=== PATIENT | male | born 1935 | race Caucasian/White ===

== ENCOUNTER 2017-07-18 09:45 | Outpatient (RCR) | payer MEDICARE, OTHER, SELFPAY ==
--- NOTE | 2017-07-02 11:03 | PT.OTN ---
Addendum entered and electronically signed by Uyen Lockhart, PT 07/02/17 15:23: Transition note: On July 02, 2017 our therapy services consisting of Speech, Occupational, and Physical Therapy transitioned from the [employer] electronic documentation system to a new [employer] electronic documentation system.?? All documentation prior to July 02 can be found under [employer] saved data. From July 02 forward all medical record documentation will be in [email or web address]. Original Note: Physical Therapy Treatment Note PT-OP-A Visit Information Start: 07/02/17 10:24 Freq: Status: Active Protocol: Activity Type Activity Date Activity User E-Sign Co-Sign Detail Recorded Client Recorded Date Recorded By Document 07/02/17 10:26 [facility] [id number] 07/02/17 10:53 [facility] 07/02/17 10:26 Out-Patient Physical Therapy Visit Information [Visit Information] -Visit Type Treatment Note -Visit Start Time 09:45 -Visit Stop Time 10:32 -Total Visit Minutes 47 -Visit Number 6 -Number of BRANCH SERVICE LEADER Visits 0 [Evaluation Information] -Evaluation Date 06/04/17 PT-OP-C Subjective Start: 07/02/17 10:24 Freq: Status: Active Protocol: Activity Type Activity Date Activity User E-Sign Co-Sign Detail Recorded Client Recorded Date Recorded By Document 07/02/17 10:26 [facility] [id number] 07/02/17 10:53 [facility] 07/02/17 10:26 OP-PT Subjective [Patient Comments] -Patient Comments My hip really hurt after last time, I had to sit in the waiting room drinking coffee while waiting for the pain to go down, but I don't really know why. -Patient Reported Progress Same PT-OP-Q Treatments Start: 07/02/17 10:24 Freq: Status: Active Protocol: Activity Type Activity Date Activity User E-Sign Co-Sign Detail Recorded Client Recorded Date Recorded By Document 07/02/17 10:26 [facility] [id number] 07/02/17 10:53 [facility] 07/02/17 10:26 Cardio Equipment [Upper Body Ergometer (UBE)] -Duration (Minutes) 5 -RPM 60 -Other Fwd/Bkwd Gym Equipment [Shuttle Recovery] Unilateral Squats -Resistance 50# -Shuttle Recovery Platform Stable -Reps/Time 5 Bilateral Squats -Resistance 50# -Shuttle Recovery Platform Stable -Reps/Time 5 Therapeutic Exercises [Sitting Exercises] 2 -Sitting Exercise Name Pulleys - Abduction -Side bilateral -Equipment Used Pulleys -Reps/Minutes 3 1 -Sitting Exercise Name Pulleys - Flexion -Side bilateral -Equipment Used Pulleys -Reps/Minutes 3 [Standing Exercises] 2 -Standing Exercise Name Resisted UE Side-stepping at rail -Side bilateral -Resistance Yellow -Equipment Used T-band -Reps/Minutes 3 -Comments T-band at wrists 1 -Standing Exercise Name Resisted Side- stepping at Rail -Side bilateral -Resistance Yellow -Equipment Used T-band -Reps/Minutes 3 -Comments T-band around ankles Manual Therapy Treatment [Soft Tissue Mobilization] 2 -Body Location ITB -Intensity/Depth Moderate -Body Position Sidelying 1 -Body Location Piriformis -Mobilization Type Cross-Friction -Intensity/Depth Deep -Body Position Sidelying PT-OP-R Modalities Start: 07/02/17 10:24 Freq: Status: Active Protocol: Activity Type Activity Date Activity User E-Sign Co-Sign Detail Recorded Client Recorded Date Recorded By Document 07/02/17 10:26 [facility] [id number] 07/02/17 10:53 [facility] 07/02/17 10:26 Electric Stimulation [Electric Stimulation] Interferential Current (IFC) -Body Location R hip -Duration (Minutes) 15 -Intensity 33 -Contraction Type Normal -Target/Sweep Sweep -Cycle Continuous -Patient Position Supine -Combined With Heat/Cold Cold Pack PT-OP-T Assessment and Plan Start: 07/02/17 10:24 Freq: Status: Active Protocol: Activity Type Activity Date Activity User E-Sign Co-Sign Detail Recorded Client Recorded Date Recorded By Document 07/02/17 10:26 [id number] 07/02/17 10:53 [facility] 07/02/17 10:26 Physical Therapy Assessment [Rehab Potential] -Rehabilitation Potential Good [Impairments] -Impairments Pain ROM Soft Tissue Mobility Strength Tone [Assessment Summary] -Assessment Pt feeling better today after increased soreness following his last visit. He felt use of the Iontophoresis treatment last week did not make any difference. Continue current plan for increased flexibility/ROM , hip strengthening, decreased muscle tone, and pain control Physical Therapy Plan [Frequency and Duration] -Frequency of Treatment 2x/Week -Plan of Care Start Date 06/04/17 -Plan of Care End Date 08/26/17 [Therapeutic Interventions] -Therapeutic Interventions Home Exercise Program Joint Mobilizations Manual Therapy Soft Tissue Mobilization Therapeutic Activities Therapeutic Exercises -Modalities Cold Pack/Ice Massage Electric Stimulation Hot Packs Iontophoresis Ultrasound [Next Visit Focus/Plan] -Next Visit Plan Continued current POC Current Diagnoses Pain in left shoulder (07/02/17) Pain in right hip (07/02/17) Stiffness of right hip, not elsewhere classified (07/02/17) Impingement syndrome of left shoulder (07/02/17) Other shoulder lesions, left shoulder (07/02/17) Weakness (07/02/17) Strain of muscle, fascia and tendon of the posterior muscle group at thigh level, right thigh, subsequent encounter (07/02/17)
--- NOTE | 2017-07-04 13:08 | PT.OTN ---
Current Diagnoses Pain in left shoulder (07/04/17) Pain in right hip (07/04/17) Stiffness of right hip, not elsewhere classified (07/04/17) Impingement syndrome of left shoulder (07/04/17) Other shoulder lesions, left shoulder (07/04/17) Weakness (07/04/17) Strain of muscle, fascia and tendon of the posterior muscle group at thigh level, right thigh, subsequent encounter (07/04/17) Physical Therapy Treatment Note PT-OP-A Visit Information Start: 07/02/17 10:24 Freq: Status: Active Protocol: Activity Type Activity Date Activity User E-Sign Co-Sign Detail Recorded Client Recorded Date Recorded By Document 07/04/17 09:50 GGD [email or web address] 07/04/17 13:07 GGD 07/04/17 09:50 Out-Patient Physical Therapy Visit Information [Visit Information] -Visit Type Treatment Note -Total Visit Minutes 55 -Visit Number 7/10 for G code -Number of ADMINISTRATION DEAN Visits 1 [Evaluation Information] -Evaluation Date 06/04/17 PT-OP-C Subjective Start: 07/02/17 10:24 Freq: Status: Active Protocol: Activity Type Activity Date Activity User E-Sign Co-Sign Detail Recorded Client Recorded Date Recorded By Document 07/04/17 09:50 GGD [email or web address] 07/04/17 13:07 GGD 07/04/17 09:50 OP-PT Subjective [Patient Comments] -Patient Comments Pt did have increase in hip pain after last visit. His shoulder feels about the same . -Patient Reported Progress Same PT-OP-Q Treatments Start: 07/02/17 10:24 Freq: Status: Active Protocol: Activity Type Activity Date Activity User E-Sign Co-Sign Detail Recorded Client Recorded Date Recorded By Document 07/04/17 09:50 GGD [email or web address] 07/04/17 13:07 GGD 07/04/17 09:50 Cardio Equipment [Upper Body Ergometer (UBE)] -Duration (Minutes) 5 -RPM 60 -Other Fwd/Bkwd Gym Equipment [Shuttle Recovery] Unilateral Squats -Resistance R 50#, L 37# -Shuttle Recovery Platform Stable -Reps/Time 5 Bilateral Squats -Resistance 50# -Shuttle Recovery Platform Stable -Reps/Time 5 Therapeutic Exercises [Sitting Exercises] 2 -Sitting Exercise Name Pulleys - Abduction -Side bilateral -Equipment Used Pulleys -Reps/Minutes 3 1 -Sitting Exercise Name Pulleys - Flexion -Side bilateral -Equipment Used Pulleys -Reps/Minutes 3 [Standing Exercises] 2 -Standing Exercise Name Resisted UE Side-stepping at rail -Side bilateral -Resistance Yellow -Equipment Used T-band -Reps/Minutes 3 -Comments T-band at wrists Gait Training [Gait Activity] 1 -Description Stairs -Level of Assistance SBA -Surface 4 in and 6 in -Distance/Duration 4 -Comments reciprocal to ascend and side step to decend Manual Therapy Treatment [Soft Tissue Mobilization] 2 -Body Location ITB -Intensity/Depth Moderate -Body Position Sidelying 1 -Body Location Piriformis -Mobilization Type Cross-Friction -Intensity/Depth Deep -Body Position Sidelying PT-OP-R Modalities Start: 07/02/17 10:24 Freq: Status: Active Protocol: Activity Type Activity Date Activity User E-Sign Co-Sign Detail Recorded Client Recorded Date Recorded By Document 07/04/17 09:50 GGD [email or web address] 07/04/17 13:07 GGD 07/04/17 09:50 Electric Stimulation [Electric Stimulation] Interferential Current (IFC) -Body Location R hip -Duration (Minutes) 15 -Contraction Type Normal -Target/Sweep Sweep -Cycle Continuous -Patient Position Supine -Combined With Heat/Cold Cold Pack Hot Pack/Cold Pack [Treatment] Cold Pack -Location left shoulder -Patient Position Hooklying -Treatment Duration (minutes) 15 -Patient Tolerance Good PT-OP-T Assessment and Plan Start: 07/02/17 10:24 Freq: Status: Active Protocol: Activity Type Activity Date Activity User E-Sign Co-Sign Detail Recorded Client Recorded Date Recorded By Document 07/04/17 09:50 GGD [email or web address] 07/04/17 13:07 GGD 07/04/17 09:50 Physical Therapy Assessment [Assessment Summary] -Assessment Pt improving slowly with shoulder ROM. He had better tolerance to Left single leg squats at a lower weight and decrease C/ O knee pain. Physical Therapy Plan [Frequency and Duration] -Frequency of Treatment 2x/Week -Plan of Care Start Date 06/04/17 -Plan of Care End Date 08/26/17 [Next Visit Focus/Plan] -Next Visit Plan Continued under current Plan of care. Progress UE strengthening, step up and step downs for strengthening
--- NOTE | 2017-07-11 11:12 | PT.OTN ---
Current Diagnoses Pain in left shoulder (07/11/17) Pain in right hip (07/11/17) Stiffness of right hip, not elsewhere classified (07/11/17) Impingement syndrome of left shoulder (07/11/17) Other shoulder lesions, left shoulder (07/11/17) Weakness (07/11/17) Strain of muscle, fascia and tendon of the posterior muscle group at thigh level, right thigh, subsequent encounter (07/11/17) Physical Therapy Treatment Note PT-OP-A Visit Information Start: 07/02/17 10:24 Freq: Status: Active Protocol: Document 07/11/17 09:45 DCW (Rec: 07/11/17 11:12 DCW [id number]) Out-Patient Physical Therapy Visit Information Visit Information Visit Type Treatment Note Total Visit Minutes 55 Visit Number 8 Number of HYDROPULPER OPERATOR Visits 0 Evaluation Information Evaluation Date 06/04/17 PT-OP-C Subjective Start: 07/02/17 10:24 Freq: Status: Active Protocol: Document 07/11/17 09:45 DCW (Rec: 07/11/17 11:12 DCW [id number]) OP-PT Subjective Patient Comments Patient Comments I'm doing good, by my right knee is not. Pt does note his shoulder is a bit better. Patient Reported Progress Same PT-OP-Q Treatments Start: 07/02/17 10:24 Freq: Status: Active Protocol: Document 07/11/17 09:45 DCW (Rec: 07/11/17 11:12 DCW [id number]) Cardio Equipment Upper Body Ergometer (UBE) Duration (Minutes) 5 RPM 60 Other Fwd/Bkwd Gym Equipment Shuttle Recovery Unilateral Squats Resistance 37# Shuttle Recovery Platform Stable Reps/Time 5 Bilateral Squats Resistance 50# Shuttle Recovery Platform Stable Reps/Time 5 Therapeutic Exercises Sitting Exercises 2 Sitting Exercise Name Pulleys - Abduction Side bilateral Equipment Used Pulleys Reps/Minutes 3 1 Sitting Exercise Name Pulleys - Flexion Side bilateral Equipment Used Pulleys Reps/Minutes 3 Standing Exercises 2 Standing Exercise Name Resisted UE Side-stepping at rail Side bilateral Resistance Yellow Equipment Used T-band Reps/Minutes 3 Comments T-band at wrists 1 Standing Exercise Name Resisted Side-stepping at Rail Side bilateral Resistance Yellow Equipment Used T-band Reps/Minutes 3 Comments T-band around ankles Manual Therapy Treatment Soft Tissue Mobilization 2 Body Location ITB Intensity/Depth Moderate Body Position Sidelying 1 Body Location Piriformis Mobilization Type Cross-Friction Intensity/Depth Deep Body Position Sidelying PT-OP-R Modalities Start: 07/02/17 10:24 Freq: Status: Active Protocol: Document 07/11/17 09:45 DCW (Rec: 07/11/17 11:12 DCW [id number]) Electric Stimulation Electric Stimulation Interferential Current (IFC) Body Location R hip Duration (Minutes) 15 Contraction Type Normal Target/Sweep Sweep Cycle Continuous Patient Position Supine Combined With Heat/Cold Cold Pack Hot Pack/Cold Pack Treatment Cold Pack Location left shoulder Patient Position Hooklying Treatment Duration (minutes) 15 Patient Tolerance Good PT-OP-T Assessment and Plan Start: 07/02/17 10:24 Freq: Status: Active Protocol: Document 07/11/17 09:45 DCW (Rec: 07/11/17 11:12 DCW [id number]) Physical Therapy Assessment Rehab Potential Rehabilitation Potential Good Impairments Impairments Pain ROM Soft Tissue Mobility Strength Tone Assessment Summary Assessment Increased complaints of bilateral knee pain today, but noted improvement in his shoulder pain levels and mobility. Pt better tolerated manual intervention on his hip . Physical Therapy Plan Frequency and Duration Frequency of Treatment 2x/Week Plan of Care Start Date 06/04/17 Plan of Care End Date 08/26/17 Therapeutic Interventions Therapeutic Interventions Home Exercise Program Joint Mobilizations Manual Therapy Soft Tissue Mobilization Therapeutic Activities Therapeutic Exercises Modalities Cold Pack/Ice Massage Electric Stimulation Hot Packs Iontophoresis Ultrasound Next Visit Focus/Plan Next Visit Plan Progress step-ups if knees are better next week, continue strengthening, ROM, and manual STM.
--- NOTE | 2017-07-18 17:20 | PT.OTN ---
Current Diagnoses Pain in left shoulder (07/18/17) Pain in right hip (07/18/17) Stiffness of right hip, not elsewhere classified (07/18/17) Impingement syndrome of left shoulder (07/18/17) Other shoulder lesions, left shoulder (07/18/17) Weakness (07/18/17) Strain of muscle, fascia and tendon of the posterior muscle group at thigh level, right thigh, subsequent encounter (07/18/17) Physical Therapy Treatment Note PT-OP-A Visit Information Start: 07/02/17 10:24 Freq: Status: Active Protocol: Document 07/18/17 17:14 GGD (Rec: 07/18/17 17:20 GGD [email or web address]) Out-Patient Physical Therapy Visit Information Visit Information Visit Type Treatment Note Visit Start Time 09:45 Visit Stop Time 10:40 Total Visit Minutes 55 Visit Number 11/11 Number of ENVIRONMENTAL SERVICES MANAGER Visits 1 Evaluation Information Evaluation Date 06/04/17 PT-OP-C Subjective Start: 07/02/17 10:24 Freq: Status: Active Protocol: Document 07/18/17 17:14 GGD (Rec: 07/18/17 17:20 GGD [email or web address]) OP-PT Subjective Patient Comments Patient Comments Pt states that he was sore all over after cleaning out his pond. PT-OP-Q Treatments Start: 07/02/17 10:24 Freq: Status: Active Protocol: Document 07/18/17 17:14 GGD (Rec: 07/18/17 17:20 GGD [email or web address]) Gym Equipment Shuttle Recovery Unilateral Squats Resistance 37# Shuttle Recovery Platform Stable Reps/Time 5 Bilateral Squats Resistance 62# Shuttle Recovery Platform Stable Reps/Time 5 Therapeutic Exercises Sitting Exercises 2 Sitting Exercise Name Pulleys - Abduction Side bilateral Equipment Used Pulleys Reps/Minutes 3 1 Sitting Exercise Name Pulleys - Flexion Side bilateral Equipment Used Pulleys Reps/Minutes 3 Standing Exercises 3 Standing Exercise Name Step ups Side bilateral Resistance 4 in step Reps/Minutes 10 2 Standing Exercise Name Resisted UE Side-stepping at rail Side bilateral Resistance Yellow Equipment Used T-band Reps/Minutes 3 Comments T-band at wrists 1 Standing Exercise Name Resisted Side-stepping at Rail Side bilateral Resistance Yellow Equipment Used T-band Reps/Minutes 3 Comments T-band around ankles Manual Therapy Treatment Soft Tissue Mobilization 2 Body Location ITB Intensity/Depth Moderate Body Position Sidelying 1 Body Location Piriformis Mobilization Type Cross-Friction Intensity/Depth Deep Body Position Sidelying PT-OP-R Modalities Start: 07/02/17 10:24 Freq: Status: Active Protocol: Document 07/18/17 17:14 GGD (Rec: 07/18/17 17:20 GGD [email or web address]) Electric Stimulation Electric Stimulation Interferential Current (IFC) Body Location R hip Duration (Minutes) 15 Contraction Type Normal Target/Sweep Sweep Cycle Continuous Patient Position Supine Combined With Heat/Cold Cold Pack Hot Pack/Cold Pack Treatment Cold Pack Location left shoulder Patient Position Hooklying Treatment Duration (minutes) 15 Patient Tolerance Good PT-OP-T Assessment and Plan Start: 07/02/17 10:24 Freq: Status: Active Protocol: Document 07/18/17 17:14 GGD (Rec: 07/18/17 17:20 GGD [email or web address]) Physical Therapy Assessment Assessment Summary Assessment PT improved tolerance to LE strengthening with decrease in c/o knee pain. Physical Therapy Plan Frequency and Duration Frequency of Treatment 2x/Week Plan of Care Start Date 06/04/17 Plan of Care End Date 08/26/17 Next Visit Focus/Plan Next Visit Plan Continued under current Plan of care. Progress UE strengthening.
--- NOTE | 2017-09-05 12:30 | PT.OPDS ---
Current Diagnoses Pain in left shoulder (07/18/17) Pain in right hip (07/18/17) Stiffness of right hip, not elsewhere classified (07/18/17) Impingement syndrome of left shoulder (07/18/17) Other shoulder lesions, left shoulder (07/18/17) Weakness (07/18/17) Strain of muscle, fascia and tendon of the posterior muscle group at thigh level, right thigh, subsequent encounter (07/18/17) Provider Visit Care Team Role Provider Type Douglas Turner MD Attending Provider Physician Family Provider Primary Care Provider Specialty: Family Practice Address: [address] [place] [address], [facility] Email: [email or web address] Visit Number Visit Number 11/11 Discharge Summary PT-OP-T Assessment and Plan Start: 07/02/17 10:24 Freq: Status: Active Protocol: Document 09/05/17 12:26 DCW (Rec: 09/05/17 12:29 DCW [id number]) Physical Therapy Assessment Assessment Summary Assessment Pt never scheduled any follow- up visits following his last visit on 07/18/17, and has now not been seen in 47 days. Pt will require a new referral in order to return to skilled therapy, and will be discharged at this time. G-codes: Goal: G8982 - CI 1-20% D/C: G8983 - CJ 20-40% Physical Therapy Plan Discharge Physical Therapy Discharge Reasons No Longer Attending PT
== END 2017-12-12 12:03 ==
LOC: PHYS 09:45
PROVIDERS: Family Provider Family Medicine; PCP Family Medicine; Visit Provider Family Medicine
DX: M75.82 Other shoulder lesions, left shoulder (principal); M75.42 Impingement syndrome of left shoulder; M25.512 Pain in left shoulder; R53.1 Weakness; S76.311D Strain of muscle, fascia and tendon of the posterior muscle group at thigh level, right thigh, subsequent encounter; M25.551 Pain in right hip; M25.651 Stiffness of right hip, not elsewhere classified
CPT/HCPCS: 97010; 97014; 97110; 97140; G0283

== ENCOUNTER → 2017-12-06 08:57 | Outpatient (CLI) | payer MEDICARE, OTHER, SELFPAY ==
[2017-12-06 09:41] LABS: Add Manual Diff / Slide Review NO; Basophils Percent Auto 0.9 % (0-2); Eosinophils Percent Auto 2.4 % (2-4); Hematocrit 39.3 % (41-53); Hemoglobin 13.4 g/dL (13.5-17.5); Lymphocytes Percent Auto 27.3 % (25-40); Mean Corpuscular HGB Conc 34.2 % (30-36); Mean Corpuscular Hemoglobin 34.6 PG (26-34); Mean Corpuscular Volume 101.1 fL (80-100); Monocytes Percent Auto 10.6 % (3-14); Neutrophils Absolute Auto 2800 /uL (3000-5900); Neutrophils Percent Auto 58.8 % (50-75); Platelet Count 207 X10^3/uL (150-400); Red Blood Cell Count 3.89 X10^6/uL (4.5-5.9); White Blood Cell Count 4.7 X10^3/uL (4.5-11.0)
[2017-12-06 09:49] LABS: Hemoglobin A1C% w Est Avg Glu 5.8 % (4.0-6.0)
[2017-12-06 10:01] LABS: Alanine Aminotransferase 36 IU/L (21-72); Albumin 3.8 g/dL (3.5-5.0); Albumin Globulin Ratio 1.3 (1.0-2.8); Alkaline Phosphatase 41 U/L (38-126); Aspartate Aminotransferase 31 IU/L (17-59); Bilirubin Total 0.7 mg/dL (0.2-1.3); Blood Urea Nitrogen 16 mg/dL (9-20); Calcium 9.3 mg/dL (8.4-10.2); Carbon Dioxide 29 mmol/L (22-32); Chloride 99 mmol/L (98-107); Cholesterol 130 mg/dL (140-199); Estimated Glomerular Filt Rate > 60.0 mL/min (>60); Glucose 114 mg/dL (80-110); HDL Cholesterol 48 mg/dL (40-60); HEMOLYSIS < 15 (0-50); LDL Cholesterol Calculated 72 mg/dL (<100); Sodium 137 mmol/L (137-145); Total Protein 6.8 g/dL (6.3-8.2); Triglycerides 50 mg/dL (35-150)
[2017-12-06 10:29] LABS: Prostate Specific Antigen 0.318 ng/mL (0.10-4.00)
== END ==
PROVIDERS: PCP Family Medicine; Visit Provider Family Medicine
DX: E03.9 Hypothyroidism, unspecified (principal); E11.9 Type 2 diabetes mellitus without complications; E78.5 Hyperlipidemia, unspecified; I10 Essential (primary) hypertension
CPT/HCPCS: 36415; 80053; 80061; 83036; 84153; 84443; 85025

== ENCOUNTER → 2018-09-12 08:22 | Outpatient (CLI) | payer MEDICARE, OTHER, SELFPAY ==
[2018-09-12 08:58] LABS: Add Manual Diff / Slide Review NO; Basophils Absolute Auto 100 /uL (0-100); Basophils Percent Auto 1.3 % (0-2); Eosinophils Absolute Auto 200 /uL (0-450); Hematocrit 41.7 % (41-53); Lymphocytes Absolute Auto 2200 /uL (1100-4500); Lymphocytes Percent Auto 36.4 % (25-40); Mean Corpuscular HGB Conc 33.5 % (30-36); Mean Corpuscular Hemoglobin 33.6 PG (26-34); Mean Corpuscular Volume 100.3 fL (80-100); Monocytes Absolute Auto 600 /uL (0-900); Monocytes Percent Auto 10.3 % (3-14); Neutrophils Absolute Auto 3000 /uL (1500-7000); Platelet Count 206 X10^3/uL (150-400); Red Blood Cell Count 4.15 X10^6/uL (4.5-5.9); Red Cell Distribution Width 14.6 % (11.6-14.8)
[2018-09-12 09:25] LABS: Hemoglobin A1C% w Est Avg Glu 5.7 % (4.0-6.0)
[2018-09-12 10:18] LABS: Alanine Aminotransferase 31 IU/L (21-72); Albumin 3.8 g/dL (3.5-5.0); Albumin Globulin Ratio 1.3 (1.0-2.8); Alkaline Phosphatase 51 U/L (38-126); Aspartate Aminotransferase 26 IU/L (17-59); Bilirubin Total 0.7 mg/dL (0.2-1.3); Blood Urea Nitrogen 16 mg/dL (9-20); Calcium 9.7 mg/dL (8.4-10.2); Carbon Dioxide 27 mmol/L (22-32); Chloride 101 mmol/L (98-107); Estimated Glomerular Filt Rate > 60.0 mL/min (>60); Glucose 108 mg/dL (80-110); HEMOLYSIS < 15 (0-50); Potassium 4.6 mmol/L (3.4-5.1); Sodium 137 mmol/L (137-145); Total Protein 6.8 g/dL (6.3-8.2)
== END ==
PROVIDERS: PCP Family Medicine; Visit Provider Family Medicine
DX: E11.9 Type 2 diabetes mellitus without complications (principal); I10 Essential (primary) hypertension
CPT/HCPCS: 36415; 80053; 83036; 85025

== ENCOUNTER 2018-10-11 10:01 | Emergency (ER) | payer MEDICARE, OTHER, SELFPAY ==
[2018-10-11 10:13] VITALS: PULSE 61; RESP 16; O2SAT 95
[2018-10-11] MEDS: ALBUTEROL/IPRATROPIUM 3 ML AMPUL INH (10:13)
[2018-10-11 10:22] VITALS: BP 124/60; PULSE 61; RESP 16; O2SAT 95
--- NOTE | 2018-10-11 10:26 | ED_ITS ---
HPI - SOB/Dyspnea General Chief Complaint: Shortness of Breath/Dyspnea Stated Complaint: problems breathing Time Seen by Provider: 10/11/18 10:02 Source: patient and family Mode of arrival: ambulatory Limitations: no limitations History of Present Illness 83-year-old male former smoker with end-stage COPD and baseline pulse ox of 91% presents with his in the chief complaint of slowly worsening respiratory status with cough and difficulty breathing. His symptoms are worse with exertion. He has no complaint of orthopnea or swelling in his extremities. He denies any chest pain. He denies fever. He is not dizzy nor weak or ligh theaded. He denies nausea or vomiting. He denies any increased use of his bronchodilators at home. MD Complaint: shortness of breath and cough Onset (ago): day(s) Severity: mild Consistency/Duration: constant Relieving factors: rest Exacerbating factors: exertion Known history of: COPD Associated symptoms: cough, wheezing and sputum production Treatment prior to arrival: bronchodilator Related Data Home oxygen amount: none Home Medications Medication Instructions Recorded Confirmed Calcium/Vitamin D (#CALCIUM + D 2 tab PO QDAY #0 04/20/11 09/17/18 600 MG-200 IU) PEG-400/PROPYLENE GLYCOL (SYSTANE 1 thaddeus OP PRN #0 04/20/11 09/17/18 LUBRICANT EYE DROPS 0.4%/0.3%) Previous Rx's Medication Instructions Recorded allopurinol 300 mg tablet 300 mg PO QDAY #90 tab 11/21/17 diltiazem CD 180 mg 180 mg PO QDAY #90 cap 11/21/17 capsule,extended release 24 hr doxazosin 4 mg tablet 4 mg PO HS #90 tab 11/21/17 fluticasone propionate 220 2 puff INHALATION BID #3 inhalation 11/21/17 mcg/actuation HFA aerosol inhaler furosemide 40 mg tablet 40 mg PO QDAY #90 tab 11/21/17 levothyroxine 150 mcg tablet 150 mcg PO QDAY@0600 #90 tab 11/21/17 metformin 500 mg tablet 500 mg PO QDAY #90 tab 11/21/17 omeprazole 20 mg capsule,delayed 20 mg PO QDAY #90 cap 11/21/17 release paroxetine 20 mg tablet 20 mg PO QDAY #90 tab 11/21/17 potassium chloride ER 20 mEq 20 meq PO QDAY #90 ter 11/21/17 tablet,extended release(part/cryst) telmisartan 40 mg tablet 40 mg PO QDAY #90 tab 11/21/17 albuterol sulfate HFA 90 2 puff INHALATION Q6H PRN #8.5 gram 09/09/18 mcg/actuation aerosol inhaler dabigatran etexilate 150 mg capsule 150 mg PO BID #180 tab 09/09/18 oxycodone-acetaminophen 5 mg-325 1 tab PO .qd PRN #30 tab 09/09/18 mg tablet simvastatin 10 mg tablet 10 mg PO HS #90 tab 09/09/18 doxycycline hyclate 100 mg PO BID #20 tab 10/11/18 prednisone 20 mg PO DAILY #5 tab 10/11/18 Allergies Allergy/AdvReac Type Severity Reaction Status Date / Time No Known Allergies Allergy Uncoded 09/17/18 13:20 Review of Systems Constitutional Denies chills, Denies fever(s), Denies lethargy and Denies weakness Eyes Denies change in vision, Denies eye discharge, Denies irritation and Denies loss of vision ENT Ears, Nose, Mouth, and Throat: Denies change in voice, Denies neck pain and Denies sore throat Cardiovascular Denies chest pain, Denies irregular heart rhythm, Denies lightheadedness, Denies palpitations, Reports dyspnea, Reports dyspnea on exertion and Denies orthopnea Respiratory Reports cough, Reports excessive phlegm production, Reports dyspnea, Reports dyspnea on exertion and Reports wheezing Gastrointestinal Gastrointestinal: Denies abdominal pain, Denies change in bowel habits, Denies diarrhea, Denies nausea and Denies vomiting Genitourinary Denies hematuria, Denies flank pain, Denies urinary incontinence and Denies urinary urgency Musculoskeletal Denies neck pain Integumentary/Breasts Denies pruritus, Denies erythema, Denies rash and Denies wounds Neurologic Denies confusion, Denies loss of vision and Denies weakness Psychiatric Denies anxiety, Denies confusion, Denies depression, Denies homicidal ideation and Denies suicidal ideation Endocrine Denies palpitations Hematologic/Lymphatic Denies easy bruising Allergic/Immunologic Reports wheezing PFSH Medical History Diabetes (Chronic) Ventral hernia (Chronic) Morbid obesity (Chronic 11/14/10) Obstructive sleep apnea syndrome (Chronic 11/14/10) Controlled type 2 diabetes mellitus (Chronic ~2010) Hyperlipidemia (Chronic) Essential hypertension (Chronic ~1994) Gout (Chronic 08/29/12) Chronic atrial fibrillation (Chronic 03/12/13) Osteoarthritis (Chronic 03/12/13) 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) Bundle branch block (Chronic 03/12/13) Hypothyroidism (Chronic 07/03/13) Moderate COPD (chronic obstructive pulmonary disease) (Chronic 09/21/15) Arthritis (Chronic ~1999) Cardiac arrhythmia (Chronic ~2011) Carpal tunnel syndrome (Chronic ~1988) Chronic back pain (Chronic ~2009) Chronically dry eyes (Chronic ~2008) Sigmoid diverticulitis (Chronic ~2001) Surgical History Anesthesia (Resolved) History of arthroplasty (Resolved ~2011) History of flexible sigmoidoscopy (Resolved ~2001) History of surgery (Resolved ~2012) History of surgery (Resolved ~2012) Pilonidal cyst (Resolved ~1998) History of cataract removal with insertion of prosthetic lens (~2006) History of cataract removal with insertion of prosthetic lens (~2008) Status post hemorrhoidectomy (~2006) Status post hernia repair (~1997) Status post hernia repair (~1999) Status post hernia repair (~2003) Status post hernia repair (~2012) Family History Grandfather Heart disease Grandmother Stroke Mother Heart disease Father No problems noted. Social History marital status: Smoking Status: Former smoker alcohol intake: current substance use type: does not use Family History Grandfather Heart disease Grandmother Stroke Mother Heart disease Father No problems noted. Social History marital status: Smoking Status: Former smoker alcohol intake: current substance use type: does not use Exam Narrative Exam Narrative: GENERAL: 83-year-old male patient appears stated age, overweight with chronic disease and mild distress HEAD: Atraumatic. Normocephalic. No temporal or scalp tenderness. EYES: Pupils equal round and reactive. Extraocular motions intact. No scleral icterus. No injection or drainage. ENT: Nose without bleeding, purulent drainage or septal hematoma. Throat without erythema, tonsillar hypertrophy or exudate. Uvula midline. Airway patent. NECK: Trachea midline. No JVD or lymphadenopathy. Supple, nontender, no meningeal signs. CARDIOVASCULAR: Regular rate and rhythm without murmurs, gallops, or rubs. RESPIRATORY: Decreased breath sounds throughout with prolonged expiratory phase and mild expiratory wheeze ABD: Soft, non tender EXTREMITIES: No clubbing, cyanosis, or edema. No joint tenderness, effusion, or edema noted. BACK: Nontender without deformity or crepitance. No flank tenderness. NEURO: AOx3. SKIN: No rash or erythema of exposed areas Initial Vital Signs Initial Vital Signs: Vital Signs Pulse Rate 61 10/11/18 10:13 Respiratory Rate 16 10/11/18 10:13 Pulse Oximetry 95 10/11/18 10:13 Scores ABCD2 Citation: CURB-65 Score for Pneumonia Severity from [employer] on 10/11/2018 All calculations should be rechecked by clinician prior to use RESULT SUMMARY: 1 points Low risk group: 2.7% 30-day mortality. Consider outpatient treatment. INPUTS: Confusion ?> 0 = No BUN > 19 mg/dL (> 7 mmol/L) ?> 0 = No Respiratory Rate ? 30 ?> 0 = No Systolic BP ?> 0 = No Age ? 67 ?> 1 = Yes Course Orders Ordered: Discontinued Medications Albuterol/Ipratropium (Duoneb) 3 ml INH NOW ONE Stop: 10/11/18 10:13 Last Admin: 10/11/18 10:13 Dose: 3 ml Albuterol/Ipratropium (Duoneb) 3 ml INH NOW ONE Stop: 10/11/18 10:24 Methylprednisolone (Solu-Medrol 125 Mg Vial) 125 mg IV NOW ONE Stop: 10/11/18 10:24 Last Admin: 10/11/18 10:44 Dose: 125 mg Reevaluation(s) Reevaluation #1: Notable improvement after above-stated therapies Vital Signs - 8 hr 10/11/18 10:13 10/11/18 10:22 10/11/18 10:30 Pulse Rate 61 61 79 Respiratory Rate 16 16 17 Blood Pressure 124/60 Blood Pressure [Left Arm] 123/70 Pulse Oximetry 95 95 95 10/11/18 11:30 Pulse Rate 68 Respiratory Rate 16 Blood Pressure Blood Pressure [Left Arm] 120/68 Pulse Oximetry 92 MDM - SOB/Dyspnea Lab Data Result diagrams: 10/11/18 10:15 10/11/18 10:15 Lab Results 10/11/18 10/11/18 10/11/18 Range/Units 10:15 10:15 10:15 WBC 15.3 H (4.5-11.0) X10^3/uL RBC 4.21 L (4.5-5.9) X10^6/uL Hgb 14.0 (13.5-17.5) g/dL Hct 41.9 (41-53) % MCV 99.7 (80-100) fL MCH 33.4 (26-34) PG MCHC 33.5 (30-36) % RDW 14.0 (11.6-14.8) % Plt Count 194 (150-400) X10^3/uL Neut % (Auto) 82.2 H (50-75) % Lymph % (Auto) 10.5 L (25-40) % [place] % (Auto) 6.1 (3-14) % Eos % (Auto) 0.8 L (2-4) % Baso % (Auto) 0.4 (0-2) % Neut # (Auto) 57965 H (6279-1111) /uL Lymph # (Auto) 1600 (4856-3336) /uL [place] # (Auto) 900 (0-900) /uL Eos # (Auto) 100 (0-450) /uL Baso # (Auto) 100 (0-100) /uL Sodium 134 L (137-145) mmol/L Potassium 4.3 (3.4-5.1) mmol/L Chloride 99 (98-107) mmol/L Carbon Dioxide 26 (22-32) mmol/L BUN 12 (9-20) mg/dL Creatinine 0.80 (0.66-1.25) mg/dL Estimated GFR > 60.0 (>60) mL/min BUN/Creatinine Ratio 15.0 (6-22) Glucose 115 H (80-110) mg/dL Lactate (0.7-2.1) mmol/L Calcium 9.5 (8.4-10.2) mg/dL Magnesium 1.9 (1.6-2.3) mg/dL Total Creatine Kinase 105 (55-170) U/L CK-MB (CK-2) 0.92 (<2.37) ng/mL CK-MB (CK-2) Rel Index 0.9 L (1.5-5.0) % Troponin I < 0.012 (0.01-0.034) ng/mL B-Natriuretic Peptide 225 H (<100) Procalcitonin < 0.05 (<0.5) ng/mL 10/11/18 Range/Units 10:15 WBC (4.5-11.0) X10^3/uL RBC (4.5-5.9) X10^6/uL Hgb (13.5-17.5) g/dL Hct (41-53) % MCV (80-100) fL MCH (26-34) PG MCHC (30-36) % RDW (11.6-14.8) % Plt Count (150-400) X10^3/uL Neut % (Auto) (50-75) % Lymph % (Auto) (25-40) % [place] % (Auto) (3-14) % Eos % (Auto) (2-4) % Baso % (Auto) (0-2) % Neut # (Auto) (0599-6761) /uL Lymph # (Auto) (3694-2553) /uL [place] # (Auto) (0-900) /uL Eos # (Auto) (0-450) /uL Baso # (Auto) (0-100) /uL Sodium (137-145) mmol/L Potassium (3.4-5.1) mmol/L Chloride (98-107) mmol/L Carbon Dioxide (22-32) mmol/L BUN (9-20) mg/dL Creatinine (0.66-1.25) mg/dL Estimated GFR (>60) mL/min BUN/Creatinine Ratio (6-22) Glucose (80-110) mg/dL Lactate 1.4 (0.7-2.1) mmol/L Calcium (8.4-10.2) mg/dL Magnesium (1.6-2.3) mg/dL Total Creatine Kinase (55-170) U/L CK-MB (CK-2) (<2.37) ng/mL CK-MB (CK-2) Rel Index (1.5-5.0) % Troponin I (0.01-0.034) ng/mL B-Natriuretic Peptide (<100) Procalcitonin (<0.5) ng/mL Imaging Data Chest x-ray: Radiologist's impression: Eitan Vasquez 83 M [address] [address] XRay Report Signed Patient: Eitan Vasquez HMR#: [id number] : 1935cct:[id number] Age/Sex: 83 / MDate of Service: 10/11/18 Loc: ED Accession Number: [id number] Procedure: XR chest 2V Ordering Provider: Joseph Fleming D.O. PROCEDURE: XR CHEST 2V INDICATIONS: SOB, cough TECHNIQUE: 2 views of the chest were acquired. COMPARISON: [facility], , CHEST 1 VIEW, 06/08/2016, 6:21. FINDINGS: Surgical changes and devices: Postoperative changes of the right shoulder are present. Lungs and pleura: Mildly prominent perihilar interstitial markings are identified. There is increased density within the retrocardiac region on the left. No large effusion or definite pneumothorax is appreciated. Mediastinum: Mediastinal contours are normal. Heart size is enlarged. There is aortic atherosclerosis. Bones and chest wall: No suspicious bony abnormalities. Soft tissues appear unremarkable. IMPRESSION: 1. Cardiomegaly with associated mild to vascular congestion/edema. 2. Probable left basilar atelectasis. Clinical correlation to exclude pneumonia is recommended. Dictated by: Dillon Wray M.D. on 10/11/2018 at 10:57 Approved by: Dillon Wray M.D. on 10/11/2018 at 10:[address] [facility] Narrative Medical decision making narrative: Multiple etiologies for patient's symptoms considered including: [Exacerbation of COPD versus pneumonia versus CHF versus other] Patient's symptoms improved or duration of stay with above-stated therapies. Findings and discharge diagnosis discussed with patient/family followed by verbalization of understanding Return precautions discussed with patient/family whom verbalize understanding. Discharge Plan Departure Patient Disposition: Home Clinical Impression: Acute exacerbation of chronic obstructive pulmonary disease (COPD), Pneumonia, CHF (congestive heart failure) Discharge Date/Time: 10/11/18 12:56 Interventions: ED Discharge Assessment Last Done: 10/11/18 12:56 Instructions: Chronic Obstructive Pulmonary Disease, DI for Pneumonia -- Adult Activity Restrictions/Additional Instructions: *You have been diagnosed with [exacerbation of COPD, probable pneumonia] *What to do: *Take medications as directed *Follow up with your primary care provider in 2-3 days, call for an appointment. Let them know you were seen in the Emergency Department and that we ask that you be seen in follow up *Return to ER if you should have any new, worsening or concerning symptoms Prescriptions: New prednisone 20 mg tablet 20 mg PO DAILY Qty: 5 RF: 0 doxycycline hyclate 100 mg tablet 100 mg PO BID Qty: 20 RF: 0 No Action Calcium/Vitamin D (#CALCIUM + D 600 MG-200 IU) 2 tab PO QDAY Qty: 0 RF: 0 PEG-400/PROPYLENE GLYCOL (SYSTANE LUBRICANT EYE DROPS 0.4%/0.3%) 1 thaddeus OP PRN Qty: 0 RF: 0 allopurinol 300 mg tablet 300 mg PO QDAY Qty: 90 RF: 3 diltiazem HCl 180 mg capsule,extended release 24hr 180 mg PO QDAY Qty: 90 RF: 3 doxazosin 4 mg tablet 4 mg PO HS Qty: 90 RF: 3 furosemide 40 mg tablet 40 mg PO QDAY Qty: 90 RF: 3 metformin [Glucophage] 500 mg tablet 500 mg PO QDAY Qty: 90 RF: 3 paroxetine HCl [Paxil] 20 mg tablet 20 mg PO QDAY Qty: 90 RF: 3 potassium chloride [Klor-Con M20] 20 mEq tablet,ER particles/crystals 20 meq PO QDAY Qty: 90 RF: 3 telmisartan [Micardis] 40 mg tablet 40 mg PO QDAY Qty: 90 RF: 3 levothyroxine 150 mcg tablet 150 mcg PO QDAY@0600 Qty: 90 RF: 3 omeprazole 20 mg capsule,delayed release(DR/EC) 20 mg PO QDAY Qty: 90 RF: 3 fluticasone propionate [Flovent HFA] 220 mcg/actuation HFA aerosol inhaler 2 puff INHALATION BID Qty: 3 RF: 4 oxycodone-acetaminophen [Percocet] 5-325 mg tablet 1 tab PO .qd PRN (Reason: PAIN) Qty: 30 RF: 0 Pradaxa 150 mg capsule 150 mg PO BID Qty: 180 RF: 3 simvastatin [Zocor] 10 mg tablet 10 mg PO HS Qty: 90 RF: 3 albuterol sulfate 90 mcg/actuation HFA aerosol inhaler 2 puff INHALATION Q6H PRN (Reason: wheezing) Qty: 8.5 RF: 6 Referrals: Douglas Turner MD [Primary Care Provider] -
[2018-10-11 10:30] VITALS: BP 123/70; PULSE 79; RESP 17; O2SAT 95
[2018-10-11 10:34] LABS: Add Manual Diff / Slide Review NO; Basophils Absolute Auto 100 /uL (0-100); Basophils Percent Auto 0.4 % (0-2); Eosinophils Absolute Auto 100 /uL (0-450); Eosinophils Percent Auto 0.8 % (2-4); Hematocrit 41.9 % (41-53); Lymphocytes Absolute Auto 1600 /uL (1100-4500); Lymphocytes Percent Auto 10.5 % (25-40); Mean Corpuscular HGB Conc 33.5 % (30-36); Mean Corpuscular Hemoglobin 33.4 PG (26-34); Mean Corpuscular Volume 99.7 fL (80-100); Monocytes Absolute Auto 900 /uL (0-900); Monocytes Percent Auto 6.1 % (3-14); Neutrophils Absolute Auto 12600 /uL (1500-7000); Neutrophils Percent Auto 82.2 % (50-75); Platelet Count 194 X10^3/uL (150-400); Red Blood Cell Count 4.21 X10^6/uL (4.5-5.9); White Blood Cell Count 15.3 X10^3/uL (4.5-11.0)
[2018-10-11 10:39] LABS: Blood Urea Nitrogen 12 mg/dL (9-20); Calcium 9.5 mg/dL (8.4-10.2); Carbon Dioxide 26 mmol/L (22-32); Chloride 99 mmol/L (98-107); Creatine Kinase 105 U/L (55-170); Estimated Glomerular Filt Rate > 60.0 mL/min (>60); Glucose 115 mg/dL (80-110); HEMOLYSIS 50 (0-50); Magnesium 1.9 mg/dL (1.6-2.3); Potassium 4.3 mmol/L (3.4-5.1); Sodium 134 mmol/L (137-145)
[2018-10-11 10:40] LABS: Lactate (Lactic Acid) 1.4 mmol/L (0.7-2.1)
[2018-10-11] MEDS: methylPREDNISolone 125 MG/2 ML VIAL IV (10:44)
[2018-10-11 10:51] LABS: Troponin I < 0.012 ng/mL (0.01-0.034)
[2018-10-11 10:54] LABS: CKMB % Relative Index 0.9 % (1.5-5.0); Creatine Kinase MB 0.92 ng/mL (<2.37)
[2018-10-11 10:57] LABS: B Type Natriuretic Peptide 225 (<100); Procalcitonin < 0.05 ng/mL (<0.5)
--- NOTE | 2018-10-11 11:00 | DI.RAD.S_ITS ---
PROCEDURE: XR CHEST 2V INDICATIONS: SOB, cough TECHNIQUE: 2 views of the chest were acquired. COMPARISON: [facility], , CHEST 1 VIEW, 06/08/2016, 6:21. FINDINGS: Surgical changes and devices: Postoperative changes of the right shoulder are present. Lungs and pleura: Mildly prominent perihilar interstitial markings are identified. There is increased density within the retrocardiac region on the left. No large effusion or definite pneumothorax is appreciated. Mediastinum: Mediastinal contours are normal. Heart size is enlarged. There is aortic atherosclerosis. Bones and chest wall: No suspicious bony abnormalities. Soft tissues appear unremarkable. IMPRESSION: 1. Cardiomegaly with associated mild to vascular congestion/edema. 2. Probable left basilar atelectasis. Clinical correlation to exclude pneumonia is recommended. Dictated by: Dillon Wray M.D. on 10/11/2018 at 10:57 Approved by: Dillon Wray M.D. on 10/11/2018 at 10:59
[2018-10-11 11:30] VITALS: BP 120/68; PULSE 68; RESP 16; O2SAT 92
[2018-10-11 12:30] VITALS: PULSE 81; RESP 19; O2SAT 98
== END 2018-10-11 12:56 | disposition home or self-care (01) ==
PROVIDERS: Emergency Provider Emergency Medicine; PCP Family Medicine
DX: J44.1 Chronic obstructive pulmonary disease with (acute) exacerbation (principal); J18.9 Pneumonia, unspecified organism; I50.9 Heart failure, unspecified
CPT/HCPCS: 36591; 71046; 80048; 82550; 82553; 83605; 83735; 83880; 84145; 84484; 85025; 87040; 94640; 96374; 99283; 99284; J2930

== ENCOUNTER → 2019-02-18 12:53 | Outpatient (CLI) | payer MEDICARE, OTHER, SELFPAY ==
--- NOTE | 2019-02-18 12:56 | DI.RAD.S_ITS ---
PROCEDURE: XR HIP W PEL IF DONE RT 2V INDICATIONS: lbp TECHNIQUE: AP pelvis with lateral view(s) of the right hip(s). COMPARISON: [facility], CR, [id number] W PEL IF PERFORMED, 05/20/2017, 16:02. FINDINGS: Bones: No fractures or dislocations. Pelvic ring appears intact. No suspicious bony lesions. Sub-5 mm metallic density projecting over the right femoral head of unknown etiology. Lower lumbar severe spondylosis. Mild-moderate bilateral hip joint degeneration which is grossly unchanged. Soft tissues: The visualized bowel gas pattern is normal. No suspicious soft tissue calcifications. IMPRESSION: Unchanged mild-moderate bilateral hip joint degeneration. Lower lumbar spondylosis Dictated by: Domo Leung M.D. on 02/18/2019 at 15:15 Approved by: Domo Leung M.D. on 02/18/2019 at 15:17
--- NOTE | 2019-02-18 12:56 | DI.RAD.S_ITS ---
PROCEDURE: XR LUMBAR SPINE 2-3V INDICATIONS: lbp TECHNIQUE: 3 views of the lumbar spine were acquired. COMPARISON: [facility], , L-SPINE 2-3 VIEWS, 06/20/2014, 11:47. FINDINGS: Bones: No fracture or focal osseous destruction. However, advanced spondylitic changes limits the sensitivity. Straightening of the normal lordotic curvature. Grade 1 retrolisthesis of L3 on L4 and L2 on L3. Multilevel degenerative endplate sclerosis and spurring. Diffuse facet arthropathy. Severe diffuse narrowing of the lumbar disc spaces. Mild dextrocurvature Soft tissues: Overlying bowel gas pattern is normal. No suspicious soft tissue calcifications. Scattered vascular calcifications seen in the aorta. IMPRESSION: Dextroscoliosis and severe multilevel lumbar spondylosis, and facet arthropathy. This has diffusely progressed since 06/20/14 Dictated by: Domo Leung M.D. on 02/18/2019 at 14:50 Approved by: Domo Leung M.D. on 02/18/2019 at 14:52
== END ==
PROVIDERS: PCP Family Medicine; Visit Provider Family Medicine
DX: M54.5 Low back pain (principal); M47.816 Spondylosis without myelopathy or radiculopathy, lumbar region; M16.0 Bilateral primary osteoarthritis of hip; M41.86 Other forms of scoliosis, lumbar region
CPT/HCPCS: 72100; 73502

== ENCOUNTER 2019-05-06 08:15 | Outpatient (RCR) | payer MEDICARE, OTHER, SELFPAY ==
--- NOTE | 2019-03-03 18:10 | PT.OIE ---
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) Diabetes (Chronic) Essential hypertension (Chronic ~1994) Gout (Chronic 08/29/12) Hyperlipidemia (Chronic) Hypothyroidism (Chronic 07/03/13) Moderate COPD (chronic obstructive pulmonary disease) (Chronic 09/21/15) Morbid obesity (Chronic 11/14/10) Obstructive sleep apnea syndrome (Chronic 11/14/10) Osteoarthritis (Chronic 03/12/13) Sigmoid diverticulitis (Chronic ~2001) Ventral hernia (Chronic) Past Surgical History (Last Reviewed 10/12/18 @ 07:11 by Joseph Fleming DO) Anesthesia (Resolved) History of arthroplasty (Resolved ~2011) History of cataract removal with insertion of prosthetic lens (~2006) History of cataract removal with insertion of prosthetic lens (~2008) History of flexible sigmoidoscopy (Resolved ~2001) History of surgery (Resolved ~2012) History of surgery (Resolved ~2012) Pilonidal cyst (Resolved ~1998) Status post hemorrhoidectomy (~2006) Status post hernia repair (~1997) Status post hernia repair (~1999) Status post hernia repair (~2003) Status post hernia repair (~2012) Visit Care Team Role Provider Type Douglas Turner MD Attending Provider Physician Primary Care Provider Specialty: Family Practice Address: [address] [place] [address], [facility] Email: [email or web address] Physical Therapy Initial Evaluation PT-OP-A Visit Information Start: 03/03/19 11:34 Freq: Status: Active Protocol: Document 03/03/19 16:50 MB (Rec: 03/03/19 17:16 MB [id number]) Out-Patient Physical Therapy Visit Information Visit Information Visit Type Initial Evaluation Visit Note Pt has Medicare and [employer], unlimited visits. He is interested in pool therapy Visit Start Time 16:50 Visit Stop Time 17:20 Total Visit Minutes 30 Visit Number 1/unlimited PT-OP-B Current Condition Start: 03/03/19 11:34 Freq: Status: Active Protocol: Document 03/03/19 16:50 MB (Rec: 03/03/19 17:16 MB [id number]) Current Condition History of Current Condition Onset Date 04/19/18 History of Current Condition Pt reports he was sitting one afternoon and when he went to get up, his back started to bother him. His right knee wouldn't bend. He reports pain down the front of his leg to his big toe. His right knee is tight. He has arthritis in all his joints. He has a history of right shoulder replacement. Pt takes pain pill when he needs it. He is taking 5 mg Oxycontin and Tyelonol when needed. The pain in the right hip, right leg and middle spine. It gets up to 10/10 at it's worse. He reports his foot can get numb. Walking makes the pain worse. He uses his cane when he needs it. He has 2 steps to get into the house. He lifts 25-30 lb bags of bird seed every week. He had a trip and fall 2-3 months ago. PMH: arthritis, back pain, HTN , depression, DM1, hernia, right TSR 2010, COPD, thyroid disorder, history of smoking, a-fib. Pt takes a statin and greater than 10 medications. Prior Treatments and Tests 02/18/19: Lumbar x-ray: Dextroscoliosis and severe multilevel lumbar spondylosis, and facet arthropathy. Progression since 2014 Hip and pelvis: Unchange mild- moderate B hip joint degeneration and lower lumbar spondylosis. PT-OP-C Subjective Start: 03/03/19 11:34 Freq: Status: Active Protocol: Document 03/03/19 16:50 MB (Rec: 03/03/19 17:16 MB [id number]) OP-PT Subjective Patient Comments Patient Comments Pt's goals are to be able to bend his right knee better and to decrease pain. He needs to be able to bend his knee to get into the car. Pt does not like driving at night (in the dark). His eye sight is not the best in the world. Patient Questionnaires Oswestry Low Back Index Oswestry Score 52 Oswestry Impairment 60 to 79% Impaired (Score 60- 79) OP-PT Pain Assessment Comments Pain Comments Pt reports pain is worse with walking PT-OP-J Posture/Palpation/Skin Start: 03/03/19 11:34 Freq: Status: Active Protocol: Document 03/03/19 16:50 MB (Rec: 03/03/19 18:09 MB [id number]) Posture Evaluation Comments Posture Comments Standing posture: forward head , rounded shoulders with head 5 forward and tragus 3 in front of AC joint, Dowager's hump, left pelvis lower than the right, increased thoracic kyphosis, increased lumbar lordosis and anterior tilt pelvis PT-OP-M Strength Start: 03/03/19 11:34 Freq: Status: Active Protocol: Document 03/03/19 16:50 MB (Rec: 03/03/19 18:09 MB [id number]) Hip Strength Hip Manual Muscle Testing Left Flexion (L2) 3+ Fair+ Abduction 4 Good Comments Pt sitting Right Flexion (L2) 2- Poor- Abduction 4 Good Comments Pt sitting Pt reports 7-8/10 pain with active hip flexion in sitting and so MMT not performed Knee Strength Knee Manual Muscle Testing Left Flexion (S2) 4 Good Extension (L3) 5 Normal Comments Pt sitting Right Flexion (S2) 5 Normal Extension (L3) 5 Normal Comments Pt sitting Ankle/Foot Strength Ankle and Foot Manual Muscle Testing Left Dorsiflexion (L4) 4 Good Plantarflexion (S1) 4 Good Right Dorsiflexion (L4) 4 Good Plantarflexion (S1) 4 Good Toe Strength Toe Manual Muscle Testing Left Great Toe Extension 4 Good Right Great Toe Extension 4 Good PT-OP-T Assessment and Plan Start: 03/03/19 11:34 Freq: Status: Active Protocol: Document 03/03/19 16:50 MB (Rec: 03/03/19 18:09 MB [id number]) Physical Therapy Assessment Rehab Potential Rehabilitation Potential Fair Evaluation Complexity Number of Personal Factors/Comorbidities 1-2 Number of Body Systems Impaired 1-2 Clinical Presentation at Evaluation Stable Impairments Impairments Activity Tolerance,Gait,Pain, Posture,Strength Other Concerns Fall Risk Yes Barriers to Rehabilitation Morbid obesity, history of falls, degenerative changes in spine Goals 6 Half-Way Goal (LTG) Pt will gait train at least 1500 feet with or without cane in 6 minutes increase I and decrease fall risk by 05/01/19. LTG Duration 8 weeks 5 County Director Welfare Goal (LTG) Pt will perform progressive HEP with flexibility including pelvic realignment, flexibility, core and LE strengthening and balance exercises by 05/01/19. LTG Duration 8 weeks 4 County Director Welfare Goal (LTG) Pt will report a 50% improvement in pain to allow better gait tolerance by . LTG Duration 8 weeks 3 Half-Way Goal (LTG) Pt will perform 12 reps of sit to stand without UE support in 30 sec to improve functional transfers and decrease fall risk by 05/01/19. LTG Duration 8 weeks 2 County Director Welfare Goal (LTG) Pt will present with improved B hip flexion to at least 4/5 and B knee flexion and extension to 5/5 to help with sit to stand and other functional activities by . LTG Duration 8 weeks 1 Half-Way Goal (LTG) Pt will present with an improved Oswestry LBP score to reflect no more than 30% impairment to decrease pain with functional activities by 05/01/19. LTG Duration 8 weeks Assessment Summary Assessment Pt is an 83 y/o male presenting with LB, right hip and right leg pain in setting of advanced age, multi-joint degenerative changes, poor postural, pelvic obliquities and increased body mass. He presents with positive Slump Test on the right, B LE weakness, inability to get into Romberg position d/t poor balance and pain and requiring cane in right hand to walk with increased Trendelenburg gait. He will benefit from PT for strengthening, flexibility, balance and pelvic realignment . Barriers include advanced age, increased BMI and degenerative changes. Physical Therapy Plan Frequency and Duration Frequency of Treatment 2x/Week Duration of Treatment 8 weeks Plan of Care Start Date 03/03/19 Plan of Care End Date 05/01/19 Therapeutic Interventions Therapeutic Interventions Aquatic Therapy,Balance Training,Canalithic Repositioning,Coordination Training,Gait Training,Home Exercise Program,Manual Therapy,Neuromuscular Re- education,Patient/Caregiver Education,Self-Care/Home Management,Soft Tissue Mobilization,Taping, Therapeutic Activities, Therapeutic Exercises Modalities Cold Pack/Ice Massage,Electric Stimulation,Hot Packs, Ultrasound Next Visit Focus/Plan Next Note Type Treatment Note Next Visit Plan Initiate cane training and pelvic realignment exercises
--- NOTE | 2019-03-03 18:10 | PT.OPPOC ---
Physical, Occupational & Speech Therapy At [facility] Current Diagnoses Sciatica, unspecified side (03/03/19) Dorsalgia, unspecified (03/03/19) Visit Care Team Role Provider Type Douglas Turner MD Attending Provider Physician Primary Care Provider Specialty: Family Practice Address: [address] [place] [address], [id number] Email: [email or web address] Plan Of Care PT-OP-T Assessment and Plan Start: 03/03/19 11:34 Freq: Status: Active Protocol: Document 03/03/19 16:50 MB (Rec: 03/03/19 18:09 MB [id number]) Physical Therapy Assessment Rehab Potential Rehabilitation Potential Fair Evaluation Complexity Number of Personal Factors/Comorbidities 1-2 Number of Body Systems Impaired 1-2 Clinical Presentation at Evaluation Stable Impairments Impairments Activity Tolerance,Gait,Pain, Posture,Strength Other Concerns Fall Risk Yes Barriers to Rehabilitation Morbid obesity, history of falls, degenerative changes in spine Goals 6 Fiber Technologist Goal (LTG) Pt will gait train at least 1500 feet with or without cane in 6 minutes increase I and decrease fall risk by 05/01/19. LTG Duration 8 weeks 5 Fiber Technologist Goal (LTG) Pt will perform progressive HEP with flexibility including pelvic realignment, flexibility, core and LE strengthening and balance exercises by 05/01/19. LTG Duration 8 weeks 4 Mcfp Goal (LTG) Pt will report a 50% improvement in pain to allow better gait tolerance by . LTG Duration 8 weeks 3 Fiber Technologist Goal (LTG) Pt will perform 12 reps of sit to stand without UE support in 30 sec to improve functional transfers and decrease fall risk by 05/01/19. LTG Duration 8 weeks 2 Fiber Technologist Goal (LTG) Pt will present with improved B hip flexion to at least 4/5 and B knee flexion and extension to 5/5 to help with sit to stand and other functional activities by . LTG Duration 8 weeks 1 Fiber Technologist Goal (LTG) Pt will present with an improved Oswestry LBP score to reflect no more than 30% impairment to decrease pain with functional activities by 05/01/19. LTG Duration 8 weeks Assessment Summary Assessment Pt is an 83 y/o male presenting with LB, right hip and right leg pain in setting of advanced age, multi-joint degenerative changes, poor postural, pelvic obliquities and increased body mass. He presents with positive Slump Test on the right, B LE weakness, inability to get into Romberg position d/t poor balance and pain and requiring cane in right hand to walk with increased Trendelenburg gait. He will benefit from PT for strengthening, flexibility, balance and pelvic realignment . Barriers include advanced age, increased BMI and degenerative changes. Physical Therapy Plan Frequency and Duration Frequency of Treatment 2x/Week Duration of Treatment 8 weeks Plan of Care Start Date 03/03/19 Plan of Care End Date 05/01/19 Therapeutic Interventions Therapeutic Interventions Aquatic Therapy,Balance Training,Canalithic Repositioning,Coordination Training,Gait Training,Home Exercise Program,Manual Therapy,Neuromuscular Re- education,Patient/Caregiver Education,Self-Care/Home Management,Soft Tissue Mobilization,Taping, Therapeutic Activities, Therapeutic Exercises Modalities Cold Pack/Ice Massage,Electric Stimulation,Hot Packs, Ultrasound Next Visit Focus/Plan Next Note Type Treatment Note Next Visit Plan Initiate cane training and pelvic realignment exercises Plan of Care Dates Plan of Care Start Date 03/03/19 Plan of Care End Date 05/01/19 Electronically Signed by: Melanie Aggarwal PT 03/03/19 7110 Please Sign and Return: I have reviewed this Plan of Care and certify that the skilled therapy services above are required to meet the patient?s needs. Physician Signature Date Printed Name and Credentials Clinical Instructor Signature Printed Name and Credentials
--- NOTE | 2019-03-05 08:18 | PT.OTN ---
Current Diagnoses Sciatica, unspecified side (03/05/19) Dorsalgia, unspecified (03/05/19) Physical Therapy Treatment Note PT-OP-A Visit Information Start: 03/03/19 11:34 Freq: Status: Active Protocol: Document 03/05/19 07:33 MB (Rec: 03/05/19 08:18 MB [id number]) Out-Patient Physical Therapy Visit Information Visit Information Visit Type Treatment Note Visit Note Pt has Medicare and [employer], unlimited visits. He is interested in pool therapy Visit Start Time 07:33 Visit Stop Time 08:13 Total Visit Minutes 40 Visit Number 2/unlimited PT-OP-B Current Condition Start: 03/03/19 11:34 Freq: Status: Active Protocol: Document 03/03/19 16:50 MB (Rec: 03/03/19 17:16 MB [id number]) Current Condition History of Current Condition Onset Date 04/19/18 History of Current Condition Pt reports he was sitting one afternoon and when he went to get up, his back started to bother him. His right knee wouldn't bend. He reports pain down the front of his leg to his big toe. His right knee is tight. He has arthritis in all his joints. He has a history of right shoulder replacement. Pt takes pain pill when he needs it. He is taking 5 mg Oxycontin and Tyelonol when needed. The pain in the right hip, right leg and middle spine. It gets up to 10/10 at it's worse. He reports his foot can get numb. Walking makes the pain worse. He uses his cane when he needs it. He has 2 steps to get into the house. He lifts 25-30 lb bags of bird seed every week. He had a trip and fall 2-3 months ago. PMH: arthritis, back pain, HTN , depression, DM1, hernia, right TSR 2010, COPD, thyroid disorder, history of smoking, a-fib. Pt takes a statin and greater than 10 medications. Prior Treatments and Tests 02/18/19: Lumbar x-ray: Dextroscoliosis and severe multilevel lumbar spondylosis, and facet arthropathy. Progression since 2014 Hip and pelvis: Unchange mild- moderate B hip joint degeneration and lower lumbar spondylosis. PT-OP-C Subjective Start: 03/03/19 11:34 Freq: Status: Active Protocol: Document 03/05/19 07:33 MB (Rec: 03/05/19 08:18 MB [id number]) OP-PT Subjective Patient Comments Patient Comments Pt has never used the cane in his left hand but he is willing to try it. PT-OP-J Posture/Palpation/Skin Start: 03/03/19 11:34 Freq: Status: Active Protocol: Document 03/03/19 16:50 MB (Rec: 03/03/19 18:09 MB [id number]) Posture Evaluation Comments Posture Comments Standing posture: forward head , rounded shoulders with head 5 forward and tragus 3 in front of AC joint, Dowager's hump, left pelvis lower than the right, increased thoracic kyphosis, increased lumbar lordosis and anterior tilt pelvis PT-OP-M Strength Start: 03/03/19 11:34 Freq: Status: Active Protocol: Document 03/03/19 16:50 MB (Rec: 03/03/19 18:09 MB [id number]) Hip Strength Hip Manual Muscle Testing Left Flexion (L2) 3+ Fair+ Abduction 4 Good Comments Pt sitting Right Flexion (L2) 2- Poor- Abduction 4 Good Comments Pt sitting Pt reports 7-8/10 pain with active hip flexion in sitting and so MMT not performed Knee Strength Knee Manual Muscle Testing Left Flexion (S2) 4 Good Extension (L3) 5 Normal Comments Pt sitting Right Flexion (S2) 5 Normal Extension (L3) 5 Normal Comments Pt sitting Ankle/Foot Strength Ankle and Foot Manual Muscle Testing Left Dorsiflexion (L4) 4 Good Plantarflexion (S1) 4 Good Right Dorsiflexion (L4) 4 Good Plantarflexion (S1) 4 Good Toe Strength Toe Manual Muscle Testing Left Great Toe Extension 4 Good Right Great Toe Extension 4 Good PT-OP-Q Treatments Start: 03/03/19 11:34 Freq: Status: Active Protocol: Document 03/05/19 07:33 MB (Rec: 03/05/19 08:18 MB [id number]) Therapeutic Exercises Supine Exercises Pelvic realignment exercises Comments Ed this date and added to HEP, 3 reps each today, hold 3 sec HS Comments HS in supine and cues to keep heel down, 5 reps, left knee bent Sitting Exercises HS Comments In sitting with heel down before getting up, with sitting 30 min Gait Training Gait Activity Gait with cane in left hand Comments Pt requires practice to coordinate stepping with right foot and cane in left hand, will con't to practice Manual Therapy Treatment Other Other Manual Treatments KT to support right knee--c strip under patella and B I strips PT-OP-T Assessment and Plan Start: 03/03/19 11:34 Freq: Status: Active Protocol: Document 03/05/19 07:33 MB (Rec: 03/05/19 08:18 MB [id number]) Physical Therapy Assessment Rehab Potential Rehabilitation Potential Fair Evaluation Complexity Number of Personal Factors/Comorbidities 1-2 Number of Body Systems Impaired 1-2 Clinical Presentation at Evaluation Stable Impairments Impairments Activity Tolerance,Gait,Pain, Posture,Strength Other Concerns Fall Risk Yes Barriers to Rehabilitation Morbid obesity, history of falls, degenerative changes in spine Goals 6 Rattle Leak And Squeak Repairer Goal (LTG) Pt will gait train at least 1500 feet with or without cane in 6 minutes increase I and decrease fall risk by 05/01/19. LTG Duration 8 weeks 5 Rattle Leak And Squeak Repairer Goal (LTG) Pt will perform progressive HEP with flexibility including pelvic realignment, flexibility, core and LE strengthening and balance exercises by 05/01/19. LTG Duration 8 weeks 4 Jail Goal (LTG) Pt will report a 50% improvement in pain to allow better gait tolerance by . LTG Duration 8 weeks 3 Jail Goal (LTG) Pt will perform 12 reps of sit to stand without UE support in 30 sec to improve functional transfers and decrease fall risk by 05/01/19. LTG Duration 8 weeks 2 Jail Goal (LTG) Pt will present with improved B hip flexion to at least 4/5 and B knee flexion and extension to 5/5 to help with sit to stand and other functional activities by . LTG Duration 8 weeks 1 Rattle Leak And Squeak Repairer Goal (LTG) Pt will present with an improved Oswestry LBP score to reflect no more than 30% impairment to decrease pain with functional activities by 05/01/19. LTG Duration 8 weeks Assessment Summary Assessment Pt presents with right knee flexion in supine with HS to 40-60 deg AROM and reports compressing feeling in the joint. PT concerned about degenerative changes. Initiated pelvic realignment exercises and knee ROM exercises this date. Monitor response and review. Physical Therapy Plan Frequency and Duration Frequency of Treatment 2x/Week Duration of Treatment 8 weeks Plan of Care Start Date 03/03/19 Plan of Care End Date 05/01/19 Therapeutic Interventions Therapeutic Interventions Aquatic Therapy,Balance Training,Canalithic Repositioning,Coordination Training,Gait Training,Home Exercise Program,Manual Therapy,Neuromuscular Re- education,Patient/Caregiver Education,Self-Care/Home Management,Soft Tissue Mobilization,Taping, Therapeutic Activities, Therapeutic Exercises Modalities Cold Pack/Ice Massage,Electric Stimulation,Hot Packs, Ultrasound Other Referrals/Consults Referrals/Consults Recommended Network Management Specialist consult for right knee, possible OA Next Visit Focus/Plan Next Note Type Treatment Note Next Visit Plan Review pelvic realignment exercises and progress
--- NOTE | 2019-03-10 13:00 | PT.OTN ---
Current Diagnoses Sciatica, unspecified side (03/10/19) Dorsalgia, unspecified (03/10/19) Physical Therapy Treatment Note PT-OP-A Visit Information Start: 03/03/19 11:34 Freq: Status: Active Protocol: Document 03/10/19 12:16 SP (Rec: 03/10/19 13:06 SP [id number]) Out-Patient Physical Therapy Visit Information Visit Information Visit Type Treatment Note Visit Note Pt has Medicare and [employer], unlimited visits. He is interested in pool therapy Visit Start Time 12:15 Visit Stop Time 13:00 Total Visit Minutes 41 Visit Number 3/ unlimited PT-OP-B Current Condition Start: 03/03/19 11:34 Freq: Status: Active Protocol: Document 03/03/19 16:50 MB (Rec: 03/03/19 17:16 MB [id number]) Current Condition History of Current Condition Onset Date 04/19/18 History of Current Condition Pt reports he was sitting one afternoon and when he went to get up, his back started to bother him. His right knee wouldn't bend. He reports pain down the front of his leg to his big toe. His right knee is tight. He has arthritis in all his joints. He has a history of right shoulder replacement. Pt takes pain pill when he needs it. He is taking 5 mg Oxycontin and Tyelonol when needed. The pain in the right hip, right leg and middle spine. It gets up to 10/10 at it's worse. He reports his foot can get numb. Walking makes the pain worse. He uses his cane when he needs it. He has 2 steps to get into the house. He lifts 25-30 lb bags of bird seed every week. He had a trip and fall 2-3 months ago. PMH: arthritis, back pain, HTN , depression, DM1, hernia, right TSR 2010, COPD, thyroid disorder, history of smoking, a-fib. Pt takes a statin and greater than 10 medications. Prior Treatments and Tests 02/18/19: Lumbar x-ray: Dextroscoliosis and severe multilevel lumbar spondylosis, and facet arthropathy. Progression since 2014 Hip and pelvis: Unchange mild- moderate B hip joint degeneration and lower lumbar spondylosis. PT-OP-C Subjective Start: 03/03/19 11:34 Freq: Status: Active Protocol: Document 03/10/19 12:16 SP (Rec: 03/10/19 13:06 SP [id number]) OP-PT Subjective Patient Comments Patient Comments Pt stated he can move his R knee more than last time here, compliant with HEP at home daily, LB and R knee still hurting. When uses cane tries to use in correct L hand as instructed. PT-OP-J Posture/Palpation/Skin Start: 03/03/19 11:34 Freq: Status: Active Protocol: Document 03/03/19 16:50 MB (Rec: 03/03/19 18:09 MB [id number]) Posture Evaluation Comments Posture Comments Standing posture: forward head , rounded shoulders with head 5 forward and tragus 3 in front of AC joint, Dowager's hump, left pelvis lower than the right, increased thoracic kyphosis, increased lumbar lordosis and anterior tilt pelvis PT-OP-M Strength Start: 03/03/19 11:34 Freq: Status: Active Protocol: Document 03/03/19 16:50 MB (Rec: 03/03/19 18:09 MB [id number]) Hip Strength Hip Manual Muscle Testing Left Flexion (L2) 3+ Fair+ Abduction 4 Good Comments Pt sitting Right Flexion (L2) 2- Poor- Abduction 4 Good Comments Pt sitting Pt reports 7-8/10 pain with active hip flexion in sitting and so MMT not performed Knee Strength Knee Manual Muscle Testing Left Flexion (S2) 4 Good Extension (L3) 5 Normal Comments Pt sitting Right Flexion (S2) 5 Normal Extension (L3) 5 Normal Comments Pt sitting Ankle/Foot Strength Ankle and Foot Manual Muscle Testing Left Dorsiflexion (L4) 4 Good Plantarflexion (S1) 4 Good Right Dorsiflexion (L4) 4 Good Plantarflexion (S1) 4 Good Toe Strength Toe Manual Muscle Testing Left Great Toe Extension 4 Good Right Great Toe Extension 4 Good PT-OP-Q Treatments Start: 03/03/19 11:34 Freq: Status: Active Protocol: Document 03/10/19 12:16 SP (Rec: 03/10/19 13:06 SP [id number]) Therapeutic Exercises Supine Exercises may Supine Exercise Name alternate BLE Reps/Minutes 2x5 Comments cued PPT bridge Reps/Minutes 2x5 Comments cued PPT Pelvic realignment exercises Comments Ed this date and added to HEP, 3 reps each today, hold 3 sec HS Comments HS in supine and cues to keep heel down, 5 reps, left knee bent Sitting Exercises HS Comments In sitting with heel down before getting up, with sitting 30 min 2 Sitting Exercise Name Rolling stick HS, calf, quad, ITB Reps/Minutes 2 min 1 Sitting Exercise Name LAQ Reps/Minutes 3x8 Standing Exercises 3 Standing Exercise Name Hip abd/ext return start pos Side bilateral Equipment Used rail Reps/Minutes 3x10 B, pause end feel abd & ext Comments L>R, cued upright posture slow pacing Gait Training Gait Activity Gait with cane in left hand Description cued upright posture during LLE WB decrease R lat lean Treatment Focus glut facillitation Comments Pt requires practice to coordinate stepping with right foot and cane in left hand, will con't to practice Manual Therapy Treatment Soft Tissue Mobilization 2 Body Location prox gastroc, distal HS Mobilization Type Cross-Friction,Myofascial Release Intensity/Depth Moderate Body Position Hooklying Comments R knee Joint Mobilizations R knee PA Joint tib femoral Direction PA Grade II Body Position Hooklying PT-OP-T Assessment and Plan Start: 03/03/19 11:34 Freq: Status: Active Protocol: Document 03/10/19 12:16 SP (Rec: 03/10/19 13:06 SP [id number]) Physical Therapy Assessment Goals 6 Whittling Room Operator Goal (LTG) Pt will gait train at least 1500 feet with or without cane in 6 minutes increase I and decrease fall risk by 05/01/19. LTG Duration 8 weeks 5 Whittling Room Operator Goal (LTG) Pt will perform progressive HEP with flexibility including pelvic realignment, flexibility, core and LE strengthening and balance exercises by 05/01/19. LTG Duration 8 weeks 4 Whittling Room Operator Goal (LTG) Pt will report a 50% improvement in pain to allow better gait tolerance by . LTG Duration 8 weeks 3 Whittling Room Operator Goal (LTG) Pt will perform 12 reps of sit to stand without UE support in 30 sec to improve functional transfers and decrease fall risk by 05/01/19. LTG Duration 8 weeks 2 Senior Care Goal (LTG) Pt will present with improved B hip flexion to at least 4/5 and B knee flexion and extension to 5/5 to help with sit to stand and other functional activities by . LTG Duration 8 weeks 1 Whittling Room Operator Goal (LTG) Pt will present with an improved Oswestry LBP score to reflect no more than 30% impairment to decrease pain with functional activities by 05/01/19. LTG Duration 8 weeks Assessment Summary Assessment Reviewed HEP: added core may wtih PPT awareness cue, standing hip abd/ext/return start pos to support L glut faciligtation during gait ( noted R pelvis hip depression during LLE WB), improved cane patterning. Pt stated does something similar to hip abd/ ext at class but cued needed upright posture closer to chair/rail and slow pacing to decrease LS recruitment extension. Positive response. Physical Therapy Plan Frequency and Duration Frequency of Treatment 2x/Week Duration of Treatment 8 weeks Plan of Care Start Date 03/03/19 Plan of Care End Date 05/01/19 Therapeutic Interventions Therapeutic Interventions Aquatic Therapy,Balance Training,Canalithic Repositioning,Coordination Training,Gait Training,Home Exercise Program,Manual Therapy,Neuromuscular Re- education,Patient/Caregiver Education,Self-Care/Home Management,Soft Tissue Mobilization,Taping, Therapeutic Activities, Therapeutic Exercises Modalities Cold Pack/Ice Massage,Electric Stimulation,Hot Packs, Ultrasound Other Referrals/Consults Referrals/Consults Recommended Health Economist consult for right knee, possible OA Next Visit Focus/Plan Next Note Type Treatment Note Next Visit Plan Assess added may and hip abd/ext ex. Review pelvic realignment exercises and progress
--- NOTE | 2019-03-13 11:16 | PT.OTN ---
Current Diagnoses Sciatica, unspecified side (03/13/19) Dorsalgia, unspecified (03/13/19) Physical Therapy Treatment Note PT-OP-A Visit Information Start: 03/03/19 11:34 Freq: Status: Active Protocol: Document 03/13/19 10:31 MB (Rec: 03/13/19 11:16 MB [id number]) Out-Patient Physical Therapy Visit Information Visit Information Visit Type Treatment Note Visit Note Pt has Medicare and [employer], unlimited visits. He is interested in pool therapy Visit Start Time 10:31 Visit Stop Time 11:11 Total Visit Minutes 40 Visit Number 4/ unlimited PT-OP-B Current Condition Start: 03/03/19 11:34 Freq: Status: Active Protocol: Document 03/03/19 16:50 MB (Rec: 03/03/19 17:16 MB [id number]) Current Condition History of Current Condition Onset Date 04/19/18 History of Current Condition Pt reports he was sitting one afternoon and when he went to get up, his back started to bother him. His right knee wouldn't bend. He reports pain down the front of his leg to his big toe. His right knee is tight. He has arthritis in all his joints. He has a history of right shoulder replacement. Pt takes pain pill when he needs it. He is taking 5 mg Oxycontin and Tyelonol when needed. The pain in the right hip, right leg and middle spine. It gets up to 10/10 at it's worse. He reports his foot can get numb. Walking makes the pain worse. He uses his cane when he needs it. He has 2 steps to get into the house. He lifts 25-30 lb bags of bird seed every week. He had a trip and fall 2-3 months ago. PMH: arthritis, back pain, HTN , depression, DM1, hernia, right TSR 2010, COPD, thyroid disorder, history of smoking, a-fib. Pt takes a statin and greater than 10 medications. Prior Treatments and Tests 02/18/19: Lumbar x-ray: Dextroscoliosis and severe multilevel lumbar spondylosis, and facet arthropathy. Progression since 2014 Hip and pelvis: Unchange mild- moderate B hip joint degeneration and lower lumbar spondylosis. PT-OP-C Subjective Start: 03/03/19 11:34 Freq: Status: Active Protocol: Document 03/13/19 10:31 MB (Rec: 03/13/19 11:16 MB [id number]) OP-PT Subjective Patient Comments Patient Comments Pt states that his right knee is better in the morning and gets worse in the evening. He did not notice any difference with the taping. He needs to review HEP. PT-OP-J Posture/Palpation/Skin Start: 03/03/19 11:34 Freq: Status: Active Protocol: Document 03/03/19 16:50 MB (Rec: 03/03/19 18:09 MB [id number]) Posture Evaluation Comments Posture Comments Standing posture: forward head , rounded shoulders with head 5 forward and tragus 3 in front of AC joint, Dowager's hump, left pelvis lower than the right, increased thoracic kyphosis, increased lumbar lordosis and anterior tilt pelvis PT-OP-M Strength Start: 03/03/19 11:34 Freq: Status: Active Protocol: Document 03/03/19 16:50 MB (Rec: 03/03/19 18:09 MB [id number]) Hip Strength Hip Manual Muscle Testing Left Flexion (L2) 3+ Fair+ Abduction 4 Good Comments Pt sitting Right Flexion (L2) 2- Poor- Abduction 4 Good Comments Pt sitting Pt reports 7-8/10 pain with active hip flexion in sitting and so MMT not performed Knee Strength Knee Manual Muscle Testing Left Flexion (S2) 4 Good Extension (L3) 5 Normal Comments Pt sitting Right Flexion (S2) 5 Normal Extension (L3) 5 Normal Comments Pt sitting Ankle/Foot Strength Ankle and Foot Manual Muscle Testing Left Dorsiflexion (L4) 4 Good Plantarflexion (S1) 4 Good Right Dorsiflexion (L4) 4 Good Plantarflexion (S1) 4 Good Toe Strength Toe Manual Muscle Testing Left Great Toe Extension 4 Good Right Great Toe Extension 4 Good PT-OP-Q Treatments Start: 03/03/19 11:34 Freq: Status: Active Protocol: Document 03/13/19 10:31 MB (Rec: 03/13/19 11:16 MB [id number]) Cardio Equipment Recumbent Elliptical ([employer]) Duration (Minutes) 10 Resistance 3 Other 97% O2 and HR 73 BPM Therapeutic Exercises Supine Exercises may Supine Exercise Name alternate BLE Reps/Minutes 2x5 Pelvic realignment exercises Comments Ed this date and added to HEP, 3 reps each today, hold 3 sec HS Comments HS in supine and cues to keep heel down, 5 reps, left knee bent Standing Exercises 3 Standing Exercise Name Hip abd/ext return start pos Side bilateral Equipment Used rail Reps/Minutes 3x10 B, pause end feel abd & ext Comments Multiple cues to slow PT-OP-T Assessment and Plan Start: 03/03/19 11:34 Freq: Status: Active Protocol: Document 03/13/19 10:31 MB (Rec: 03/13/19 11:16 MB [id number]) Physical Therapy Assessment Rehab Potential Rehabilitation Potential Fair Evaluation Complexity Number of Personal Factors/Comorbidities 1-2 Number of Body Systems Impaired 1-2 Clinical Presentation at Evaluation Stable Impairments Impairments Activity Tolerance,Gait,Pain, Posture,Strength Other Concerns Fall Risk Yes Barriers to Rehabilitation Morbid obesity, history of falls, degenerative changes in spine Goals 6 Flight Control Specialist Goal (LTG) Pt will gait train at least 1500 feet with or without cane in 6 minutes increase I and decrease fall risk by 05/01/19. LTG Duration 8 weeks 5 Flight Control Specialist Goal (LTG) Pt will perform progressive HEP with flexibility including pelvic realignment, flexibility, core and LE strengthening and balance exercises by 05/01/19. LTG Duration 8 weeks 4 Senior Care Goal (LTG) Pt will report a 50% improvement in pain to allow better gait tolerance by . LTG Duration 8 weeks 3 Senior Care Goal (LTG) Pt will perform 12 reps of sit to stand without UE support in 30 sec to improve functional transfers and decrease fall risk by 05/01/19. LTG Duration 8 weeks 2 Flight Control Specialist Goal (LTG) Pt will present with improved B hip flexion to at least 4/5 and B knee flexion and extension to 5/5 to help with sit to stand and other functional activities by . LTG Duration 8 weeks 1 Senior Care Goal (LTG) Pt will present with an improved Oswestry LBP score to reflect no more than 30% impairment to decrease pain with functional activities by 05/01/19. LTG Duration 8 weeks Assessment Summary Assessment Reviewed HEP this date, no new exercises added. Cardiac exercise this date to help with endurance. Added very thin cork lining to left shoe to help address functional leg length difference today. His gait quality is similar, increased lateral sway, con't to monitor. Physical Therapy Plan Frequency and Duration Frequency of Treatment 2x/Week Duration of Treatment 8 weeks Plan of Care Start Date 03/03/19 Plan of Care End Date 05/01/19 Therapeutic Interventions Therapeutic Interventions Aquatic Therapy,Balance Training,Canalithic Repositioning,Coordination Training,Gait Training,Home Exercise Program,Manual Therapy,Neuromuscular Re- education,Patient/Caregiver Education,Self-Care/Home Management,Soft Tissue Mobilization,Taping, Therapeutic Activities, Therapeutic Exercises Modalities Cold Pack/Ice Massage,Electric Stimulation,Hot Packs, Ultrasound Other Referrals/Consults Referrals/Consults Recommended Dry House Operator consult for right knee, possible OA Next Visit Focus/Plan Next Note Type Treatment Note Next Visit Plan Continue to review and progress exercises as appropriate
--- NOTE | 2019-03-16 16:00 | PT-OP ANOTE ---
Pt called earlier to cancel today's appt less than 24 hrs secondary to leg cramps keeping him up all night and noticing is locking up his ankle as well. He stated is taking his waterpill, and also magnesium and calcium, helping but not fully going away. CREDIT PRODUCTS OFFICER recommended if doesn't improve to call his physician. Reminded of his next appt 03/19/19 at 9am with verbal confirmation.
--- NOTE | 2019-03-19 09:39 | PT-IP ANOTE ---
No show today in setting of snow and pt could not get out of driveway
--- NOTE | 2019-03-19 09:41 | PT-OP ANOTE ---
No show in setting of inclement weather and pt could not get out of driveway
--- NOTE | 2019-03-24 09:40 | PT.OTN ---
Current Diagnoses Sciatica, unspecified side (03/24/19) Dorsalgia, unspecified (03/24/19) Physical Therapy Treatment Note PT-OP-A Visit Information Start: 03/03/19 11:34 Freq: Status: Active Protocol: Document 03/24/19 09:02 MB (Rec: 03/24/19 09:40 MB [id number]) Out-Patient Physical Therapy Visit Information Visit Information Visit Type Treatment Note Visit Note Pt has Medicare and [employer], unlimited visits. Visit Start Time 09:02 Visit Stop Time 09:40 Total Visit Minutes 38 Visit Number 07/11 PT-OP-B Current Condition Start: 03/03/19 11:34 Freq: Status: Active Protocol: Document 03/03/19 16:50 MB (Rec: 03/03/19 17:16 MB [id number]) Current Condition History of Current Condition Onset Date 04/19/18 History of Current Condition Pt reports he was sitting one afternoon and when he went to get up, his back started to bother him. His right knee wouldn't bend. He reports pain down the front of his leg to his big toe. His right knee is tight. He has arthritis in all his joints. He has a history of right shoulder replacement. Pt takes pain pill when he needs it. He is taking 5 mg Oxycontin and Tyelonol when needed. The pain in the right hip, right leg and middle spine. It gets up to 10/10 at it's worse. He reports his foot can get numb. Walking makes the pain worse. He uses his cane when he needs it. He has 2 steps to get into the house. He lifts 25-30 lb bags of bird seed every week. He had a trip and fall 2-3 months ago. PMH: arthritis, back pain, HTN , depression, DM1, hernia, right TSR 2010, COPD, thyroid disorder, history of smoking, a-fib. Pt takes a statin and greater than 10 medications. Prior Treatments and Tests 02/18/19: Lumbar x-ray: Dextroscoliosis and severe multilevel lumbar spondylosis, and facet arthropathy. Progression since 2014 Hip and pelvis: Unchange mild- moderate B hip joint degeneration and lower lumbar spondylosis. PT-OP-C Subjective Start: 03/03/19 11:34 Freq: Status: Active Protocol: Document 03/24/19 09:02 MB (Rec: 03/24/19 09:40 MB [id number]) OP-PT Subjective Patient Comments Patient Comments Pt states that he had a night of cramps in both lower legs and into ankles. He is taking a multivitamin with calcium, magnesium and zinc. PT-OP-J Posture/Palpation/Skin Start: 03/03/19 11:34 Freq: Status: Active Protocol: Document 03/03/19 16:50 MB (Rec: 03/03/19 18:09 MB [id number]) Posture Evaluation Comments Posture Comments Standing posture: forward head , rounded shoulders with head 5 forward and tragus 3 in front of AC joint, Dowager's hump, left pelvis lower than the right, increased thoracic kyphosis, increased lumbar lordosis and anterior tilt pelvis PT-OP-M Strength Start: 03/03/19 11:34 Freq: Status: Active Protocol: Document 03/03/19 16:50 MB (Rec: 03/03/19 18:09 MB [id number]) Hip Strength Hip Manual Muscle Testing Left Flexion (L2) 3+ Fair+ Abduction 4 Good Comments Pt sitting Right Flexion (L2) 2- Poor- Abduction 4 Good Comments Pt sitting Pt reports 7-8/10 pain with active hip flexion in sitting and so MMT not performed Knee Strength Knee Manual Muscle Testing Left Flexion (S2) 4 Good Extension (L3) 5 Normal Comments Pt sitting Right Flexion (S2) 5 Normal Extension (L3) 5 Normal Comments Pt sitting Ankle/Foot Strength Ankle and Foot Manual Muscle Testing Left Dorsiflexion (L4) 4 Good Plantarflexion (S1) 4 Good Right Dorsiflexion (L4) 4 Good Plantarflexion (S1) 4 Good Toe Strength Toe Manual Muscle Testing Left Great Toe Extension 4 Good Right Great Toe Extension 4 Good PT-OP-Q Treatments Start: 03/03/19 11:34 Freq: Status: Active Protocol: Document 03/24/19 09:02 MB (Rec: 03/24/19 09:40 MB [id number]) Cardio Equipment Recumbent Elliptical ([employer]) Duration (Minutes) 10 Resistance 1-3 Other Less SOB today Therapeutic Exercises Supine Exercises core may Supine Exercise Name alternating LEs Reps/Minutes 20x1 Comments Cues to perform slowly Pelvic realignment exercises Comments 5 reps and 3 sec hold each HS Comments 5 reps B alternating Standing Exercises 3 Standing Exercise Name Hip abd/ext return start pos Side bilateral Equipment Used rail Reps/Minutes 1x5 B, pause end feel abd & ext Comments Multiple cues to slow 2 Comments Gastroc and soleus stretches in standing x2 reps 30 sec hold PT-OP-T Assessment and Plan Start: 03/03/19 11:34 Freq: Status: Active Protocol: Document 03/24/19 09:02 MB (Rec: 03/24/19 09:40 MB [id number]) Physical Therapy Assessment Rehab Potential Rehabilitation Potential Fair Evaluation Complexity Number of Personal Factors/Comorbidities 1-2 Number of Body Systems Impaired 1-2 Clinical Presentation at Evaluation Stable Impairments Impairments Activity Tolerance,Gait,Pain, Posture,Strength Other Concerns Fall Risk Yes Barriers to Rehabilitation Morbid obesity, history of falls, degenerative changes in spine Goals 6 Home Health Care Case Manager Goal (LTG) Pt will gait train at least 1500 feet with or without cane in 6 minutes increase I and decrease fall risk by 05/01/19. LTG Duration 8 weeks 5 Prison Goal (LTG) Pt will perform progressive HEP with flexibility including pelvic realignment, flexibility, core and LE strengthening and balance exercises by 05/01/19. LTG Duration 8 weeks 4 Home Health Care Case Manager Goal (LTG) Pt will report a 50% improvement in pain to allow better gait tolerance by . LTG Duration 8 weeks 3 Home Health Care Case Manager Goal (LTG) Pt will perform 12 reps of sit to stand without UE support in 30 sec to improve functional transfers and decrease fall risk by 05/01/19. LTG Duration 8 weeks 2 Home Health Care Case Manager Goal (LTG) Pt will present with improved B hip flexion to at least 4/5 and B knee flexion and extension to 5/5 to help with sit to stand and other functional activities by . LTG Duration 8 weeks 1 Home Health Care Case Manager Goal (LTG) Pt will present with an improved Oswestry LBP score to reflect no more than 30% impairment to decrease pain with functional activities by 05/01/19. LTG Duration 8 weeks Assessment Summary Assessment Con't exercise progression, review as needed. Consider bridging again, leg press, hip abduction in hook lying (NOT side lying d/t back pain) or standing with band. He is already performing actively in standing but his form is questionable. Note if he con't with calf cramping. Pt requires cues for pelvic realignment exercises this date and he tends to sit up to get towel positioned for 3rd pelvic realignment exercise and cues to lift leg instead. Physical Therapy Plan Frequency and Duration Frequency of Treatment 2x/Week Duration of Treatment 8 weeks Plan of Care Start Date 03/03/19 Plan of Care End Date 05/01/19 Therapeutic Interventions Therapeutic Interventions Aquatic Therapy,Balance Training,Canalithic Repositioning,Coordination Training,Gait Training,Home Exercise Program,Manual Therapy,Neuromuscular Re- education,Patient/Caregiver Education,Self-Care/Home Management,Soft Tissue Mobilization,Taping, Therapeutic Activities, Therapeutic Exercises Modalities Cold Pack/Ice Massage,Electric Stimulation,Hot Packs, Ultrasound Other Referrals/Consults Referrals/Consults Recommended Acid Crane Operator consult for right knee, possible OA. Consider talking with pharmacist about magnesium or other pharmacist recommendation for cramping. Next Visit Focus/Plan Next Note Type Treatment Note Next Visit Plan Continue to review and progress exercises as appropriate
--- NOTE | 2019-03-27 10:36 | PT.OTN ---
Current Diagnoses Sciatica, unspecified side (03/27/19) Dorsalgia, unspecified (03/27/19) Physical Therapy Treatment Note PT-OP-A Visit Information Start: 03/03/19 11:34 Freq: Status: Active Protocol: Document 03/27/19 09:50 MB (Rec: 03/27/19 10:36 MB [id number]) Out-Patient Physical Therapy Visit Information Visit Information Visit Type Treatment Note Visit Note Pt has Medicare and [employer], unlimited visits. Visit Start Time 09:50 Visit Stop Time 10:30 Total Visit Minutes 40 Visit Number 08/11 PT-OP-B Current Condition Start: 03/03/19 11:34 Freq: Status: Active Protocol: Document 03/03/19 16:50 MB (Rec: 03/03/19 17:16 MB [id number]) Current Condition History of Current Condition Onset Date 04/19/18 History of Current Condition Pt reports he was sitting one afternoon and when he went to get up, his back started to bother him. His right knee wouldn't bend. He reports pain down the front of his leg to his big toe. His right knee is tight. He has arthritis in all his joints. He has a history of right shoulder replacement. Pt takes pain pill when he needs it. He is taking 5 mg Oxycontin and Tyelonol when needed. The pain in the right hip, right leg and middle spine. It gets up to 10/10 at it's worse. He reports his foot can get numb. Walking makes the pain worse. He uses his cane when he needs it. He has 2 steps to get into the house. He lifts 25-30 lb bags of bird seed every week. He had a trip and fall 2-3 months ago. PMH: arthritis, back pain, HTN , depression, DM1, hernia, right TSR 2010, COPD, thyroid disorder, history of smoking, a-fib. Pt takes a statin and greater than 10 medications. Prior Treatments and Tests 02/18/19: Lumbar x-ray: Dextroscoliosis and severe multilevel lumbar spondylosis, and facet arthropathy. Progression since 2014 Hip and pelvis: Unchange mild- moderate B hip joint degeneration and lower lumbar spondylosis. PT-OP-C Subjective Start: 03/03/19 11:34 Freq: Status: Active Protocol: Document 03/27/19 09:50 MB (Rec: 03/27/19 10:36 MB [id number]) OP-PT Subjective Patient Comments Patient Comments Pt states that his right knee and ankle do not feel a lot better. Every now and then, he does get cramps in his legs. He states that his supplement has Magnesium in it and he will con't with this. He did not get to talk with pharmacist about his supplements. PT-OP-J Posture/Palpation/Skin Start: 03/03/19 11:34 Freq: Status: Active Protocol: Document 03/03/19 16:50 MB (Rec: 03/03/19 18:09 MB [id number]) Posture Evaluation Comments Posture Comments Standing posture: forward head , rounded shoulders with head 5 forward and tragus 3 in front of AC joint, Dowager's hump, left pelvis lower than the right, increased thoracic kyphosis, increased lumbar lordosis and anterior tilt pelvis PT-OP-M Strength Start: 03/03/19 11:34 Freq: Status: Active Protocol: Document 03/03/19 16:50 MB (Rec: 03/03/19 18:09 MB [id number]) Hip Strength Hip Manual Muscle Testing Left Flexion (L2) 3+ Fair+ Abduction 4 Good Comments Pt sitting Right Flexion (L2) 2- Poor- Abduction 4 Good Comments Pt sitting Pt reports 7-8/10 pain with active hip flexion in sitting and so MMT not performed Knee Strength Knee Manual Muscle Testing Left Flexion (S2) 4 Good Extension (L3) 5 Normal Comments Pt sitting Right Flexion (S2) 5 Normal Extension (L3) 5 Normal Comments Pt sitting Ankle/Foot Strength Ankle and Foot Manual Muscle Testing Left Dorsiflexion (L4) 4 Good Plantarflexion (S1) 4 Good Right Dorsiflexion (L4) 4 Good Plantarflexion (S1) 4 Good Toe Strength Toe Manual Muscle Testing Left Great Toe Extension 4 Good Right Great Toe Extension 4 Good PT-OP-Q Treatments Start: 03/03/19 11:34 Freq: Status: Active Protocol: Document 03/27/19 09:50 MB (Rec: 03/27/19 10:36 MB [id number]) Cardio Equipment Recumbent Elliptical (Biodex) Duration (Minutes) 7 Resistance 3 Recumbent Bicycle Duration (Minutes) 2 Resistance 2 Other Pain in both knees rated 5/10 Therapeutic Exercises Supine Exercises HS Comments 5 reps right knee today Standing Exercises Racquet ball massage Comments Lateral right hip and proximal posterior glutes Manual Therapy Treatment Soft Tissue Mobilization R rectus, vastus lateralis with rolling pin STM Comments Performed today, pt reports improved knee pain after myofascial more pliable after treatment PT-OP-T Assessment and Plan Start: 03/03/19 11:34 Freq: Status: Active Protocol: Document 03/27/19 09:50 MB (Rec: 03/27/19 10:36 MB [id number]) Physical Therapy Assessment Rehab Potential Rehabilitation Potential Fair Evaluation Complexity Number of Personal Factors/Comorbidities 1-2 Number of Body Systems Impaired 1-2 Clinical Presentation at Evaluation Stable Impairments Impairments Activity Tolerance,Gait,Pain, Posture,Strength Other Concerns Fall Risk Yes Barriers to Rehabilitation Morbid obesity, history of falls, degenerative changes in spine Goals 6 Host/Hostess Goal (LTG) Pt will gait train at least 1500 feet with or without cane in 6 minutes increase I and decrease fall risk by 05/01/19. LTG Duration 8 weeks 5 Host/Hostess Goal (LTG) Pt will perform progressive HEP with flexibility including pelvic realignment, flexibility, core and LE strengthening and balance exercises by 05/01/19. LTG Duration 8 weeks 4 Nursing Home Goal (LTG) Pt will report a 50% improvement in pain to allow better gait tolerance by . LTG Duration 8 weeks 3 Host/Hostess Goal (LTG) Pt will perform 12 reps of sit to stand without UE support in 30 sec to improve functional transfers and decrease fall risk by 05/01/19. LTG Duration 8 weeks 2 Host/Hostess Goal (LTG) Pt will present with improved B hip flexion to at least 4/5 and B knee flexion and extension to 5/5 to help with sit to stand and other functional activities by . LTG Duration 8 weeks 1 Nursing Home Goal (LTG) Pt will present with an improved Oswestry LBP score to reflect no more than 30% impairment to decrease pain with functional activities by 05/01/19. LTG Duration 8 weeks Assessment Summary Assessment Initiated STM today and pt feels better after treatment. Con't to perform as needed and consider self-massage with rolling pin, pt may have trouble reaching quads in sitting d/t body girth. Physical Therapy Plan Frequency and Duration Frequency of Treatment 2x/Week Duration of Treatment 8 weeks Plan of Care Start Date 03/03/19 Plan of Care End Date 05/01/19 Therapeutic Interventions Therapeutic Interventions Aquatic Therapy,Balance Training,Canalithic Repositioning,Coordination Training,Gait Training,Home Exercise Program,Manual Therapy,Neuromuscular Re- education,Patient/Caregiver Education,Self-Care/Home Management,Soft Tissue Mobilization,Taping, Therapeutic Activities, Therapeutic Exercises Modalities Cold Pack/Ice Massage,Electric Stimulation,Hot Packs, Ultrasound Other Referrals/Consults Referrals/Consults Recommended Sawmill Equipment Operator consult for right knee, possible OA. Next Visit Focus/Plan Next Note Type Treatment Note Next Visit Plan Continue to review and progress exercises as appropriate
--- NOTE | 2019-03-31 11:11 | PT.OTN ---
Current Diagnoses Sciatica, unspecified side (03/31/19) Dorsalgia, unspecified (03/31/19) Physical Therapy Treatment Note PT-OP-A Visit Information Start: 03/03/19 11:34 Freq: Status: Active Protocol: Document 03/31/19 10:30 MB (Rec: 03/31/19 11:11 MB [id number]) Out-Patient Physical Therapy Visit Information Visit Information Visit Type Treatment Note Visit Note Pt has Medicare and [employer], unlimited visits. Visit Start Time 10:30 Visit Stop Time 11:10 Total Visit Minutes 40 Visit Number 09/10 PT-OP-B Current Condition Start: 03/03/19 11:34 Freq: Status: Active Protocol: Document 03/03/19 16:50 MB (Rec: 03/03/19 17:16 MB [id number]) Current Condition History of Current Condition Onset Date 04/19/18 History of Current Condition Pt reports he was sitting one afternoon and when he went to get up, his back started to bother him. His right knee wouldn't bend. He reports pain down the front of his leg to his big toe. His right knee is tight. He has arthritis in all his joints. He has a history of right shoulder replacement. Pt takes pain pill when he needs it. He is taking 5 mg Oxycontin and Tyelonol when needed. The pain in the right hip, right leg and middle spine. It gets up to 10/10 at it's worse. He reports his foot can get numb. Walking makes the pain worse. He uses his cane when he needs it. He has 2 steps to get into the house. He lifts 25-30 lb bags of bird seed every week. He had a trip and fall 2-3 months ago. PMH: arthritis, back pain, HTN , depression, DM1, hernia, right TSR 2010, COPD, thyroid disorder, history of smoking, a-fib. Pt takes a statin and greater than 10 medications. Prior Treatments and Tests 02/18/19: Lumbar x-ray: Dextroscoliosis and severe multilevel lumbar spondylosis, and facet arthropathy. Progression since 2014 Hip and pelvis: Unchange mild- moderate B hip joint degeneration and lower lumbar spondylosis. PT-OP-C Subjective Start: 03/03/19 11:34 Freq: Status: Active Protocol: Document 03/31/19 10:30 MB (Rec: 03/31/19 11:11 MB [id number]) OP-PT Subjective Patient Comments Patient Comments Pt states that he did alright until Saturday when his accidentally pushed down on right knee when cutting his toenails. He thinks the STM was helpfu. PT-OP-J Posture/Palpation/Skin Start: 03/03/19 11:34 Freq: Status: Active Protocol: Document 03/03/19 16:50 MB (Rec: 03/03/19 18:09 MB [id number]) Posture Evaluation Comments Posture Comments Standing posture: forward head , rounded shoulders with head 5 forward and tragus 3 in front of AC joint, Dowager's hump, left pelvis lower than the right, increased thoracic kyphosis, increased lumbar lordosis and anterior tilt pelvis PT-OP-M Strength Start: 03/03/19 11:34 Freq: Status: Active Protocol: Document 03/03/19 16:50 MB (Rec: 03/03/19 18:09 MB [id number]) Hip Strength Hip Manual Muscle Testing Left Flexion (L2) 3+ Fair+ Abduction 4 Good Comments Pt sitting Right Flexion (L2) 2- Poor- Abduction 4 Good Comments Pt sitting Pt reports 7-8/10 pain with active hip flexion in sitting and so MMT not performed Knee Strength Knee Manual Muscle Testing Left Flexion (S2) 4 Good Extension (L3) 5 Normal Comments Pt sitting Right Flexion (S2) 5 Normal Extension (L3) 5 Normal Comments Pt sitting Ankle/Foot Strength Ankle and Foot Manual Muscle Testing Left Dorsiflexion (L4) 4 Good Plantarflexion (S1) 4 Good Right Dorsiflexion (L4) 4 Good Plantarflexion (S1) 4 Good Toe Strength Toe Manual Muscle Testing Left Great Toe Extension 4 Good Right Great Toe Extension 4 Good PT-OP-Q Treatments Start: 03/03/19 11:34 Freq: Status: Active Protocol: Document 03/31/19 10:30 MB (Rec: 03/31/19 11:11 MB [id number]) Cardio Equipment Recumbent Elliptical (Biodex) Duration (Minutes) 10 Resistance 4 Therapeutic Exercises Supine Exercises HS Comments 5 reps right knee today Sitting Exercises STM with rolling pin for quads Comments Ed today and pt will benefit from using longer device than rolling pin Gait Training Gait Activity 6MWT Comments Pt is able to gait train 551' in 6 minutes with cane in left hand. He has to stop d/t 5/10 back pain and MALDONADO with sats 95% on RA and HR irregular in setting of a-fib, in the 90s most. Manual Therapy Treatment Soft Tissue Mobilization R rectus, vastus lateralis with rolling pin STM Comments Performed today, pt reports improved knee pain after myofascial more pliable after treatment PT-OP-T Assessment and Plan Start: 03/03/19 11:34 Freq: Status: Active Protocol: Document 03/31/19 10:30 MB (Rec: 03/31/19 11:11 MB [id number]) Physical Therapy Assessment Rehab Potential Rehabilitation Potential Fair Evaluation Complexity Number of Personal Factors/Comorbidities 1-2 Number of Body Systems Impaired 1-2 Clinical Presentation at Evaluation Stable Impairments Impairments Activity Tolerance,Gait,Pain, Posture,Strength Other Concerns Fall Risk Yes Barriers to Rehabilitation Morbid obesity, history of falls, degenerative changes in spine Goals 6 Group Home Goal (LTG) Pt will gait train at least 1000 feet with or without cane in 6 minutes increase I and decrease fall risk by 2019. 03/31/2019: Pt gait trains 551' with cane in left hand and requires rest break d/t back pain and MALDONADO LTG Duration 8 weeks 5 Group Home Goal (LTG) Pt will perform progressive HEP with flexibility including pelvic realignment, flexibility, core and LE strengthening and balance exercises by 05/30/2019. 03/31/2019: Pt has been performing progressive HEP LTG Duration 8 weeks 4 Group Home Goal (LTG) Pt will report a 50% improvement in pain to allow better gait tolerance by 2019. 03/31/2019: Pt reports an overall 25% improvement in pain since starting PT LTG Duration 8 weeks 3 Particle Board Supervisor Goal (LTG) Pt will perform 12 reps of sit to stand without UE support in 30 sec to improve functional transfers and decrease fall risk by 05/01/19. LTG Duration 8 weeks 2 Particle Board Supervisor Goal (LTG) Pt will present with improved B hip flexion to at least 4/5 and B knee flexion and extension to 5/5 to help with sit to stand and other functional activities by . LTG Duration 8 weeks 1 Particle Board Supervisor Goal (LTG) Pt will present with an improved Oswestry LBP score to reflect no more than 30% impairment to decrease pain with functional activities by 05/01/19. LTG Duration 8 weeks Assessment Summary Assessment Performed 6MWT today and pt progresses with gait. Ed pt in self-STM today in order to decrease pain and facilitate gait and getting in and out of trunck. Anticipate progress note next land treatment on 04/08/2019. Physical Therapy Plan Frequency and Duration Frequency of Treatment 2x/Week Duration of Treatment 8 weeks Plan of Care Start Date 03/03/19 Plan of Care End Date 05/01/19 Therapeutic Interventions Therapeutic Interventions Aquatic Therapy,Balance Training,Canalithic Repositioning,Coordination Training,Gait Training,Home Exercise Program,Manual Therapy,Neuromuscular Re- education,Patient/Caregiver Education,Self-Care/Home Management,Soft Tissue Mobilization,Taping, Therapeutic Activities, Therapeutic Exercises Modalities Cold Pack/Ice Massage,Electric Stimulation,Hot Packs, Ultrasound Other Referrals/Consults Referrals/Consults Recommended Multi Slide Machine Tender consult for right knee, possible OA. Next Visit Focus/Plan Next Note Type Progress Note Next Visit Plan Continue to review and progress exercises as appropriate
--- NOTE | 2019-04-03 14:25 | PT.OTN ---
Current Diagnoses Sciatica, unspecified side (04/03/19) Dorsalgia, unspecified (04/03/19) Physical Therapy Treatment Note PT-OP-A Visit Information Start: 03/03/19 11:34 Freq: Status: Active Protocol: Document 04/03/19 10:15 LJ (Rec: 04/03/19 14:25 LJ [id number]) Out-Patient Physical Therapy Visit Information Visit Information Visit Type Treatment Note Visit Start Time 10:15 Visit Stop Time 11:00 Total Visit Minutes 41 Visit Number 8/ Number of CLINICAL SUPERVISOR Visits 1 PT-OP-B Current Condition Start: 03/03/19 11:34 Freq: Status: Active Protocol: Document 03/03/19 16:50 MB (Rec: 03/03/19 17:16 MB [id number]) Current Condition History of Current Condition Onset Date 04/19/18 History of Current Condition Pt reports he was sitting one afternoon and when he went to get up, his back started to bother him. His right knee wouldn't bend. He reports pain down the front of his leg to his big toe. His right knee is tight. He has arthritis in all his joints. He has a history of right shoulder replacement. Pt takes pain pill when he needs it. He is taking 5 mg Oxycontin and Tyelonol when needed. The pain in the right hip, right leg and middle spine. It gets up to 10/10 at it's worse. He reports his foot can get numb. Walking makes the pain worse. He uses his cane when he needs it. He has 2 steps to get into the house. He lifts 25-30 lb bags of bird seed every week. He had a trip and fall 2-3 months ago. PMH: arthritis, back pain, HTN , depression, DM1, hernia, right TSR 2010, COPD, thyroid disorder, history of smoking, a-fib. Pt takes a statin and greater than 10 medications. Prior Treatments and Tests 02/18/19: Lumbar x-ray: Dextroscoliosis and severe multilevel lumbar spondylosis, and facet arthropathy. Progression since 2014 Hip and pelvis: Unchange mild- moderate B hip joint degeneration and lower lumbar spondylosis. PT-OP-C Subjective Start: 03/03/19 11:34 Freq: Status: Active Protocol: Document 04/03/19 10:15 LJ (Rec: 04/03/19 14:25 LJ [id number]) OP-PT Subjective Patient Comments Patient Comments Pt states his entire right side from the ankle to knee to hip to back is usually sore. States his knee is sore in back PT-OP-J Posture/Palpation/Skin Start: 03/03/19 11:34 Freq: Status: Active Protocol: Document 03/03/19 16:50 MB (Rec: 03/03/19 18:09 MB [id number]) Posture Evaluation Comments Posture Comments Standing posture: forward head , rounded shoulders with head 5 forward and tragus 3 in front of AC joint, Dowager's hump, left pelvis lower than the right, increased thoracic kyphosis, increased lumbar lordosis and anterior tilt pelvis PT-OP-M Strength Start: 03/03/19 11:34 Freq: Status: Active Protocol: Document 03/03/19 16:50 MB (Rec: 03/03/19 18:09 MB [id number]) Hip Strength Hip Manual Muscle Testing Left Flexion (L2) 3+ Fair+ Abduction 4 Good Comments Pt sitting Right Flexion (L2) 2- Poor- Abduction 4 Good Comments Pt sitting Pt reports 7-8/10 pain with active hip flexion in sitting and so MMT not performed Knee Strength Knee Manual Muscle Testing Left Flexion (S2) 4 Good Extension (L3) 5 Normal Comments Pt sitting Right Flexion (S2) 5 Normal Extension (L3) 5 Normal Comments Pt sitting Ankle/Foot Strength Ankle and Foot Manual Muscle Testing Left Dorsiflexion (L4) 4 Good Plantarflexion (S1) 4 Good Right Dorsiflexion (L4) 4 Good Plantarflexion (S1) 4 Good Toe Strength Toe Manual Muscle Testing Left Great Toe Extension 4 Good Right Great Toe Extension 4 Good PT-OP-Q Treatments Start: 03/03/19 11:34 Freq: Status: Active Protocol: Document 03/31/19 10:30 MB (Rec: 03/31/19 11:11 MB [id number]) Cardio Equipment Recumbent Elliptical (Biodex) Duration (Minutes) 10 Resistance 4 Therapeutic Exercises Supine Exercises HS Comments 5 reps right knee today Sitting Exercises STM with rolling pin for quads Comments Ed today and pt will benefit from using longer device than rolling pin Gait Training Gait Activity 6MWT Comments Pt is able to gait train 551' in 6 minutes with cane in left hand. He has to stop d/t 5/10 back pain and MALDONADO with sats 95% on RA and HR irregular in setting of a-fib, in the 90s most. Manual Therapy Treatment Soft Tissue Mobilization R rectus, vastus lateralis with rolling pin STM Comments Performed today, pt reports improved knee pain after myofascial more pliable after treatment PT-OP-S Aquatic Treatment Start: 03/03/19 11:34 Freq: Status: Active Protocol: Document 04/03/19 10:15 KELLI (Rec: 04/03/19 14:25 [id number]) Aquatics Treatment Pool Entry/Exit Pool Entry/Exit Method Stairs Water Walking [place] May Water Level Chest Level Level of Assistance Standby Assistance,Verbal Cues Sideways Water Level Chest Level Level of Assistance Standby Assistance,Verbal Cues Comments 2 laps-high knees, 2 laps- wide steps Backwards Water Level Chest Level Level of Assistance Standby Assistance,Verbal Cues Forwards Water Level Chest Level Level of Assistance Standby Assistance,Verbal Cues Lower Extremity Exercises HS cursl Details hand hold on wall Body Position Standing Water Level Chest Level Reps/Duration 2x10 flex/ext; ab/ad Details hand hold on wall Body Position Standing Water Level Chest Level Reps/Duration 2x10 each Lower Extremity Stretches gastroc/soleus Details on stairs Body Position Standing Water Level Waist Level Reps/Duration 2x30 Comments cramping hip flexors Details at wall Body Position Standing Water Level Waist Level Reps/Duration 2x45 quads Details manual assist Body Position Standing Water Level Chest Level Reps/Duration 2x45 Comments right side painful at end range HS Details at wall Body Position Standing Water Level Chest Level Equipment Small Noodle Reps/Duration 2x45 Upper Extremity Exercises pull downs Body Position Standing Water Level Chest Level Reps/Duration 10 each flex/ext; ab/ad Body Position Standing Water Level Chest Level Reps/Duration 10 each Balance steps Details up down 4 and 8 steps Water Level Waist Level Equipment SPC on several trials-LLE up, RLE down Reps/Duration 12 min Comments various depths, switching leading leg PT-OP-T Assessment and Plan Start: 03/03/19 11:34 Freq: Status: Active Protocol: Document 04/03/19 10:15 KELLI (Rec: 04/03/19 14:25 [id number]) Physical Therapy Assessment Rehab Potential Rehabilitation Potential Fair Evaluation Complexity Number of Personal Factors/Comorbidities 1-2 Number of Body Systems Impaired 1-2 Clinical Presentation at Evaluation Stable Impairments Impairments Activity Tolerance,Gait,Pain, Posture,Strength Other Concerns Fall Risk Yes Barriers to Rehabilitation Morbid obesity, history of falls, degenerative changes in spine Goals 6 Forestry Adviser Goal (LTG) Pt will gait train at least 1000 feet with or without cane in 6 minutes increase I and decrease fall risk by 2019. 03/31/2019: Pt gait trains 551' with cane in left hand and requires rest break d/t back pain and MALDONADO LTG Duration 8 weeks 5 Group Home Goal (LTG) Pt will perform progressive HEP with flexibility including pelvic realignment, flexibility, core and LE strengthening and balance exercises by 05/30/2019. 03/31/2019: Pt has been performing progressive HEP LTG Duration 8 weeks 4 Forestry Adviser Goal (LTG) Pt will report a 50% improvement in pain to allow better gait tolerance by 2019. 03/31/2019: Pt reports an overall 25% improvement in pain since starting PT LTG Duration 8 weeks 3 Group Home Goal (LTG) Pt will perform 12 reps of sit to stand without UE support in 30 sec to improve functional transfers and decrease fall risk by 05/01/19. LTG Duration 8 weeks 2 Group Home Goal (LTG) Pt will present with improved B hip flexion to at least 4/5 and B knee flexion and extension to 5/5 to help with sit to stand and other functional activities by . LTG Duration 8 weeks 1 Group Home Goal (LTG) Pt will present with an improved Oswestry LBP score to reflect no more than 30% impairment to decrease pain with functional activities by 05/01/19. LTG Duration 8 weeks Assessment Summary Assessment Pt did relatively well with walking exercises. Pt had good posture with standing exercises.He was very challenged with balance on the step exercises but improved with LLE ascending and RLE descending. SPC in right hand proved the most successful in stabilizing and reducing tendancy to turn sideways to step down Physical Therapy Plan Frequency and Duration Frequency of Treatment 2x/Week Duration of Treatment 8 weeks Plan of Care Start Date 03/03/19 Plan of Care End Date 05/01/19 Therapeutic Interventions Therapeutic Interventions Aquatic Therapy,Balance Training,Canalithic Repositioning,Coordination Training,Gait Training,Home Exercise Program,Manual Therapy,Neuromuscular Re- education,Patient/Caregiver Education,Self-Care/Home Management,Soft Tissue Mobilization,Taping, Therapeutic Activities, Therapeutic Exercises Modalities Cold Pack/Ice Massage,Electric Stimulation,Hot Packs, Ultrasound Other Referrals/Consults Referrals/Consults Recommended Community Resource Consultant consult for right knee, possible OA. Next Visit Focus/Plan Next Note Type Progress Note Next Visit Plan Begin deep water exercises. Possible traction. Progress with increased duration, intensity, and resistance equipment as indicated
--- NOTE | 2019-04-08 12:00 | PT.OTN ---
Current Diagnoses Sciatica, unspecified side (04/08/19) Dorsalgia, unspecified (04/08/19) Physical Therapy Treatment Note PT-OP-A Visit Information Start: 03/03/19 11:34 Freq: Status: Active Protocol: Document 04/08/19 11:17 MB (Rec: 04/08/19 12:00 MB [id number]) Out-Patient Physical Therapy Visit Information Visit Information Visit Type Treatment Note Visit Note Reassessment was done on 2019 Visit Start Time 11:17 Visit Stop Time 11:55 Total Visit Minutes 38 Visit Number 03/13, unlimited Number of CLUTCH MECHANIC Visits 0 PT-OP-B Current Condition Start: 03/03/19 11:34 Freq: Status: Active Protocol: Document 03/03/19 16:50 MB (Rec: 03/03/19 17:16 MB [id number]) Current Condition History of Current Condition Onset Date 04/19/18 History of Current Condition Pt reports he was sitting one afternoon and when he went to get up, his back started to bother him. His right knee wouldn't bend. He reports pain down the front of his leg to his big toe. His right knee is tight. He has arthritis in all his joints. He has a history of right shoulder replacement. Pt takes pain pill when he needs it. He is taking 5 mg Oxycontin and Tyelonol when needed. The pain in the right hip, right leg and middle spine. It gets up to 10/10 at it's worse. He reports his foot can get numb. Walking makes the pain worse. He uses his cane when he needs it. He has 2 steps to get into the house. He lifts 25-30 lb bags of bird seed every week. He had a trip and fall 2-3 months ago. PMH: arthritis, back pain, HTN , depression, DM1, hernia, right TSR 2010, COPD, thyroid disorder, history of smoking, a-fib. Pt takes a statin and greater than 10 medications. Prior Treatments and Tests 02/18/19: Lumbar x-ray: Dextroscoliosis and severe multilevel lumbar spondylosis, and facet arthropathy. Progression since 2014 Hip and pelvis: Unchange mild- moderate B hip joint degeneration and lower lumbar spondylosis. PT-OP-C Subjective Start: 03/03/19 11:34 Freq: Status: Active Protocol: Document 04/08/19 11:17 MB (Rec: 04/08/19 12:00 MB [id number]) OP-PT Subjective Patient Comments Patient Comments Pt states that he had to take a pain pill on Saturday night after doing an hour of [facility]. He also lifted a box of apples weighing about 50 lbs on Saturday. PT-OP-J Posture/Palpation/Skin Start: 03/03/19 11:34 Freq: Status: Active Protocol: Document 03/03/19 16:50 MB (Rec: 03/03/19 18:09 MB [id number]) Posture Evaluation Comments Posture Comments Standing posture: forward head , rounded shoulders with head 5 forward and tragus 3 in front of AC joint, Dowager's hump, left pelvis lower than the right, increased thoracic kyphosis, increased lumbar lordosis and anterior tilt pelvis PT-OP-M Strength Start: 03/03/19 11:34 Freq: Status: Active Protocol: Document 03/03/19 16:50 MB (Rec: 03/03/19 18:09 MB [id number]) Hip Strength Hip Manual Muscle Testing Left Flexion (L2) 3+ Fair+ Abduction 4 Good Comments Pt sitting Right Flexion (L2) 2- Poor- Abduction 4 Good Comments Pt sitting Pt reports 7-8/10 pain with active hip flexion in sitting and so MMT not performed Knee Strength Knee Manual Muscle Testing Left Flexion (S2) 4 Good Extension (L3) 5 Normal Comments Pt sitting Right Flexion (S2) 5 Normal Extension (L3) 5 Normal Comments Pt sitting Ankle/Foot Strength Ankle and Foot Manual Muscle Testing Left Dorsiflexion (L4) 4 Good Plantarflexion (S1) 4 Good Right Dorsiflexion (L4) 4 Good Plantarflexion (S1) 4 Good Toe Strength Toe Manual Muscle Testing Left Great Toe Extension 4 Good Right Great Toe Extension 4 Good PT-OP-Q Treatments Start: 03/03/19 11:34 Freq: Status: Active Protocol: Document 04/08/19 11:17 MB (Rec: 04/08/19 12:00 MB [id number]) Cardio Equipment Recumbent Elliptical (BiodiKONVERSE) Duration (Minutes) 15 Resistance 4 Therapeutic Exercises Sitting Exercises Sit to stand Comments Attempted one rep and pt has too much pain Other Exercises Reviewed his HEP, handouts Comments Reviewed all exercises this date PT-OP-S Aquatic Treatment Start: 03/03/19 11:34 Freq: Status: Active Protocol: Document 04/03/19 10:15 LJ (Rec: 04/03/19 14:25 LJ [id number]) Aquatics Treatment Pool Entry/Exit Pool Entry/Exit Method Stairs Water Walking [place] May Water Level Chest Level Level of Assistance Standby Assistance,Verbal Cues Sideways Water Level Chest Level Level of Assistance Standby Assistance,Verbal Cues Comments 2 laps-high knees, 2 laps- wide steps Backwards Water Level Chest Level Level of Assistance Standby Assistance,Verbal Cues Forwards Water Level Chest Level Level of Assistance Standby Assistance,Verbal Cues Lower Extremity Exercises HS cursl Details hand hold on wall Body Position Standing Water Level Chest Level Reps/Duration 2x10 flex/ext; ab/ad Details hand hold on wall Body Position Standing Water Level Chest Level Reps/Duration 2x10 each Lower Extremity Stretches gastroc/soleus Details on stairs Body Position Standing Water Level Waist Level Reps/Duration 2x30 Comments cramping hip flexors Details at wall Body Position Standing Water Level Waist Level Reps/Duration 2x45 quads Details manual assist Body Position Standing Water Level Chest Level Reps/Duration 2x45 Comments right side painful at end range HS Details at wall Body Position Standing Water Level Chest Level Equipment Small Noodle Reps/Duration 2x45 Upper Extremity Exercises pull downs Body Position Standing Water Level Chest Level Reps/Duration 10 each flex/ext; ab/ad Body Position Standing Water Level Chest Level Reps/Duration 10 each Balance steps Details up down 4 and 8 steps Water Level Waist Level Equipment SPC on several trials-LLE up, RLE down Reps/Duration 12 min Comments various depths, switching leading leg PT-OP-T Assessment and Plan Start: 03/03/19 11:34 Freq: Status: Active Protocol: Document 04/08/19 11:17 MB (Rec: 04/08/19 12:00 MB [id number]) Physical Therapy Assessment Rehab Potential Rehabilitation Potential Fair Evaluation Complexity Number of Personal Factors/Comorbidities 1-2 Number of Body Systems Impaired 1-2 Clinical Presentation at Evaluation Stable Impairments Impairments Activity Tolerance,Gait,Pain, Posture,Strength Other Concerns Fall Risk Yes Barriers to Rehabilitation Morbid obesity, history of falls, degenerative changes in spine Goals 6 Business Operations Director Goal (LTG) Pt will gait train at least 1000 feet with or without cane in 6 minutes increase I and decrease fall risk by 06/08/2019 . 03/31/2019: Pt gait trains 551' with cane in left hand and requires rest break d/t back pain and MALDONADO LTG Duration 8 weeks 5 [facility]cf Goal (LTG) Pt will perform progressive HEP with flexibility including pelvic realignment, flexibility, core and LE strengthening and balance exercises by 06/08/2019. 04/08/2019: Pt has been performing progressive HEP LTG Duration 8 weeks 4 Business Operations Director Goal (LTG) Pt will report a 50% improvement in pain to allow better gait tolerance by 2019. 04/08/2019: Pt reports an overall 25% improvement in pain since starting PT LTG Duration 8 weeks 3 Business Operations Director Goal (LTG) Pt will perform 12 reps of sit to stand without UE support in 30 sec to improve functional transfers and decrease fall risk by 05/01/19. 04/08/2019: Tried one rep and too much right knee pain and so d/c this goal LTG Duration 8 weeks 2 Business Operations Director Goal (LTG) Pt will present with improved B hip flexion to at least 4/5 and B knee flexion and extension to 5/5 to help with sit to stand and other functional activities by 2019. 04/08/2019: RLE: hip flexion 4/5 and 5/10 pain; hip flexion 3+ /5 and 7/10 knee pain; right hip abduction 5/5; right knee extension 4/5; LLE: left hip flexion 5/5, knee flexion 5/5, left knee extension 4/5, left hip abduction 4/5. LTG Duration 8 weeks 1 Business Operations Director Goal (LTG) Pt will present with an improved Oswestry LBP score to reflect no more than 30% impairment to decrease pain with functional activities by 06/08/2019. 04/08/2019: Oswestry LBP score reflects 48% impairment LTG Duration 8 weeks Assessment Summary Assessment Con't to monitor gait with regard to adding further lift to left shoe. Pt has progressed towards all PT goals since starting PT. These include: Oswestry LBP score, LE strength, performance of HEP, reports of improvement in pain and sit to stands. He will benefit from ongoing PT to improve flexibility, strength and balance. Physical Therapy Plan Frequency and Duration Frequency of Treatment 2x/Week Duration of Treatment 8 weeks Plan of Care Start Date 04/08/19 Plan of Care End Date 06/08/19 Therapeutic Interventions Therapeutic Interventions Aquatic Therapy,Balance Training,Canalithic Repositioning,Coordination Training,Gait Training,Home Exercise Program,Manual Therapy,Neuromuscular Re- education,Patient/Caregiver Education,Self-Care/Home Management,Soft Tissue Mobilization,Taping, Therapeutic Activities, Therapeutic Exercises Modalities Cold Pack/Ice Massage,Electric Stimulation,Hot Packs, Ultrasound Other Referrals/Consults Referrals/Consults Recommended Change Room Attendant consult for right knee, possible OA. Next Visit Focus/Plan Next Note Type Treatment Note Next Visit Plan Con't flexibility, strengthening and gait exercises. Con't to monitor gait with regard to lift left shoe
--- NOTE | 2019-04-08 12:02 | PT.OPPOC ---
Physical, Occupational & Speech Therapy At [facility] Current Diagnoses Sciatica, unspecified side (04/08/19) Dorsalgia, unspecified (04/08/19) Visit Care Team Role Provider Type Douglas Turner MD Attending Provider Physician Primary Care Provider Specialty: Family Practice Address: [address] [place] [address], [id number] Email: [email or web address] Plan Of Care PT-OP-T Assessment and Plan Start: 03/03/19 11:34 Freq: Status: Active Protocol: Document 04/08/19 11:17 MB (Rec: 04/08/19 12:00 MB [id number]) Physical Therapy Assessment Rehab Potential Rehabilitation Potential Fair Evaluation Complexity Number of Personal Factors/Comorbidities 1-2 Number of Body Systems Impaired 1-2 Clinical Presentation at Evaluation Stable Impairments Impairments Activity Tolerance,Gait,Pain, Posture,Strength Other Concerns Fall Risk Yes Barriers to Rehabilitation Morbid obesity, history of falls, degenerative changes in spine Goals 6 Athletic Scout Goal (LTG) Pt will gait train at least 1000 feet with or without cane in 6 minutes increase I and decrease fall risk by 06/08/2019 . 03/31/2019: Pt gait trains 551' with cane in left hand and requires rest break d/t back pain and MALDONADO LTG Duration 8 weeks 5 Athletic Scout Goal (LTG) Pt will perform progressive HEP with flexibility including pelvic realignment, flexibility, core and LE strengthening and balance exercises by 06/08/2019. 04/08/2019: Pt has been performing progressive HEP LTG Duration 8 weeks 4 Halfway Goal (LTG) Pt will report a 50% improvement in pain to allow better gait tolerance by 2019. 04/08/2019: Pt reports an overall 25% improvement in pain since starting PT LTG Duration 8 weeks 3 Halfway Goal (LTG) Pt will perform 12 reps of sit to stand without UE support in 30 sec to improve functional transfers and decrease fall risk by 05/01/19. 04/08/2019: Tried one rep and too much right knee pain and so d/c this goal LTG Duration 8 weeks 2 Halfway Goal (LTG) Pt will present with improved B hip flexion to at least 4/5 and B knee flexion and extension to 5/5 to help with sit to stand and other functional activities by 2019. 04/08/2019: RLE: hip flexion 4/5 and 5/10 pain; hip flexion 3+ /5 and 7/10 knee pain; right hip abduction 5/5; right knee extension 4/5; LLE: left hip flexion 5/5, knee flexion 5/5, left knee extension 4/5, left hip abduction 4/5. LTG Duration 8 weeks 1 Athletic Scout Goal (LTG) Pt will present with an improved Oswestry LBP score to reflect no more than 30% impairment to decrease pain with functional activities by 06/08/2019. 04/08/2019: Oswestry LBP score reflects 48% impairment LTG Duration 8 weeks Assessment Summary Assessment Con't to monitor gait with regard to adding further lift to left shoe. Pt has progressed towards all PT goals since starting PT. These include: Oswestry LBP score, LE strength, performance of HEP, reports of improvement in pain and sit to stands. He will benefit from ongoing PT to improve flexibility, strength and balance. Physical Therapy Plan Frequency and Duration Frequency of Treatment 2x/Week Duration of Treatment 8 weeks Plan of Care Start Date 04/08/19 Plan of Care End Date 06/08/19 Therapeutic Interventions Therapeutic Interventions Aquatic Therapy,Balance Training,Canalithic Repositioning,Coordination Training,Gait Training,Home Exercise Program,Manual Therapy,Neuromuscular Re- education,Patient/Caregiver Education,Self-Care/Home Management,Soft Tissue Mobilization,Taping, Therapeutic Activities, Therapeutic Exercises Modalities Cold Pack/Ice Massage,Electric Stimulation,Hot Packs, Ultrasound Other Referrals/Consults Referrals/Consults Recommended Development Coach consult for right knee, possible OA. Next Visit Focus/Plan Next Note Type Treatment Note Next Visit Plan Con't flexibility, strengthening and gait exercises. Con't to monitor gait with regard to lift left shoe Plan of Care Dates Plan of Care Start Date 04/08/19 Plan of Care End Date 06/08/19 Electronically Signed by: Melanie Aggarwal, PT 04/08/19 0866 Please Sign and Return: I have reviewed this Plan of Care and certify that the skilled therapy services above are required to meet the patient?s needs. Physician Signature Date Printed Name and Credentials Clinical Instructor Signature Printed Name and Credentials
--- NOTE | 2019-04-13 15:24 | PT.OTN ---
Current Diagnoses Sciatica, unspecified side (04/08/19) Dorsalgia, unspecified (04/08/19) Physical Therapy Treatment Note PT-OP-A Visit Information Start: 03/03/19 11:34 Freq: Status: Active Protocol: Document 04/13/19 10:15 LJ (Rec: 04/13/19 15:24 LJ [email or web address]) Out-Patient Physical Therapy Visit Information Visit Information Visit Type Aquatic Treatment Note Visit Start Time 10:15 Visit Stop Time 11:00 PT-OP-B Current Condition Start: 03/03/19 11:34 Freq: Status: Active Protocol: Document 03/03/19 16:50 MB (Rec: 03/03/19 17:16 MB [id number]) Current Condition History of Current Condition Onset Date 04/19/18 History of Current Condition Pt reports he was sitting one afternoon and when he went to get up, his back started to bother him. His right knee wouldn't bend. He reports pain down the front of his leg to his big toe. His right knee is tight. He has arthritis in all his joints. He has a history of right shoulder replacement. Pt takes pain pill when he needs it. He is taking 5 mg Oxycontin and Tyelonol when needed. The pain in the right hip, right leg and middle spine. It gets up to 10/10 at it's worse. He reports his foot can get numb. Walking makes the pain worse. He uses his cane when he needs it. He has 2 steps to get into the house. He lifts 25-30 lb bags of bird seed every week. He had a trip and fall 2-3 months ago. PMH: arthritis, back pain, HTN , depression, DM1, hernia, right TSR 2010, COPD, thyroid disorder, history of smoking, a-fib. Pt takes a statin and greater than 10 medications. Prior Treatments and Tests 02/18/19: Lumbar x-ray: Dextroscoliosis and severe multilevel lumbar spondylosis, and facet arthropathy. Progression since 2014 Hip and pelvis: Unchange mild- moderate B hip joint degeneration and lower lumbar spondylosis. PT-OP-C Subjective Start: 03/03/19 11:34 Freq: Status: Active Protocol: Document 04/13/19 10:15 LJ (Rec: 04/13/19 15:24 LJ [email or web address]) OP-PT Subjective Patient Comments Patient Comments Pt reported he was in pain after the last clinic therapy session. He complains of the back of his right knee being painful. PT-OP-J Posture/Palpation/Skin Start: 03/03/19 11:34 Freq: Status: Active Protocol: Document 03/03/19 16:50 MB (Rec: 03/03/19 18:09 MB [id number]) Posture Evaluation Comments Posture Comments Standing posture: forward head , rounded shoulders with head 5 forward and tragus 3 in front of AC joint, Dowager's hump, left pelvis lower than the right, increased thoracic kyphosis, increased lumbar lordosis and anterior tilt pelvis PT-OP-M Strength Start: 03/03/19 11:34 Freq: Status: Active Protocol: Document 03/03/19 16:50 MB (Rec: 03/03/19 18:09 MB [id number]) Hip Strength Hip Manual Muscle Testing Left Flexion (L2) 3+ Fair+ Abduction 4 Good Comments Pt sitting Right Flexion (L2) 2- Poor- Abduction 4 Good Comments Pt sitting Pt reports 7-8/10 pain with active hip flexion in sitting and so MMT not performed Knee Strength Knee Manual Muscle Testing Left Flexion (S2) 4 Good Extension (L3) 5 Normal Comments Pt sitting Right Flexion (S2) 5 Normal Extension (L3) 5 Normal Comments Pt sitting Ankle/Foot Strength Ankle and Foot Manual Muscle Testing Left Dorsiflexion (L4) 4 Good Plantarflexion (S1) 4 Good Right Dorsiflexion (L4) 4 Good Plantarflexion (S1) 4 Good Toe Strength Toe Manual Muscle Testing Left Great Toe Extension 4 Good Right Great Toe Extension 4 Good PT-OP-Q Treatments Start: 03/03/19 11:34 Freq: Status: Active Protocol: Document 04/08/19 11:17 MB (Rec: 04/08/19 12:00 MB [id number]) Cardio Equipment Recumbent Elliptical (Biodex) Duration (Minutes) 15 Resistance 4 Therapeutic Exercises Sitting Exercises Sit to stand Comments Attempted one rep and pt has too much pain Other Exercises Reviewed his HEP, handouts Comments Reviewed all exercises this date PT-OP-S Aquatic Treatment Start: 03/03/19 11:34 Freq: Status: Active Protocol: Document 04/13/19 10:15 KELLI (Rec: 04/13/19 15:24 LJ [email or web address]) Aquatics Treatment Pool Entry/Exit Pool Entry/Exit Method Stairs Assistance Standby Assistance Water Walking start stop with directionsl changes Water Level Chest Level Level of Assistance Standby Assistance,Verbal Cues [place] May Water Level Chest Level Level of Assistance Standby Assistance,Verbal Cues Sideways Water Level Chest Level Level of Assistance Standby Assistance,Verbal Cues Comments 2 laps-high knees, 2 laps- wide steps Backwards Water Level Chest Level Level of Assistance Standby Assistance,Verbal Cues Comments BS and reverse BS arms Forwards Water Level Chest Level Level of Assistance Standby Assistance,Verbal Cues Comments BS and reverse BS arms Lower Extremity Exercises hip CW, CCW Body Position Standing Water Level Chest Level Reps/Duration 2x10 bilat HS cursl Details hand hold on wall Body Position Standing Water Level Chest Level Reps/Duration 2x10 Comments right knee ROM restricted flex/ext; ab/ad Details hand hold on wall Body Position Standing Water Level Chest Level Reps/Duration 2x10 each Lower Extremity Stretches ITB Body Position Standing Reps/Duration 2x45 gastroc/soleus Details on stairs Body Position Standing Water Level Waist Level Reps/Duration 2x30 hip flexors Details at wall Body Position Standing Water Level Waist Level Reps/Duration 2x45 quads Details manual assist Body Position Standing Water Level Chest Level Reps/Duration 2x45 Comments right side painful at end range HS Details at wall Body Position Standing Water Level Chest Level Equipment Small Noodle Reps/Duration 2x45 Upper Extremity Exercises pull downs Body Position Standing Water Level Chest Level Reps/Duration 10 each flex/ext; ab/ad Body Position Standing Water Level Chest Level Reps/Duration 10 each Balance SLS wall taps Body Position Standing Water Level Waist Level Reps/Duration 20 bilat steps Details up down 4 and 8 steps Water Level Waist Level Reps/Duration 18 min Comments various depths, switching leading leg Holly Activities Holly Activities Bicycle,Bicycle Backwards, [place],Hip Abduction/ Adduction Equipment belt, noodle, 3.75# PT-OP-T Assessment and Plan Start: 03/03/19 11:34 Freq: Status: Active Protocol: Document 04/13/19 10:15 KELLI (Rec: 04/13/19 15:24 KELLI [email or web address]) Physical Therapy Assessment Rehab Potential Rehabilitation Potential Fair Evaluation Complexity Number of Personal Factors/Comorbidities 1-2 Number of Body Systems Impaired 1-2 Clinical Presentation at Evaluation Stable Impairments Impairments Activity Tolerance,Gait,Pain, Posture,Strength Other Concerns Fall Risk Yes Barriers to Rehabilitation Morbid obesity, history of falls, degenerative changes in spine Goals 6 Half-Way Goal (LTG) Pt will gait train at least 1000 feet with or without cane in 6 minutes increase I and decrease fall risk by 06/08/2019 . 03/31/2019: Pt gait trains 551' with cane in left hand and requires rest break d/t back pain and MALDONADO LTG Duration 8 weeks 5 Log Cutter Goal (LTG) Pt will perform progressive HEP with flexibility including pelvic realignment, flexibility, core and LE strengthening and balance exercises by 06/08/2019. 04/08/2019: Pt has been performing progressive HEP LTG Duration 8 weeks 4 Half-Way Goal (LTG) Pt will report a 50% improvement in pain to allow better gait tolerance by 2019. 04/08/2019: Pt reports an overall 25% improvement in pain since starting PT LTG Duration 8 weeks 3 Half-Way Goal (LTG) Pt will perform 12 reps of sit to stand without UE support in 30 sec to improve functional transfers and decrease fall risk by 05/01/19. 04/08/2019: Tried one rep and too much right knee pain and so d/c this goal LTG Duration 8 weeks 2 Half-Way Goal (LTG) Pt will present with improved B hip flexion to at least 4/5 and B knee flexion and extension to 5/5 to help with sit to stand and other functional activities by 2019. 04/08/2019: RLE: hip flexion 4/5 and 5/10 pain; hip flexion 3+ /5 and 7/10 knee pain; right hip abduction 5/5; right knee extension 4/5; LLE: left hip flexion 5/5, knee flexion 5/5, left knee extension 4/5, left hip abduction 4/5. LTG Duration 8 weeks 1 Log Cutter Goal (LTG) Pt will present with an improved Oswestry LBP score to reflect no more than 30% impairment to decrease pain with functional activities by 06/08/2019. 04/08/2019: Oswestry LBP score reflects 48% impairment LTG Duration 8 weeks Assessment Summary Assessment Pt is improving with balance in walking activities and SLS with wall taps. He continues to tolerate exercises well and shows good posture when cued. Still has a tendency to step to the side on descent from step Physical Therapy Plan Frequency and Duration Frequency of Treatment 2x/Week Duration of Treatment 8 weeks Therapeutic Interventions Therapeutic Interventions Aquatic Therapy,Balance Training,Canalithic Repositioning,Coordination Training,Gait Training,Home Exercise Program,Manual Therapy,Neuromuscular Re- education,Patient/Caregiver Education,Self-Care/Home Management,Soft Tissue Mobilization,Taping, Therapeutic Activities, Therapeutic Exercises Modalities Cold Pack/Ice Massage,Electric Stimulation,Hot Packs, Ultrasound Other Referrals/Consults Referrals/Consults Recommended Veterinary Technology Instructor consult for right knee, possible OA. Next Visit Focus/Plan Next Note Type Treatment Note Next Visit Plan Con't flexibility, strengthening and gait exercises. Con't to monitor gait with regard to lift left shoe
--- NOTE | 2019-04-15 10:40 | PT.OTN ---
Current Diagnoses Sciatica, unspecified side (04/15/19) Dorsalgia, unspecified (04/15/19) Physical Therapy Treatment Note PT-OP-A Visit Information Start: 03/03/19 11:34 Freq: Status: Active Protocol: Document 04/15/19 09:49 SP (Rec: 04/15/19 10:45 SP [id number]) Out-Patient Physical Therapy Visit Information Visit Information Visit Type Treatment Note Visit Start Time 09:50 Visit Stop Time 10:40 Total Visit Minutes 50 Visit Number 3/10, unlimited Number of AIRCRAFT HYDRAULIC EQUIPMENT MECHANIC Visits 2 PT-OP-B Current Condition Start: 03/03/19 11:34 Freq: Status: Active Protocol: Document 03/03/19 16:50 MB (Rec: 03/03/19 17:16 MB [id number]) Current Condition History of Current Condition Onset Date 04/19/18 History of Current Condition Pt reports he was sitting one afternoon and when he went to get up, his back started to bother him. His right knee wouldn't bend. He reports pain down the front of his leg to his big toe. His right knee is tight. He has arthritis in all his joints. He has a history of right shoulder replacement. Pt takes pain pill when he needs it. He is taking 5 mg Oxycontin and Tyelonol when needed. The pain in the right hip, right leg and middle spine. It gets up to 10/10 at it's worse. He reports his foot can get numb. Walking makes the pain worse. He uses his cane when he needs it. He has 2 steps to get into the house. He lifts 25-30 lb bags of bird seed every week. He had a trip and fall 2-3 months ago. PMH: arthritis, back pain, HTN , depression, DM1, hernia, right TSR 2010, COPD, thyroid disorder, history of smoking, a-fib. Pt takes a statin and greater than 10 medications. Prior Treatments and Tests 02/18/19: Lumbar x-ray: Dextroscoliosis and severe multilevel lumbar spondylosis, and facet arthropathy. Progression since 2014 Hip and pelvis: Unchange mild- moderate B hip joint degeneration and lower lumbar spondylosis. PT-OP-C Subjective Start: 03/03/19 11:34 Freq: Status: Active Protocol: Document 04/15/19 09:49 SP (Rec: 04/15/19 10:45 SP [id number]) OP-PT Subjective Patient Comments Patient Comments Pt demonstrating antalgic gait today with 4/10 inLB and R knee and R ankle pre PT, decreased stance time on L side. PT-OP-J Posture/Palpation/Skin Start: 03/03/19 11:34 Freq: Status: Active Protocol: Document 03/03/19 16:50 MB (Rec: 03/03/19 18:09 MB [id number]) Posture Evaluation Comments Posture Comments Standing posture: forward head , rounded shoulders with head 5 forward and tragus 3 in front of AC joint, Dowager's hump, left pelvis lower than the right, increased thoracic kyphosis, increased lumbar lordosis and anterior tilt pelvis PT-OP-M Strength Start: 03/03/19 11:34 Freq: Status: Active Protocol: Document 03/03/19 16:50 MB (Rec: 03/03/19 18:09 MB [id number]) Hip Strength Hip Manual Muscle Testing Left Flexion (L2) 3+ Fair+ Abduction 4 Good Comments Pt sitting Right Flexion (L2) 2- Poor- Abduction 4 Good Comments Pt sitting Pt reports 7-8/10 pain with active hip flexion in sitting and so MMT not performed Knee Strength Knee Manual Muscle Testing Left Flexion (S2) 4 Good Extension (L3) 5 Normal Comments Pt sitting Right Flexion (S2) 5 Normal Extension (L3) 5 Normal Comments Pt sitting Ankle/Foot Strength Ankle and Foot Manual Muscle Testing Left Dorsiflexion (L4) 4 Good Plantarflexion (S1) 4 Good Right Dorsiflexion (L4) 4 Good Plantarflexion (S1) 4 Good Toe Strength Toe Manual Muscle Testing Left Great Toe Extension 4 Good Right Great Toe Extension 4 Good PT-OP-Q Treatments Start: 03/03/19 11:34 Freq: Status: Active Protocol: Document 04/15/19 09:49 SP (Rec: 04/15/19 10:45 SP [id number]) Cardio Equipment Recumbent Elliptical ([place]) Duration (Minutes) 4 Other had tostop due to increased ankle and R wrist pain Therapeutic Exercises Supine Exercises trans ab facilitation Reps/Minutes 5 sec hold x5 Comments cued PPT and sucking ab to trunk not puff out while allow breath knee fall out Supine Exercise Name single Side bilateral Reps/Minutes x5 transverse trng Supine Exercise Name lower transfer Comments challenged activation Sitting Exercises quad set Sitting Exercise Name quick patella retraction (VMO facilitation) Reps/Minutes 5 x2 sets LAQ Side bilateral Comments small range tolerated 10*70* Sit to stand Reps/Minutes 3 Comments able tolerated during eccentric sit STM with rolling pin for quads Sitting Exercise Name quad and ITB Side right Comments Ed today and pt will benefit from using longer device than rolling pin PT-OP-R Modalities Start: 03/03/19 11:34 Freq: Status: Active Protocol: Document 04/15/19 09:49 SP (Rec: 04/15/19 10:45 SP [id number]) Hot Pack/Cold Pack Treatment MHP Location LB Patient Position Sitting Treatment Duration (minutes) 10 Patient Tolerance Good Comments tolerated well PT-OP-S Aquatic Treatment Start: 03/03/19 11:34 Freq: Status: Active Protocol: Document 04/13/19 10:15 LJ (Rec: 04/13/19 15:24 LJ [id number]) Aquatics Treatment Pool Entry/Exit Pool Entry/Exit Method Stairs Assistance Standby Assistance Water Walking start stop with directionsl changes Water Level Chest Level Level of Assistance Standby Assistance,Verbal Cues [place] Water Level Chest Level Level of Assistance Standby Assistance,Verbal Cues Sideways Water Level Chest Level Level of Assistance Standby Assistance,Verbal Cues Comments 2 laps-high knees, 2 laps- wide steps Backwards Water Level Chest Level Level of Assistance Standby Assistance,Verbal Cues Comments BS and reverse BS arms Forwards Water Level Chest Level Level of Assistance Standby Assistance,Verbal Cues Comments BS and reverse BS arms Lower Extremity Exercises hip CW, CCW Body Position Standing Water Level Chest Level Reps/Duration 2x10 bilat HS cursl Details hand hold on wall Body Position Standing Water Level Chest Level Reps/Duration 2x10 Comments right knee ROM restricted flex/ext; ab/ad Details hand hold on wall Body Position Standing Water Level Chest Level Reps/Duration 2x10 each Lower Extremity Stretches ITB Body Position Standing Reps/Duration 2x45 gastroc/soleus Details on stairs Body Position Standing Water Level Waist Level Reps/Duration 2x30 hip flexors Details at wall Body Position Standing Water Level Waist Level Reps/Duration 2x45 quads Details manual assist Body Position Standing Water Level Chest Level Reps/Duration 2x45 Comments right side painful at end range HS Details at wall Body Position Standing Water Level Chest Level Equipment Small Noodle Reps/Duration 2x45 Upper Extremity Exercises pull downs Body Position Standing Water Level Chest Level Reps/Duration 10 each flex/ext; ab/ad Body Position Standing Water Level Chest Level Reps/Duration 10 each Balance SLS wall taps Body Position Standing Water Level Waist Level Reps/Duration 20 bilat steps Details up down 4 and 8 steps Water Level Waist Level Reps/Duration 18 min Comments various depths, switching leading leg [place] Activities [place] Activities Bicycle,Bicycle Backwards, [place],Hip Abduction/ Adduction Equipment belt, noodle, 3.75# PT-OP-T Assessment and Plan Start: 03/03/19 11:34 Freq: Status: Active Protocol: Document 04/15/19 09:49 SP (Rec: 04/15/19 10:45 SP [id number]) Physical Therapy Assessment Goals 6 Electromechanisms Design Drafter Goal (LTG) Pt will gait train at least 1000 feet with or without cane in 6 minutes increase I and decrease fall risk by 06/08/2019 . 03/31/2019: Pt gait trains 551' with cane in left hand and requires rest break d/t back pain and MALDONADO LTG Duration 8 weeks 5 Jail Goal (LTG) Pt will perform progressive HEP with flexibility including pelvic realignment, flexibility, core and LE strengthening and balance exercises by 06/08/2019. 04/08/2019: Pt has been performing progressive HEP LTG Duration 8 weeks 4 Jail Goal (LTG) Pt will report a 50% improvement in pain to allow better gait tolerance by 2019. 04/08/2019: Pt reports an overall 25% improvement in pain since starting PT LTG Duration 8 weeks 3 Jail Goal (LTG) Pt will perform 12 reps of sit to stand without UE support in 30 sec to improve functional transfers and decrease fall risk by 05/01/19. 04/08/2019: Tried one rep and too much right knee pain and so d/c this goal LTG Duration 8 weeks 2 Jail Goal (LTG) Pt will present with improved B hip flexion to at least 4/5 and B knee flexion and extension to 5/5 to help with sit to stand and other functional activities by 2019. 04/08/2019: RLE: hip flexion 4/5 and 5/10 pain; hip flexion 3+ /5 and 7/10 knee pain; right hip abduction 5/5; right knee extension 4/5; LLE: left hip flexion 5/5, knee flexion 5/5, left knee extension 4/5, left hip abduction 4/5. LTG Duration 8 weeks 1 Jail Goal (LTG) Pt will present with an improved Oswestry LBP score to reflect no more than 30% impairment to decrease pain with functional activities by 06/08/2019. 04/08/2019: Oswestry LBP score reflects 48% impairment LTG Duration 8 weeks Assessment Summary Assessment Pt reported increased pain R knee, ankle and R wrist during bike warm up so stopped at 4 min. Pt reported increased LBP today so focused on trans ab education with added fallouts and intruduced LAQ small range tolerated on R and quick quad sets to allow for knee extension control for WB during gait and decrease risk for buckling as patient reports does happen. No adverse affects to tx today. toleranted MHP end of tx on LB . back feel little better. Physical Therapy Plan Frequency and Duration Frequency of Treatment 2x/Week Duration of Treatment 8 weeks Plan of Care Start Date 04/08/19 Plan of Care End Date 06/08/19 Therapeutic Interventions Therapeutic Interventions Aquatic Therapy,Balance Training,Canalithic Repositioning,Coordination Training,Gait Training,Home Exercise Program,Manual Therapy,Neuromuscular Re- education,Patient/Caregiver Education,Self-Care/Home Management,Soft Tissue Mobilization,Taping, Therapeutic Activities, Therapeutic Exercises Modalities Cold Pack/Ice Massage,Electric Stimulation,Hot Packs, Ultrasound Other Referrals/Consults Referrals/Consults Recommended Cut Out Machine Operator consult for right knee, possible OA. Next Visit Focus/Plan Next Note Type Treatment Note Next Visit Plan Con't flexibility, strengthening and gait exercises. Con't to monitor gait with regard to lift left shoe
--- NOTE | 2019-04-20 14:52 | PT.OTN ---
Current Diagnoses Sciatica, unspecified side (04/20/19) Dorsalgia, unspecified (04/20/19) Physical Therapy Treatment Note PT-OP-A Visit Information Start: 03/03/19 11:34 Freq: Status: Active Protocol: Document 04/20/19 10:15 LJ (Rec: 04/20/19 14:52 LJ [email or web address]) Out-Patient Physical Therapy Visit Information Visit Information Visit Type Aquatic Treatment Note Visit Start Time 10:15 Visit Stop Time 11:00 Total Visit Minutes 45 Visit Number 4/10 Number of ELECTRONIC COMPONENT PROCESSOR Visits 3 PT-OP-B Current Condition Start: 03/03/19 11:34 Freq: Status: Active Protocol: Document 03/03/19 16:50 MB (Rec: 03/03/19 17:16 MB [id number]) Current Condition History of Current Condition Onset Date 04/19/18 History of Current Condition Pt reports he was sitting one afternoon and when he went to get up, his back started to bother him. His right knee wouldn't bend. He reports pain down the front of his leg to his big toe. His right knee is tight. He has arthritis in all his joints. He has a history of right shoulder replacement. Pt takes pain pill when he needs it. He is taking 5 mg Oxycontin and Tyelonol when needed. The pain in the right hip, right leg and middle spine. It gets up to 10/10 at it's worse. He reports his foot can get numb. Walking makes the pain worse. He uses his cane when he needs it. He has 2 steps to get into the house. He lifts 25-30 lb bags of bird seed every week. He had a trip and fall 2-3 months ago. PMH: arthritis, back pain, HTN , depression, DM1, hernia, right TSR 2010, COPD, thyroid disorder, history of smoking, a-fib. Pt takes a statin and greater than 10 medications. Prior Treatments and Tests 02/18/19: Lumbar x-ray: Dextroscoliosis and severe multilevel lumbar spondylosis, and facet arthropathy. Progression since 2014 Hip and pelvis: Unchange mild- moderate B hip joint degeneration and lower lumbar spondylosis. PT-OP-C Subjective Start: 03/03/19 11:34 Freq: Status: Active Protocol: Document 04/20/19 10:15 LJ (Rec: 04/20/19 14:52 LJ [email or web address]) OP-PT Subjective Patient Comments Patient Comments Pt states his rgiht knee was sore yesterday but not sure why it hurt more PT-OP-J Posture/Palpation/Skin Start: 03/03/19 11:34 Freq: Status: Active Protocol: Document 03/03/19 16:50 MB (Rec: 03/03/19 18:09 MB [id number]) Posture Evaluation Comments Posture Comments Standing posture: forward head , rounded shoulders with head 5 forward and tragus 3 in front of AC joint, Dowager's hump, left pelvis lower than the right, increased thoracic kyphosis, increased lumbar lordosis and anterior tilt pelvis PT-OP-M Strength Start: 03/03/19 11:34 Freq: Status: Active Protocol: Document 03/03/19 16:50 MB (Rec: 03/03/19 18:09 MB [id number]) Hip Strength Hip Manual Muscle Testing Left Flexion (L2) 3+ Fair+ Abduction 4 Good Comments Pt sitting Right Flexion (L2) 2- Poor- Abduction 4 Good Comments Pt sitting Pt reports 7-8/10 pain with active hip flexion in sitting and so MMT not performed Knee Strength Knee Manual Muscle Testing Left Flexion (S2) 4 Good Extension (L3) 5 Normal Comments Pt sitting Right Flexion (S2) 5 Normal Extension (L3) 5 Normal Comments Pt sitting Ankle/Foot Strength Ankle and Foot Manual Muscle Testing Left Dorsiflexion (L4) 4 Good Plantarflexion (S1) 4 Good Right Dorsiflexion (L4) 4 Good Plantarflexion (S1) 4 Good Toe Strength Toe Manual Muscle Testing Left Great Toe Extension 4 Good Right Great Toe Extension 4 Good PT-OP-Q Treatments Start: 03/03/19 11:34 Freq: Status: Active Protocol: Document 04/15/19 09:49 SP (Rec: 04/15/19 10:45 SP [id number]) Cardio Equipment Recumbent Elliptical ([place]) Duration (Minutes) 4 Other had tostop due to increased ankle and R wrist pain Therapeutic Exercises Supine Exercises trans ab facilitation Reps/Minutes 5 sec hold x5 Comments cued PPT and sucking ab to trunk not puff out while allow breath knee fall out Supine Exercise Name single Side bilateral Reps/Minutes x5 transverse trng Supine Exercise Name lower transfer Comments challenged activation Sitting Exercises quad set Sitting Exercise Name quick patella retraction (VMO facilitation) Reps/Minutes 5 x2 sets LAQ Side bilateral Comments small range tolerated 10*70* Sit to stand Reps/Minutes 3 Comments able tolerated during eccentric sit STM with rolling pin for quads Sitting Exercise Name quad and ITB Side right Comments Ed today and pt will benefit from using longer device than rolling pin PT-OP-R Modalities Start: 03/03/19 11:34 Freq: Status: Active Protocol: Document 04/15/19 09:49 SP (Rec: 04/15/19 10:45 SP [id number]) Hot Pack/Cold Pack Treatment MHP Location LB Patient Position Sitting Treatment Duration (minutes) 10 Patient Tolerance Good Comments tolerated well PT-OP-S Aquatic Treatment Start: 03/03/19 11:34 Freq: Status: Active Protocol: Document 04/20/19 10:15 LJ (Rec: 04/20/19 14:52 LJ [email or web address]) Aquatics Treatment Pool Entry/Exit Pool Entry/Exit Method Stairs Assistance Standby Assistance Water Walking start stop with directionsl changes Water Level Chest Level Level of Assistance Standby Assistance,Verbal Cues [place] Water Level Chest Level Level of Assistance Standby Assistance,Verbal Cues Comments limited ROM w/right knee Sideways Water Level Chest Level Level of Assistance Standby Assistance,Verbal Cues Comments 2 laps-high knees, 2 laps- wide steps Backwards Water Level Chest Level Level of Assistance Standby Assistance,Verbal Cues Comments BS and reverse BS arms Forwards Water Level Chest Level Level of Assistance Standby Assistance,Verbal Cues Comments BS and reverse BS arms Lower Extremity Exercises wall taps-alternating Body Position Standing Water Level Chest Level Reps/Duration 20x Lower Extremity Stretches gastroc/soleus Details on stairs Body Position Standing Water Level Waist Level Reps/Duration 2x30 hip flexors Details at wall Body Position Standing Water Level Waist Level Reps/Duration 2x45 quads Details manual assist Body Position Standing Water Level Chest Level Reps/Duration 2x45 Comments right side painful at end range HS Details at wall Body Position Standing Water Level Chest Level Equipment Small Noodle Reps/Duration 2x45 Upper Extremity Exercises pull downs Body Position Standing Water Level Chest Level Equipment UE paddles Reps/Duration 10 each flex/ext; ab/ad Body Position Standing Water Level Chest Level Reps/Duration 10 each Balance SLS-staitc Body Position Standing Water Level Chest Level Reps/Duration 45 sec bilat SLS wall taps Body Position Standing Water Level Waist Level Reps/Duration 20 bilat steps Details up down and 8 steps Water Level Waist Level Reps/Duration 6 min Comments forward, backward, sideways [place] Activities [place] Activities Bicycle,Hip Abduction/ Adduction Equipment belt, noodle, 3.75# PT-OP-T Assessment and Plan Start: 03/03/19 11:34 Freq: Status: Active Protocol: Document 04/20/19 10:15 KELLI (Rec: 04/20/19 14:52 KELLI [email or web address]) Physical Therapy Assessment Rehab Potential Rehabilitation Potential Fair Evaluation Complexity Number of Personal Factors/Comorbidities 1-2 Number of Body Systems Impaired 1-2 Clinical Presentation at Evaluation Stable Impairments Impairments Activity Tolerance,Gait,Pain, Posture,Strength Other Concerns Fall Risk Yes Barriers to Rehabilitation Morbid obesity, history of falls, degenerative changes in spine Goals 6 Half-Way Goal (LTG) Pt will gait train at least 1000 feet with or without cane in 6 minutes increase I and decrease fall risk by 06/08/2019 . 03/31/2019: Pt gait trains 551' with cane in left hand and requires rest break d/t back pain and MALDONADO LTG Duration 8 weeks 5 Half-Way Goal (LTG) Pt will perform progressive HEP with flexibility including pelvic realignment, flexibility, core and LE strengthening and balance exercises by 06/08/2019. 04/08/2019: Pt has been performing progressive HEP LTG Duration 8 weeks 4 Bristle Machine Operator Goal (LTG) Pt will report a 50% improvement in pain to allow better gait tolerance by 2019. 04/08/2019: Pt reports an overall 25% improvement in pain since starting PT LTG Duration 8 weeks 3 Bristle Machine Operator Goal (LTG) Pt will perform 12 reps of sit to stand without UE support in 30 sec to improve functional transfers and decrease fall risk by 05/01/19. 04/08/2019: Tried one rep and too much right knee pain and so d/c this goal LTG Duration 8 weeks 2 Bristle Machine Operator Goal (LTG) Pt will present with improved B hip flexion to at least 4/5 and B knee flexion and extension to 5/5 to help with sit to stand and other functional activities by 2019. 04/08/2019: RLE: hip flexion 4/5 and 5/10 pain; hip flexion 3+ /5 and 7/10 knee pain; right hip abduction 5/5; right knee extension 4/5; LLE: left hip flexion 5/5, knee flexion 5/5, left knee extension 4/5, left hip abduction 4/5. LTG Duration 8 weeks 1 Half-Way Goal (LTG) Pt will present with an improved Oswestry LBP score to reflect no more than 30% impairment to decrease pain with functional activities by 06/08/2019. 04/08/2019: Oswestry LBP score reflects 48% impairment LTG Duration 8 weeks Assessment Summary Assessment Pt start/stop/direction change walking is improving in regards to reaction time and stability. Had a tendency to put both LEs on top of box then stand as opposed to standing with one leg. He began having LE cramps in deep water so we abandoned deep water after several minutes and began stretching. Physical Therapy Plan Frequency and Duration Frequency of Treatment 2x/Week Duration of Treatment 8 weeks Plan of Care Start Date 04/08/19 Plan of Care End Date 06/08/19 Therapeutic Interventions Therapeutic Interventions Aquatic Therapy,Balance Training,Canalithic Repositioning,Coordination Training,Gait Training,Home Exercise Program,Manual Therapy,Neuromuscular Re- education,Patient/Caregiver Education,Self-Care/Home Management,Soft Tissue Mobilization,Taping, Therapeutic Activities, Therapeutic Exercises Modalities Cold Pack/Ice Massage,Electric Stimulation,Hot Packs, Ultrasound Next Visit Focus/Plan Next Note Type Treatment Note Next Visit Plan Con't flexibility, strengthening and gait exercises. Con't to monitor gait with regard to lift left shoe
--- NOTE | 2019-04-23 10:19 | PT.OTN ---
Current Diagnoses Sciatica, unspecified side (04/23/19) Dorsalgia, unspecified (04/23/19) Physical Therapy Treatment Note PT-OP-A Visit Information Start: 03/03/19 11:34 Freq: Status: Active Protocol: Document 04/23/19 09:47 MB (Rec: 04/23/19 10:19 MB [id number]) Out-Patient Physical Therapy Visit Information Visit Information Visit Type Treatment Note Visit Note Shortened treatment d/t pt tolerance today Visit Start Time 09:47 Visit Stop Time 10:17 Total Visit Minutes 30 Visit Number 5/10 Number of OFFENSIVE COORDINATOR Visits 0 PT-OP-B Current Condition Start: 03/03/19 11:34 Freq: Status: Active Protocol: Document 03/03/19 16:50 MB (Rec: 03/03/19 17:16 MB [id number]) Current Condition History of Current Condition Onset Date 04/19/18 History of Current Condition Pt reports he was sitting one afternoon and when he went to get up, his back started to bother him. His right knee wouldn't bend. He reports pain down the front of his leg to his big toe. His right knee is tight. He has arthritis in all his joints. He has a history of right shoulder replacement. Pt takes pain pill when he needs it. He is taking 5 mg Oxycontin and Tyelonol when needed. The pain in the right hip, right leg and middle spine. It gets up to 10/10 at it's worse. He reports his foot can get numb. Walking makes the pain worse. He uses his cane when he needs it. He has 2 steps to get into the house. He lifts 25-30 lb bags of bird seed every week. He had a trip and fall 2-3 months ago. PMH: arthritis, back pain, HTN , depression, DM1, hernia, right TSR 2010, COPD, thyroid disorder, history of smoking, a-fib. Pt takes a statin and greater than 10 medications. Prior Treatments and Tests 02/18/19: Lumbar x-ray: Dextroscoliosis and severe multilevel lumbar spondylosis, and facet arthropathy. Progression since 2014 Hip and pelvis: Unchange mild- moderate B hip joint degeneration and lower lumbar spondylosis. PT-OP-C Subjective Start: 03/03/19 11:34 Freq: Status: Active Protocol: Document 04/23/19 09:47 MB (Rec: 04/23/19 10:19 MB [id number]) OP-PT Subjective Patient Comments Patient Comments Pt states that his right knee is really bothering him. He sees Dr. Jarquin 04/28/2019 for his right knee. He also has right ankle pain and has a history of gout and takes medication. He has popping in his right knee. PT-OP-J Posture/Palpation/Skin Start: 03/03/19 11:34 Freq: Status: Active Protocol: Document 03/03/19 16:50 MB (Rec: 03/03/19 18:09 MB [id number]) Posture Evaluation Comments Posture Comments Standing posture: forward head , rounded shoulders with head 5 forward and tragus 3 in front of AC joint, Dowager's hump, left pelvis lower than the right, increased thoracic kyphosis, increased lumbar lordosis and anterior tilt pelvis PT-OP-M Strength Start: 03/03/19 11:34 Freq: Status: Active Protocol: Document 03/03/19 16:50 MB (Rec: 03/03/19 18:09 MB [id number]) Hip Strength Hip Manual Muscle Testing Left Flexion (L2) 3+ Fair+ Abduction 4 Good Comments Pt sitting Right Flexion (L2) 2- Poor- Abduction 4 Good Comments Pt sitting Pt reports 7-8/10 pain with active hip flexion in sitting and so MMT not performed Knee Strength Knee Manual Muscle Testing Left Flexion (S2) 4 Good Extension (L3) 5 Normal Comments Pt sitting Right Flexion (S2) 5 Normal Extension (L3) 5 Normal Comments Pt sitting Ankle/Foot Strength Ankle and Foot Manual Muscle Testing Left Dorsiflexion (L4) 4 Good Plantarflexion (S1) 4 Good Right Dorsiflexion (L4) 4 Good Plantarflexion (S1) 4 Good Toe Strength Toe Manual Muscle Testing Left Great Toe Extension 4 Good Right Great Toe Extension 4 Good PT-OP-Q Treatments Start: 03/03/19 11:34 Freq: Status: Active Protocol: Document 04/23/19 09:47 MB (Rec: 04/23/19 10:19 MB [id number]) Manual Therapy Treatment Soft Tissue Mobilization R rectus, vastus lateralis with rolling pin STM Comments Performed today, pt also performing HS to reassess knee flexion ability 1 Comments Black KT to support right knee --c strip under patella and B I strips to support medial and lateral knee PT-OP-R Modalities Start: 03/03/19 11:34 Freq: Status: Active Protocol: Document 04/15/19 09:49 SP (Rec: 04/15/19 10:45 SP [id number]) Hot Pack/Cold Pack Treatment MHP Location LB Patient Position Sitting Treatment Duration (minutes) 10 Patient Tolerance Good Comments tolerated well PT-OP-S Aquatic Treatment Start: 03/03/19 11:34 Freq: Status: Active Protocol: Document 04/20/19 10:15 LJ (Rec: 04/20/19 14:52 LJ [id number]) Aquatics Treatment Pool Entry/Exit Pool Entry/Exit Method Stairs Assistance Standby Assistance Water Walking start stop with directionsl changes Water Level Chest Level Level of Assistance Standby Assistance,Verbal Cues [place] Water Level Chest Level Level of Assistance Standby Assistance,Verbal Cues Comments limited ROM w/right knee Sideways Water Level Chest Level Level of Assistance Standby Assistance,Verbal Cues Comments 2 laps-high knees, 2 laps- wide steps Backwards Water Level Chest Level Level of Assistance Standby Assistance,Verbal Cues Comments BS and reverse BS arms Forwards Water Level Chest Level Level of Assistance Standby Assistance,Verbal Cues Comments BS and reverse BS arms Lower Extremity Exercises wall taps-alternating Body Position Standing Water Level Chest Level Reps/Duration 20x Lower Extremity Stretches gastroc/soleus Details on stairs Body Position Standing Water Level Waist Level Reps/Duration 2x30 hip flexors Details at wall Body Position Standing Water Level Waist Level Reps/Duration 2x45 quads Details manual assist Body Position Standing Water Level Chest Level Reps/Duration 2x45 Comments right side painful at end range HS Details at wall Body Position Standing Water Level Chest Level Equipment Small Noodle Reps/Duration 2x45 Upper Extremity Exercises pull downs Body Position Standing Water Level Chest Level Equipment UE paddles Reps/Duration 10 each flex/ext; ab/ad Body Position Standing Water Level Chest Level Reps/Duration 10 each Balance SLS-staitc Body Position Standing Water Level Chest Level Reps/Duration 45 sec bilat SLS wall taps Body Position Standing Water Level Waist Level Reps/Duration 20 bilat steps Details up down and 8 steps Water Level Waist Level Reps/Duration 6 min Comments forward, backward, sideways [place]cca Activities Mecca Activities Bicycle,Hip Abduction/ Adduction Equipment belt, noodle, 3.75# PT-OP-T Assessment and Plan Start: 03/03/19 11:34 Freq: Status: Active Protocol: Document 04/23/19 09:47 MB (Rec: 04/23/19 10:19 MB [id number]) Physical Therapy Assessment Rehab Potential Rehabilitation Potential Fair Evaluation Complexity Number of Personal Factors/Comorbidities 1-2 Number of Body Systems Impaired 1-2 Clinical Presentation at Evaluation Stable Impairments Impairments Activity Tolerance,Gait,Pain, Posture,Strength Other Concerns Fall Risk Yes Barriers to Rehabilitation Morbid obesity, history of falls, degenerative changes in spine Goals 6 Jail Goal (LTG) Pt will gait train at least 1000 feet with or without cane in 6 minutes increase I and decrease fall risk by 06/08/2019 . 03/31/2019: Pt gait trains 551' with cane in left hand and requires rest break d/t back pain and MALDONADO LTG Duration 8 weeks 5 Smoking Pipe Mounter Goal (LTG) Pt will perform progressive HEP with flexibility including pelvic realignment, flexibility, core and LE strengthening and balance exercises by 06/08/2019. 04/08/2019: Pt has been performing progressive HEP LTG Duration 8 weeks 4 Smoking Pipe Mounter Goal (LTG) Pt will report a 50% improvement in pain to allow better gait tolerance by 2019. 04/08/2019: Pt reports an overall 25% improvement in pain since starting PT LTG Duration 8 weeks 3 Smoking Pipe Mounter Goal (LTG) Pt will perform 12 reps of sit to stand without UE support in 30 sec to improve functional transfers and decrease fall risk by 05/01/19. 04/08/2019: Tried one rep and too much right knee pain and so d/c this goal LTG Duration 8 weeks 2 Smoking Pipe Mounter Goal (LTG) Pt will present with improved B hip flexion to at least 4/5 and B knee flexion and extension to 5/5 to help with sit to stand and other functional activities by 2019. 04/08/2019: RLE: hip flexion 4/5 and 5/10 pain; hip flexion 3+ /5 and 7/10 knee pain; right hip abduction 5/5; right knee extension 4/5; LLE: left hip flexion 5/5, knee flexion 5/5, left knee extension 4/5, left hip abduction 4/5. LTG Duration 8 weeks 1 Smoking Pipe Mounter Goal (LTG) Pt will present with an improved Oswestry LBP score to reflect no more than 30% impairment to decrease pain with functional activities by 06/08/2019. 04/08/2019: Oswestry LBP score reflects 48% impairment LTG Duration 8 weeks Assessment Summary Assessment Manual work and range on right knee today d/t it is affecting his gait poorly which contributes to his back pain. He is seeing orthopedist next week. Physical Therapy Plan Frequency and Duration Frequency of Treatment 2x/Week Duration of Treatment 8 weeks Plan of Care Start Date 04/08/19 Plan of Care End Date 06/08/19 Therapeutic Interventions Therapeutic Interventions Aquatic Therapy,Balance Training,Canalithic Repositioning,Coordination Training,Gait Training,Home Exercise Program,Manual Therapy,Neuromuscular Re- education,Patient/Caregiver Education,Self-Care/Home Management,Soft Tissue Mobilization,Taping, Therapeutic Activities, Therapeutic Exercises Modalities Cold Pack/Ice Massage,Electric Stimulation,Hot Packs, Ultrasound Next Visit Focus/Plan Next Note Type Treatment Note Next Visit Plan Con't flexibility, strengthening and gait exercises. Con't to monitor gait with regard to lift left shoe
--- NOTE | 2019-04-29 15:15 | PT.OTN ---
Current Diagnoses Sciatica, unspecified side (04/29/19) Dorsalgia, unspecified (04/29/19) Physical Therapy Treatment Note PT-OP-A Visit Information Start: 03/03/19 11:34 Freq: Status: Active Protocol: Document 04/29/19 14:30 MB (Rec: 04/29/19 15:15 MB [id number]) Out-Patient Physical Therapy Visit Information Visit Information Visit Type Treatment Note Visit Start Time 14:30 Visit Stop Time 15:10 Total Visit Minutes 40 Visit Number 6 Number of WASHER ASSEMBLER Visits 0 PT-OP-B Current Condition Start: 03/03/19 11:34 Freq: Status: Active Protocol: Document 03/03/19 16:50 MB (Rec: 03/03/19 17:16 MB [id number]) Current Condition History of Current Condition Onset Date 04/19/18 History of Current Condition Pt reports he was sitting one afternoon and when he went to get up, his back started to bother him. His right knee wouldn't bend. He reports pain down the front of his leg to his big toe. His right knee is tight. He has arthritis in all his joints. He has a history of right shoulder replacement. Pt takes pain pill when he needs it. He is taking 5 mg Oxycontin and Tyelonol when needed. The pain in the right hip, right leg and middle spine. It gets up to 10/10 at it's worse. He reports his foot can get numb. Walking makes the pain worse. He uses his cane when he needs it. He has 2 steps to get into the house. He lifts 25-30 lb bags of bird seed every week. He had a trip and fall 2-3 months ago. PMH: arthritis, back pain, HTN , depression, DM1, hernia, right TSR 2010, COPD, thyroid disorder, history of smoking, a-fib. Pt takes a statin and greater than 10 medications. Prior Treatments and Tests 02/18/19: Lumbar x-ray: Dextroscoliosis and severe multilevel lumbar spondylosis, and facet arthropathy. Progression since 2014 Hip and pelvis: Unchange mild- moderate B hip joint degeneration and lower lumbar spondylosis. PT-OP-C Subjective Start: 03/03/19 11:34 Freq: Status: Active Protocol: Document 04/29/19 14:30 MB (Rec: 04/29/19 15:15 MB [id number]) OP-PT Subjective Patient Comments Patient Comments Pt saw Dr. Jarquin who states that pt needs a right knee replacement but pt is not ready for that per his report. He had a cortisone injection in his right knee. He feels 90 % better in his right knee. It is not keeping him awake anymore. PT-OP-J Posture/Palpation/Skin Start: 03/03/19 11:34 Freq: Status: Active Protocol: Document 03/03/19 16:50 MB (Rec: 03/03/19 18:09 MB [id number]) Posture Evaluation Comments Posture Comments Standing posture: forward head , rounded shoulders with head 5 forward and tragus 3 in front of AC joint, Dowager's hump, left pelvis lower than the right, increased thoracic kyphosis, increased lumbar lordosis and anterior tilt pelvis PT-OP-M Strength Start: 03/03/19 11:34 Freq: Status: Active Protocol: Document 03/03/19 16:50 MB (Rec: 03/03/19 18:09 MB [id number]) Hip Strength Hip Manual Muscle Testing Left Flexion (L2) 3+ Fair+ Abduction 4 Good Comments Pt sitting Right Flexion (L2) 2- Poor- Abduction 4 Good Comments Pt sitting Pt reports 7-8/10 pain with active hip flexion in sitting and so MMT not performed Knee Strength Knee Manual Muscle Testing Left Flexion (S2) 4 Good Extension (L3) 5 Normal Comments Pt sitting Right Flexion (S2) 5 Normal Extension (L3) 5 Normal Comments Pt sitting Ankle/Foot Strength Ankle and Foot Manual Muscle Testing Left Dorsiflexion (L4) 4 Good Plantarflexion (S1) 4 Good Right Dorsiflexion (L4) 4 Good Plantarflexion (S1) 4 Good Toe Strength Toe Manual Muscle Testing Left Great Toe Extension 4 Good Right Great Toe Extension 4 Good PT-OP-Q Treatments Start: 03/03/19 11:34 Freq: Status: Active Protocol: Document 04/29/19 14:30 MB (Rec: 04/29/19 15:15 MB [id number]) Cardio Equipment Recumbent Stepper (Sci-Fit) Duration (Minutes) 10 Resistance 3 Therapeutic Exercises Supine Exercises HS with abdominal drawing in Comments 3 reps alternating legs QS Comments Towel under right knee, 3 sec hold, 10 reps trans ab facilitation Comments Knees bent, abdominal drawing in, 3 reps knee fall out Comments 5 reps B, right LE tighter core may Comments 5 reps, alternating legs HS Comments 5 reps right leg Sitting Exercises Hamstring stretch with heel down Comments 2 reps, 15 sec hold LAQ Comments 10 reps B today Standing Exercises 3 Comments B LEs gastroc stretch 2 Comments Hip abduction/extension alternating x5, cues for form PT-OP-R Modalities Start: 03/03/19 11:34 Freq: Status: Active Protocol: Document 04/15/19 09:49 SP (Rec: 04/15/19 10:45 SP [id number]) Hot Pack/Cold Pack Treatment MHP Location LB Patient Position Sitting Treatment Duration (minutes) 10 Patient Tolerance Good Comments tolerated well PT-OP-S Aquatic Treatment Start: 03/03/19 11:34 Freq: Status: Active Protocol: Document 04/20/19 10:15 LJ (Rec: 04/20/19 14:52 LJ [id number]) Aquatics Treatment Pool Entry/Exit Pool Entry/Exit Method Stairs Assistance Standby Assistance Water Walking start stop with directionsl changes Water Level Chest Level Level of Assistance Standby Assistance,Verbal Cues May Water Level Chest Level Level of Assistance Standby Assistance,Verbal Cues Comments limited ROM w/right knee Sideways Water Level Chest Level Level of Assistance Standby Assistance,Verbal Cues Comments 2 laps-high knees, 2 laps- wide steps Backwards Water Level Chest Level Level of Assistance Standby Assistance,Verbal Cues Comments BS and reverse BS arms Forwards Water Level Chest Level Level of Assistance Standby Assistance,Verbal Cues Comments BS and reverse BS arms Lower Extremity Exercises wall taps-alternating Body Position Standing Water Level Chest Level Reps/Duration 20x Lower Extremity Stretches gastroc/soleus Details on stairs Body Position Standing Water Level Waist Level Reps/Duration 2x30 hip flexors Details at wall Body Position Standing Water Level Waist Level Reps/Duration 2x45 quads Details manual assist Body Position Standing Water Level Chest Level Reps/Duration 2x45 Comments right side painful at end range HS Details at wall Body Position Standing Water Level Chest Level Equipment Small Noodle Reps/Duration 2x45 Upper Extremity Exercises pull downs Body Position Standing Water Level Chest Level Equipment UE paddles Reps/Duration 10 each flex/ext; ab/ad Body Position Standing Water Level Chest Level Reps/Duration 10 each Balance SLS-staitc Body Position Standing Water Level Chest Level Reps/Duration 45 sec bilat SLS wall taps Body Position Standing Water Level Waist Level Reps/Duration 20 bilat steps Details up down and 8 steps Water Level Waist Level Reps/Duration 6 min Comments forward, backward, sideways [place] Activities [place] Activities Bicycle,Hip Abduction/ Adduction Equipment belt, noodle, 3.75# PT-OP-T Assessment and Plan Start: 03/03/19 11:34 Freq: Status: Active Protocol: Document 04/29/19 14:30 MB (Rec: 04/29/19 15:15 MB [id number]) Physical Therapy Assessment Rehab Potential Rehabilitation Potential Fair Evaluation Complexity Number of Personal Factors/Comorbidities 1-2 Number of Body Systems Impaired 1-2 Clinical Presentation at Evaluation Stable Impairments Impairments Activity Tolerance,Gait,Pain, Posture,Strength Other Concerns Fall Risk Yes Barriers to Rehabilitation Morbid obesity, history of falls, degenerative changes in spine Goals 6 Web Operations Lead Goal (LTG) Pt will gait train at least 1000 feet with or without cane in 6 minutes increase I and decrease fall risk by 06/08/2019 . 03/31/2019: Pt gait trains 551' with cane in left hand and requires rest break d/t back pain and MALDONADO LTG Duration 8 weeks 5 Snf Goal (LTG) Pt will perform progressive HEP with flexibility including pelvic realignment, flexibility, core and LE strengthening and balance exercises by 06/08/2019. 04/08/2019: Pt has been performing progressive HEP LTG Duration 8 weeks 4 Web Operations Lead Goal (LTG) Pt will report a 50% improvement in pain to allow better gait tolerance by 2019. 04/08/2019: Pt reports an overall 25% improvement in pain since starting PT LTG Duration 8 weeks 3 Snf Goal (LTG) Pt will perform 12 reps of sit to stand without UE support in 30 sec to improve functional transfers and decrease fall risk by 05/01/19. 04/08/2019: Tried one rep and too much right knee pain and so d/c this goal LTG Duration 8 weeks 2 Web Operations Lead Goal (LTG) Pt will present with improved B hip flexion to at least 4/5 and B knee flexion and extension to 5/5 to help with sit to stand and other functional activities by 2019. 04/08/2019: RLE: hip flexion 4/5 and 5/10 pain; hip flexion 3+ /5 and 7/10 knee pain; right hip abduction 5/5; right knee extension 4/5; LLE: left hip flexion 5/5, knee flexion 5/5, left knee extension 4/5, left hip abduction 4/5. LTG Duration 8 weeks 1 Web Operations Lead Goal (LTG) Pt will present with an improved Oswestry LBP score to reflect no more than 30% impairment to decrease pain with functional activities by 06/08/2019. 04/08/2019: Oswestry LBP score reflects 48% impairment LTG Duration 8 weeks Assessment Summary Assessment Now that his right knee is feeling better after shot, pt demonstrates all HEP exercises . He con't with quick and poor form. Ongoing education about exercise performance. Physical Therapy Plan Frequency and Duration Frequency of Treatment 2x/Week Duration of Treatment 8 weeks Plan of Care Start Date 04/08/19 Plan of Care End Date 06/08/19 Therapeutic Interventions Therapeutic Interventions Aquatic Therapy,Balance Training,Canalithic Repositioning,Coordination Training,Gait Training,Home Exercise Program,Manual Therapy,Neuromuscular Re- education,Patient/Caregiver Education,Self-Care/Home Management,Soft Tissue Mobilization,Taping, Therapeutic Activities, Therapeutic Exercises Modalities Cold Pack/Ice Massage,Electric Stimulation,Hot Packs, Ultrasound Next Visit Focus/Plan Next Note Type Treatment Note Next Visit Plan Con't flexibility, strengthening and gait exercises. Con't to monitor gait with regard to lift left shoe
--- NOTE | 2019-05-04 15:32 | PT.OTN ---
Current Diagnoses Sciatica, unspecified side (05/04/19) Dorsalgia, unspecified (05/04/19) Physical Therapy Treatment Note PT-OP-A Visit Information Start: 03/03/19 11:34 Freq: Status: Active Protocol: Document 05/04/19 12:30 LJ (Rec: 05/04/19 15:32 LJ [id number]) Out-Patient Physical Therapy Visit Information Visit Information Visit Type Aquatic Treatment Note Visit Start Time 12:30 Visit Stop Time 13:15 Total Visit Minutes 45 Visit Number 7/10 Number of TRANSPORT RN Visits 1 PT-OP-B Current Condition Start: 03/03/19 11:34 Freq: Status: Active Protocol: Document 03/03/19 16:50 MB (Rec: 03/03/19 17:16 MB [id number]) Current Condition History of Current Condition Onset Date 04/19/18 History of Current Condition Pt reports he was sitting one afternoon and when he went to get up, his back started to bother him. His right knee wouldn't bend. He reports pain down the front of his leg to his big toe. His right knee is tight. He has arthritis in all his joints. He has a history of right shoulder replacement. Pt takes pain pill when he needs it. He is taking 5 mg Oxycontin and Tyelonol when needed. The pain in the right hip, right leg and middle spine. It gets up to 10/10 at it's worse. He reports his foot can get numb. Walking makes the pain worse. He uses his cane when he needs it. He has 2 steps to get into the house. He lifts 25-30 lb bags of bird seed every week. He had a trip and fall 2-3 months ago. PMH: arthritis, back pain, HTN , depression, DM1, hernia, right TSR 2010, COPD, thyroid disorder, history of smoking, a-fib. Pt takes a statin and greater than 10 medications. Prior Treatments and Tests 02/18/19: Lumbar x-ray: Dextroscoliosis and severe multilevel lumbar spondylosis, and facet arthropathy. Progression since 2014 Hip and pelvis: Unchange mild- moderate B hip joint degeneration and lower lumbar spondylosis. PT-OP-C Subjective Start: 03/03/19 11:34 Freq: Status: Active Protocol: Document 05/04/19 12:30 LJ (Rec: 05/04/19 15:32 LJ [id number]) OP-PT Subjective Patient Comments Patient Comments Pt arrived at 1210. Pt states his knee feels better after the injection. States his back is bothering him now. PT-OP-J Posture/Palpation/Skin Start: 03/03/19 11:34 Freq: Status: Active Protocol: Document 03/03/19 16:50 MB (Rec: 03/03/19 18:09 MB [id number]) Posture Evaluation Comments Posture Comments Standing posture: forward head , rounded shoulders with head 5 forward and tragus 3 in front of AC joint, Dowager's hump, left pelvis lower than the right, increased thoracic kyphosis, increased lumbar lordosis and anterior tilt pelvis PT-OP-M Strength Start: 03/03/19 11:34 Freq: Status: Active Protocol: Document 03/03/19 16:50 MB (Rec: 03/03/19 18:09 MB [id number]) Hip Strength Hip Manual Muscle Testing Left Flexion (L2) 3+ Fair+ Abduction 4 Good Comments Pt sitting Right Flexion (L2) 2- Poor- Abduction 4 Good Comments Pt sitting Pt reports 7-8/10 pain with active hip flexion in sitting and so MMT not performed Knee Strength Knee Manual Muscle Testing Left Flexion (S2) 4 Good Extension (L3) 5 Normal Comments Pt sitting Right Flexion (S2) 5 Normal Extension (L3) 5 Normal Comments Pt sitting Ankle/Foot Strength Ankle and Foot Manual Muscle Testing Left Dorsiflexion (L4) 4 Good Plantarflexion (S1) 4 Good Right Dorsiflexion (L4) 4 Good Plantarflexion (S1) 4 Good Toe Strength Toe Manual Muscle Testing Left Great Toe Extension 4 Good Right Great Toe Extension 4 Good PT-OP-Q Treatments Start: 03/03/19 11:34 Freq: Status: Active Protocol: Document 04/29/19 14:30 MB (Rec: 04/29/19 15:15 MB [id number]) Cardio Equipment Recumbent Stepper (Sci-Fit) Duration (Minutes) 10 Resistance 3 Therapeutic Exercises Supine Exercises HS with abdominal drawing in Comments 3 reps alternating legs QS Comments Towel under right knee, 3 sec hold, 10 reps trans ab facilitation Comments Knees bent, abdominal drawing in, 3 reps knee fall out Comments 5 reps B, right LE tighter core may Comments 5 reps, alternating legs HS Comments 5 reps right leg Sitting Exercises Hamstring stretch with heel down Comments 2 reps, 15 sec hold LAQ Comments 10 reps B today Standing Exercises 3 Comments B LEs gastroc stretch 2 Comments Hip abduction/extension alternating x5, cues for form PT-OP-R Modalities Start: 03/03/19 11:34 Freq: Status: Active Protocol: Document 04/15/19 09:49 SP (Rec: 04/15/19 10:45 SP [id number]) Hot Pack/Cold Pack Treatment MHP Location LB Patient Position Sitting Treatment Duration (minutes) 10 Patient Tolerance Good Comments tolerated well PT-OP-S Aquatic Treatment Start: 03/03/19 11:34 Freq: Status: Active Protocol: Document 05/04/19 12:30 LJ (Rec: 05/04/19 15:32 LJ [id number]) Aquatics Treatment Pool Entry/Exit Pool Entry/Exit Method Stairs Assistance Standby Assistance Water Walking start stop with directionsl changes Water Level Chest Level Level of Assistance Standby Assistance,Verbal Cues May Water Level Chest Level Level of Assistance Standby Assistance Sideways Water Level Chest Level Level of Assistance Standby Assistance Comments 2 laps-high knees, 2 laps- wide steps Backwards Water Level Chest Level Level of Assistance Standby Assistance Comments BS and reverse BS arms Forwards Water Level Chest Level Level of Assistance Standby Assistance Comments BS and reverse BS arms Lower Extremity Exercises hip CW, CCW Body Position Standing Water Level Chest Level Reps/Duration 2x10 bilat HS cursl Details hand hold on wall Body Position Standing Water Level Chest Level Equipment Ankle Weight- 2.5# Reps/Duration 2x10 flex/ext; ab/ad Details hand hold on wall Body Position Standing Water Level Chest Level Equipment Ankle Weight- 2.5# Reps/Duration 2x10 each Lower Extremity Stretches ITB Body Position Standing Reps/Duration 2x45 gastroc/soleus Details on stairs Body Position Standing Water Level Waist Level Reps/Duration 2x30 hip flexors Details at wall Body Position Standing Water Level Waist Level Reps/Duration 2x45 quads Details manual assist Body Position Standing Water Level Chest Level Reps/Duration 2x45 Comments right side painful at end range HS Details at wall Body Position Standing Water Level Chest Level Equipment Small Noodle Reps/Duration 2x45 Upper Extremity Exercises pull downs Body Position Standing Water Level Chest Level Equipment UE paddles Reps/Duration 10 each flex/ext; ab/ad Body Position Standing Water Level Chest Level Reps/Duration 10 each Balance steps Water Level Waist Level Reps/Duration 6 min Comments forward, backward, sideways [place] Activities [place] Activities Bicycle,Cross Country,Hip Abduction/Adduction,Sit Kicks Other Activities T hang pendulum plank Equipment med BBs PT-OP-T Assessment and Plan Start: 03/03/19 11:34 Freq: Status: Active Protocol: Document 05/04/19 12:30 KELLI (Rec: 05/04/19 15:32 KELLI [id number]) Physical Therapy Assessment Rehab Potential Rehabilitation Potential Fair Evaluation Complexity Number of Personal Factors/Comorbidities 1-2 Number of Body Systems Impaired 1-2 Clinical Presentation at Evaluation Stable Impairments Impairments Activity Tolerance,Gait,Pain, Posture,Strength Other Concerns Fall Risk Yes Barriers to Rehabilitation Morbid obesity, history of falls, degenerative changes in spine Goals 6 Fpc Goal (LTG) Pt will gait train at least 1000 feet with or without cane in 6 minutes increase I and decrease fall risk by 06/08/2019 . 03/31/2019: Pt gait trains 551' with cane in left hand and requires rest break d/t back pain and MALDONADO LTG Duration 8 weeks 5 Fpc Goal (LTG) Pt will perform progressive HEP with flexibility including pelvic realignment, flexibility, core and LE strengthening and balance exercises by 06/08/2019. 04/08/2019: Pt has been performing progressive HEP LTG Duration 8 weeks 4 Fpc Goal (LTG) Pt will report a 50% improvement in pain to allow better gait tolerance by 2019. 04/08/2019: Pt reports an overall 25% improvement in pain since starting PT LTG Duration 8 weeks 3 [employer] Goal (LTG) Pt will perform 12 reps of sit to stand without UE support in 30 sec to improve functional transfers and decrease fall risk by 05/01/19. 04/08/2019: Tried one rep and too much right knee pain and so d/c this goal LTG Duration 8 weeks 2 [employer] Goal (LTG) Pt will present with improved B hip flexion to at least 4/5 and B knee flexion and extension to 5/5 to help with sit to stand and other functional activities by 2019. 04/08/2019: RLE: hip flexion 4/5 and 5/10 pain; hip flexion 3+ /5 and 7/10 knee pain; right hip abduction 5/5; right knee extension 4/5; LLE: left hip flexion 5/5, knee flexion 5/5, left knee extension 4/5, left hip abduction 4/5. LTG Duration 8 weeks 1 Fpc Goal (LTG) Pt will present with an improved Oswestry LBP score to reflect no more than 30% impairment to decrease pain with functional activities by 06/08/2019. 04/08/2019: Oswestry LBP score reflects 48% impairment LTG Duration 8 weeks Assessment Summary Assessment Pt needing cues to slow down with exercises and maintain proper form. He will usually use both legs to step up onto box into a squat then stand the rest of the way up. He had difficulty with stabilization exercises (t hang, pendulum) in deep water Physical Therapy Plan Frequency and Duration Frequency of Treatment 2x/Week Duration of Treatment 8 weeks Plan of Care Start Date 04/08/19 Plan of Care End Date 06/08/19 Therapeutic Interventions Therapeutic Interventions Aquatic Therapy,Balance Training,Canalithic Repositioning,Coordination Training,Gait Training,Home Exercise Program,Manual Therapy,Neuromuscular Re- education,Patient/Caregiver Education,Self-Care/Home Management,Soft Tissue Mobilization,Taping, Therapeutic Activities, Therapeutic Exercises Modalities Cold Pack/Ice Massage,Electric Stimulation,Hot Packs, Ultrasound Next Visit Focus/Plan Next Note Type Treatment Note Next Visit Plan Con't flexibility, strengthening and gait exercises. Con't to monitor gait with regard to lift left shoe
--- NOTE | 2019-05-06 08:59 | PT.OTN ---
Current Diagnoses Sciatica, unspecified side (05/06/19) Dorsalgia, unspecified (05/06/19) Physical Therapy Treatment Note PT-OP-A Visit Information Start: 03/03/19 11:34 Freq: Status: Active Protocol: Document 05/06/19 08:16 MB (Rec: 05/06/19 08:24 MB [id number]) Out-Patient Physical Therapy Visit Information Visit Information Visit Type Treatment Note Visit Start Time 08:16 Visit Stop Time 08:58 Total Visit Minutes 42 Visit Number 10/11 PT-OP-B Current Condition Start: 03/03/19 11:34 Freq: Status: Active Protocol: Document 03/03/19 16:50 MB (Rec: 03/03/19 17:16 MB [id number]) Current Condition History of Current Condition Onset Date 04/19/18 History of Current Condition Pt reports he was sitting one afternoon and when he went to get up, his back started to bother him. His right knee wouldn't bend. He reports pain down the front of his leg to his big toe. His right knee is tight. He has arthritis in all his joints. He has a history of right shoulder replacement. Pt takes pain pill when he needs it. He is taking 5 mg Oxycontin and Tyelonol when needed. The pain in the right hip, right leg and middle spine. It gets up to 10/10 at it's worse. He reports his foot can get numb. Walking makes the pain worse. He uses his cane when he needs it. He has 2 steps to get into the house. He lifts 25-30 lb bags of bird seed every week. He had a trip and fall 2-3 months ago. PMH: arthritis, back pain, HTN , depression, DM1, hernia, right TSR 2010, COPD, thyroid disorder, history of smoking, a-fib. Pt takes a statin and greater than 10 medications. Prior Treatments and Tests 02/18/19: Lumbar x-ray: Dextroscoliosis and severe multilevel lumbar spondylosis, and facet arthropathy. Progression since 2014 Hip and pelvis: Unchange mild- moderate B hip joint degeneration and lower lumbar spondylosis. PT-OP-C Subjective Start: 03/03/19 11:34 Freq: Status: Active Protocol: Document 05/06/19 08:16 MB (Rec: 05/06/19 08:24 MB [id number]) OP-PT Subjective Patient Comments Patient Comments Pt reports back pain. He does not think that the right knee injection did what he hoped. He wants to ask nonprofit financial controller about not taking Predaxa so he can get back on ibuprofen. PT-OP-J Posture/Palpation/Skin Start: 03/03/19 11:34 Freq: Status: Active Protocol: Document 03/03/19 16:50 MB (Rec: 03/03/19 18:09 MB [id number]) Posture Evaluation Comments Posture Comments Standing posture: forward head , rounded shoulders with head 5 forward and tragus 3 in front of AC joint, Dowager's hump, left pelvis lower than the right, increased thoracic kyphosis, increased lumbar lordosis and anterior tilt pelvis PT-OP-M Strength Start: 03/03/19 11:34 Freq: Status: Active Protocol: Document 03/03/19 16:50 MB (Rec: 03/03/19 18:09 MB [id number]) Hip Strength Hip Manual Muscle Testing Left Flexion (L2) 3+ Fair+ Abduction 4 Good Comments Pt sitting Right Flexion (L2) 2- Poor- Abduction 4 Good Comments Pt sitting Pt reports 7-8/10 pain with active hip flexion in sitting and so MMT not performed Knee Strength Knee Manual Muscle Testing Left Flexion (S2) 4 Good Extension (L3) 5 Normal Comments Pt sitting Right Flexion (S2) 5 Normal Extension (L3) 5 Normal Comments Pt sitting Ankle/Foot Strength Ankle and Foot Manual Muscle Testing Left Dorsiflexion (L4) 4 Good Plantarflexion (S1) 4 Good Right Dorsiflexion (L4) 4 Good Plantarflexion (S1) 4 Good Toe Strength Toe Manual Muscle Testing Left Great Toe Extension 4 Good Right Great Toe Extension 4 Good PT-OP-Q Treatments Start: 03/03/19 11:34 Freq: Status: Active Protocol: Document 05/06/19 08:16 MB (Rec: 05/06/19 08:25 MB [id number]) Cardio Equipment Recumbent Elliptical (Biodex) Duration (Minutes) 10 Resistance 3 Manual Therapy Treatment Other Other Manual Treatments STM B quads and vastus lateralis with rolling pin, STM with MWM left glute min and med PT-OP-R Modalities Start: 03/03/19 11:34 Freq: Status: Active Protocol: Document 04/15/19 09:49 SP (Rec: 04/15/19 10:45 SP [id number]) Hot Pack/Cold Pack Treatment MHP Location LB Patient Position Sitting Treatment Duration (minutes) 10 Patient Tolerance Good Comments tolerated well PT-OP-S Aquatic Treatment Start: 03/03/19 11:34 Freq: Status: Active Protocol: Document 05/04/19 12:30 LJ (Rec: 05/04/19 15:32 LJ [id number]) Aquatics Treatment Pool Entry/Exit Pool Entry/Exit Method Stairs Assistance Standby Assistance Water Walking start stop with directionsl changes Water Level Chest Level Level of Assistance Standby Assistance,Verbal Cues [place] May Water Level Chest Level Level of Assistance Standby Assistance Sideways Water Level Chest Level Level of Assistance Standby Assistance Comments 2 laps-high knees, 2 laps- wide steps Backwards Water Level Chest Level Level of Assistance Standby Assistance Comments BS and reverse BS arms Forwards Water Level Chest Level Level of Assistance Standby Assistance Comments BS and reverse BS arms Lower Extremity Exercises hip CW, CCW Body Position Standing Water Level Chest Level Reps/Duration 2x10 bilat HS cursl Details hand hold on wall Body Position Standing Water Level Chest Level Equipment Ankle Weight- 2.5# Reps/Duration 2x10 flex/ext; ab/ad Details hand hold on wall Body Position Standing Water Level Chest Level Equipment Ankle Weight- 2.5# Reps/Duration 2x10 each Lower Extremity Stretches ITB Body Position Standing Reps/Duration 2x45 gastroc/soleus Details on stairs Body Position Standing Water Level Waist Level Reps/Duration 2x30 hip flexors Details at wall Body Position Standing Water Level Waist Level Reps/Duration 2x45 quads Details manual assist Body Position Standing Water Level Chest Level Reps/Duration 2x45 Comments right side painful at end range HS Details at wall Body Position Standing Water Level Chest Level Equipment Small Noodle Reps/Duration 2x45 Upper Extremity Exercises pull downs Body Position Standing Water Level Chest Level Equipment UE paddles Reps/Duration 10 each flex/ext; ab/ad Body Position Standing Water Level Chest Level Reps/Duration 10 each Balance steps Water Level Waist Level Reps/Duration 6 min Comments forward, backward, sideways [place] Activities [place] Activities Bicycle,Cross Country,Hip Abduction/Adduction,Sit Kicks Other Activities T hang pendulum plank Equipment med BBs PT-OP-T Assessment and Plan Start: 03/03/19 11:34 Freq: Status: Active Protocol: Document 05/06/19 08:16 MB (Rec: 05/06/19 08:24 MB [id number]) Physical Therapy Assessment Rehab Potential Rehabilitation Potential Fair Evaluation Complexity Number of Personal Factors/Comorbidities 1-2 Number of Body Systems Impaired 1-2 Clinical Presentation at Evaluation Stable Impairments Impairments Activity Tolerance,Gait,Pain, Posture,Strength Other Concerns Fall Risk Yes Barriers to Rehabilitation Morbid obesity, history of falls, degenerative changes in spine Goals 6 Alf Goal (LTG) Pt will gait train at least 1000 feet with or without cane in 6 minutes increase I and decrease fall risk by 06/08/2019 . 03/31/2019: Pt gait trains 551' with cane in left hand and requires rest break d/t back pain and MALDONADO LTG Duration 8 weeks 5 Alf Goal (LTG) Pt will perform progressive HEP with flexibility including pelvic realignment, flexibility, core and LE strengthening and balance exercises by 06/08/2019. 04/08/2019: Pt has been performing progressive HEP LTG Duration 8 weeks 4 Construction Super[employer] Goal (LTG) Pt will report a 50% improvement in pain to allow better gait tolerance by 2019. 04/08/2019: Pt reports an overall 25% improvement in pain since starting PT LTG Duration 8 weeks 3 Construction Supervisor Goal (LTG) Pt will perform 12 reps of sit to stand without UE support in 30 sec to improve functional transfers and decrease fall risk by 05/01/19. 04/08/2019: Tried one rep and too much right knee pain and so d/c this goal LTG Duration 8 weeks 2 Construction Supervisor Goal (LTG) Pt will present with improved B hip flexion to at least 4/5 and B knee flexion and extension to 5/5 to help with sit to stand and other functional activities by 2019. 04/08/2019: RLE: hip flexion 4/5 and 5/10 pain; hip flexion 3+ /5 and 7/10 knee pain; right hip abduction 5/5; right knee extension 4/5; LLE: left hip flexion 5/5, knee flexion 5/5, left knee extension 4/5, left hip abduction 4/5. LTG Duration 8 weeks 1 Alf Goal (LTG) Pt will present with an improved Oswestry LBP score to reflect no more than 30% impairment to decrease pain with functional activities by 06/08/2019. 04/08/2019: Oswestry LBP score reflects 48% impairment LTG Duration 8 weeks Assessment Summary Assessment Pt con't with pain likely related to multiple areas of degeneration, other medical issues, advanced age and increased body habitus. He has back, left hip and left knee pain. Will complete PT course, revising any HEP and pt to con't with aquatic therapy, use of NuStep and exercises. Physical Therapy Plan Frequency and Duration Frequency of Treatment 2x/Week Duration of Treatment 8 weeks Plan of Care Start Date 04/08/19 Plan of Care End Date 06/08/19 Therapeutic Interventions Therapeutic Interventions Aquatic Therapy,Balance Training,Canalithic Repositioning,Coordination Training,Gait Training,Home Exercise Program,Manual Therapy,Neuromuscular Re- education,Patient/Caregiver Education,Self-Care/Home Management,Soft Tissue Mobilization,Taping, Therapeutic Activities, Therapeutic Exercises Modalities Cold Pack/Ice Massage,Electric Stimulation,Hot Packs, Ultrasound Next Visit Focus/Plan Next Note Type Treatment Note Next Visit Plan Wrap up exercises, prepare for d/c after pool treatment
--- NOTE | 2019-05-13 08:45 | PT.OPDS ---
Current Diagnoses Sciatica, unspecified side (05/06/19) Dorsalgia, unspecified (05/06/19) Visit Care Team Role Provider Type Douglas Turner MD Attending Provider Physician Primary Care Provider Specialty: Family Practice Address: [address] [place] [address], [facility] Email: [email or web address] Visit Number Visit Number 10/[id number] Discharge Summary PT-OP-B Current Condition Start: 03/03/19 11:34 Freq: Status: Active Protocol: Document 03/03/19 16:50 MB (Rec: 03/03/19 17:16 MB [id number]) Current Condition History of Current Condition Onset Date 04/19/18 History of Current Condition Pt reports he was sitting one afternoon and when he went to get up, his back started to bother him. His right knee wouldn't bend. He reports pain down the front of his leg to his big toe. His right knee is tight. He has arthritis in all his joints. He has a history of right shoulder replacement. Pt takes pain pill when he needs it. He is taking 5 mg Oxycontin and Tyelonol when needed. The pain in the right hip, right leg and middle spine. It gets up to 10/10 at it's worse. He reports his foot can get numb. Walking makes the pain worse. He uses his cane when he needs it. He has 2 steps to get into the house. He lifts 25-30 lb bags of bird seed every week. He had a trip and fall 2-3 months ago. PMH: arthritis, back pain, HTN , depression, DM1, hernia, right TSR 2009, COPD, thyroid disorder, history of smoking, a-fib. Pt takes a statin and greater than 10 medications. Prior Treatments and Tests 02/18/19: Lumbar x-ray: Dextroscoliosis and severe multilevel lumbar spondylosis, and facet arthropathy. Progression since 2014 Hip and pelvis: Unchange mild- moderate B hip joint degeneration and lower lumbar spondylosis. PT-OP-C Subjective Start: 03/03/19 11:34 Freq: Status: Active Protocol: Document 05/06/19 08:16 MB (Rec: 05/06/19 08:24 MB [id number]) OP-PT Subjective Patient Comments Patient Comments Pt reports back pain. He does not think that the right knee injection did what he hoped. He wants to ask store merchandiser about not taking Predaxa so he can get back on ibuprofen. PT-OP-J Posture/Palpation/Skin Start: 03/03/19 11:34 Freq: Status: Active Protocol: Document 03/03/19 16:50 MB (Rec: 03/03/19 18:09 MB [id number]) Posture Evaluation Comments Posture Comments Standing posture: forward head , rounded shoulders with head 5 forward and tragus 3 in front of AC joint, Dowager's hump, left pelvis lower than the right, increased thoracic kyphosis, increased lumbar lordosis and anterior tilt pelvis PT-OP-M Strength Start: 03/03/19 11:34 Freq: Status: Active Protocol: Document 03/03/19 16:50 MB (Rec: 03/03/19 18:09 MB [id number]) Hip Strength Hip Manual Muscle Testing Left Flexion (L2) 3+ Fair+ Abduction 4 Good Comments Pt sitting Right Flexion (L2) 2- Poor- Abduction 4 Good Comments Pt sitting Pt reports 7-8/10 pain with active hip flexion in sitting and so MMT not performed Knee Strength Knee Manual Muscle Testing Left Flexion (S2) 4 Good Extension (L3) 5 Normal Comments Pt sitting Right Flexion (S2) 5 Normal Extension (L3) 5 Normal Comments Pt sitting Ankle/Foot Strength Ankle and Foot Manual Muscle Testing Left Dorsiflexion (L4) 4 Good Plantarflexion (S1) 4 Good Right Dorsiflexion (L4) 4 Good Plantarflexion (S1) 4 Good Toe Strength Toe Manual Muscle Testing Left Great Toe Extension 4 Good Right Great Toe Extension 4 Good PT-OP-T Assessment and Plan Start: 03/03/19 11:34 Freq: Status: Active Protocol: Document 05/06/19 08:16 MB (Rec: 05/06/19 08:24 MB [id number]) Physical Therapy Assessment Rehab Potential Rehabilitation Potential Fair Evaluation Complexity Number of Personal Factors/Comorbidities 1-2 Number of Body Systems Impaired 1-2 Clinical Presentation at Evaluation Stable Impairments Impairments Activity Tolerance,Gait,Pain, Posture,Strength Other Concerns Fall Risk Yes Barriers to Rehabilitation Morbid obesity, history of falls, degenerative changes in spine Goals 6 Eye Specialist Goal (LTG) Pt will gait train at least 1000 feet with or without cane in 6 minutes increase I and decrease fall risk by 06/08/2019 . 03/31/2019: Pt gait trains 551' with cane in left hand and requires rest break d/t back pain and MALDONADO LTG Duration 8 weeks 5 Half-Way Goal (LTG) Pt will perform progressive HEP with flexibility including pelvic realignment, flexibility, core and LE strengthening and balance exercises by 06/08/2019. 04/08/2019: Pt has been performing progressive HEP LTG Duration 8 weeks 4 Half-Way Goal (LTG) Pt will report a 50% improvement in pain to allow better gait tolerance by 2019. 04/08/2019: Pt reports an overall 25% improvement in pain since starting PT LTG Duration 8 weeks 3 Eye Specialist Goal (LTG) Pt will perform 12 reps of sit to stand without UE support in 30 sec to improve functional transfers and decrease fall risk by 05/01/19. 04/08/2019: Tried one rep and too much right knee pain and so d/c this goal LTG Duration 8 weeks 2 Eye Specialist Goal (LTG) Pt will present with improved B hip flexion to at least 4/5 and B knee flexion and extension to 5/5 to help with sit to stand and other functional activities by 2019. 04/08/2019: RLE: hip flexion 4/5 and 5/10 pain; hip flexion 3+ /5 and 7/10 knee pain; right hip abduction 5/5; right knee extension 4/5; LLE: left hip flexion 5/5, knee flexion 5/5, left knee extension 4/5, left hip abduction 4/5. LTG Duration 8 weeks 1 Eye Specialist Goal (LTG) Pt will present with an improved Oswestry LBP score to reflect no more than 30% impairment to decrease pain with functional activities by 06/08/2019. 04/08/2019: Oswestry LBP score reflects 48% impairment LTG Duration 8 weeks Assessment Summary Assessment Pt con't with pain likely related to multiple areas of degeneration, other medical issues, advanced age and increased body habitus. He has back, left hip and left knee pain. Will complete PT course, revising any HEP and pt to con't with aquatic therapy, use of NuStep and exercises. Physical Therapy Plan Frequency and Duration Frequency of Treatment 2x/Week Duration of Treatment 8 weeks Plan of Care Start Date 04/08/19 Plan of Care End Date 06/08/19 Therapeutic Interventions Therapeutic Interventions Aquatic Therapy,Balance Training,Canalithic Repositioning,Coordination Training,Gait Training,Home Exercise Program,Manual Therapy,Neuromuscular Re- education,Patient/Caregiver Education,Self-Care/Home Management,Soft Tissue Mobilization,Taping, Therapeutic Activities, Therapeutic Exercises Modalities Cold Pack/Ice Massage,Electric Stimulation,Hot Packs, Ultrasound Discharge Physical Therapy Discharge Reasons Patient Request Discharge Comments Pt would like to d/c PT d/t feeling poorly, fear of virus when going to pool. Will d/c PT. Next Visit Focus/Plan Next Note Type Treatment Note Next Visit Plan Wrap up exercises, prepare for d/c after pool treatment
== END 2019-05-14 08:02 ==
LOC: PHYS 08:15
PROVIDERS: PCP Family Medicine; Visit Provider Family Medicine
DX: M54.9 Dorsalgia, unspecified (principal); M54.30 Sciatica, unspecified side
CPT/HCPCS: 97110; 97113; 97116; 97140; 97161

== ENCOUNTER → 2019-08-21 13:51 | Outpatient (CLI) | payer MEDICARE, OTHER, SELFPAY ==
--- NOTE | 2019-08-21 | DI.MRI.S_ITS ---
PROCEDURE: MR LUMBAR SPINE WO CON INDICATIONS: LOW BACK PAIN TECHNIQUE: Noncontrast sagittal T1 spin echo and T2 fast echo, sagittal STIR, axial T1 and T2 fast spin echo through the lumbar spine. In cases with scoliosis, additional coronal T2 fast spin echo may be performed. COMPARISON: [facility], CR, XR LUMBAR SPINE 2-3V, 02/18/2019, 12:52. [facility], MR, L-SPINE WITHOUT CONTRAST, 05/18/2014, 7:38. FINDINGS: Image quality: Excellent. Alignment and Curvature: There is normal bony alignment. Convex-right scoliosis of the lumbar spine is stable compared to later radiographs obtained 02/18/19. Bone Marrow: Mild reactive endplate changes are adjacent to the L1-L2, L2-L3, L3-L4 L4-L5 and L5-S1 discs. No acute vertebral body compression fractures. Spinal Cord: Conus medullaris terminates at the L2 level. Visualized cord demonstrates normal signal and size. Paraspinous Soft Tissues: No paravertebral masses. L1-L2: Loss of disc signal and height. Mild to moderate diffuse disc bulge. Mild bilateral facet hypertrophy. Mild narrowing of the central canal. Mild bilateral neural foraminal narrowing. No neural compression. L2-L3: Loss of disc signal and height. Mild to moderate diffuse disc bulge. Moderate bilateral facet hypertrophy. Mild to moderate narrowing of the central canal. Moderate bilateral neural foraminal narrowing. No neural compression. L3-L4: Loss of disc signal and height. Mild diffuse disc bulge. Moderate facet and severe ligamentum flavum hypertrophy. Severe narrowing of the central canal with compression of the nerve roots of the cauda equina. Severe bilateral neural foraminal narrowing with compression of the exiting L3 nerve roots. L4-L5: Loss of disc signal and height. Moderate, diffuse disc bulge. Moderate facet and severe ligamentum flavum hypertrophy. Severe narrowing of the central canal with compression of the nerve roots of the cauda equina. Severe bilateral neural foraminal narrowing and compression of the exiting L4 nerve roots. L5-S1: Loss of disc signal. Mild, diffuse disc bulge with severe bilateral facet hypertrophy. Moderate to severe narrowing of the central canal with crowding of nerve roots of the cauda equina. Severe right and mild left neural foraminal narrowing with compression of the exiting right L5 nerve root. IMPRESSION: 1. Multilevel degenerative disc disease. 2. Multilevel facet arthropathy. 3. Severe L3-L4 and L4-L5 central canal stenosis with compression of the nerve roots of the cauda equina. 4. Severe bilateral L3-L4 neural foraminal narrowing with compression of the exiting bilateral L3 nerve roots. Severe bilateral L4-L5 neural foraminal narrowing with compression of the exiting bilateral L4 nerve roots. Severe right L5-S1 neural foraminal narrowing with compression of the exiting right L5 nerve root. Dictated by: Ivone Scott MD, PhD on 08/21/2019 at 16:42 Approved by: Ivone Scott MD, PhD on 08/21/2019 at 16:47
== END ==
PROVIDERS: PCP Family Medicine; Referring Provider Orthopaedic Surgery; Visit Provider Orthopaedic Surgery
DX: M54.5 Low back pain (principal); M48.062 Spinal stenosis, lumbar region with neurogenic claudication; M48.07 Spinal stenosis, lumbosacral region; M51.36 Other intervertebral disc degeneration, lumbar region; M51.37 Other intervertebral disc degeneration, lumbosacral region; M47.816 Spondylosis without myelopathy or radiculopathy, lumbar region; M47.817 Spondylosis without myelopathy or radiculopathy, lumbosacral region; M41.86 Other forms of scoliosis, lumbar region
CPT/HCPCS: 72148

== ENCOUNTER → 2019-09-11 09:03 | Outpatient (CLI) | payer MEDICARE, OTHER, SELFPAY ==
[2019-09-11 09:53] LABS: Add Manual Diff / Slide Review NO; Basophils Absolute Auto 0 /uL (0-100); Basophils Percent Auto 0.1 % (0-2); Eosinophils Absolute Auto 0 /uL (0-450); Eosinophils Percent Auto 0.1 % (2-4); Hematocrit 37.9 % (41-53); Hemoglobin 12.5 g/dL (13.5-17.5); Lymphocytes Absolute Auto 1600 /uL (1100-4500); Lymphocytes Percent Auto 14.3 % (25-40); Mean Corpuscular Hemoglobin 33.7 PG (26-34); Mean Corpuscular Volume 102.1 fL (80-100); Monocytes Absolute Auto 600 /uL (0-900); Monocytes Percent Auto 5.8 % (3-14); Neutrophils Absolute Auto 8700 /uL (1500-7000); Neutrophils Percent Auto 79.7 % (50-75); Platelet Count 187 X10^3/uL (150-400); Red Blood Cell Count 3.72 X10^6/uL (4.5-5.9); Red Cell Distribution Width 14.3 % (11.6-14.8); White Blood Cell Count 10.9 X10^3/uL (4.5-11.0)
[2019-09-11 10:54] LABS: Alanine Aminotransferase 20 IU/L (<50); Albumin 3.4 g/dL (3.5-5.0); Albumin Globulin Ratio 1.2 (1.0-2.8); Alkaline Phosphatase 41 U/L (38-126); Aspartate Aminotransferase 28 IU/L (17-59); BUN Creatinine Ratio 20.5 (6-22); Bilirubin Total 0.5 mg/dL (0.2-1.3); Blood Urea Nitrogen 16 mg/dL (9-20); Calcium 9.7 mg/dL (8.4-10.2); Carbon Dioxide 27 mmol/L (22-32); Chloride 102 mmol/L (98-107); Cholesterol 136 mg/dL (140-199); Estimated Glomerular Filt Rate > 60.0 mL/min (>60); Globulin 2.9 g/dL (1.7-4.1); Glucose 122 mg/dL (80-110); HDL Cholesterol 46 mg/dL (40-60); HEMOLYSIS < 15 (0-50); LDL Cholesterol Calculated 83 mg/dL (<100); Potassium 4.3 mmol/L (3.4-5.1); Sodium 135 mmol/L (137-145); Total Protein 6.3 g/dL (6.3-8.2); Triglycerides 36 mg/dL (35-150)
[2019-09-11 10:55] LABS: Hemoglobin A1C% w Est Avg Glu 5.8 % (4.0-6.0)
[2019-09-11 15:05] LABS: TSH w/ Reflex to FT4 2.36 uIU/mL (0.47-4.68)
== END ==
PROVIDERS: PCP Family Medicine; Referring Provider Family Medicine; Visit Provider Family Medicine
DX: E03.9 Hypothyroidism, unspecified (principal); E11.9 Type 2 diabetes mellitus without complications; E78.5 Hyperlipidemia, unspecified; I10 Essential (primary) hypertension
CPT/HCPCS: 36415; 80053; 80061; 83036; 84443; 85025

== ENCOUNTER → 2020-02-03 09:16 | Outpatient (CLI) | payer MEDICARE, OTHER, SELFPAY ==
--- NOTE | 2020-02-03 09:19 | DI.RAD.S_ITS ---
PROCEDURE: XR CHEST 2V INDICATIONS: cough short of breath TECHNIQUE: 2 views of the chest were acquired. COMPARISON: , CR, XR CHEST 2V, 10/11/2018, 11:39. FINDINGS: Surgical changes and devices: There is prior right shoulder arthroplasty. Lungs and pleura: Increased bronchovascular markings in bilateral hilar region are seen with mild bronchial wall thickening concerning for reactive inflammatory process. No definite focal infiltrate. No pleural effusions or pneumothorax. Mediastinum: Mediastinal contours are normal. Heart size is normal. Bones and chest wall: No suspicious bony abnormalities. Soft tissues appear unremarkable. IMPRESSION: Finding is suggestive of reactive inflammatory process such as bronchitis or viral pneumonia. No focal infiltrate, pleural effusion or pneumothorax. Dictated by: Gabe Crisostomo M.D. on 02/03/2020 at 9:54 Approved by: Gabe Crisostomo M.D. on 02/03/2020 at 9:56
[2020-02-03 10:08] LABS: Add Manual Diff / Slide Review NO; Basophils Absolute Auto 100 /uL (0-100); Basophils Percent Auto 1.2 % (0-2); Eosinophils Absolute Auto 500 /uL (0-450); Eosinophils Percent Auto 6.8 % (2-4); Hematocrit 40.8 % (41-53); Hemoglobin 13.2 g/dL (13.5-17.5); Lymphocytes Absolute Auto 3200 /uL (1100-4500); Lymphocytes Percent Auto 39.7 % (25-40); Mean Corpuscular HGB Conc 32.5 % (30-36); Mean Corpuscular Volume 101.6 fL (80-100); Monocytes Absolute Auto 700 /uL (0-900); Neutrophils Absolute Auto 3500 /uL (1500-7000); Neutrophils Percent Auto 43.3 % (50-75); Platelet Count 199 X10^3/uL (150-400); Red Blood Cell Count 4.01 X10^6/uL (4.5-5.9); Red Cell Distribution Width 14.5 % (11.6-14.8)
[2020-02-03 10:57] LABS: Alanine Aminotransferase 25 IU/L (<50); Albumin 3.9 g/dL (3.5-5.0); Albumin Globulin Ratio 1.1 (1.0-2.8); Alkaline Phosphatase 53 U/L (38-126); Aspartate Aminotransferase 35 IU/L (17-59); Bilirubin Total 0.6 mg/dL (0.2-1.3); Blood Urea Nitrogen 17 mg/dL (9-20); Calcium 9.3 mg/dL (8.4-10.2); Carbon Dioxide 29 mmol/L (22-32); Chloride 101 mmol/L (98-107); Estimated Glomerular Filt Rate > 60.0 mL/min (>60); Globulin 3.4 g/dL (1.7-4.1); Glucose 124 mg/dL (80-110); HEMOLYSIS < 15 (0-50); Potassium 4.4 mmol/L (3.4-5.1); Sodium 134 mmol/L (137-145); Total Protein 7.3 g/dL (6.3-8.2)
[2020-02-03 11:05] LABS: NT-proBNP (BNP-Adult 18+) 880 pg/mL (<450)
[2020-02-03 11:27] LABS: Thyroid Stimulating Hormone 16.3 uIU/mL (0.47-4.68)
== END ==
PROVIDERS: PCP Family Medicine; Referring Provider Family Medicine; Visit Provider Family Medicine
DX: R05 Cough (principal); R06.02 Shortness of breath; J44.9 Chronic obstructive pulmonary disease, unspecified; I48.20 Chronic atrial fibrillation, unspecified
CPT/HCPCS: 36415; 71046; 80053; 83880; 84443; 85025

== ENCOUNTER → 2020-02-08 09:09 | Outpatient (CLI) | payer MEDICARE, OTHER, SELFPAY ==
--- NOTE | 2020-02-08 09:11 | DI.RAD.S_ITS ---
PROCEDURE: XR CHEST 2V INDICATIONS: short of breath TECHNIQUE: 2 views of the chest were acquired. COMPARISON: [facility], , XR CHEST 2V, 02/03/2020, 9:20. FINDINGS: Surgical changes and devices: Right shoulder arthroplasty. Mild improved aeration of the right lung base since 02/03/20 No pleural effusions or pneumothorax. Mediastinum: Mediastinal contours are normal. Heart size is normal. Bones and chest wall: No suspicious bony abnormalities. Soft tissues appear unremarkable. IMPRESSION: Mildly improved aeration of the right lung base since the prior study. No new focal consolidation. Dictated by: Domo Leung M.D. on 02/08/2020 at 10:22 Approved by: Domo Leung M.D. on 02/08/2020 at 10:31
[2020-02-08 10:12] LABS: Add Manual Diff / Slide Review NO; Basophils Absolute Auto 100 /uL (0-100); Basophils Percent Auto 1.9 % (0-2); Eosinophils Absolute Auto 600 /uL (0-450); Eosinophils Percent Auto 8.5 % (2-4); Hematocrit 40.2 % (41-53); Hemoglobin 13.2 g/dL (13.5-17.5); Lymphocytes Absolute Auto 2100 /uL (1100-4500); Lymphocytes Percent Auto 32.4 % (25-40); Mean Corpuscular HGB Conc 32.8 % (30-36); Mean Corpuscular Hemoglobin 33.1 PG (26-34); Mean Corpuscular Volume 100.9 fL (80-100); Monocytes Absolute Auto 700 /uL (0-900); Monocytes Percent Auto 10.8 % (3-14); Neutrophils Absolute Auto 3000 /uL (1500-7000); Neutrophils Percent Auto 46.4 % (50-75); Platelet Count 192 X10^3/uL (150-400); Red Blood Cell Count 3.98 X10^6/uL (4.5-5.9); Red Cell Distribution Width 14.2 % (11.6-14.8); White Blood Cell Count 6.5 X10^3/uL (4.5-11.0)
[2020-02-08 10:27] LABS: Alanine Aminotransferase 23 IU/L (<50); Albumin 3.8 g/dL (3.5-5.0); Albumin Globulin Ratio 1.1 (1.0-2.8); Alkaline Phosphatase 48 U/L (38-126); Aspartate Aminotransferase 31 IU/L (17-59); BUN Creatinine Ratio 25.3 (6-22); Bilirubin Total 0.5 mg/dL (0.2-1.3); Blood Urea Nitrogen 23 mg/dL (9-20); Calcium 8.9 mg/dL (8.4-10.2); Carbon Dioxide 29 mmol/L (22-32); Chloride 102 mmol/L (98-107); Estimated Glomerular Filt Rate > 60.0 mL/min (>60); Globulin 3.5 g/dL (1.7-4.1); Glucose 117 mg/dL (80-110); HEMOLYSIS < 15 (0-50); Potassium 4.1 mmol/L (3.4-5.1); Sodium 134 mmol/L (137-145); Total Protein 7.3 g/dL (6.3-8.2)
[2020-02-08 10:36] LABS: NT-proBNP (BNP-Adult 18+) 560 pg/mL (<450)
== END ==
PROVIDERS: PCP Family Medicine; Referring Provider Family Medicine; Visit Provider Family Medicine
DX: I48.20 Chronic atrial fibrillation, unspecified (principal); I50.9 Heart failure, unspecified; J44.9 Chronic obstructive pulmonary disease, unspecified; R06.02 Shortness of breath
CPT/HCPCS: 36415; 71046; 80053; 83880; 85025

== ENCOUNTER → 2020-03-02 09:18 | Outpatient (CLI) | payer MEDICARE, OTHER, SELFPAY ==
[2020-03-02 10:00] LABS: Add Manual Diff / Slide Review NO; Basophils Absolute Auto 100 /uL (0-100); Basophils Percent Auto 1.1 % (0-2); Eosinophils Absolute Auto 400 /uL (0-450); Eosinophils Percent Auto 7.4 % (2-4); Hematocrit 39.5 % (41-53); Hemoglobin 12.8 g/dL (13.5-17.5); Lymphocytes Absolute Auto 1900 /uL (1100-4500); Lymphocytes Percent Auto 33.2 % (25-40); Mean Corpuscular HGB Conc 32.5 % (30-36); Mean Corpuscular Hemoglobin 32.8 PG (26-34); Mean Corpuscular Volume 100.8 fL (80-100); Monocytes Absolute Auto 700 /uL (0-900); Monocytes Percent Auto 11.8 % (3-14); Neutrophils Absolute Auto 2700 /uL (1500-7000); Neutrophils Percent Auto 46.5 % (50-75); Platelet Count 231 X10^3/uL (150-400); Red Blood Cell Count 3.92 X10^6/uL (4.5-5.9); Red Cell Distribution Width 14.3 % (11.6-14.8); White Blood Cell Count 5.7 X10^3/uL (4.5-11.0)
[2020-03-02 10:17] LABS: BUN Creatinine Ratio 24.5 (6-22); Blood Urea Nitrogen 24 mg/dL (9-20); Calcium 9.1 mg/dL (8.4-10.2); Carbon Dioxide 31 mmol/L (22-32); Chloride 101 mmol/L (98-107); Estimated Glomerular Filt Rate > 60.0 mL/min (>60); Glucose 113 mg/dL (80-110); HEMOLYSIS < 15 (0-50); Potassium 4.2 mmol/L (3.4-5.1); Sodium 133 mmol/L (137-145)
[2020-03-02 10:26] LABS: NT-proBNP (BNP-Adult 18+) 639 pg/mL (<450)
== END ==
PROVIDERS: PCP Family Medicine; Referring Provider Family Medicine; Visit Provider Family Medicine
DX: I50.21 Acute systolic (congestive) heart failure (principal)
CPT/HCPCS: 36415; 80048; 83880; 85025

== ENCOUNTER → 2020-05-04 08:44 | Outpatient (CLI) | payer MEDICARE, OTHER, SELFPAY ==
[2020-05-04 09:37] LABS: BUN Creatinine Ratio 21.9 (6-22); Blood Urea Nitrogen 25 mg/dL (9-20); Calcium 9.3 mg/dL (8.4-10.2); Carbon Dioxide 27 mmol/L (22-32); Chloride 102 mmol/L (98-107); Cholesterol 150 mg/dL (140-199); Estimated Glomerular Filt Rate > 60.0 mL/min (>60); Glucose 118 mg/dL (80-110); HDL Cholesterol 46 mg/dL (40-60); HEMOLYSIS < 15 (0-50); LDL Cholesterol Calculated 93 mg/dL (<100); Magnesium 2.1 mg/dL (1.6-2.3); Potassium 4.3 mmol/L (3.4-5.1); Sodium 132 mmol/L (137-145); Triglycerides 53 mg/dL (35-150)
[2020-05-04 10:18] LABS: Thyroid Stimulating Hormone 0.878 uIU/mL (0.47-4.68)
== END ==
PROVIDERS: PCP Family Medicine; Referring Provider Internal Medicine Cardiovascular Disease; Visit Provider Internal Medicine Cardiovascular Disease
DX: I48.20 Chronic atrial fibrillation, unspecified (principal); E78.5 Hyperlipidemia, unspecified
CPT/HCPCS: 36415; 80048; 80061; 83735; 84443

== ENCOUNTER 2020-08-18 22:42 | Emergency (ER) | payer MEDICARE, OTHER, SELFPAY ==
[2020-08-18 22:58] VITALS: BP 123/60; PULSE 75; RESP 22; TEMP 36.4; O2SAT 95; BMI 42.0
--- NOTE | 2020-08-18 23:17 | ED_ITS ---
HPI - Headache General Chief Complaint: Headache Stated Complaint: head pain for 4 hours Time Seen by Provider: 08/18/20 23:08 Mode of arrival: Ambulatory Limitations: no limitations History of Present Illness HPI Narrative: Patient is an 85-year-old male with history of atrial fibrillation on Pradaxa presenting with headache off and on for the last few hours. He states that he gets sharp shooting pain that lasts briefly for seconds starts on the right parietal area and shoot forward. He he took a Percocet prior to arrival without any relief. He denies any fever or chills. No neck pain. No numbness tingling or weakness. He denies any chest pain or palpitations. He was Quill earlier in the day. He denies any visual changes. He has no prior history of migraines. He is not sensitive to light or noise. MD Complaint: headache Onset (ago): hour(s) Location: right Severity: severe Quality: sharp Relieving factors: nothing Exacerbating factors: none Related Data Home Medications Medication Instructions Recorded Confirmed Calcium/Vitamin D (#CALCIUM + D 2 tab PO QDAY #0 04/20/11 07/06/20 600 MG-200 IU) PEG-400/PROPYLENE GLYCOL (SYSTANE 1 thaddeus OP PRN #0 04/20/11 07/06/20 LUBRICANT EYE DROPS 0.4%/0.3%) Previous Rx's Medication Instructions Recorded fluticasone propionate 220 2 puff INHALATION BID #3 inhalation 11/21/17 mcg/actuation HFA aerosol inhaler dabigatran etexilate 150 mg capsule 150 mg PO BID #180 tab 01/12/20 albuterol sulfate 90 mcg/actuation 2 puff INHALATION Q6H PRN #8.5 gram 01/19/20 aerosol inhaler allopurinol 300 mg tablet 300 mg PO QDAY #90 tab 01/19/20 diltiazem HCl 180 mg 180 mg PO QDAY #90 cap 01/19/20 capsule,extended release 24 hr doxazosin 4 mg tablet 4 mg PO HS #90 tab 01/19/20 metformin 500 mg tablet 500 mg PO QDAY #90 tab 01/19/20 omeprazole 20 mg capsule,delayed 20 mg PO QDAY #90 cap 01/19/20 release telmisartan 40 mg tablet 40 mg PO QDAY #90 tab 01/19/20 Disabled [address]ing Permit #1 ea 01/21/20 levothyroxine 175 mcg tablet 175 mcg PO QDAY@0600 #90 tab 02/08/20 paroxetine HCl 20 mg tablet 30 mg PO QDAY #120 tab 05/04/20 hydrocodone 5 mg-acetaminophen 325 1 tab PO BID PRN #30 tab 07/06/20 mg tablet spironolactone 25 mg tablet 25 mg PO DAILY #30 tab 07/06/20 Allergies Allergy/AdvReac Type Severity Reaction Status Date / Time No Known Allergies Allergy Uncoded 07/06/20 08:50 Review of Systems Review of Systems ROS Unobtainable: All systems reviewed & are unremarkable except as noted in HPI and below Constitutional Constitutional: Denies chills, Denies fever(s), Denies lethargy and Denies we akness Eyes Eyes: Denies change in vision, Denies eye discharge, Denies irritation and Denies loss of vision ENT Ears, Nose, Mouth, and Throat: Denies change in voice, Denies vertigo, Denies dizziness, Denies neck pain and Denies sore throat Cardiovascular Cardiovascular: Denies chest pain, Denies syncope, Denies irregular heart rhythm, Denies lightheadedness, Denies palpitations, Denies dyspnea, Denies dyspnea on exertion and Denies orthopnea Respiratory Respiratory: Denies cough, Denies dyspnea, Denies dyspnea on exertion and Denies wheezing Gastrointestinal Gastrointestinal: Denies abdominal pain, Denies change in bowel habits, Denies diarrhea, Denies nausea and Denies vomiting Musculoskeletal Musculoskeletal: Denies back pain and Denies neck pain Neurologic Neurologic: Reports as per HPI, Reports burning sensations, Denies confusion, Denies vertigo, Denies dizziness, Denies syncope, Denies loss of vision and Denies weakness Psychiatric Psychiatric: Denies confusion Endocrine Endocrine: Denies palpitations Allergic/Immunologic Allergic/Immunologic: Denies wheezing Patient History Medical History (Updated 08/19/20 @ 00:52 by Goldie Archibald DO) Arthritis (~1999) Bundle branch block (03/12/13) Cardiac arrhythmia (~2011) Carpal tunnel syndrome (~1988) Chronic atrial fibrillation (03/12/13) Chronic back pain (~2009) Chronically dry eyes (~2008) Controlled type 2 diabetes mellitus (~2010) Degeneration of intervertebral disc of lumbar region (03/12/13) Diabetes Essential hypertension (~1994) Gout (08/29/12) Hyperlipidemia Hypothyroidism (07/03/13) Moderate COPD (chronic obstructive pulmonary disease) (09/21/15) Morbid obesity (11/14/10) Obstructive sleep apnea syndrome (11/14/10) Osteoarthritis (03/12/13) Sigmoid diverticulitis (~2001) Ventral hernia Surgical History Anesthesia History of arthroplasty (~2011) History of cataract removal with insertion of prosthetic lens (~2006) History of cataract removal with insertion of prosthetic lens (~2008) History of flexible sigmoidoscopy (~2001) History of surgery (~2012) History of surgery (~2012) Pilonidal cyst (~1998) Status post hemorrhoidectomy (~2006) Status post hernia repair (~1997) Status post hernia repair (~1999) Status post hernia repair (~2003) Status post hernia repair (~2012) Family History Grandfather Heart disease Grandmother Stroke Mother Heart disease Father No problems noted. Social History marital status: Smoking Status: Former smoker alcohol intake: current substance use type: does not use Smoking Status: Former smoker alcohol intake frequency: a few times a week Alcohol type: beer Substance Use Type: does not use Exam Initial Vital Signs Initial Vital Signs: Vital Signs Temperature 97.5 F L 08/18/20 22:58 Pulse Rate 75 08/18/20 22:58 Respiratory Rate 22 08/18/20 22:58 Blood Pressure 123/60 08/18/20 22:58 Pulse Oximetry 95 08/18/20 22:58 GENERAL: Alert pleasant 85-year-old male and in no acute distress. HEENT: Head atraumatic,EOMI, pupils reactive, face symmetric, moist mucous membranes, no tenderness over temporal area NECK: No JVD supple no meningeal signs negative Kernig and Brudzinski sign CARDIOVASCULAR: Regular rate and rhythm without murmurs, rubs or gallops. RESPIRATORY: Breath sounds equal bilaterally, no wheezes rales or rhonchi. ABDOMEN: Soft, nontender. Normoactive bowel sounds all 4 quadrants. No guarding or rebound. EXTREMITIES: Normal range of motion, no clubbing. +3 bilateral pitting edema. Neurovascularly intact NEUROLOGICAL: Alert and oriented x4.Normal gait and speech. Cranial nerves II through XII grossly intact. Good [id number], good [id number], strength equal bilaterally, no dysarthria or aphasia, sensation in tact to soft touch bilaterally, no visual changes, no facial droop SKIN: Chronic small wound noted on right temporal area not a vesicle patient says it is improving. No vesicles no petechiae no lacerations Scores NIH Stroke Scale Level of Conciousness: Alert, keenly responsive Ask month/age: Answers both questions correctly. Open/close eyes, close hand: Performs both tasks correctly Best gaze horizontal: Normal Visual constantino: No visual loss Facial palsy: Normal symetrical movement Left arm drift: No drift for full 10 sec Right arm drift: No drift for full 10 sec Left leg drift: No drift for full 5 sec Right leg drift: No drift for full 5 sec Limb ataxia: Absent Sensory on face/arms/legs: Normal, no sensory loss Best language: No aphasia, normal Dysarthria: Normal Extinction or inattention: No abnormality Total NIH Stroke scale score: 0 Course Orders Ordered: ED Orders 08/18/20 23:29 CT head/brain wo con Stat 08/18/20 23:40 Complete Blood Count AUTO DIFF Stat Comprehensive Metabolic Panel Stat Discontinued Medications Morphine Sulfate (Morphine 2 Mg/Ml Inj) 2 mg IV NOW ONE Stop: 08/18/20 23:30 Last Admin: 08/18/20 23:44 Dose: 2 mg Documented by: FE Vital Signs Vital signs: Vital Signs - 8 hr 08/18/20 22:58 08/19/20 01:13 Temperature 97.5 F L Pulse Rate 75 92 H Respiratory Rate 22 22 Blood Pressure 123/60 118/58 L Pulse Oximetry 95 97 MDM - Headache Lab Data Attestation: I reviewed the patient's lab results. Result diagrams: 08/18/20 23:40 08/18/20 23:40 Labs: Lab Results 08/18/20 08/18/20 Range/Units 23:40 23:40 WBC 7.9 (4.5-11.0) X10^3/uL RBC 3.58 L (4.5-5.9) X10^6/uL Hgb 12.1 L (13.5-17.5) g/dL Hct 36.3 L (41-53) % MCV 101.5 H (80-100) fL MCH 33.8 (26-34) PG MCHC 33.3 (30-36) % RDW 14.3 (11.6-14.8) % Plt Count 210 (150-400) X10^3/uL Neut % (Auto) 59.1 (50-75) % Lymph % (Auto) 22.6 L (25-40) % Randolph % (Auto) 10.1 (3-14) % Eos % (Auto) 4.9 H (2-4) % Baso % (Auto) 3.3 H (0-2) % Neut # (Auto) 4600 (5717-4559) /uL Lymph # (Auto) 1800 (9729-5164) /uL Randolph # (Auto) 800 (0-900) /uL Eos # (Auto) 400 (0-450) /uL Baso # (Auto) 300 H (0-100) /uL Sodium 131 L (137-145) mmol/L Potassium 4.8 (3.4-5.1) mmol/L Chloride 100 (98-107) mmol/L Carbon Dioxide 25 (22-32) mmol/L BUN 29 H (9-20) mg/dL Creatinine 1.12 (0.66-1.25) mg/dL Estimated GFR > 60.0 (>60) mL/min BUN/Creatinine Ratio 25.9 H (6-22) Glucose 95 (80-110) mg/dL Calcium 9.1 (8.4-10.2) mg/dL Total Bilirubin 0.5 (0.2-1.3) mg/dL AST 41 (17-59) IU/L ALT 23 (<50) IU/L Alkaline Phosphatase 41 (38-126) U/L Total Protein 6.4 (6.3-8.2) g/dL Albumin 3.3 L (3.5-5.0) g/dL Globulin 3.1 (1.7-4.1) g/dL Albumin/Globulin Ratio 1.1 (1.0-2.8) Imaging Data CT scan - head: Radiologist's Impression: Preliminary report no acute intracranial abnormality MDM Narrative Medical decision making narrative: The patient having sharp shooting pains on the side of his head lasting only seconds. He has no neurologic deficits. At this time unlikely stroke. Head CT is negative in no evidence of bleeding despite Pradaxa. Patient's pain he is describing is similar to that of nerve pain, possible shingles. Recommend he monitor and watch closely for the next 2 days. No tenderness over the restoration to suggest temporal arteritis. Differential diagnosis shingles, intracranial hemorrhage, ischemic CVA, migraine, headache, meningitis, temporal arteritis Discharge Plan Departure Patient Disposition: Home Clinical Impression: Headache Instructions: DI for Headache Activity Restrictions/Additional Instructions: *You have been diagnosed with headache *What to do: At this time her scan and blood work are reassuring. Please monitor your skin over the next few days he may develop a rash which may be shingles. *Continue to take medications as directed *Follow up with your primary care provider in 2-3 days *Return to ER if you should have worsening headache, numbness tingling weakness, rash or any new, worsening or concerning symptoms Prescriptions: No Action levothyroxine 175 mcg tablet 175 mcg PO QDAY@0600 Qty: 90 RF: 3 paroxetine HCl [Paxil] 20 mg tablet 30 mg PO QDAY Qty: 120 RF: 3 spironolactone 25 mg tablet 25 mg PO DAILY Qty: 30 RF: 0 hydrocodone-acetaminophen 5-325 mg tablet 1 tab PO BID PRN (Reason: pain) Qty: 30 RF: 0 Calcium/Vitamin D (#CALCIUM + D 600 MG-200 IU) 2 tab PO QDAY Qty: 0 RF: 0 PEG-400/PROPYLENE GLYCOL (SYSTANE LUBRICANT EYE DROPS 0.4%/0.3%) 1 thaddeus OP PRN Qty: 0 RF: 0 fluticasone propionate [Flovent HFA] 220 mcg/actuation HFA aerosol inhaler 2 puff INHALATION BID Qty: 3 RF: 4 Pradaxa 150 mg capsule 150 mg PO BID Qty: 180 RF: 3 diltiazem HCl 180 mg capsule,extended release 24hr 180 mg PO QDAY Qty: 90 RF: 3 albuterol sulfate 90 mcg/actuation HFA aerosol inhaler 2 puff INHALATION Q6H PRN (Reason: wheezing) Qty: 8.5 RF: 6 allopurinol 300 mg tablet 300 mg PO QDAY Qty: 90 RF: 3 telmisartan [Micardis] 40 mg tablet 40 mg PO QDAY Qty: 90 RF: 3 doxazosin 4 mg tablet 4 mg PO HS Qty: 90 RF: 3 omeprazole 20 mg capsule,delayed release(DR/EC) 20 mg PO QDAY Qty: 90 RF: 3 metformin [Glucophage] 500 mg tablet 500 mg PO QDAY Qty: 90 RF: 3 (DME) Disabled Parking Permit See Rx Instructions .ROUTE .MEDSUPPLY Qty: 1 RF: 0 Referrals: Douglas Turner MD [Primary Care Provider] -
--- NOTE | 2020-08-18 23:29 | DI.CT.S_ITS ---
PROCEDURE: CT HEAD/BRAIN WO CON INDICATIONS: headache on pradaxa TECHNIQUE: Noncontrast 4.5 mm thick angled axial sections acquired from the foramen magnum to the vertex, with coronal and sagittal reformats. For radiation dose reduction, the following was used: automated exposure control, adjustment of mA and/or kV according to patient size. COMPARISON: [facility], CT, HEAD WITHOUT CONTRAST, 06/20/2014, 11:42. FINDINGS: Image quality: Excellent. CSF spaces: Basal cisterns are patent. No extra-axial fluid collections. The ventricles are symmetric in size and shape. Brain: No intracranial bleeds or masses. There is cerebral volume loss for age, with resultant ventricular and sulcal prominence. There are periventricular and deep white matter chronic small vessel ischemic changes. There is intracranial internal carotid artery atherosclerosis. Skull and face: Calvarium and visualized facial bones appear intact, without suspicious lesions. Sinuses: Visualized sinuses and mastoids are clear. IMPRESSION: No acute intracranial process. Findings concordant with preliminary study interpretation. Dictated by: Domo Leung M.D. on 08/19/2020 at 8:08 Approved by: Domo Leung M.D. on 08/19/2020 at 8:11
[2020-08-18] MEDS: MORPHINE 2 MG/ML INJ IV (23:44)
[2020-08-18 23:54] LABS: Add Manual Diff / Slide Review NO; Basophils Absolute Auto 300 /uL (0-100); Basophils Percent Auto 3.3 % (0-2); Eosinophils Absolute Auto 400 /uL (0-450); Eosinophils Percent Auto 4.9 % (2-4); Hematocrit 36.3 % (41-53); Hemoglobin 12.1 g/dL (13.5-17.5); Lymphocytes Absolute Auto 1800 /uL (1100-4500); Lymphocytes Percent Auto 22.6 % (25-40); Mean Corpuscular HGB Conc 33.3 % (30-36); Mean Corpuscular Hemoglobin 33.8 PG (26-34); Mean Corpuscular Volume 101.5 fL (80-100); Monocytes Absolute Auto 800 /uL (0-900); Monocytes Percent Auto 10.1 % (3-14); Neutrophils Absolute Auto 4600 /uL (1500-7000); Neutrophils Percent Auto 59.1 % (50-75); Platelet Count 210 X10^3/uL (150-400); Red Blood Cell Count 3.58 X10^6/uL (4.5-5.9); Red Cell Distribution Width 14.3 % (11.6-14.8); White Blood Cell Count 7.9 X10^3/uL (4.5-11.0)
[2020-08-19 00:13] LABS: Alanine Aminotransferase 23 IU/L (<50); Albumin 3.3 g/dL (3.5-5.0); Albumin Globulin Ratio 1.1 (1.0-2.8); Alkaline Phosphatase 41 U/L (38-126); Aspartate Aminotransferase 41 IU/L (17-59); BUN Creatinine Ratio 25.9 (6-22); Bilirubin Total 0.5 mg/dL (0.2-1.3); Blood Urea Nitrogen 29 mg/dL (9-20); Calcium 9.1 mg/dL (8.4-10.2); Carbon Dioxide 25 mmol/L (22-32); Chloride 100 mmol/L (98-107); Estimated Glomerular Filt Rate > 60.0 mL/min (>60); Globulin 3.1 g/dL (1.7-4.1); Glucose 95 mg/dL (80-110); Sodium 131 mmol/L (137-145); Total Protein 6.4 g/dL (6.3-8.2)
[2020-08-19 00:15] LABS: HEMOLYSIS 97 (0-50)
[2020-08-19 00:16] LABS: Potassium 4.8 mmol/L (3.4-5.1)
[2020-08-19 01:13] VITALS: BP 118/58; PULSE 92; RESP 22; O2SAT 97
== END 2020-08-19 01:15 | disposition home or self-care (01) ==
PROVIDERS: Emergency Provider Emergency Medicine; PCP Family Medicine
DX: R51.9 Headache, unspecified (principal)
CPT/HCPCS: 70450; 80053; 85025; 96374; 99283; 99284; J2270

== ENCOUNTER 2020-11-08 11:41 | Emergency (ER) | payer MEDICARE, OTHER, SELFPAY ==
[2020-11-08 11:47] VITALS: BP 140/60; PULSE 87; RESP 20; TEMP 37.2; O2SAT 94; BMI 42.3
--- NOTE | 2020-11-08 11:56 | DI.CT.S_ITS ---
PROCEDURE: CT HEAD/BRAIN WO CON INDICATIONS: head injury,on blood thinners,mod trauma TECHNIQUE: Noncontrast 4.5 mm thick angled axial sections acquired from the foramen magnum to the vertex, with coronal and sagittal reformats. For radiation dose reduction, the following was used: automated exposure control, adjustment of mA and/or kV according to patient size. COMPARISON: [facility], CT, CT HEAD/BRAIN WO CON, 08/18/2020, 23:39. FINDINGS: Image quality: Excellent. CSF spaces: Basal cisterns are patent. No extra-axial fluid collections. The ventricles are symmetric in size and shape. Brain: No intracranial bleeds or masses. There is cerebral volume loss for age, with resultant ventricular and sulcal prominence. There are periventricular and deep white matter chronic small vessel ischemic changes. There is intracranial internal carotid artery atherosclerosis. Skull and face: Calvarium and visualized facial bones appear intact, without suspicious lesions. Sinuses: Visualized sinuses and mastoids are clear. IMPRESSION: 1. No acute intracranial process. 2. Mild to moderate atrophy and chronic microvascular ischemic changes. Dictated by: Krysten Block M.D. on 11/08/2020 at 12:31 Approved by: Krysten Block M.D. on 11/08/2020 at 12:33
--- NOTE | 2020-11-08 12:50 | ED_ITS ---
HPI - Fall General Chief Complaint: Fall Stated Complaint: fall Time Seen by Provider: 11/08/20 11:55 Source: patient and EMS Mode of arrival: EMS History of Present Illness HPI Narrative: 85-year-old gentleman with a his wound that will need to be fully cleaned and a suture tory of fibrillation for which she is on dabigatran, hypertension, hyperlipidemia, hypothyroidism, COPD, morbid obesity who was standing on a rock to hang a bird feeder on his ease and stumbled and fell. He landed on his right arm and did hit his head. He is unsure if there was any loss of consciousness. He was on the ground for a period of time because there is nobody to help but he was unable to get himself off the ground. He complains of some scrapes around his right knee he has some skin tears to the right forearm and hand with laceration to the right index finger palmar surface and with the skin tear on the forearm there appears to be a deeper puncture wound that will need to be completely cleaned with a deep suture under the Steri- Strips over that skin tear. He has no other musculoskeletal complaints and a GCS of 15. He reports no recent fever, cough, chills, abdominal pain, chest pain, dyspnea, palpitations. He does note that his left knee has felt more unstable recently and he has resumed wearing a knee immobilizer that he has had for similar problems previously. Related Data Home Medications Medication Instructions Recorded Confirmed Calcium/Vitamin D (#CALCIUM + D 2 tab PO QDAY #0 04/20/11 10/20/20 600 MG-200 IU) PEG-400/PROPYLENE GLYCOL (SYSTANE 1 thaddeus OP PRN #0 04/20/11 10/20/20 LUBRICANT EYE DROPS 0.4%/0.3%) Previous Rx's Medication Instructions Recorded fluticasone propionate 220 2 puff INHALATION BID #3 inhalation 11/21/17 mcg/actuation HFA aerosol inhaler (Flovent HFA) dabigatran etexilate 150 mg 150 mg PO BID #180 tab 01/12/20 capsule (Pradaxa) albuterol sulfate 90 mcg/actuation 2 puff INHALATION Q6H PRN #8.5 gram 01/19/20 aerosol inhaler allopurinol 300 mg tablet 300 mg PO QDAY #90 tab 01/19/20 diltiazem HCl 180 mg 180 mg PO QDAY #90 cap 01/19/20 capsule,extended release 24 hr doxazosin 4 mg tablet 4 mg PO HS #90 tab 01/19/20 metformin 500 mg tablet 500 mg PO QDAY #90 tab 01/19/20 (Glucophage) omeprazole 20 mg capsule,delayed 20 mg PO QDAY #90 cap 01/19/20 release Disabled Parking Permit #1 ea 01/21/20 levothyroxine 175 mcg tablet 175 mcg PO QDAY@0600 #90 tab 02/08/20 paroxetine HCl 20 mg tablet (Paxil) 30 mg PO QDAY #120 tab 05/04/20 spironolactone 25 mg tablet 25 mg PO DAILY #30 tab 07/06/20 hydrocodone 5 mg-acetaminophen 325 1 tab PO DAILY PRN #60 tab 10/04/20 mg tablet telmisartan 40 mg tablet (Micardis) 40 mg PO QDAY #90 tab 10/21/20 simvastatin 10 mg tablet (Zocor) 10 mg PO HS #90 tab 10/24/20 furosemide 40 mg tablet (Lasix) 40 mg PO DAILY #30 tab 11/03/20 oxycodone-acetaminophen 5 mg-325 1 tab PO Q6H PRN #14 tab 11/08/20 mg tablet Allergies Allergy/AdvReac Type Severity Reaction Status Date / Time No Known Allergies Allergy Uncoded 10/20/20 11:33 Review of Systems Review of Systems Narrative: Remainder of complete review of systems is otherwise unremarkable except for that included in the HPI. Patient History Medical History (Updated 11/08/20 @ 15:24 by Elena Johnson MD) Arthritis (~1999) Bundle branch block (03/12/13) Cardiac arrhythmia (~2011) Carpal tunnel syndrome (~1988) Chronic atrial fibrillation (03/12/13) Chronic back pain (~2009) Chronically dry eyes (~2008) Controlled type 2 diabetes mellitus (~2010) Degeneration of intervertebral disc of lumbar region (03/12/13) Diabetes Essential hypertension (~1994) Gout (08/29/12) Hyperlipidemia Hypothyroidism (07/03/13) Moderate COPD (chronic obstructive pulmonary disease) (09/21/15) Morbid obesity (11/14/10) Obstructive sleep apnea syndrome (11/14/10) Osteoarthritis (03/12/13) Sigmoid diverticulitis (~2001) Ventral hernia Surgical History Anesthesia History of arthroplasty (~2011) History of cataract removal with insertion of prosthetic lens (~2006) History of cataract removal with insertion of prosthetic lens (~2008) History of flexible sigmoidoscopy (~2001) History of surgery (~2012) History of surgery (~2012) Pilonidal cyst (~1998) Status post hemorrhoidectomy (~2006) Status post hernia repair (~1997) Status post hernia repair (~1999) Status post hernia repair (~2003) Status post hernia repair (~2012) Family History Grandfather Heart disease Grandmother Stroke Mother Heart disease Father No problems noted. Social History marital status: Smoking Status: Former smoker alcohol intake: current substance use type: does not use Smoking Status: Former smoker alcohol intake frequency: a few times a week Alcohol type: beer Substance Use Type: does not use Exam Narrative Exam Narrative: General: Obese, slightly disheveled but in no acute distress. Able to give a complete history. d HEENT: Moist mucous membranes, normal sclera with reactive pupils, atraumatic head no abrasions or contusions. He has a large skin cancer on the surface of his scalp Neck: No JVD, supple Respiratory: Lungs are clear to auscultation, no wheezing no rales no rhonchi. Full and symmetrical air movement Cardiac: Regular rate and rhythm no murmurs no bruits Chest: No chest wall tenderness abrasions contusions and no subcutaneous air Abdomen: Soft, nontender, good bowel tones, no flank pain Skin: Large skin tear to the right forearm and right thenar eminence Neurologic: Grossly neurologically intact with no obvious asymmetries or abnormalities Extremities: Minor abrasions to the right knee without associated bony injury. Left knee brace is in place and 1+ lower extremity edema on the left. There is no bony tenderness to the shoulder humerus forearm or wrist on the right side Psych: Cooperative, appropriate insight and affect Initial Vital Signs Initial Vital Signs: Vital Signs Temperature 99.0 F 11/08/20 11:47 Pulse Rate 87 11/08/20 11:47 Respiratory Rate 20 11/08/20 11:47 Blood Pressure 140/60 11/08/20 11:47 Pulse Oximetry 94 11/08/20 11:47 Procedures Laceration Repair Rt forearm: Time of procedure: 15:10 Site: upper extremity (Right forearm) Size (cm): 8 Description: other (Large stellate type skin tear with a 1 cm central area that is deeper) Depth: involves muscle layer Amount of anesthesia used (mL): 4 Skin layer closed with: other (2 nylon sutures and multiple steri strips to reapproximate skin tear edges) Size (cm): 4-0 Number of sutures: 2 Subcutaneous layer closed with: vicryl Size: 3-0 Number of sutures: 1 (horizontal mattress) Right index finger: Time of procedure: 15:10 Site: hand Side (If applicable): right Size (cm): 1.5 Description: linear Depth: simple, single layer Local Anesthetic: lidocaine 1% and with bicarb Amount of anesthesia used (mL): 2 Pre-repair: wound explored and deep structures intact Skin layer closed with: nylon Size (cm): 4-0 Number of sutures: 4 Technique: simple, interrupted and other (with alluminum splint for comfort after dressing in place) Course Orders Ordered: Discontinued Medications Lidocaine/Sodium Bicarbonate (Lido 1%/Sod Bicarb 8.4% (10ml) 10 Ml Syringe) 10 ml INJ NOW ONE Stop: 11/08/20 12:50 Last Admin: 11/08/20 12:56 Dose: 10 ml Documented by: DEVENDRA Oxycodone/Acetaminophen (Oxycodone/Acetaminophen 5/325 Tablet) 2 tab PO NOW ONE Stop: 11/08/20 14:34 Last Admin: 11/08/20 14:36 Dose: 2 tab Documented by: DEVENDRA Vital Signs Vital signs: Vital Signs - 8 hr 11/08/20 11:47 Temperature 99.0 F Pulse Rate 87 Respiratory Rate 20 Blood Pressure 140/60 Pulse Oximetry 94 MDM - Fall Imaging Data CT scan - head: Radiologist's Impression: FINDINGS: Image quality: Excellent. CSF spaces: Basal cisterns are patent. No extra-axial fluid collections. The ventricles are symmetric in size and shape. Brain: No intracranial bleeds or masses. There is cerebral volume loss for age, with resultant ventricular and sulcal prominence. There are periventricular and deep white matter chronic small vessel ischemic changes. There is intracranial internal carotid artery atherosclerosis. Skull and face: Calvarium and visualized facial bones appear intact, without suspicious lesions. Sinuses: Visualized sinuses and mastoids are clear. IMPRESSION: 1. No acute intracranial process. 2. Mild to moderate atrophy and chronic microvascular ischemic changes. Dictated by: Krysten Block M.D. on 11/08/2020 at 12:31 MDM Narrative Medical decision making narrative: 85-year-old gentleman who fell off a rock while trying to hang a bird feeder on dabigatran. Unsure if he hit his head. Head CT is unremarkable. He is alert and appropriate. He has large skin tear on the forearm and a small laceration to the right index finger. No bony injury. Wounds were sutured and Steri stripped by MAXWELL Barnes with my direct supervision as documented above No evidence of further injury patient is safe for home discharge Discharge Plan Departure Patient Disposition: Home Clinical Impression: Laceration, Skin tear Fall Qualifiers: Encounter type: initial encounter Qualified Code(s): W19.XXXA - Unspecified fall, initial encounter Instructions: DI for Laceration Repair Activity Restrictions/Additional Instructions: Thank you for coming in today There is no bleeding in your brain and no broken bones You need to have the stitches removed from your finger in about 7 days, on or about November 16. On that same day, you need to take out the black stitches on your forearm. There is a deep stitch underneath that you should not be able to see and needs to not be removed. Please stop climbing on rocks! I hope you heal quickly Prescriptions: New oxycodone-acetaminophen 5-325 mg tablet 1 tab PO Q6H PRN (Reason: pain) Qty: 14 RF: 0 No Action levothyroxine 175 mcg tablet 175 mcg PO QDAY@0600 Qty: 90 RF: 3 paroxetine HCl [Paxil] 20 mg tablet 30 mg PO QDAY Qty: 120 RF: 3 furosemide [Lasix] 40 mg tablet 40 mg PO DAILY Qty: 30 RF: 0 spironolactone 25 mg tablet 25 mg PO DAILY Qty: 30 RF: 0 hydrocodone-acetaminophen 5-325 mg tablet 1 tab PO DAILY PRN (Reason: pain) Qty: 60 RF: 0 Calcium/Vitamin D (#CALCIUM + D 600 MG-200 IU) 2 tab PO QDAY Qty: 0 RF: 0 PEG-400/PROPYLENE GLYCOL (SYSTANE LUBRICANT EYE DROPS 0.4%/0.3%) 1 thaddeus OP PRN Qty: 0 RF: 0 fluticasone propionate [Flovent HFA] 220 mcg/actuation HFA aerosol inhaler 2 puff INHALATION BID Qty: 3 RF: 4 Pradaxa 150 mg capsule 150 mg PO BID Qty: 180 RF: 3 diltiazem HCl 180 mg capsule,extended release 24hr 180 mg PO QDAY Qty: 90 RF: 3 albuterol sulfate 90 mcg/actuation HFA aerosol inhaler 2 puff INHALATION Q6H PRN (Reason: wheezing) Qty: 8.5 RF: 6 allopurinol 300 mg tablet 300 mg PO QDAY Qty: 90 RF: 3 doxazosin 4 mg tablet 4 mg PO HS Qty: 90 RF: 3 omeprazole 20 mg capsule,delayed release(DR/EC) 20 mg PO QDAY Qty: 90 RF: 3 metformin [Glucophage] 500 mg tablet 500 mg PO QDAY Qty: 90 RF: 3 (DME) Disabled Parking Permit See Rx Instructions .ROUTE .MEDSUPPLY Qty: 1 RF: 0 telmisartan [Micardis] 40 mg tablet 40 mg PO QDAY Qty: 90 RF: 3 simvastatin [Zocor] 10 mg tablet 10 mg PO HS Qty: 90 RF: 3 Referrals: Douglas Turner MD [Primary Care Provider] -
[2020-11-08] MEDS: LIDO 1%/SOD BICARB 8.4% (10ML) 10 ML SYRINGE INJ (12:56)
[2020-11-08] MEDS: OXYCODONE/ACETAMINOPHEN 5/325 TABLET 2 TAB PO (14:36)
[2020-11-08 15:32] VITALS: BP 149/70; PULSE 76; RESP 18; O2SAT 96
--- NOTE | 2020-11-08 15:32 | ED_ITS ---
HPI - Fall <Diana Maloney Jessicarojas, [facility] - Last Filed: 11/08/20 20:37> General Chief Complaint: Fall Stated Complaint: fall Time Seen by Provider: 11/08/20 11:55 Source: patient and EMS Mode of arrival: EMS History of Present Illness HPI Narrative: 85-year-old gentleman with a his wound that will need to be fully cleaned and a suture tory of fibrillation for which she is on dabigatran, hypertension, hyperlipidemia, hypothyroidism, COPD, morbid obesity who was standing on a rock to hang a bird feeder on his ease and stumbled and fell. He landed on his right arm and did hit his head. He is unsure if there was any l oss of consciousness. He was on the ground for a period of time because there is nobody to help but he was unable to get himself off the ground. He complains of some scrapes around his right knee he has some skin tears to the right forearm and hand with laceration to the right index finger palmar surface and with the skin tear on the forearm there appears to be a deeper puncture wound that will need to be completely cleaned with a deep suture under the Steri- Strips over that skin tear. He has no other musculoskeletal complaints and a GCS of 15. He reports no recent fever, cough, chills, abdominal pain, chest pain, dyspnea, palpitations. He does note that his left knee has felt more unstable recently and he has resumed wearing a knee immobilizer that he has had for similar problems previously. Related Data Home Medications Medication Instructions Recorded Confirmed Calcium/Vitamin D (#CALCIUM + D 2 tab PO QDAY #0 04/20/11 10/20/20 600 MG-200 IU) PEG-400/PROPYLENE GLYCOL (SYSTANE 1 thaddeus OP PRN #0 04/20/11 10/20/20 LUBRICANT EYE DROPS 0.4%/0.3%) Previous Rx's Medication Instructions Recorded fluticasone propionate 220 2 puff INHALATION BID #3 inhalation 11/21/17 mcg/actuation HFA aerosol inhaler (Flovent HFA) dabigatran etexilate 150 mg 150 mg PO BID #180 tab 01/12/20 capsule (Pradaxa) albuterol sulfate 90 mcg/actuation 2 puff INHALATION Q6H PRN #8.5 gram 01/19/20 aerosol inhaler allopurinol 300 mg tablet 300 mg PO QDAY #90 tab 01/19/20 diltiazem HCl 180 mg 180 mg PO QDAY #90 cap 01/19/20 capsule,extended release 24 hr doxazosin 4 mg tablet 4 mg PO HS #90 tab 01/19/20 metformin 500 mg tablet 500 mg PO QDAY #90 tab 01/19/20 (Glucophage) omeprazole 20 mg capsule,delayed 20 mg PO QDAY #90 cap 01/19/20 release Disabled Parking Permit #1 ea 01/21/20 levothyroxine 175 mcg tablet 175 mcg PO QDAY@0600 #90 tab 02/08/20 paroxetine HCl 20 mg tablet (Paxil) 30 mg PO QDAY #120 tab 05/04/20 spironolactone 25 mg tablet 25 mg PO DAILY #30 tab 07/06/20 hydrocodone 5 mg-acetaminophen 325 1 tab PO DAILY PRN #60 tab 10/04/20 mg tablet telmisartan 40 mg tablet (Micardis) 40 mg PO QDAY #90 tab 10/21/20 simvastatin 10 mg tablet (Zocor) 10 mg PO HS #90 tab 10/24/20 furosemide 40 mg tablet (Lasix) 40 mg PO DAILY #30 tab 11/03/20 oxycodone-acetaminophen 5 mg-325 1 tab PO Q6H PRN #14 tab 11/08/20 mg tablet Allergies Allergy/AdvReac Type Severity Reaction Status Date / Time No Known Allergies Allergy Uncoded 10/20/20 11:33 Review of Systems <MAXWELL Orta - Last Filed: 11/08/20 20:37> Review of Systems Narrative: Remainder of complete review of systems is otherwise unremarkable except for that included in the HPI. Patient History <MAXWELL Orta - Last Filed: 11/08/20 20:37> Medical History (Updated 11/08/20 @ 15:24 by Elena Johnson MD) Arthritis (~1999) Bundle branch block (03/12/13) Cardiac arrhythmia (~2011) Carpal tunnel syndrome (~1988) Chronic atrial fibrillation (03/12/13) Chronic back pain (~2009) Chronically dry eyes (~2008) Controlled type 2 diabetes mellitus (~2010) Degeneration of intervertebral disc of lumbar region (03/12/13) Diabetes Essential hypertension (~1994) Gout (08/29/12) Hyperlipidemia Hypothyroidism (07/03/13) Moderate COPD (chronic obstructive pulmonary disease) (09/21/15) Morbid obesity (11/14/10) Obstructive sleep apnea syndrome (11/14/10) Osteoarthritis (03/12/13) Sigmoid diverticulitis (~2001) Ventral hernia Surgical History Anesthesia History of arthroplasty (~2011) History of cataract removal with insertion of prosthetic lens (~2006) History of cataract removal with insertion of prosthetic lens (~2008) History of flexible sigmoidoscopy (~2001) History of surgery (~2012) History of surgery (~2012) Pilonidal cyst (~1998) Status post hemorrhoidectomy (~2006) Status post hernia repair (~1997) Status post hernia repair (~1999) Status post hernia repair (~2003) Status post hernia repair (~2012) Family History Grandfather Heart disease Grandmother Stroke Mother Heart disease Father No problems noted. Social History marital status: Smoking Status: Former smoker alcohol intake: current substance use type: does not use Smoking Status: Former smoker alcohol intake frequency: a few times a week Alcohol type: beer Substance Use Type: does not use Exam <MAXWELL Orta - Last Filed: 11/08/20 20:37> Narrative Exam Narrative: [address] [id number] Report Patient: Eitan Vasquez HMR#: [id number]: [id number]:[id number]/Sex: 85 / M Date of Service: 11/08/20ER Physician: Elena Johnson MD HPI - Fall General Chief Complaint: Fall Stated Complaint: fall Time Seen by Provider: 11/08/20 11:55 Source: patient and EMS Mode of arrival: EMS History of Present Illness HPI Narrative: 85-year-old gentleman with a his wound that will need to be fully cleaned and a suture tory of fibrillation for which she is on dabigatran, hypertension, hyperlipidemia, hypothyroidism, COPD, morbid obesity who was standing on a rock to hang a bird feeder on his ease and stumbled and fell. He landed on his right arm and did hit his head. He is unsure if there was any loss of consciousness. He was on the ground for a period of time because there is nobody to help but he was unable to get himself off the ground. He complains of some scrapes around his right knee he has some skin tears to the right forearm and hand with laceration to the right index finger palmar surface and with the skin tear on the forearm there appears to be a deeper puncture wound that will need to be completely cleaned with a deep suture under the Steri- Strips over that skin tear. He has no other musculoskeletal complaints and a GCS of 15. He reports no recent fever, cough, chills, abdominal pain, chest pain, dyspnea, palpitations. He does note that his left knee has felt more unstable recently and he has resumed wearing a knee immobilizer that he has had for similar problems previously. Related Data Home Medications Medication Instructions Recorded Confirmed Calcium/Vitamin D (#CALCIUM + D 2 tab PO QDAY #0 04/20/11 10/20/20 600 MG-200 IU) PEG-400/PROPYLENE GLYCOL (SYSTANE 1 thaddeus OP PRN #0 04/20/11 10/20/20 LUBRICANT EYE DROPS 0.4%/0.3%) Previous Rx's Medication Instructions Recorded fluticasone propionate 220 2 puff INHALATION BID #3 inhalation 11/21/17 mcg/actuation HFA aerosol inhaler (Flovent HFA) dabigatran etexilate 150 mg 150 mg PO BID #180 tab 01/12/20 capsule (Pradaxa) albuterol sulfate 90 mcg/actuation 2 puff INHALATION Q6H PRN #8.5 gram 01/19/20 aerosol inhaler allopurinol 300 mg tablet 300 mg PO QDAY #90 tab 01/19/20 diltiazem HCl 180 mg 180 mg PO QDAY #90 cap 01/19/20 capsule,extended release 24 hr doxazosin 4 mg tablet 4 mg PO HS #90 tab 01/19/20 metformin 500 mg tablet 500 mg PO QDAY #90 tab 01/19/20 (Glucophage) omeprazole 20 mg capsule,delayed 20 mg PO QDAY #90 cap 01/19/20 release Disabled Parking Permit #1 ea 01/21/20 levothyroxine 175 mcg tablet 175 mcg PO QDAY@0600 #90 tab 02/08/20 paroxetine HCl 20 mg tablet (Paxil) 30 mg PO QDAY #120 tab 05/04/20 spironolactone 25 mg tablet 25 mg PO DAILY #30 tab 07/06/20 hydrocodone 5 mg-acetaminophen 325 1 tab PO DAILY PRN #60 tab 10/04/20 mg tablet telmisartan 40 mg tablet (Micardis) 40 mg PO QDAY #90 tab 10/21/20 simvastatin 10 mg tablet (Zocor) 10 mg PO HS #90 tab 10/24/20 furosemide 40 mg tablet (Lasix) 40 mg PO DAILY #30 tab 11/03/20 Allergies Allergy/AdvReac Type Severity Reaction Status Date / Time No Known Allergies Allergy Uncoded 10/20/20 11:33 Review of Systems Review of Systems Narrative: Remainder of complete review of systems is otherwise unremarkable except for that included in the HPI. Patient History Medical History Arthritis (~1999) Bundle branch block (03/12/13) Cardiac arrhythmia (~2011) Carpal tunnel syndrome (~1988) Chronic atrial fibrillation (03/12/13) Chronic back pain (~2009) Chronically dry eyes (~2008) Controlled type 2 diabetes mellitus (~2010) Degeneration of intervertebral disc of lumbar region (03/12/13) Diabetes Essential hypertension (~1994) Gout (08/29/12) Hyperlipidemia Hypothyroidism (07/03/13) Moderate COPD (chronic obstructive pulmonary disease) (09/21/15) Morbid obesity (11/14/10) Obstructive sleep apnea syndrome (11/14/10) Osteoarthritis (03/12/13) Sigmoid diverticulitis (~2001) Ventral hernia Surgical History Anesthesia History of arthroplasty (~2011) History of cataract removal with insertion of prosthetic lens (~2006) History of cataract removal with insertion of prosthetic lens (~2008) History of flexible sigmoidoscopy (~2001) History of surgery (~2012) History of surgery (~2012) Pilonidal cyst (~1998) Status post hemorrhoidectomy (~2006) Status post hernia repair (~1997) Status post hernia repair (~1999) Status post hernia repair (~2003) Status post hernia repair (~2012) Family History Grandfather Heart disease Grandmother Stroke Mother Heart disease Father No problems noted. Social History marital status: Smoking Status: Former smoker alcohol intake: current substance use type: does not use Smoking Status: Former smoker alcohol intake frequency: a few times a week Alcohol type: beer Substance Use Type: does not use Exam Narrative Exam Narrative: General: Obese, slightly disheveled but in no acute distress. Able to give a complete history. d HEENT: Moist mucous membranes, normal sclera with reactive pupils, atraumatic head no abrasions or contusions. He has a large skin cancer on the surface of his scalp Neck: No JVD, supple Respiratory: Lungs are clear to auscultation, no wheezing no rales no rhonchi. Full and symmetrical air movement Cardiac: Regular rate and rhythm no murmurs no bruits Chest: No chest wall tenderness abrasions contusions and no subcutaneous air Abdomen: Soft, nontender, good bowel tones, no flank pain Skin: Large skin tear to the right forearm and right thenar eminence Neurologic: Grossly neurologically intact with no obvious asymmetries or abnormalities Extremities: Minor abrasions to the right knee without associated bony injury. Left knee brace is in place and 1+ lower extremity edema on the left. There is no bony tenderness to the shoulder humerus forearm or wrist on the right side Psych: Cooperative, appropriate insight and affect Initial Vital Signs Initial Vital Signs: Vital Signs Temperature 99.0 F 11/08/20 11:47 Pulse Rate 87 11/08/20 11:47 Respiratory Rate 20 11/08/20 11:47 Blood Pressure 140/60 11/08/20 11:47 Pulse Oximetry 94 11/08/20 11:47 <Elena Johnson MD - Last Filed: 11/09/20 07:46> Initial Vital Signs Initial Vital Signs: Vital Signs Temperature 99.0 F 11/08/20 11:47 Pulse Rate 87 11/08/20 11:47 Respiratory Rate 20 11/08/20 11:47 Blood Pressure 140/60 11/08/20 11:47 Pulse Oximetry 94 11/08/20 11:47 Procedures <MAXWELL Orta - Last Filed: 11/08/20 20:37> Laceration Repair Rt forearm: Time of procedure: 15:10 Site: upper extremity (forearm) Side (If applicable): right Size (cm): 1 Description: irregular Depth: simple, single layer Local Anesthetic: lidocaine 1% and with bicarb Amount of anesthesia used (mL): 4 Pre-repair: irrigated extensively Skin layer closed with: nylon (1 vicryl horizontal mattress suture placed to deeper wound underneath skin flap. Wound edges approximated, and 2 nylon sutures used to approximate superficial wound edges. Steri strips placed to skin tear and covered with dressing.) Size (cm): 4-0 Number of sutures: 2 Technique: simple, interrupted Subcutaneous layer closed with: vicryl Size: 3-0 Number of sutures: 1 Technique: simple, interrupted (horizontal mattress suture) Course <MAXWELL Orta - Last Filed: 11/08/20 20:37> Orders Ordered: Discontinued Medications Lidocaine/Sodium Bicarbonate (Lido 1%/Sod Bicarb 8.4% (10ml) 10 Ml Syringe) 10 ml INJ NOW ONE Stop: 11/08/20 12:50 Last Admin: 11/08/20 12:56 Dose: 10 ml Documented by: DEVENDRA Oxycodone/Acetaminophen (Oxycodone/Acetaminophen 5/325 Tablet) 2 tab PO NOW ONE Stop: 11/08/20 14:34 Last Admin: 11/08/20 14:36 Dose: 2 tab Documented by: DEVENDRA Vital Signs Vital signs: Vital Signs - 8 hr 11/08/20 15:32 Pulse Rate 76 Respiratory Rate 18 Blood Pressure 149/70 H Pulse Oximetry 96 <Elena Johnson MD - Last Filed: 11/09/20 07:46> Orders Ordered: Discontinued Medications Lidocaine/Sodium Bicarbonate (Lido 1%/Sod Bicarb 8.4% (10ml) 10 Ml Syringe) 10 ml INJ NOW ONE Stop: 11/08/20 12:50 Last Admin: 11/08/20 12:56 Dose: 10 ml Documented by: RLAZANI Oxycodone/Acetaminophen (Oxycodone/Acetaminophen 5/325 Tablet) 2 tab PO NOW ONE Stop: 11/08/20 14:34 Last Admin: 11/08/20 14:36 Dose: 2 tab Documented by: DEVENDRA Vital Signs Vital signs: Vital Signs - 8 hr 11/08/20 15:32 Pulse Rate 76 Respiratory Rate 18 Blood Pressure 149/70 H Pulse Oximetry 96 Discharge Plan Departure Patient Disposition: Home Clinical Impression: Laceration, Skin tear Fall Qualifiers: Encounter type: initial encounter Qualified Code(s): W19.XXXA - Unspecified fall, initial encounter Instructions: DI for Laceration Repair Activity Restrictions/Additional Instructions: Thank you for coming in today There is no bleeding in your brain and no broken bones You need to have the stitches removed from your finger in about 7 days, on or about November 16. On that same day, you need to take out the black stitches on your forearm. There is a deep stitch underneath that you should not be able to see and needs to not be removed. Please stop climbing on rocks! I hope you heal quickly Prescriptions: New oxycodone-acetaminophen 5-325 mg tablet 1 tab PO Q6H PRN (Reason: pain) Qty: 14 RF: 0 No Action levothyroxine 175 mcg tablet 175 mcg PO QDAY@0600 Qty: 90 RF: 3 paroxetine HCl [Paxil] 20 mg tablet 30 mg PO QDAY Qty: 120 RF: 3 furosemide [Lasix] 40 mg tablet 40 mg PO DAILY Qty: 30 RF: 0 spironolactone 25 mg tablet 25 mg PO DAILY Qty: 30 RF: 0 hydrocodone-acetaminophen 5-325 mg tablet 1 tab PO DAILY PRN (Reason: pain) Qty: 60 RF: 0 Calcium/Vitamin D (#CALCIUM + D 600 MG-200 IU) 2 tab PO QDAY Qty: 0 RF: 0 PEG-400/PROPYLENE GLYCOL (SYSTANE LUBRICANT EYE DROPS 0.4%/0.3%) 1 thaddeus OP PRN Qty: 0 RF: 0 fluticasone propionate [Flovent HFA] 220 mcg/actuation HFA aerosol inhaler 2 puff INHALATION BID Qty: 3 RF: 4 Pradaxa 150 mg capsule 150 mg PO BID Qty: 180 RF: 3 diltiazem HCl 180 mg capsule,extended release 24hr 180 mg PO QDAY Qty: 90 RF: 3 albuterol sulfate 90 mcg/actuation HFA aerosol inhaler 2 puff INHALATION Q6H PRN (Reason: wheezing) Qty: 8.5 RF: 6 allopurinol 300 mg tablet 300 mg PO QDAY Qty: 90 RF: 3 doxazosin 4 mg tablet 4 mg PO HS Qty: 90 RF: 3 omeprazole 20 mg capsule,delayed release(DR/EC) 20 mg PO QDAY Qty: 90 RF: 3 metformin [Glucophage] 500 mg tablet 500 mg PO QDAY Qty: 90 RF: 3 (DME) Disabled Parking Permit See Rx Instructions .ROUTE .MEDSUPPLY Qty: 1 RF: 0 telmisartan [Micardis] 40 mg tablet 40 mg PO QDAY Qty: 90 RF: 3 simvastatin [Zocor] 10 mg tablet 10 mg PO HS Qty: 90 RF: 3 Referrals: Douglas Turner MD [Primary Care Provider] - <Elena Johnson MD - Last Filed: 11/09/20 07:46> Cosign ED Attending Cosignature Attestation: this document is inaccurate and duplicates another for the same visit. This document should be deleted. Dr Johnson, 11/09/20 215am
== END 2020-11-08 15:36 | disposition home or self-care (01) ==
PROVIDERS: PCP Family Medicine
DX: S51.811A Laceration without foreign body of right forearm, initial encounter (principal); S61.210A Laceration without foreign body of right index finger without damage to nail, initial encounter; S09.90XA Unspecified injury of head, initial encounter; W19.XXXA Unspecified fall, initial encounter
CPT/HCPCS: 12001; 13121; 13122; 70450; 99284

== ENCOUNTER → 2021-02-07 09:16 | Outpatient (CLI) | payer MEDICARE, OTHER, SELFPAY ==
[2021-02-07 10:07] LABS: Add Manual Diff / Slide Review NO; Basophils Absolute Auto 100 /uL (0-100); Eosinophils Absolute Auto 300 /uL (0-450); Eosinophils Percent Auto 4.2 % (2-4); Hematocrit 36.2 % (41-53); Hemoglobin 12.2 g/dL (13.5-17.5); Lymphocytes Absolute Auto 2200 /uL (1100-4500); Lymphocytes Percent Auto 33.1 % (25-40); Mean Corpuscular HGB Conc 33.7 % (30-36); Mean Corpuscular Hemoglobin 34.4 PG (26-34); Mean Corpuscular Volume 101.8 fL (80-100); Monocytes Absolute Auto 600 /uL (0-900); Monocytes Percent Auto 8.8 % (3-14); Neutrophils Absolute Auto 3400 /uL (1500-7000); Neutrophils Percent Auto 52.9 % (50-75); Platelet Count 211 X10^3/uL (150-400); Red Blood Cell Count 3.55 X10^6/uL (4.5-5.9); Red Cell Distribution Width 14.6 % (11.6-14.8); White Blood Cell Count 6.5 X10^3/uL (4.5-11.0)
[2021-02-07 10:19] LABS: Hemoglobin A1C% w Est Avg Glu 5.8 % (4.0-6.0)
[2021-02-07 10:20] LABS: Alanine Aminotransferase 25 IU/L (<50); Albumin 3.8 g/dL (3.5-5.0); Albumin Globulin Ratio 1.2 (1.0-2.8); Alkaline Phosphatase 44 U/L (38-126); Aspartate Aminotransferase 30 IU/L (17-59); BUN Creatinine Ratio 21.6 (6-22); Bilirubin Total 0.5 mg/dL (0.2-1.3); Blood Urea Nitrogen 24 mg/dL (9-20); Calcium 9.4 mg/dL (8.4-10.2); Carbon Dioxide 27 mmol/L (22-32); Chloride 101 mmol/L (98-107); Estimated Glomerular Filt Rate > 60.0 mL/min (>60); Globulin 3.1 g/dL (1.7-4.1); Glucose 117 mg/dL (80-110); HEMOLYSIS < 15 (0-50); Potassium 4.4 mmol/L (3.4-5.1); Sodium 135 mmol/L (137-145); Total Protein 6.9 g/dL (6.3-8.2)
[2021-02-07 10:28] LABS: NT-proBNP (BNP-Adult 18+) 1320 pg/mL (<450)
[2021-02-07 10:47] LABS: TSH w/ Reflex to FT4 2.15 uIU/mL (0.47-4.68)
[2021-02-07 11:53] LABS: Creatinine Urine Random 115.3 mg/dL
[2021-02-07 13:05] LABS: Microalbumi Creatinin Ratio Ur 19.9 ug/mg CR (<30); Microalbumin Urine Random 2.3 mg/dL (0-1.6)
[2021-02-07 13:52] LABS: Folate 9.7 ng/mL (2.76-20.0); Vitamin B12 452 pg/mL (239-931)
== END ==
PROVIDERS: PCP Family Medicine; Referring Provider Family Medicine; Visit Provider Family Medicine
DX: E11.9 Type 2 diabetes mellitus without complications (principal); E78.5 Hyperlipidemia, unspecified; I50.21 Acute systolic (congestive) heart failure; R06.02 Shortness of breath
CPT/HCPCS: 36415; 80053; 82043; 82570; 82607; 82746; 83036; 83880; 84443; 85025

== ENCOUNTER → 2021-02-09 11:42 | Outpatient (CLI) | payer MEDICARE, OTHER, SELFPAY ==
--- NOTE | 2021-02-09 11:45 | DI.RAD.S_ITS ---
PROCEDURE: XR SHOULDER RT MIN 2V INDICATIONS: fall on R shoulder, pain, limited ROM TECHNIQUE: 3 views of the shoulder were acquired. COMPARISON: [facility], , SHOULDER 1 VIEW RIGHT, 05/01/2011, 11:06. [facility], SHOULDER MINIMUM 2VIEW RIGHT, 06/10/2008, 16:01. FINDINGS: Bones: Post right shoulder arthroplasty. No periprosthetic lucency. No acute fracture. There is superior subluxation of the prosthesis in relation to the glenoid. Suspect chronic rotator cuff injury. Degenerative change at the AC joint. No suspicious bony lesions. Visualized ribs appear intact. Soft tissues: No suspicious soft tissue calcifications. IMPRESSION: No fracture or dislocation demonstrated. Suspect chronic rotator cuff injury. Right shoulder arthroplasty. Dictated by: Ramana Amado M.D. on 02/09/2021 at 11:57 Approved by: Ramana Amado M.D. on 02/09/2021 at 12:01
== END ==
PROVIDERS: PCP Family Medicine; Referring Provider Physician Assistant; Visit Provider Physician Assistant
DX: M25.511 Pain in right shoulder (principal); Z96.611 Presence of right artificial shoulder joint
CPT/HCPCS: 73030

== ENCOUNTER → 2021-08-07 13:32 | Outpatient (CLI) | payer MEDICARE, OTHER, SELFPAY ==
[2021-08-07 14:30] LABS: Add Manual Diff / Slide Review NO; Basophils Absolute Auto 100 /uL (0-100); Basophils Percent Auto 1.1 % (0-2); Eosinophils Absolute Auto 200 /uL (0-450); Eosinophils Percent Auto 2.5 % (2-4); Hematocrit 38.7 % (41-53); Lymphocytes Absolute Auto 2700 /uL (1100-4500); Lymphocytes Percent Auto 31.1 % (25-40); Mean Corpuscular HGB Conc 33.5 % (30-36); Mean Corpuscular Volume 101.4 fL (80-100); Monocytes Absolute Auto 800 /uL (0-900); Neutrophils Absolute Auto 5000 /uL (1500-7000); Neutrophils Percent Auto 56.3 % (50-75); Platelet Count 194 X10^3/uL (150-400); Red Blood Cell Count 3.82 X10^6/uL (4.5-5.9); Red Cell Distribution Width 14.3 % (11.6-14.8); White Blood Cell Count 8.8 X10^3/uL (4.5-11.0)
[2021-08-07 15:25] LABS: TSH w/ Reflex to FT4 0.44 uIU/mL (0.47-4.68)
[2021-08-07 15:28] LABS: Alanine Aminotransferase 24 IU/L (<50); Albumin 3.7 g/dL (3.5-5.0); Albumin Globulin Ratio 1.2 (1.0-2.8); Alkaline Phosphatase 55 U/L (38-126); Aspartate Aminotransferase 31 IU/L (17-59); BUN Creatinine Ratio 20.7 (6-22); Bilirubin Total 0.7 mg/dL (0.2-1.3); Blood Urea Nitrogen 35 mg/dL (9-20); Calcium 9.6 mg/dL (8.4-10.2); Carbon Dioxide 25 mmol/L (22-32); Chloride 97 mmol/L (98-107); Cholesterol 140 mg/dL (140-199); Estimated Glomerular Filt Rate 40 mL/min (>60); Glucose 131 mg/dL (80-110); HDL Cholesterol 49 mg/dL (40-60); HEMOLYSIS < 15 (0-50); LDL Cholesterol Calculated 66 mg/dL (<100); Potassium 4.2 mmol/L (3.4-5.1); Sodium 132 mmol/L (137-145); Total Protein 6.7 g/dL (6.3-8.2); Triglycerides 127 mg/dL (35-150)
[2021-08-07 16:16] LABS: Free T4, Direct Thyroxine 1.87 ng/dL (0.78-2.19)
[2021-08-07 19:41] LABS: Prostate Specific Antigen 0.321 ng/mL (0.10-4.00)
[2021-08-08 15:14] LABS: Creatinine Urine Random 51.7 mg/dL
[2021-08-08 15:19] LABS: Microalbumin Urine Random 1.4 mg/dL (0-1.6)
== END ==
PROVIDERS: PCP Family Medicine; Referring Provider Family Medicine; Visit Provider Family Medicine
DX: E03.9 Hypothyroidism, unspecified (principal); E78.5 Hyperlipidemia, unspecified; E11.9 Type 2 diabetes mellitus without complications; E66.01 Morbid (severe) obesity due to excess calories; Z12.5 Encounter for screening for malignant neoplasm of prostate
CPT/HCPCS: 36415; 80053; 80061; 82043; 82570; 83036; 84153; 84439; 84443; 85025; G0103

== ENCOUNTER → 2022-02-12 08:21 | Outpatient (CLI) | payer MEDICARE, OTHER, SELFPAY ==
[2022-02-12 09:45] LABS: Add Manual Diff / Slide Review NO; Basophils Absolute Auto 100 /uL (0-100); Basophils Percent Auto 1.2 % (0-2); Eosinophils Absolute Auto 300 /uL (0-450); Eosinophils Percent Auto 3.8 % (2-4); Hematocrit 38.8 % (41-53); Hemoglobin 12.7 g/dL (13.5-17.5); Lymphocytes Absolute Auto 2800 /uL (1100-4500); Mean Corpuscular HGB Conc 32.9 % (30-36); Mean Corpuscular Hemoglobin 33.2 PG (26-34); Mean Corpuscular Volume 100.9 fL (80-100); Monocytes Absolute Auto 700 /uL (0-900); Monocytes Percent Auto 8.8 % (3-14); Neutrophils Absolute Auto 3800 /uL (1500-7000); Neutrophils Percent Auto 49.2 % (50-75); Platelet Count 200 X10^3/uL (150-400); Red Blood Cell Count 3.84 X10^6/uL (4.5-5.9); Red Cell Distribution Width 14.5 % (11.6-14.8); White Blood Cell Count 7.7 X10^3/uL (4.5-11.0)
[2022-02-12 09:56] LABS: Alanine Aminotransferase 30 IU/L (<50); Albumin 3.8 g/dL (3.5-5.0); Albumin Globulin Ratio 1.2 (1.0-2.8); Alkaline Phosphatase 55 U/L (38-126); Aspartate Aminotransferase 31 IU/L (17-59); BUN Creatinine Ratio 27.4 (6-22); Bilirubin Total 0.4 mg/dL (0.2-1.3); Blood Urea Nitrogen 34 mg/dL (9-20); Calcium 9.2 mg/dL (8.4-10.2); Carbon Dioxide 28 mmol/L (22-32); Chloride 99 mmol/L (98-107); Estimated Glomerular Filt Rate 57 mL/min (>60); Globulin 3.2 g/dL (1.7-4.1); Glucose 110 mg/dL (80-110); HEMOLYSIS < 15 (0-50); Sodium 137 mmol/L (137-145); Uric Acid 5.7 mg/dL (3.5-8.5)
[2022-02-12 09:57] LABS: Hemoglobin A1C% w Est Avg Glu 6.2 % (4.0-6.0)
[2022-02-12 10:29] LABS: TSH w/ Reflex to FT4 0.71 uIU/mL (0.47-4.68)
[2022-02-12 10:34] LABS: Creatinine Urine Random 145.3 mg/dL
[2022-02-12 10:39] LABS: Microalbumi Creatinin Ratio Ur 17.2 ug/mg CR (<30); Microalbumin Urine Random 2.5 mg/dL (0-1.6)
== END ==
PROVIDERS: PCP Family Medicine; Referring Provider Family Medicine; Visit Provider Family Medicine
DX: E03.9 Hypothyroidism, unspecified (principal); E11.9 Type 2 diabetes mellitus without complications; I10 Essential (primary) hypertension; I48.20 Chronic atrial fibrillation, unspecified; J44.9 Chronic obstructive pulmonary disease, unspecified; M10.9 Gout, unspecified
CPT/HCPCS: 36415; 80053; 82043; 82570; 83036; 84443; 84550; 85025

== ENCOUNTER 2022-05-29 12:03 | Emergency (ER) | payer MEDICARE, OTHER, SELFPAY ==
[2022-05-29] VITALS (12 sets, daily range): BP systolic 139–178; BP diastolic 60–82; PULSE 66–79; RESP 14–29; TEMP 36.6; O2SAT 94–97; BMI 41.5
--- NOTE | 2022-05-29 12:23 | DI.RAD.S_ITS ---
PROCEDURE: XR SHOULDER RT MIN 2V INDICATIONS: fall/pain TECHNIQUE: 3 views of the shoulder were acquired. COMPARISON: [facility], , XR SHOULDER RT MIN 2V, 02/09/2021, 11:39. FINDINGS: Bones: Prior right shoulder arthroplasty. Orthopedic hardware is in expected position. Lucency in the superior margin of the glenoid suspicious for fracture. Visualized ribs appear intact. Soft tissues: No suspicious soft tissue calcifications. IMPRESSION: Possible fracture involving the superior margin of the glenoid process. Dictated by: Ivone Scott MD, PhD on 05/29/2022 at 13:14 Approved by: Ivone Scott MD, PhD on 05/29/2022 at 13:16
--- NOTE | 2022-05-29 12:23 | DI.RAD.S_ITS ---
PROCEDURE: XR HIP W PEL IF DONE RT 2V INDICATIONS: fall/pain TECHNIQUE: AP pelvis with lateral view(s) of the right hip(s). COMPARISON: [facility], , XR HIP W PEL IF DONE RT 2V, 02/18/2019, 12:52. FINDINGS: Bones: No fractures or dislocations. Pelvic ring appears intact. No suspicious bony lesions. Mild to moderate bilateral hip osteoarthritis. Lower lumbar spine degenerative disc disease and facet arthropathy. Soft tissues: The visualized bowel gas pattern is normal. No suspicious soft tissue calcifications. Metal shrapnel projecting over the right hip is stable compared to the prior exam. IMPRESSION: No fracture. No acute osseous lesion. If symptoms and/or clinical suspicion for pathology persists, further assessment with repeat radiographs (7-10 days) or advanced imaging (e.g. CT, MRI or bone scan) should be considered. Dictated by: Ivone Scott MD, PhD on 05/29/2022 at 13:13 Approved by: Ivone Scott MD, PhD on 05/29/2022 at 13:14
--- NOTE | 2022-05-29 12:25 | DI.CT.S_ITS ---
PROCEDURE: CT CERVICAL SPINE WO CON INDICATIONS: fall/ hit head/blood thinners TECHNIQUE: Noncontrast 3 mm thick sections acquired from the skull base to the T4 level. Sagittal and coronal reformats were then constructed. For radiation dose reduction, the following was used: automated exposure control, adjustment of mA and/or kV according to patient size. COMPARISON: , CT, C-SPINE WITHOUT CONTRAST, 06/20/2014, 11:42. FINDINGS: Image quality: Excellent. Bones: No fractures or dislocations. Visualized superior ribs are intact. Disc space narrowing anterior osteophytes noted in the mid to lower cervical spine. Moderate central stenosis C6-7. Soft tissues: Prevertebral soft tissues are normal in thickness. No paravertebral hematomas. No apical pneumothoraces. Dense atherosclerotic vascular calcification noted in the aortic arch IMPRESSION: 1. No fracture or traumatic malalignment. 2. Multilevel degenerative disc disease and arthropathy Approved by: Ramses Ortega M.D. on 05/29/2022 at 12:28
--- NOTE | 2022-05-29 12:29 | DI.RAD.S_ITS ---
PROCEDURE: XR CHEST 1V INDICATIONS: chest pain TECHNIQUE: One view of the chest was acquired. COMPARISON: [facility], CR, XR CHEST 2V, 02/08/2020, 9:31. FINDINGS: Surgical changes and devices: None. Lungs and pleura: Lungs are clear. No pleural effusions or pneumothorax. Mediastinum: Mediastinal contours appear normal. Heart is enlarged. Bones and chest wall: No suspicious bony lesions. Overlying soft tissues appear unremarkable. IMPRESSION: No acute cardiopulmonary disease process. Dictated by: Ivone Scott MD, PhD on 05/29/2022 at 13:16 Approved by: Ivone Scott MD, PhD on 05/29/2022 at 13:16
[2022-05-29] MEDS: BACITRACIN 28 GM OINT 1 APPLIC TOP (12:34)
[2022-05-29 12:37] LABS: Add Manual Diff / Slide Review NO; Basophils Absolute Auto 100 /uL (0-100); Basophils Percent Auto 1.2 % (0-2); Eosinophils Absolute Auto 200 /uL (0-450); Hematocrit 37.9 % (41-53); Hemoglobin 12.6 g/dL (13.5-17.5); Lymphocytes Absolute Auto 1700 /uL (1100-4500); Lymphocytes Percent Auto 23.9 % (25-40); Mean Corpuscular HGB Conc 33.3 % (30-36); Mean Corpuscular Hemoglobin 33.7 PG (26-34); Mean Corpuscular Volume 101.2 fL (80-100); Monocytes Absolute Auto 700 /uL (0-900); Neutrophils Absolute Auto 4300 /uL (1500-7000); Neutrophils Percent Auto 61.9 % (50-75); Platelet Count 236 X10^3/uL (150-400); Red Blood Cell Count 3.75 X10^6/uL (4.5-5.9); Red Cell Distribution Width 15.2 % (11.6-14.8); White Blood Cell Count 6.9 X10^3/uL (4.5-11.0)
--- NOTE | 2022-05-29 12:47 | DI.CT.S_ITS ---
PROCEDURE: CT HEAD/BRAIN WO CON INDICATIONS: fall/ hit head/blood thinners TECHNIQUE: Noncontrast 4.5 mm thick angled axial sections acquired from the foramen magnum to the vertex, with coronal and sagittal reformats. For radiation dose reduction, the following was used: automated exposure control, adjustment of mA and/or kV according to patient size. COMPARISON: [facility], CT, CT HEAD/BRAIN WO CON, 11/08/2020, 12:04. FINDINGS: Image quality: Excellent. CSF spaces: Basal cisterns are patent. No extra-axial fluid collections. Ventricles are normal in size and shape. Brain: No midline shift. No intracranial masses or hemorrhage. Reynoso-white matter interface is normal. Moderate cerebral and cerebellar volume loss with multifocal white matter chronic ischemic change noted. Atherosclerotic calcification noted associated with cavernous segments of both internal carotid arteries. Skull and face: Calvarium and visualized facial bones are intact, without suspicious lesions. Sinuses: Visualized sinuses and mastoids are clear. IMPRESSION: Atrophy and chronic ischemic change without intracranial hemorrhage or mass effect Approved by: Ramses Ortega M.D. on 05/29/2022 at 12:32
[2022-05-29 12:48] LABS: INR 1.2 (0.9-1.3)
[2022-05-29 12:49] LABS: Alanine Aminotransferase 31 IU/L (<50); Albumin 3.8 g/dL (3.5-5.0); Alkaline Phosphatase 60 U/L (38-126); Aspartate Aminotransferase 32 IU/L (17-59); BUN Creatinine Ratio 21.5 (6-22); Bilirubin Total 0.6 mg/dL (0.2-1.3); Blood Urea Nitrogen 28 mg/dL (9-20); Calcium 9.5 mg/dL (8.4-10.2); Carbon Dioxide 26 mmol/L (22-32); Chloride 101 mmol/L (98-107); Creatine Kinase 105 U/L (55-170); Estimated Glomerular Filt Rate 54 mL/min (>60); Globulin 3.7 g/dL (1.7-4.1); Glucose 104 mg/dL (80-110); HEMOLYSIS < 15 (0-50); Lipase 147 U/L (23-300); Magnesium 2.1 mg/dL (1.6-2.3); Potassium 4.5 mmol/L (3.4-5.1); Sodium 135 mmol/L (137-145); Total Protein 7.5 g/dL (6.3-8.2)
--- NOTE | 2022-05-29 12:54 | ED.FALL ---
HPI - Fall <Jonh Cazares PA-C - Last Filed: 05/29/22 16:13> General Chief Complaint: Fall Stated Complaint: fell twice today, rt shldr and rt hip pn Time Seen by Provider: 05/29/22 12:22 Source: patient Mode of arrival: Wheelchair History of Present Illness HPI Narrative: This is an 86-year-old male with a history of atrial fibrillation hypertension hyperlipidemia hypothyroidism COPD and morbid obesity presents to the emergency department due to a reported mechanical fall. Patient states that his ?feet just got under him? and he ended up falling on his right hip and right shoulder. He states that he tried to stand up using his walker but that is slipped out from under him causing him to fall again and hitting his head and lose consciousness for ?a minute or 2?. He reports mild head and neck pain as well as right shoulder pain although he states he does have some chronic right shoulder pain after a shoulder replacement. Denies any chest pain, shortness of breath, nausea, vomiting, abdominal pain, urinary symptoms, fevers, or any other concerning signs or symptoms. Related Data Home Medications Medication Instructions Recorded Confirmed Calcium/Vitamin D (#CALCIUM + D 2 tab PO QDAY ##0 04/20/11 05/15/22 600 MG-200 IU) PEG-400/PROPYLENE GLYCOL (SYSTANE 1 thaddeus OP PRN ##0 04/20/11 05/15/22 LUBRICANT EYE DROPS 0.4%/0.3%) budesonide 160 mcg-glycopyr 9 2 inh inhalation BID 08/07/21 05/15/22 mcg-formot 4.8 mcg/actuation HFA inhaler (Breztri Aerosphere) levalbuterol tartrate 45 2 puff inhalation Q4-6H PRN 08/07/21 05/15/22 mcg/actuation aerosol inhaler (Xopenex HFA) torsemide 20 mg tablet 20 mg PO DAILY 08/07/21 05/15/22 Previous Rx's Medication Instructions Recorded fluticasone propionate 220 2 puff inhalation BID #3 11/21/17 mcg/actuation HFA aerosol inhaler inhalations (Flovent HFA) albuterol sulfate 90 mcg/actuation 2 puff inhalation Q6H PRN wheezing 01/19/20 aerosol inhaler #8.5 grams Disabled Parking Permit #1 ea 01/21/20 diltiazem HCl 180 mg 180 mg PO QDAY #90 caps 02/06/21 capsule,extended release 24 hr furosemide 40 mg tablet (Lasix) 40 mg PO DAILY #30 tabs 02/06/21 metformin 500 mg tablet 500 mg PO QDAY #90 tabs 02/06/21 spironolactone 25 mg tablet 25 mg PO DAILY #30 tabs 02/06/21 Jessica Respironics Comfort Gel #2 ea 08/07/21 Blue CPAP nasal mask with headgear dabigatran etexilate 150 mg See Rx Instructions .Route 01/17/22 capsule (Pradaxa) .COMPLEX #180 caps hydrocodone 5 mg-acetaminophen 325 1 tab PO DAILY PRN pain #60 tabs 02/06/22 mg tablet doxazosin 4 mg tablet 4 mg PO HS #90 tabs 02/15/22 simvastatin 10 mg tablet (Zocor) 10 mg PO HS #90 tabs 02/15/22 telmisartan 40 mg tablet (Micardis) 40 mg PO QDAY #90 tabs 02/15/22 allopurinol 300 mg tablet 300 mg PO QDAY #90 tabs 02/16/22 levothyroxine 175 mcg tablet 175 mcg PO QDAY@0600 #90 tabs 02/16/22 omeprazole 20 mg capsule,delayed 20 mg PO QDAY #90 caps 02/16/22 release paroxetine HCl 20 mg tablet (Paxil) 30 mg PO QDAY #135 tabs 02/16/22 Allergies Allergy/AdvReac Type Severity Reaction Status Date / Time No Known Drug Allergies Allergy Verified 05/29/22 13:23 Review of Systems <Jonh Cazares PA-C - Last Filed: 05/29/22 16:13> Review of Systems Narrative: GENERAL: Denies chills, fatigue, malaise, fever, sweats. HEENT: Denies sinus pain, ear pain, sore throat, difficulty swallowing, dizziness. RESPIRATORY: Denies dyspnea, cough, wheezing, hemoptysis, sputum. CARDIOVASCULAR: Denies chest pain, palpitations, orthopnea, edema, GASTROINTESTINAL: Denies nausea, vomiting, abdominal pain, diarrhea, constipation, melena. : Denies dysuria, frequency, incontinence, hematuria, urinary retention. MUSCULOSKELETAL: Reports right shoulder and right hip pain. Reports neck vein and mild posterior head pain. SKIN: Denies rash, skin lesions, or other NEUROLOGIC: Denies weakness, headache, numbness, change in speech, confusion, seizures, incoordination. PSYCHIATRIC: No concerning psychosocial issues. 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) Essential hypertension (~1994) Gout (08/29/12) Hyperlipidemia Hypothyroidism (07/03/13) Moderate COPD (chronic obstructive pulmonary disease) (09/21/15) Morbid obesity (11/14/10) Obstructive sleep apnea syndrome (11/14/10) Osteoarthritis (03/12/13) Sigmoid diverticulitis (~2001) Ventral hernia Surgical History Anesthesia History of arthroplasty (~2011) History of cataract removal with insertion of prosthetic lens (~2006) History of cataract removal with insertion of prosthetic lens (~2008) History of flexible sigmoidoscopy (~2001) History of surgery (~2012) History of surgery (~2012) Pilonidal cyst (~1998) Status post hemorrhoidectomy (~2006) Status post hernia repair (~1997) Status post hernia repair (~1999) Status post hernia repair (~2003) Status post hernia repair (~2012) Family History Grandfather Heart disease Grandmother Stroke Mother Heart disease Father No problems noted. Social History marital status: Smoking Status: Former smoker alcohol intake: current substance use type: does not use Smoking Status: Former smoker alcohol intake frequency: other Alcohol type: beer Substance Use Type: does not use Exam <Jonh Cazares PA-C - Last Filed: 05/29/22 16:13> Narrative Exam Narrative: GENERAL: Well-developed patient, in mild distress. HEAD: Atraumatic. Normocephalic. EYES: Pupils equal round and reactive. Extraocular motions intact. No scleral icterus. No injection or drainage. ENT: Nose without bleeding, purulent drainage. Throat without erythema, tonsillar hypertrophy or exudate. Airway patent. NECK: Some midline tenderness of the cervical spine. CARDIOVASCULAR: Regular rate and rhythm without murmurs, gallops, or rubs. RESPIRATORY: Clear to auscultation. Breath sounds equal bilaterally. No wheezes, rales, or rhonchi. GASTROINTESTINAL: Abdomen soft, non-tender, nondistended. EXTREMITIES: Moderate tenderness to palpation to the right shoulder as well as lateral right hip. BACK: Nontender without deformity or crepitance. No flank tenderness. NEURO: AOx3. Cranial nerves 2-12 intact. No focal weakness. GCS of 15 SKIN: No rash or erythema of visible areas Initial Vital Signs Initial Vital Signs: Vital Signs Temperature 97.8 F 05/29/22 12:05 Pulse Rate 69 05/29/22 12:05 Respiratory Rate 16 05/29/22 12:05 Blood Pressure 151/82 H 05/29/22 12:05 Pulse Oximetry 96 05/29/22 12:05 Oxygen Delivery Method Room Air 05/29/22 12:05 <Mandi Rizo DO - Last Filed: 05/29/22 17:06> Initial Vital Signs Initial Vital Signs: Vital Signs Temperature 97.8 F 05/29/22 12:05 Pulse Rate 69 05/29/22 12:05 Respiratory Rate 16 05/29/22 12:05 Blood Pressure 151/82 H 05/29/22 12:05 Pulse Oximetry 96 05/29/22 12:05 Oxygen Delivery Method Room Air 05/29/22 12:05 Course <Jonh Cazares PA-C - Last Filed: 05/29/22 16:13> Orders Ordered: ED Orders 05/29/22 12:23 XR hip w pel if done RT 2V Stat XR shoulder RT min 2V Stat 05/29/22 12:25 CT cervical spine wo con Stat 05/29/22 12:26 Complete Blood Count AUTO DIFF Stat Comprehensive Metabolic Panel Stat Lipase Stat Magnesium Stat Prothrombin Time INR Stat Troponin & CK Cardiac Panel Stat 05/29/22 12:29 XR chest 1V Stat EKG-12 Lead Stat 05/29/22 12:47 CT head/brain wo con Stat 05/29/22 13:18 XR wrist RT min 3V Stat 05/29/22 14:02 CT UE RT wo con Stat 05/29/22 15:50 Urine Culture Stat Urine Microscopic Stat Discontinued Medications Hydrocodone Bitart/Acetaminophen (Hydrocodone/Acet 5/325 Tablet) 1 tab PO NOW ONE Stop: 05/29/22 15:27 Last Admin: 05/29/22 15:48 Dose: 1 tab Documented By: RB Bacitracin (Bacitracin 28 Gm Oint) 1 applic TOP NOW ONE Stop: 05/29/22 12:46 Last Admin: 05/29/22 12:34 Dose: 1 applic Documented By: DAWN Consultations Consultation #1: [id number]: Spoke to Dr. Moncada, orthopedist, who recommended a right shoulder CT to further investigate the glenoid fracture. Recommended patient follow up in clinic for further evaluation after CT is performed. Also recommended we assess his ability to use his walker prior to discharge. Recommended sling for comfort. Vital Signs Vital signs: Vital Signs - 8 hr 05/29/22 12:05 05/29/22 12:16 05/29/22 12:16 Temperature 97.8 F Pulse Rate 69 72 Respiratory Rate 16 Blood Pressure 151/82 H 151/82 H Pulse Oximetry 96 94 Oxygen Delivery Method Room Air 05/29/22 12:19 05/29/22 12:19 05/29/22 12:30 Temperature Pulse Rate 71 Respiratory Rate Blood Pressure 144/70 H 139/60 Pulse Oximetry 95 Oxygen Delivery Method 05/29/22 12:30 05/29/22 12:59 05/29/22 12:59 Temperature Pulse Rate 71 66 Respiratory Rate 17 16 Blood Pressure 144/68 H Pulse Oximetry 95 96 Oxygen Delivery Method 05/29/22 13:00 05/29/22 13:00 05/29/22 13:30 Temperature Pulse Rate 69 Respiratory Rate 24 Blood Pressure 150/67 H 142/64 H Pulse Oximetry 97 Oxygen Delivery Method 05/29/22 13:30 05/29/22 14:00 05/29/22 14:30 Temperature Pulse Rate 68 Respiratory Rate 14 29 H 17 Blood Pressure Pulse Oximetry 95 96 Oxygen Delivery Method 05/29/22 14:59 05/29/22 14:59 05/29/22 15:00 Temperature Pulse Rate 79 71 Respiratory Rate 21 18 Blood Pressure 178/76 H Pulse Oximetry Oxygen Delivery Method 05/29/22 15:30 Temperature Pulse Rate 70 Respiratory Rate 17 Blood Pressure Pulse Oximetry Oxygen Delivery Method <Mandi Rizo, - Last Filed: 05/29/22 17:06> Orders Ordered: ED Orders 05/29/22 12:23 XR hip w pel if done RT 2V Stat XR shoulder RT min 2V Stat 05/29/22 12:25 CT cervical spine wo con Stat 05/29/22 12:26 Complete Blood Count AUTO DIFF Stat Comprehensive Metabolic Panel Stat Lipase Stat Magnesium Stat Prothrombin Time INR Stat Troponin & CK Cardiac Panel Stat 05/29/22 12:29 XR chest 1V Stat EKG-12 Lead Stat 05/29/22 12:47 CT head/brain wo con Stat 05/29/22 13:18 XR wrist RT min 3V Stat 05/29/22 14:02 CT UE RT wo con Stat 05/29/22 15:50 Urine Culture Stat Urine Microscopic Stat Discontinued Medications Hydrocodone Bitart/Acetaminophen (Hydrocodone/Acet 5/325 Tablet) 1 tab PO NOW ONE Stop: 05/29/22 15:27 Last Admin: 05/29/22 15:48 Dose: 1 tab Documented By: BEENA Bacitracin (Bacitracin 28 Gm Oint) 1 applic TOP NOW ONE Stop: 05/29/22 12:46 Last Admin: 05/29/22 12:34 Dose: 1 applic Documented By: MERRYS Vital Signs Vital signs: Vital Signs - 8 hr 05/29/22 12:05 05/29/22 12:16 05/29/22 12:16 Temperature 97.8 F Pulse Rate 69 72 Respiratory Rate 16 Blood Pressure 151/82 H 151/82 H Pulse Oximetry 96 94 Oxygen Delivery Method Room Air 05/29/22 12:19 05/29/22 12:19 05/29/22 12:30 Temperature Pulse Rate 71 Respiratory Rate Blood Pressure 144/70 H 139/60 Pulse Oximetry 95 Oxygen Delivery Method 05/29/22 12:30 05/29/22 12:59 05/29/22 12:59 Temperature Pulse Rate 71 66 Respiratory Rate 17 16 Blood Pressure 144/68 H Pulse Oximetry 95 96 Oxygen Delivery Method 05/29/22 13:00 05/29/22 13:00 05/29/22 13:30 Temperature Pulse Rate 69 Respiratory Rate 24 Blood Pressure 150/67 H 142/64 H Pulse Oximetry 97 Oxygen Delivery Method 05/29/22 13:30 05/29/22 14:00 05/29/22 14:30 Temperature Pulse Rate 68 Respiratory Rate 14 29 H 17 Blood Pressure Pulse Oximetry 95 96 Oxygen Delivery Method 05/29/22 14:59 05/29/22 14:59 05/29/22 15:00 Temperature Pulse Rate 79 71 Respiratory Rate 21 18 Blood Pressure 178/76 H Pulse Oximetry Oxygen Delivery Method 05/29/22 15:30 Temperature Pulse Rate 70 Respiratory Rate 17 Blood Pressure Pulse Oximetry Oxygen Delivery Method MDM - Fall <Jonh Cazares PA-C - Last Filed: 05/29/22 16:13> Lab Data 05/29/22 12:26 05/29/22 12:26 Labs: Lab Results 05/29/22 05/29/22 05/29/22 Range/Units 12:26 12:26 12:26 WBC 6.9 (4.5-11.0) X10^3/uL RBC 3.75 L (4.5-5.9) X10^6/uL Hgb 12.6 L (13.5-17.5) g/dL Hct 37.9 L (41-53) % MCV 101.2 H (80-100) fL MCH 33.7 (26-34) PG MCHC 33.3 (30-36) % RDW 15.2 H (11.6-14.8) % Plt Count 236 (150-400) X10^3/uL Neut % (Auto) 61.9 (50-75) % Lymph % (Auto) 23.9 L (25-40) % Hendricks % (Auto) 10.0 (3-14) % Eos % (Auto) 3.0 (2-4) % Baso % (Auto) 1.2 (0-2) % Neut # (Auto) 4300 (2976-7562) /uL Lymph # (Auto) 1700 (2664-0393) /uL Hendricks # (Auto) 700 (0-900) /uL Eos # (Auto) 200 (0-450) /uL Baso # (Auto) 100 (0-100) /uL PT 14.0 H (10.1-12.7) SECONDS INR 1.2 (0.9-1.3) Sodium 135 L (137-145) mmol/L Potassium 4.5 (3.4-5.1) mmol/L Chloride 101 (98-107) mmol/L Carbon Dioxide 26 (22-32) mmol/L BUN 28 H (9-20) mg/dL Creatinine 1.30 H (0.66-1.25) mg/dL Estimated GFR 54 L (>60) mL/min BUN/Creatinine Ratio 21.5 (6-22) Glucose 104 (80-110) mg/dL Calcium 9.5 (8.4-10.2) mg/dL Magnesium 2.1 (1.6-2.3) mg/dL Total Bilirubin 0.6 (0.2-1.3) mg/dL AST 32 (17-59) IU/L ALT 31 (<50) IU/L Alkaline Phosphatase 60 (38-126) U/L Total Creatine Kinase 105 (55-170) U/L CK-MB (CK-2) 1.35 (<2.37) ng/mL CK-MB (CK-2) Rel Index 1.3 L (1.5-5.0) % Troponin I < 0.012 (0.01-0.034) ng/mL Total Protein 7.5 (6.3-8.2) g/dL Albumin 3.8 (3.5-5.0) g/dL Globulin 3.7 (1.7-4.1) g/dL Albumin/Globulin Ratio 1.0 (1.0-2.8) Lipase 147 (23-300) U/L Urine RBC (0-5/HPF) Urine WBC (0-5/HPF) Ur Squamous Epith Cells (0-5/HPF) Ur Transition Epith Cell (0-5/HPF) Urine Bacteria (None) Ur Culture Indicated? 05/29/22 Range/Units 15:50 WBC (4.5-11.0) X10^3/uL RBC (4.5-5.9) X10^6/uL Hgb (13.5-17.5) g/dL Hct (41-53) % MCV (80-100) fL MCH (26-34) PG MCHC (30-36) % RDW (11.6-14.8) % Plt Count (150-400) X10^3/uL Neut % (Auto) (50-75) % Lymph % (Auto) (25-40) % Hendricks % (Auto) (3-14) % Eos % (Auto) (2-4) % Baso % (Auto) (0-2) % Neut # (Auto) (6548-3792) /uL Lymph # (Auto) (8522-1387) /uL Hendricks # (Auto) (0-900) /uL Eos # (Auto) (0-450) /uL Baso # (Auto) (0-100) /uL PT (10.1-12.7) SECONDS INR (0.9-1.3) Sodium (137-145) mmol/L Potassium (3.4-5.1) mmol/L Chloride (98-107) mmol/L Carbon Dioxide (22-32) mmol/L BUN (9-20) mg/dL Creatinine (0.66-1.25) mg/dL Estimated GFR (>60) mL/min BUN/Creatinine Ratio (6-22) Glucose (80-110) mg/dL Calcium (8.4-10.2) mg/dL Magnesium (1.6-2.3) mg/dL Total Bilirubin (0.2-1.3) mg/dL AST (17-59) IU/L ALT (<50) IU/L Alkaline Phosphatase (38-126) U/L Total Creatine Kinase (55-170) U/L CK-MB (CK-2) (<2.37) ng/mL CK-MB (CK-2) Rel Index (1.5-5.0) % Troponin I (0.01-0.034) ng/mL Total Protein (6.3-8.2) g/dL Albumin (3.5-5.0) g/dL Globulin (1.7-4.1) g/dL Albumin/Globulin Ratio (1.0-2.8) Lipase (23-300) U/L Urine RBC 5-10/hpf H (0-5/HPF) Urine WBC 10-30/hpf H (0-5/HPF) Ur Squamous Epith Cells 5-10 /hpf H (0-5/HPF) Ur Transition Epith Cell 0-1/hpf (0-5/HPF) Urine Bacteria Few (2-10) H (None) Ur Culture Indicated? Specimen cultured Urine Dip Bedside Urine Glucose Negative Bedside Urine Bilirubin - Negative Bedside Urine Ketone - Negative Urine Specific [place] 1.015 Bedside Urine Occult Blood - Negative Bedside Urine pH 6.5 Bedside Urine Protein +/- 15 Bedside Urine Urobilinogen - Negative Bedside Urine Nitrite - Negative Bedside Urine Leukocytes ++ 125 Esterase Imaging Data Extremity x-ray #1: Radiologist's Impression: [address] [address] XRay Report Addendum Patient: Eitan Vasquez MR#: [id number] : 1935 Acct:[id number] Age/Sex: 86 / M Date of Service: 05/29/22 Loc: ED Accession Number: [id number] ?? Procedure: XR wrist RT min 3V Ordering Provider: Jonh Cazares P.A-C ADDENDUMCORRECTION Corrected on: 05/29/2022; ? ? PROCEDURE:? XR WRIST RT MIN 3V ? INDICATIONS: R wrist pain ? TECHNIQUE:? 4 views of the wrist were acquired.? ? COMPARISON:? None. ? FINDINGS:? ? Bones:? No definite acute fractures or dislocations.? Severe osteoarthritic changes are noted throughout wrist joints with extensive joint space narrowing, subchondral sclerosis and prominent marginal osteophyte formation.? Intraosseous cyst formation in distal radius and scattered in multiple carpal bones are seen. ? Scaphoid view:? Scaphoid is grossly intact.? No evidence of avascular necrosis. ? Soft tissues:? No suspicious soft tissue calcifications.? ? IMPRESSION:? Severe wrist joint osteoarthritis.? No definite acute fracture or dislocation.? ? Dictated by: Gabe Crisostomo M.D. on 05/29/2022 at 14:38 ? ? Approved by: Gabe Crisostomo M.D. on 05/29/2022 at 14:40 ? ?Dictated by: Gabe Crisostomo M.D. on 05/29/2022 at 14:46 ? ? Approved by: Gabe Crisostomo M.D. on 05/29/2022 at 14:46 ? Addendum Dictated By: Gabe Crisostomo MD Addendum Signed By: Addendum Cosigned By: DD/ TD/TT: 05/29/22 PROCEDURE:? XR WRIST RT MIN 3V ? INDICATIONS: R wrist pain ? TECHNIQUE:? 4 views of the wrist were acquired.? ? COMPARISON:? None. ? FINDINGS:? ? Bones:? No definite acute fractures or dislocations.? Severe osteoarthritic changes are noted throughout wrist joints with extensive joint space narrowing, subchondral sclerosis and prominent marginal osteophyte formation.? Intraosseous cyst formation in distal radius and scattered in multiple carpal bones are seen. ? Scaphoid view:? Scaphoid is grossly intact.? No evidence of avascular necrosis. ? Soft tissues:? No suspicious soft tissue calcifications.? ? IMPRESSION:? Severe wrist joint osteoarthritis.? No definite acute fracture or dislocation.? Please correlate with CT of wrist findings. ? ? Dictated by: Gabe Crisostomo M.D. on 05/29/2022 at 14:38 ? ? Approved by: Gabe Crisostomo M.D. on 05/29/2022 at 14:40 ? CT scan - head: Radiologist's Impression: [place] [address] CT Scan Report Signed Patient: Eitan Vasquez MR#: [id number] : 1935 Acct:[id number] Age/Sex: 86 / M Date of Service: 05/29/22 Loc: Accession Number: [id number] ?? Procedure: CT head/brain wo con Ordering Provider: Mandi Rizo D.O. PROCEDURE:? CT HEAD/BRAIN WO CON ? INDICATIONS:? fall/ hit head/blood thinners ? TECHNIQUE:? Noncontrast 4.5 mm thick angled axial sections acquired from the foramen magnum to the vertex, with coronal and sagittal reformats.? For radiation dose reduction, the following was used:? automated exposure control, adjustment of mA and/or kV according to patient size.? ? COMPARISON:? [facility], CT, CT HEAD/BRAIN WO CON, 11/08/2020, 12:04. ? FINDINGS:? Image quality:? Excellent.? ? CSF spaces:? Basal cisterns are patent.? No extra-axial fluid collections.? Ventricles are normal in size and shape.? ? Brain:? No midline shift.? No intracranial masses or hemorrhage.? Reynoso-white matter interface is normal.? Moderate cerebral and cerebellar volume loss with multifocal white matter chronic ischemic change noted.? Atherosclerotic calcification noted associated with cavernous segments of both internal carotid arteries. ? Skull and face:? Calvarium and visualized facial bones are intact, without suspicious lesions.? ? Sinuses:? Visualized sinuses and mastoids are clear.? ? IMPRESSION:? ? Atrophy and chronic ischemic change without intracranial hemorrhage or mass effect ? ? ? Approved by: Ramses Ortega M.D. on 05/29/2022 at 12:32? Chest x-ray: Radiologist's Impression: [address] [address] XRay Report Signed Patient: Eitan Vasquez MR#: [id number] : 1935 Acct:[id number] Age/Sex: 86 / M Date of Service: 05/29/22 Loc: ED Accession Number: [id number] ?? Procedure: XR chest 1V Ordering Provider: Mandi Rizo D.O. PROCEDURE:? XR CHEST 1V ? INDICATIONS:? chest pain ? TECHNIQUE:? One view of the chest was acquired.? ? COMPARISON:? [facility], CR, XR CHEST 2V, 02/08/2020, 9:31. ? FINDINGS:? ? Surgical changes and devices:? None.? ? Lungs and pleura:? Lungs are clear.? No pleural effusions or pneumothorax.? ? Mediastinum:? Mediastinal contours appear normal.? Heart is enlarged. ? Bones and chest wall:? No suspicious bony lesions.? Overlying soft tissues appear unremarkable.? ? IMPRESSION:? No acute cardiopulmonary disease process. ? ? Dictated by: Ivone Scott MD, PhD on 05/29/2022 at 13:16 ? ? Approved by: Ivone Scott MD, PhD on 05/29/2022 at 13:16 ? CT - cervical spine: Radiologist's Impression: [address] [address] [address] Scan Report Signed Patient: Eitan Vasquez MR#: [id number] : 1935 Acct:[id number] Age/Sex: 86 / M Date of Service: 05/29/22 Loc: ED Accession Number: [id number] ?? Procedure: CT cervical spine wo con Ordering Provider: Mandi Rizo D.O. PROCEDURE:? CT CERVICAL SPINE WO CON ? INDICATIONS:? fall/ hit head/blood thinners ? TECHNIQUE:? Noncontrast 3 mm thick sections acquired from the skull base to the T4 level.? Sagittal and coronal reformats were then constructed.? For radiation dose reduction, the following was used:? automated exposure control, adjustment of mA and/or kV according to patient size.? ? COMPARISON:? [facility], CT, C-SPINE WITHOUT CONTRAST, 06/20/2014, 11:42. ? FINDINGS:? Image quality:? Excellent.? ? Bones:? No fractures or dislocations.? Visualized superior ribs are intact.? Disc space narrowing anterior osteophytes noted in the mid to lower cervical spine.? Moderate central stenosis C6-7. ? Soft tissues:? Prevertebral soft tissues are normal in thickness.? No paravertebral hematomas.? No apical pneumothoraces.? Dense atherosclerotic vascular calcification noted in the aortic arch ? ? IMPRESSION:? ? 1. No fracture or traumatic malalignment.? ? 2. Multilevel degenerative disc disease and arthropathy ? Approved by: Ramses Ortega M.D. on 05/29/2022 at 12:28? Extremity x-ray #3: Radiologist's Impression: [place] [address] XRay Report Signed Patient: Eitan Vasquez MR#: [id number] : 1935 Acct:[id number] Age/Sex: 86 / M Date of Service: 05/29/22 Loc: ED Accession Number: [id number] ?? Procedure: XR shoulder RT min 2V Ordering Provider: Mandi Rizo D.O. PROCEDURE:? XR SHOULDER RT MIN 2V ? INDICATIONS:? fall/pain ? TECHNIQUE:? 3 views of the shoulder were acquired.? ? COMPARISON:? [facility], CR, XR SHOULDER RT MIN 2V, 02/09/2021, 11:39. ? FINDINGS:? ? Bones:? Prior right shoulder arthroplasty.? Orthopedic hardware is in expected position.? Lucency in the superior margin of the glenoid suspicious for fracture.? Visualized ribs appear intact.? ? Soft tissues:? No suspicious soft tissue calcifications.? ? IMPRESSION:? Possible fracture involving the superior margin of the glenoid process. ? ? Dictated by: Ivone Scott MD, PhD on 05/29/2022 at 13:14 ? ? Approved by: Ivone Scott MD, PhD on 05/29/2022 at 13:16 ? Extremity x-ray #2: Radiologist's Impression: [address] [address] XRay Report Signed Patient: Eitan Vasquez MR#: [id number] : 1935 Acct:[id number] Age/Sex: 86 / M Date of Service: 05/29/22 Loc: ED Accession Number: [id number] ?? Procedure: XR hip w pel if done RT 2V Ordering Provider: Mandi Rizo D.O. PROCEDURE:? XR HIP W PEL IF DONE RT 2V ? INDICATIONS:? fall/pain ? TECHNIQUE:? AP pelvis with lateral view(s) of the right hip(s).? ? COMPARISON:? [facility], CR, XR HIP W PEL IF DONE RT 2V, 02/18/2019, 12:52. ? FINDINGS:? ? Bones:? No fractures or dislocations.? Pelvic ring appears intact.? No suspicious bony lesions.? Mild to moderate bilateral hip osteoarthritis.? Lower lumbar spine degenerative disc disease and facet arthropathy.? ? Soft tissues:? The visualized bowel gas pattern is normal.? No suspicious soft tissue calcifications.? Metal shrapnel projecting over the right hip is stable compared to the prior exam. ? ? IMPRESSION:? No fracture. No acute osseous lesion. If symptoms and/or clinical suspicion for pathology persists, further assessment with repeat radiographs (7-10 days) or advanced imaging (e.g. CT, MRI or bone scan) should be considered. ? ? ? Dictated by: Ivone Scott MD, PhD on 05/29/2022 at 13:13 ? ? Approved by: Ivone Scott MD, PhD on 05/29/2022 at 13:14 ? ECG Data Interpretation: EKG shows atrial fibrillation with a rate of 68 beats per minute as well as a right bundle branch block which is unchanged from EKG 06/08/2016 . free of any signs of ischemia or ectopy. No ST segmental elevation or depression. No T wave inversions MDM Narrative Medical decision making narrative: MDM * differential diagnosis includes but not limited to right shoulder fracture, right wrist fracture, right hip fracture, soft tissue injury * Prior records reviewed: Patient was seen here 2 years ago for a fall. History of atrial fibrillation on dabigatran, hypertension, hyperlipidemia, hypothyroidism, COPD, morbid obesity when he had a mechanical fall. History of COPD as well. Head CT ordered which was unremarkable. * My lab interpretation: Patient mildly anemic with a hemoglobin of 12.6 which appears baseline for him. Troponin within normal limits. * My imgaing interpretation: Right hip x-ray negative for fractures. Right shoulder x-ray showed a possible glenoid fracture which was discussed with Dr. Moncada, orthopedist as below. Restated on CT scan * Clinical Decision Rules/Scores evaluated: None * Independent discussions with: None ED Course: This is a 86-year-old male presents emergency department after 2 mechanical falls injuring his right shoulder, right hip, right wrist as well as hitting his head and briefly losing consciousness for about a minute. Imaging of the right hip and right wrist were negative for fractures. CT head and neck were also negative for any acute abnormalities. Right shoulder did show a possible fracture of the glenoid. This was discussed with Dr. Moncada, on-call orthopedist, who recommended a CT scan of the right shoulder and have him follow up in the clinic for further evaluation. CT scan was ordered and patient will follow up with Dr. Moncada. Patient also has a history of AFib which was evident on the EKG ordered as well as a right bundle barry block unchanged from prior. Troponin was also within normal limits and low concern for ACS. Lab work otherwise unremarkable. Patient was road tested using a walker and he was comfortable using without much difficulty in the right shoulder. This was also cleared by Dr. Moncada weightbearing status bolton. Patient's UA positive for leuks but patient did not describe any urinary symptoms. Shared Decision Making: Discussed plan with patient who is comfortable with the plan. Social Considerations: None Disposition: Discharged to home <Mandi Rizo, - Last Filed: 05/29/22 17:06> Lab Data Labs: Lab Results 05/29/22 05/29/22 05/29/22 Range/Units 12:26 12:26 12:26 WBC 6.9 (4.5-11.0) X10^3/uL RBC 3.75 L (4.5-5.9) X10^6/uL Hgb 12.6 L (13.5-17.5) g/dL Hct 37.9 L (41-53) % MCV 101.2 H (80-100) fL MCH 33.7 (26-34) PG MCHC 33.3 (30-36) % RDW 15.2 H (11.6-14.8) % Plt Count 236 (150-400) X10^3/uL Neut % (Auto) 61.9 (50-75) % Lymph % (Auto) 23.9 L (25-40) % Hendricks % (Auto) 10.0 (3-14) % Eos % (Auto) 3.0 (2-4) % Baso % (Auto) 1.2 (0-2) % Neut # (Auto) 4300 (7033-3168) /uL Lymph # (Auto) 1700 (9019-5690) /uL Hendricks # (Auto) 700 (0-900) /uL Eos # (Auto) 200 (0-450) /uL Baso # (Auto) 100 (0-100) /uL PT 14.0 H (10.1-12.7) SECONDS INR 1.2 (0.9-1.3) Sodium 135 L (137-145) mmol/L Potassium 4.5 (3.4-5.1) mmol/L Chloride 101 (98-107) mmol/L Carbon Dioxide 26 (22-32) mmol/L BUN 28 H (9-20) mg/dL Creatinine 1.30 H (0.66-1.25) mg/dL Estimated GFR 54 L (>60) mL/min BUN/Creatinine Ratio 21.5 (6-22) Glucose 104 (80-110) mg/dL Calcium 9.5 (8.4-10.2) mg/dL Magnesium 2.1 (1.6-2.3) mg/dL Total Bilirubin 0.6 (0.2-1.3) mg/dL AST 32 (17-59) IU/L ALT 31 (<50) IU/L Alkaline Phosphatase 60 (38-126) U/L Total Creatine Kinase 105 (55-170) U/L CK-MB (CK-2) 1.35 (<2.37) ng/mL CK-MB (CK-2) Rel Index 1.3 L (1.5-5.0) % Troponin I < 0.012 (0.01-0.034) ng/mL Total Protein 7.5 (6.3-8.2) g/dL Albumin 3.8 (3.5-5.0) g/dL Globulin 3.7 (1.7-4.1) g/dL Albumin/Globulin Ratio 1.0 (1.0-2.8) Lipase 147 (23-300) U/L Urine RBC (0-5/HPF) Urine WBC (0-5/HPF) Ur Squamous Epith Cells (0-5/HPF) Ur Transition Epith Cell (0-5/HPF) Urine Bacteria (None) Ur Culture Indicated? 05/29/22 Range/Units 15:50 WBC (4.5-11.0) X10^3/uL RBC (4.5-5.9) X10^6/uL Hgb (13.5-17.5) g/dL Hct (41-53) % MCV (80-100) fL MCH (26-34) PG MCHC (30-36) % RDW (11.6-14.8) % Plt Count (150-400) X10^3/uL Neut % (Auto) (50-75) % Lymph % (Auto) (25-40) % Hendricks % (Auto) (3-14) % Eos % (Auto) (2-4) % Baso % (Auto) (0-2) % Neut # (Auto) (2566-6775) /uL Lymph # (Auto) (9302-2067) /uL Hendricks # (Auto) (0-900) /uL Eos # (Auto) (0-450) /uL Baso # (Auto) (0-100) /uL PT (10.1-12.7) SECONDS INR (0.9-1.3) Sodium (137-145) mmol/L Potassium (3.4-5.1) mmol/L Chloride (98-107) mmol/L Carbon Dioxide (22-32) mmol/L BUN (9-20) mg/dL Creatinine (0.66-1.25) mg/dL Estimated GFR (>60) mL/min BUN/Creatinine Ratio (6-22) Glucose (80-110) mg/dL Calcium (8.4-10.2) mg/dL Magnesium (1.6-2.3) mg/dL Total Bilirubin (0.2-1.3) mg/dL AST (17-59) IU/L ALT (<50) IU/L Alkaline Phosphatase (38-126) U/L Total Creatine Kinase (55-170) U/L CK-MB (CK-2) (<2.37) ng/mL CK-MB (CK-2) Rel Index (1.5-5.0) % Troponin I (0.01-0.034) ng/mL Total Protein (6.3-8.2) g/dL Albumin (3.5-5.0) g/dL Globulin (1.7-4.1) g/dL Albumin/Globulin Ratio (1.0-2.8) Lipase (23-300) U/L Urine RBC 5-10/hpf H (0-5/HPF) Urine WBC 10-30/hpf H (0-5/HPF) Ur Squamous Epith Cells 5-10 /hpf H (0-5/HPF) Ur Transition Epith Cell 0-1/hpf (0-5/HPF) Urine Bacteria Few (2-10) H (None) Ur Culture Indicated? Specimen cultured Urine Dip Bedside Urine Glucose Negative Bedside Urine Bilirubin - Negative Bedside Urine Ketone - Negative Urine Specific [place] 1.015 Bedside Urine Occult Blood - Negative Bedside Urine pH 6.5 Bedside Urine Protein +/- 15 Bedside Urine Urobilinogen - Negative Bedside Urine Nitrite - Negative Bedside Urine Leukocytes ++ 125 Esterase Discharge Plan Departure Patient Disposition: Home Clinical Impression: Glenoid fracture of shoulder Activity Restrictions/Additional Instructions: Thank you for coming to the [facility] Emergency Department today. As we discussed you have a fracture in your shoulder. You are able to continue to use your walker but we would like you to follow-up with Dr. Moncada, the orthopedist for further evaluation and management. Your CT of your head and neck showed no evidence of any kind of brain injury or for T bursal neck injury. The right hip and right wrist x-rays are also negative for fractures. Please use Tylenol as needed for the pain. I hope you feel better soon. Prescriptions: No Action diltiazem HCl 180 mg capsule,extended release 24hr 180 mg PO QDAY Qty: 90 3RF furosemide [Lasix] 40 mg tablet 40 mg PO DAILY Qty: 30 0RF metformin 500 mg tablet 500 mg PO QDAY Qty: 90 3RF spironolactone 25 mg tablet 25 mg PO DAILY Qty: 30 0RF torsemide 20 mg tablet 20 mg PO DAILY Breztri Aerosphere 160-9-4.8 mcg/actuation HFA aerosol inhaler 2 inh inhalation BID levalbuterol tartrate [Xopenex HFA] 45 mcg/actuation HFA aerosol inhaler 2 puff inhalation Q4-6H PRN (DME) [employer] Gel Blue CPAP nasal mask with headgear See Rx Instructions .Route .MEDSUPPLY Qty: 2 0RF Rx Instructions: Use daily as directed Calcium/Vitamin D (#CALCIUM + D 600 MG-200 IU) 2 tab PO QDAY Qty: 0 PEG-400/PROPYLENE GLYCOL (SYSTANE LUBRICANT EYE DROPS 0.4%/0.3%) 1 thaddeus OP PRN Qty: 0 fluticasone propionate [Flovent HFA] 220 mcg/actuation HFA aerosol inhaler 2 puff INHALATION BID Qty: 3 4RF albuterol sulfate 90 mcg/actuation HFA aerosol inhaler 2 puff INHALATION Q6H PRN (Reason: wheezing) Qty: 8.5 6RF (DME) Disabled Parking Permit See Rx Instructions .ROUTE .MEDSUPPLY Qty: 1 0RF Rx Instructions: I find this person to be disabled dabigatran etexilate [Pradaxa] 150 mg capsule See Rx Instructions .ROUTE .COMPLEX Qty: 180 3RF Dose Instruction: TAKE 1 CAPSULE TWICE A DAY Rx Instructions: TAKE 1 CAPSULE TWICE A DAY hydrocodone-acetaminophen 5-325 mg tablet 1 tab PO DAILY PRN (Reason: pain) Qty: 60 0RF doxazosin 4 mg tablet 4 mg PO HS Qty: 90 3RF simvastatin [Zocor] 10 mg tablet 10 mg PO HS Qty: 90 3RF telmisartan [Micardis] 40 mg tablet 40 mg PO QDAY Qty: 90 3RF allopurinol 300 mg tablet 300 mg PO QDAY Qty: 90 3RF levothyroxine 175 mcg tablet 175 mcg PO QDAY@0600 Qty: 90 3RF omeprazole 20 mg capsule,delayed release(DR/EC) 20 mg PO QDAY Qty: 90 3RF paroxetine HCl [Paxil] 20 mg tablet 30 mg PO QDAY Qty: 135 3RF Referrals: Douglas Turner MD [Primary Care Provider] - Adriana Moncada MD [Physician] - (f/u glenoid fracture ) Stand Alone Forms: Patient Portal/API <Mandi Rizo - Last Filed: 05/29/22 17:06> Cosign ED Attending Cosignature Attestation: I was immediately available in the department for consultation. Patient was seen independently evaluated by myself. GENERAL: Alert and oriented x three, obese male in mild distress. HEENT: Head normocephalic, atraumatic, EOMI, pupils reactive, face symmetric, moist mucous membranes, no facial droop or lateralizing deficits noted. NECK: Supple, full range of motion, no vertebral tenderness. CARDIOVASCULAR: Regular rate and rhythm without murmurs, rubs or gallops. RESPIRATORY: Breath sounds equal bilaterally, no wheezes rales or rhonchi. ABDOMEN: Soft, nontender. Normoactive bowel sounds all 4 quadrants. No guarding or rebound, rigidity, no mass : No CVA tenderness EXTREMITIES: Decreased range of motion of the right shoulder but normal range of motion of the elbow below. Patient does not have any other bony tenderness on examination. Patient has equal strength bilateral upper and lower extremities. Normal sensation upper lower extremities., no clubbing or edema. Neurovascularly intact NEUROLOGICAL: Cranial nerves II through XII grossly intact. Moving all extremities SKIN: Warm, dry, no petechiae, no rashes or lesions. Patient states that he was falling after tripping, then fell and likely knocked himself out. Patient does not appear to have had a syncopal episode or cardiac event or other significant cause. Patient's head CT, C-spine show no acute fracture or bleed. Negative chest x-ray, shoulder x-ray shows possible glenoid fracture. CT was obtained and shows acute nondisplaced fracture through acromion prior arthroplasty no acute periprosthetic fracture. Patient's case was discussed with Orthopedic surgery recommendations appreciated above. Patient was able to ambulate with walker with minimal issues. Patient's lab has baseline anemia which appears stable, normal platelets and white count. Patient is anticoagulated coags are negative. Patient's CMP shows a creatinine 1.3 appears to be close to his normal baseline. 09/01/2034, BUN 28 with normal LFTs and troponin. No acute EKG changes appreciated. Patient felt appropriate for discharge home. Follow up Orthopedic surgery. Return precautions.
[2022-05-29 13:00] LABS: Troponin I < 0.012 ng/mL (0.01-0.034)
[2022-05-29 13:04] LABS: CKMB % Relative Index 1.3 % (1.5-5.0); Creatine Kinase MB 1.35 ng/mL (<2.37)
--- NOTE | 2022-05-29 13:18 | DI.RAD.S_ITS ---
PROCEDURE: XR WRIST RT MIN 3V INDICATIONS: R wrist pain TECHNIQUE: 4 views of the wrist were acquired. COMPARISON: None. FINDINGS: Bones: No definite acute fractures or dislocations. Severe osteoarthritic changes are noted throughout wrist joints with extensive joint space narrowing, subchondral sclerosis and prominent marginal osteophyte formation. Intraosseous cyst formation in distal radius and scattered in multiple carpal bones are seen. Scaphoid view: Scaphoid is grossly intact. No evidence of avascular necrosis. Soft tissues: No suspicious soft tissue calcifications. IMPRESSION: Severe wrist joint osteoarthritis. No definite acute fracture or dislocation. Please correlate with CT of wrist findings. Dictated by: Gabe Crisostomo M.D. on 05/29/2022 at 14:38 Approved by: Gabe Crisostomo M.D. on 05/29/2022 at 14:40
--- NOTE | 2022-05-29 14:02 | DI.CT.S_ITS ---
PROCEDURE: CT UE RT WO CON INDICATIONS: f/u glenoid fracture TECHNIQUE: Noncontrast 1-1.5 mm thick sections acquired from the acromioclavicular joint to the inferior scapula, with coronal and sagittal reformatting. COMPARISON: [facility], CR, XR SHOULDER RT MIN 2V, 05/29/2022, 12:35. FINDINGS: Image quality: Excellent. Bones: Patient is status post right shoulder arthroplasty with beam hardening artifacts from surgical hardware. Moderate acromioclavicular joint osteoarthritic changes are seen with acute nondisplaced fracture through the acromion series 2, image 50 and series 5 image 80. Radiolucency is noted involving superior glenoid which was also seen on shoulder radiograph from the same day concerning for age indeterminate fracture in this area best seen on series 5, image 61 and series 6 image 161. No other fracture or dislocation is seen . No evidence of hardware loosening or failure. No periprosthetic fracture is noted. No suspicious bony lesion. Soft tissues: There is no significant joint effusion. No gross full-thickness rotator cuff tendon rupture. No abnormal soft tissue calcifications. Sagittal views shows mild to moderate supraspinatus muscle atrophy. IMPRESSION: 1. Acute nondisplaced fracture through acromion as above. 2. Age indeterminate superior glenoid fracture. 3. Prior right shoulder arthroplasty. No evidence of hardware loosening or failure. No acute periprosthetic fracture. 4. No abnormal soft tissue calcifications. No definite full-thickness rotator cuff tendon rupture. Mild to moderate supraspinatus muscle atrophy. Dictated by: Gabe Crisostomo M.D. on 05/29/2022 at 14:46 Approved by: Gabe Crisostomo M.D. on 05/29/2022 at 14:52
--- NOTE | 2022-05-29 15:01 | PC.NURSE ---
Pt ambulated with walker, reports discomfort in shoulder but able to tolerate it.
[2022-05-29] MEDS: HYDROCODONE/ACET 5/325 TABLET 1 TAB PO (15:48)
[2022-05-29 16:24] LABS: RBC Urine 5-10/HPF (0-5/HPF)
[2022-05-29 16:25] LABS: Bacteria Urine Few (2-10); Culture Indicated Urine Specimen Cultured; Squamous Epithelial Cell Urine 5-10 /HPF (0-5/HPF); Transitional Epi Cells Urine 0-1/HPF (0-5/HPF); WBC Urine 10-30/HPF (0-5/HPF)
== END 2022-05-29 16:06 | disposition home or self-care (01) ==
PROVIDERS: Emergency Medicine; Emergency Provider Physician Assistant Medical; PCP Family Medicine
DX: S42.141A Displaced fracture of glenoid cavity of scapula, right shoulder, initial encounter for closed fracture (principal); R07.9 Chest pain, unspecified; I48.91 Unspecified atrial fibrillation; Z79.01 Long term (current) use of anticoagulants; W18.30XA Fall on same level, unspecified, initial encounter; R29.6 Repeated falls
CPT/HCPCS: 36415; 70450; 71045; 72125; 73030; 73110; 73200; 73502; 80053; 81003; 81015; 82550; 82553; 83690; 83735; 84484; 85025; 85610; 87086; 93005; 99284

== ENCOUNTER 2022-08-02 10:45 | Outpatient (RCR) | payer MEDICARE, OTHER, SELFPAY ==
--- NOTE | 2022-07-09 18:12 | PT.OIE ---
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) Past Medical History (Last Updated 05/15/22 @ 12:43 by Terri Murry PA-C) Arthritis (~1999) Bundle branch block (03/12/13) Cardiac arrhythmia (~2011) Carpal tunnel syndrome (~1988) Chronic atrial fibrillation (03/12/13) Chronic back pain (~2009) Chronically dry eyes (~2008) Controlled type 2 diabetes mellitus (~2010) Degeneration of intervertebral disc of lumbar region (03/12/13) Essential hypertension (~1994) Gout (08/29/12) Hyperlipidemia Hypothyroidism (07/03/13) Moderate COPD (chronic obstructive pulmonary disease) (09/21/15) Morbid obesity (11/14/10) Obstructive sleep apnea syndrome (11/14/10) Osteoarthritis (03/12/13) Sigmoid diverticulitis (~2001) Ventral hernia Past Surgical History (Last Reviewed 02/09/21 @ 20:25 by Margaret Little PA-C) Anesthesia History of arthroplasty (~2011) History of cataract removal with insertion of prosthetic lens (~2006) History of cataract removal with insertion of prosthetic lens (~2008) History of flexible sigmoidoscopy (~2001) History of surgery (~2012) History of surgery (~2012) Pilonidal cyst (~1998) Status post hemorrhoidectomy (~2006) Status post hernia repair (~1997) Status post hernia repair (~1999) Status post hernia repair (~2003) Status post hernia repair (~2012) Visit Care Team Role Provider Type Douglas Turner MD Family Provider Physician Primary Care Provider Specialty: Family Practice Address: [address] [place] [address], [id number] Email: [email or web address] Marie PA-C Attending Provider Advanced High Wire Artist Referring Provider Specialty: Orthopedics Orthopedic Surgery Address: [address] [place] [address], [id number] Email: [email or web address] [facility] Initial Evaluation PT-OP-A Visit Information Start: 07/09/22 07:58 Freq: Status: Active Protocol: Document 07/09/22 08:49 LRN (Rec: 07/09/22 09:37 LRN [id number]) Out-Patient Physical Therapy Visit Information Visit Information Visit Type Initial Evaluation Visit Start Time 08:49 Visit Stop Time 08:34 Total Visit Minutes 45 Visit Number 1 Evaluation Information Evaluation Date 07/09/22 Precautions Precautions COPD, Arthritis, Diabetes type 1 controlled by medication ( Metformin), R TSA. Taking blood thinners for HBP. PT-OP-B Current Condition Start: 07/09/22 07:58 Freq: Status: Active Protocol: Document 07/09/22 08:49 LRN (Rec: 07/09/22 09:37 LRN [id number]) Current Condition History of Current Condition Onset Date 3 weeks ago. Current Complaints General pain in both shoulders . R shoulder hurts all the time. History of Current Condition Fell to the side onto concrete and lost consciousness. States he was checked for blood clots and head CT done. He suffered a fx of R ACJ and wore a sling for 2 weeks. Arthritis has started, and now the L shoulder is hurting. has to help him put his top on. Pt is using the cane on the R side, and when going shopping because he is R handed. Uses a walker at home . Future Testing and Treatments Planned Next Dr cagle is 07/27/22 in [facility]. Developmental History Developmental History Has had R shoulder replaced 15 yrs ago. Treatment Goals Patient/Caregiver Goals Pt goal is to: decrease logan shoulder pain, improving strength and mobility and HEP. Personal Factors Other Personal Factors That May Effect COPD, Arthritis, R TSA. Therapy/Recovery PT-OP-C Subjective Start: 07/09/22 07:58 Freq: Status: Active Protocol: Document 07/09/22 08:49 LRN (Rec: 07/09/22 09:37 LRN [id number]) Patient Questionnaires Quick Dash- Upper Extremity Quick Dash UE Score 50 with 2 questions missing OP-PT Pain Assessment Pain Assessment Grid Paper Pain Assessment Grid Completed Yes Location Left Shoulder Pain Location Details Deep inside the ball joint. Intensity 7 Scale Used Numeric (0 - 10) Description Aching Frequency Intermittent Pain Aggravating Factors Activity Other Pain Aggravating Factors Movement Other Pain Alleviating Factors Dangling arm. R shoulder Pain Location Details Anterior shoulder, at humeral head and ACJ Intensity 9 Scale Used Numeric (0 - 10) Description Aching Frequency Constant Pain Aggravating Factors Activity Other Pain Alleviating Factors Dangling arm. PT-OP-H Neuro Start: 07/09/22 07:58 Freq: Status: Active Protocol: Document 07/09/22 08:49 LRN (Rec: 07/09/22 09:37 LRN [id number]) Sensation Evaluation Gross Sensation Gross Sensation WNL Coordination Evaluation Upper Extremity Tests Right Finger to Nose Test Normal Performance Left Finger to Nose Test Normal Performance PT-OP-J Posture/Palpation/Skin Start: 07/09/22 07:58 Freq: Status: Active Protocol: Document 07/09/22 08:49 LRN (Rec: 07/09/22 09:37 LRN [id number]) Posture Evaluation Position Sitting Head/C-Spine Posture Neutral Position,Forward Head T-Spine Posture Increased Kyphosis L-Spine Posture Flattened Shoulder Posture (L) Rounded,(R) Rounded,(L) Forward,(R) Forward Arm Posture (L) Internally Rotated,(R) Internally Rotated PT-OP-K Range of Motion Start: 07/09/22 07:58 Freq: Status: Active Protocol: Document 07/09/22 08:49 LRN (Rec: 07/09/22 09:37 LRN [id number]) Cervical Spine Range of Motion Cervical Spine Active Comments WFL. Pt does active cervical rotations for exercise daily. Shoulder Goniometric Range of Motion Shoulder Right Passive Testing Position Sitting Flexion 45 Right Active Shoulder ROM WFL No Testing Position Sitting Flexion 0 Abduction 22 External Rotation at 0 degrees Abduction 35 Internal Rotation Behind Back (text) Lateral Buttock Comments Painfree AROM is indicated above. Max AROM with pain (deg's): Flex: 75, AB: 22, ER: 35 Left Active Shoulder ROM WFL No Testing Position Sitting Flexion 40 Abduction 50 External Rotation at 0 degrees Abduction 12 Internal Rotation Behind Back (text) Lateral Buttock Comments Painfree AROM is indicated above. Max AROM with pain (deg's): Flex: 80, AB: 60, ER: 12 Elbow/Forearm Range of Motion Elbow/Forearm Right Active Elbow/Forearm ROM WFL Yes ROM Testing Position Sitting Left Active Elbow/Forearm ROM WFL Yes ROM Testing Position Sitting PT-OP-M Strength Start: 07/09/22 07:58 Freq: Status: Active Protocol: Document 07/09/22 08:49 LRN (Rec: 07/09/22 09:37 LRN [id number]) Shoulder Strength Shoulder Manual Muscle Testing Right Flexion 2 Poor Abduction (C5) 2- Poor- External Rotation 1 Trace Internal Rotation 2 Poor Left Flexion 2 Poor Abduction (C5) 2 Poor External Rotation 2 Poor Internal Rotation 3 Fair Elbow/Forearm Strength Elbow and Forearm Manual Muscle Testing Right Flexion (C6) 2- Poor- Extension (C7) 2- Poor- Left Flexion (C6) 5 Normal Extension (C7) 5 Normal Hand Paid Search Marketing Analyst/Pinch Strength Hand Dominance Hand Dominance Right PT-OP-Q Treatments Start: 07/09/22 07:58 Freq: Status: Active Protocol: Document 07/09/22 08:49 LRN (Rec: 07/09/22 09:37 LRN [id number]) Self-Care/Home Management Treatment Education Patient Education Pain Management Other Education Discussed results of evaluation, goals, and plan of care (POC). Pt agreeable to goals and POC. Activities Self-Care/Home Management Activities I/S pt to use cryotherapy to R shoulder and Heat to L shoulder, 10 minutes for pain relief. PT-OP-T Assessment and Plan Start: 07/09/22 07:58 Freq: Status: Active Protocol: Document 07/09/22 08:49 LRN (Rec: 07/09/22 09:37 LRN [id number]) Physical Therapy Assessment Rehab Potential Rehabilitation Potential Good Evaluation Complexity Number of Personal Factors/Comorbidities 3 or More Number of Body Systems Impaired 4 or More Clinical Presentation at Evaluation Evolving Impairments Impairments Activity Tolerance,Pain, Posture,ROM,Sensation,Soft Tissue Mobility,Strength Goals Three Impairment Decreased shoulder mobility bilaterally Short Term Goal (STG) Start AROM R shoulder when pt is 4-6 weeks s/p R acromion process fracture. STG Duration 08/03/22 National Coverage Specialist Goal (LTG) Pt will improve bilateral shoulder mobility with pt able to return to baseline of ability for dressing ( independent with occasional assist). LTG Duration 10/07/22 Two Impairment Decreased logan shoulder strength Impairment Pain due to decreased bilateral shoulder strength Short Term Goal (STG) Pt will be able to use cane on L side for gait safely due to R acromion process fracture. STG Duration 08/17/22 [facility] Goal (LTG) Pt will improve bilateral shoulder strength to decrease onset of constant pain (R shoulder) and decrease intermittent pain intensity (L shoulder). LTG Duration 10/07/22 One Impairment Lacks appropriate self care HEP Short Term Goal (STG) Pt will be educated in self care pain management techniques for pain and inflammation for R shoulder injury and L shoulder arthritis. STG Duration 07/20/22 National Coverage Specialist Goal (LTG) Pt will be educated in self care HEP of AROM ex's and strengthening ex's as appropriate. LTG Duration 10/07/22 Assessment Summary Assessment Pt is an 86 yo male who presents with R shoulder pain due to displaced fx of acomial process 3 weeks ago. He has pain also due to instability and muscle weakness. Not able to fully assess for other shoulder pathology due to pain with any movement of the shoulder. His L shoulder pain appears to be arthritic in nature with good strength but limited mobility due to pain. As I am familiar with this patient he will be hindered in his therapy due to his R TSA and his ability to push into pain with activities without holding back because of the pain. The pt will benefit from skilled physical therapy to improve logan shoulder strength and stability and improve mobility to improve function with overall expected decrease in pain once shoulder stability is obtained . We will be limited in use of modalities except MH & cryotherapy to his R shoulder due to his TSA, but modalities may be helpful to the L shoulder. Physical Therapy Plan Frequency and Duration Frequency of Treatment 2x/Week Plan of Care Start Date 07/09/22 Plan of Care End Date 10/07/22 Therapeutic Interventions Therapeutic Interventions Home Exercise Program,Joint Mobilizations,Neuromuscular Re -education,Patient/Caregiver Education,Self-Care/Home Management,Soft Tissue Mobilization,Taping, Therapeutic Activities, Therapeutic Exercises Modalities Cold Pack/Ice Massage,Hot Packs Other Therapeutic Interventions Electrical Stim and JMT to L shoulder only. Next Visit Focus/Plan Next Note Type Treatment Note Next Visit Plan Modalities of cryotherapy and MH to shoulders during warm up ex R shoulder: PROM/AAROM & Codman's and L shoulder, upper back: strengthening as much as tolerated, R shoulder PROM/AAROM to start . STM to neck/upper shoulders, Modalities: EStim to only L shoulder (R TSA & fx acromion process). PN prior to pt return to MD .
--- NOTE | 2022-07-09 18:13 | PT.OPPOC ---
Physical, Occupational & Speech Therapy At [facility] 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) Visit Care Team Role Provider Type Douglas Turner MD Family Provider Physician Primary Care Provider Specialty: Family Practice Address: [address] [place] [address], [id number] Email: [email or web address] Filiberto Marie PA-C Attending Provider Advanced Manager Casino Referring Provider Specialty: Orthopedics Orthopedic Surgery Address: [address] [place] [address], [id number] Email: [email or web address] Plan Of Care PT-OP-T Assessment and Plan Start: 07/09/22 07:58 Freq: Status: Active Protocol: Document 07/09/22 08:49 LRN (Rec: 07/09/22 09:37 LRN [id number]) Physical Therapy Assessment Rehab Potential Rehabilitation Potential Good Evaluation Complexity Number of Personal Factors/Comorbidities 3 or More Number of Body Systems Impaired 4 or More Clinical Presentation at Evaluation Evolving Impairments Impairments Activity Tolerance,Pain, Posture,ROM,Sensation,Soft Tissue Mobility,Strength Goals Three Impairment Decreased shoulder mobility bilaterally Short Term Goal (STG) Start AROM R shoulder when pt is 4-6 weeks s/p R acromion process fracture. STG Duration 08/03/22 Team Truck Driver Goal (LTG) Pt will improve bilateral shoulder mobility with pt able to return to baseline of ability for dressing ( independent with occasional assist). LTG Duration 10/07/22 Two Impairment Decreased logan shoulder strength Impairment Pain due to decreased bilateral shoulder strength Short Term Goal (STG) Pt will be able to use cane on L side for gait safely due to R acromion process fracture. STG Duration 08/17/22 Nursing Home Goal (LTG) Pt will improve bilateral shoulder strength to decrease onset of constant pain (R shoulder) and decrease intermittent pain intensity (L shoulder). LTG Duration 10/07/22 One Impairment Lacks appropriate self care HEP Short Term Goal (STG) Pt will be educated in self care pain management techniques for pain and inflammation for R shoulder injury and L shoulder arthritis. STG Duration 07/20/22 Nursing Home Goal (LTG) Pt will be educated in self care HEP of AROM ex's and strengthening ex's as appropriate. LTG Duration 10/07/22 Assessment Summary Assessment Pt is an 86 yo male who presents with R shoulder pain due to displaced fx of acomial process 3 weeks ago. He has pain also due to instability and muscle weakness. Not able to fully assess for other shoulder pathology due to pain with any movement of the shoulder. His L shoulder pain appears to be arthritic in nature with good strength but limited mobility due to pain. As I am familiar with this patient he will be hindered in his therapy due to his R TSA and his ability to push into pain with activities without holding back because of the pain. The pt will benefit from skilled physical therapy to improve logan shoulder strength and stability and improve mobility to improve function with overall expected decrease in pain once shoulder stability is obtained . We will be limited in use of modalities except MH & cryotherapy to his R shoulder due to his TSA, but modalities may be helpful to the L shoulder. Physical Therapy Plan Frequency and Duration Frequency of Treatment 2x/Week Plan of Care Start Date 07/09/22 Plan of Care End Date 10/07/22 Therapeutic Interventions Therapeutic Interventions Home Exercise Program,Joint Mobilizations,Neuromuscular Re -education,Patient/Caregiver Education,Self-Care/Home Management,Soft Tissue Mobilization,Taping, Therapeutic Activities, Therapeutic Exercises Modalities Cold Pack/Ice Massage,Hot Packs Other Therapeutic Interventions Electrical Stim and JMT to L shoulder only. Next Visit Focus/Plan Next Note Type Treatment Note Next Visit Plan Modalities of cryotherapy and MH to shoulders during warm up ex R shoulder: PROM/AAROM & Codman's and L shoulder, upper back: strengthening as much as tolerated, R shoulder PROM/AAROM to start . STM to neck/upper shoulders, Modalities: EStim to only L shoulder (R TSA & fx acromion process). PN prior to pt return to MD . Plan of Care Dates Plan of Care Start Date 07/09/22 Plan of Care End Date 10/07/22 Electronically Signed by: Ameena Moreno, PT 07/10/22 1113 If you are in agreement with this Plan of Care, please return a signed and dated copy. I have reviewed this Plan of Care and certify that the skilled therapy services above are required to meet the patient?s needs. Physician Signature Date Printed Name and Credentials Clinical Instructor Signature Printed Name and Credentials
--- NOTE | 2022-07-16 14:02 | PT.OTN ---
Current Diagnoses Primary osteoarthritis, left shoulder (07/16/22) Postural kyphosis, thoracic region (07/16/22) Muscle weakness (generalized) (07/16/22) Displaced fracture of acromial process, right shoulder, subsequent encounter for fracture with routine healing (07/16/22) Presence of right artificial shoulder joint (07/16/22) Physical Therapy Treatment Note PT-OP-A Visit Information Start: 07/09/22 07:58 Freq: Status: Active Protocol: Document 07/16/22 13:04 SP (Rec: 07/16/22 14:23 SP [id number]) Out-Patient Physical Therapy Visit Information Visit Information Visit Type Treatment Note Visit Note BRIGID Batres provided partial ther ex instruction and manual with pt with pt permission, while under direction supervision and instruction of CHRISTO Gruber. Visit Start Time 13:04 Visit Stop Time 14:02 Total Visit Minutes 58 Visit Number 2 Number of DIRECTOR ORACLE DATABASE Visits 1 Evaluation Information Evaluation Date 07/09/22 Precautions Precautions COPD, Arthritis, Diabetes type 1 controlled by medication ( Metformin), R TSA. Taking blood thinners for HBP. PT-OP-B Current Condition Start: 07/09/22 07:58 Freq: Status: Active Protocol: Document 07/09/22 08:49 LRN (Rec: 07/09/22 09:37 LRN [id number]) Current Condition History of Current Condition Onset Date 3 weeks ago. Current Complaints General pain in both shoulders . R shoulder hurts all the time. History of Current Condition Fell to the side onto concrete and lost consciousness. States he was checked for blood clots and head CT done. He suffered a fx of R ACJ and wore a sling for 2 weeks. Arthritis has started, and now the L shoulder is hurting. has to help him put his top on. Pt is using the cane on the R side, and when going shopping because he is R handed. Uses a walker at home . Future Testing and Treatments Planned Next Dr cagle is 07/27/22 in [facility]. Developmental History Developmental History Has had R shoulder replaced 15 yrs ago. Treatment Goals Patient/Caregiver Goals Pt goal is to: decrease logan shoulder pain, improving strength and mobility and HEP. Personal Factors Other Personal Factors That May Effect COPD, Arthritis, R TSA. Therapy/Recovery PT-OP-C Subjective Start: 07/09/22 07:58 Freq: Status: Active Protocol: Document 07/16/22 13:04 SP (Rec: 07/16/22 14:23 SP [id number]) OP-PT Subjective Patient Comments Patient Comments Pt reports L shoulder feels about the same. Pt stated performs table slides FF, ER knows from previous PT. Pt reports gets injections every 3 months and last one [address] Jarquin. PT-OP-H Neuro Start: 07/09/22 07:58 Freq: Status: Active Protocol: Document 07/09/22 08:49 LRN (Rec: 07/09/22 09:37 LRN [id number]) Sensation Evaluation Gross Sensation Gross Sensation WNL Coordination Evaluation Upper Extremity Tests Right Finger to Nose Test Normal Performance Left Finger to Nose Test Normal Performance PT-OP-J Posture/Palpation/Skin Start: 07/09/22 07:58 Freq: Status: Active Protocol: Document 07/09/22 08:49 LRN (Rec: 07/09/22 09:37 LRN [id number]) Posture Evaluation Position Sitting Head/C-Spine Posture Neutral Position,Forward Head T-Spine Posture Increased Kyphosis L-Spine Posture Flattened Shoulder Posture (L) Rounded,(R) Rounded,(L) Forward,(R) Forward Arm Posture (L) Internally Rotated,(R) Internally Rotated PT-OP-K Range of Motion Start: 07/09/22 07:58 Freq: Status: Active Protocol: Document 07/09/22 08:49 LRN (Rec: 07/09/22 09:37 LRN [id number]) Cervical Spine Range of Motion Cervical Spine Active Comments WFL. Pt does active cervical rotations for exercise daily. Shoulder Goniometric Range of Motion Shoulder Right Passive Testing Position Sitting Flexion 45 Right Active Shoulder ROM WFL No Testing Position Sitting Flexion 0 Abduction 22 External Rotation at 0 degrees Abduction 35 Internal Rotation Behind Back (text) Lateral Buttock Comments Painfree AROM is indicated above. Max AROM with pain (deg's): Flex: 75, AB: 22, ER: 35 Left Active Shoulder ROM WFL No Testing Position Sitting Flexion 40 Abduction 50 External Rotation at 0 degrees Abduction 12 Internal Rotation Behind Back (text) Lateral Buttock Comments Painfree AROM is indicated above. Max AROM with pain (deg's): Flex: 80, AB: 60, ER: 12 Elbow/Forearm Range of Motion Elbow/Forearm Right Active Elbow/Forearm ROM WFL Yes ROM Testing Position Sitting Left Active Elbow/Forearm ROM WFL Yes ROM Testing Position Sitting PT-OP-M Strength Start: 07/09/22 07:58 Freq: Status: Active Protocol: Document 07/09/22 08:49 LRN (Rec: 07/09/22 09:37 LRN [id number]) Shoulder Strength Shoulder Manual Muscle Testing Right Flexion 2 Poor Abduction (C5) 2- Poor- External Rotation 1 Trace Internal Rotation 2 Poor Left Flexion 2 Poor Abduction (C5) 2 Poor External Rotation 2 Poor Internal Rotation 3 Fair Elbow/Forearm Strength Elbow and Forearm Manual Muscle Testing Right Flexion (C6) 2- Poor- Extension (C7) 2- Poor- Left Flexion (C6) 5 Normal Extension (C7) 5 Normal Hand Shirt Presser/Pinch Strength Hand Dominance Hand Dominance Right PT-OP-Q Treatments Start: 07/09/22 07:58 Freq: Status: Active Protocol: Document 07/16/22 13:04 SP (Rec: 07/16/22 14:23 SP [id number]) Therapeutic Exercises Sitting Exercises scap retraction Sitting Exercise Name initiated in PT Side bilateral Resistance AROM Equipment Used tactile cues Reps/Minutes 5 reps x2- will revisit next tx Comments challenging coordinating to perform without UE recruitment pendulum Sitting Exercise Name added to HEP Side bilateral Resistance AAROM/ AROM Equipment Used therapist support PROM/hard to do self but able off side active at side Reps/Minutes 8 reps Comments cued for passive movement table slides Sitting Exercise Name Reviewed physician HEP: Flexion and ER/IR Side bilateral Resistance AROM (L more limited than R) Reps/Minutes 10 Comments cued for slower speed, painfree range Manual Therapy Treatment Joint Mobilizations L GH Jt Direction inferior, posterior glide Grade II Body Position Hooklying Comments gentle glides. Manual Techniques PROM L shld Type FF 78 deg, ER 28 deg (30 deg ABD), ABD 75 deg before hurts. Body Location L shld PROM Body Position Hooklying Comments manual fluid gldes within passive allowed movement and feedback requested for painfree, noted stopped at felt tension. Self-Care/Home Management Treatment Education Patient Education Body Mechanics,Home Exercise Program,Pain Management, Posture Other Education Extra time spent education of proper form passive pendulum and table slides, cues for trunk wt shift to allow UE glide through range and proper sitting/back alignment. PT-OP-R Modalities Start: 07/09/22 07:58 Freq: Status: Active Protocol: Document 07/16/22 13:04 SP (Rec: 07/16/22 14:23 SP [id number]) Hot Pack/Cold Pack Treatment CP Location R Patient Position Sitting Treatment Duration (minutes) 10 Patient Tolerance Good Comments pt reported PT instructec CP to R shld to support recovery with activity. MHP Location L Patient Position Sitting Treatment Duration (minutes) 10 Patient Tolerance Good Comments pt reported PT instructed MHP on L to support arthritis PT-OP-T Assessment and Plan Start: 07/09/22 07:58 Freq: Status: Active Protocol: Document 07/16/22 13:04 SP (Rec: 07/16/22 14:23 SP [id number]) Physical Therapy Assessment Goals Three Impairment Decreased shoulder mobility bilaterally Short Term Goal (STG) Start AROM R shoulder when pt is 4-6 weeks s/p R acromion process fracture. STG Duration 08/03/22 Roller Leveler Goal (LTG) Pt will improve bilateral shoulder mobility with pt able to return to baseline of ability for dressing ( independent with occasional assist). LTG Duration 10/07/22 Two Impairment Decreased logan shoulder strength Impairment Pain due to decreased bilateral shoulder strength Short Term Goal (STG) Pt will be able to use cane on L side for gait safely due to R acromion process fracture. STG Duration 08/17/22 Roller Leveler Goal (LTG) Pt will improve bilateral shoulder strength to decrease onset of constant pain (R shoulder) and decrease intermittent pain intensity (L shoulder). LTG Duration 10/07/22 One Impairment Lacks appropriate self care HEP Short Term Goal (STG) Pt will be educated in self care pain management techniques for pain and inflammation for R shoulder injury and L shoulder arthritis. STG Duration 07/20/22 Alf Goal (LTG) Pt will be educated in self care HEP of AROM ex's and strengthening ex's as appropriate. LTG Duration 10/07/22 Assessment Summary Assessment Pt reports no increased pain during manual, able to tolerate increased PROM supine with feedback requested working within painfree range. Reviewed table slides and pendulum physician provided as HEP- ed for active vs passive , pt challenged with ability understand passive continuous cues/ed, same response therapist support vs pt active sitting at side vs standing. Pt reports modalities (MHP L, CP R shld's) does help end tx and home for pain mgt. Physical Therapy Plan Frequency and Duration Frequency of Treatment 2x/Week Plan of Care Start Date 07/09/22 Plan of Care End Date 10/07/22 Therapeutic Interventions Therapeutic Interventions Home Exercise Program,Joint Mobilizations,Neuromuscular Re -education,Patient/Caregiver Education,Self-Care/Home Management,Soft Tissue Mobilization,Taping, Therapeutic Activities, Therapeutic Exercises Modalities Cold Pack/Ice Massage,Hot Packs Other Therapeutic Interventions Electrical Stim and JMT to L shoulder only. Next Visit Focus/Plan Next Note Type Treatment Note Next Visit Plan recheck HEP trial inhibition techniques, AAROM supine w/ wand. Modalities of cryotherapy and MHP to shoulders during warm up ex R shoulder: PROM/AAROM & Codman' s and L shoulder, upper back: strengthening as much as tolerated, R shoulder PROM/AAROM to start . STM to neck/upper shoulders, Modalities: EStim to only L shoulder (R TSA & fx acromion process). PN prior to pt return to MD .
--- NOTE | 2022-07-24 15:11 | PT.OTN ---
Current Diagnoses Primary osteoarthritis, left shoulder (07/24/22) Postural kyphosis, thoracic region (07/24/22) Muscle weakness (generalized) (07/24/22) Displaced fracture of acromial process, right shoulder, subsequent encounter for fracture with routine healing (07/24/22) Presence of right artificial shoulder joint (07/24/22) Physical Therapy Treatment Note PT-OP-A Visit Information Start: 07/09/22 07:58 Freq: Status: Active Protocol: Document 07/24/22 09:32 LRN (Rec: 07/24/22 10:23 LRN [id number]) Out-Patient Physical Therapy Visit Information Visit Information Visit Type Treatment Note Visit Start Time 09:32 Visit Stop Time 10:22 Total Visit Minutes 50 Visit Number 3 Evaluation Information Evaluation Date 07/09/22 Precautions Precautions COPD, Arthritis, Diabetes type 1 controlled by medication ( Metformin), R TSA. Taking blood thinners for HBP. PT-OP-B Current Condition Start: 07/09/22 07:58 Freq: Status: Active Protocol: Document 07/09/22 08:49 LRN (Rec: 07/09/22 09:37 LRN [id number]) Current Condition History of Current Condition Onset Date 3 weeks ago. Current Complaints General pain in both shoulders . R shoulder hurts all the time. History of Current Condition Fell to the side onto concrete and lost consciousness. States he was checked for blood clots and head CT done. He suffered a fx of R ACJ and wore a sling for 2 weeks. Arthritis has started, and now the L shoulder is hurting. has to help him put his top on. Pt is using the cane on the R side, and when going shopping because he is R handed. Uses a walker at home . Future Testing and Treatments Planned Next Dr cagle is 07/27/22 in [facility]. Developmental History Developmental History Has had R shoulder replaced 15 yrs ago. Treatment Goals Patient/Caregiver Goals Pt goal is to: decrease logan shoulder pain, improving strength and mobility and HEP. Personal Factors Other Personal Factors That May Effect COPD, Arthritis, R TSA. Therapy/Recovery PT-OP-C Subjective Start: 07/09/22 07:58 Freq: Status: Active Protocol: Document 07/24/22 09:32 LRN (Rec: 07/24/22 10:23 LRN [id number]) OP-PT Subjective Patient Comments Patient Comments L shoulder hurting a lot on getting up this morning, severe aching. Was told they couldn't replace the shoulder because of age and his heart. Patient Questionnaires Quick Dash- Upper Extremity Quick Dash UE Score 65.9 Quick Dash UE Impairment 60 to 79% Impaired (Score 60- 79) PT-OP-H Neuro Start: 07/09/22 07:58 Freq: Status: Active Protocol: Document 07/09/22 08:49 LRN (Rec: 07/09/22 09:37 LRN [id number]) Sensation Evaluation Gross Sensation Gross Sensation WNL Coordination Evaluation Upper Extremity Tests Right Finger to Nose Test Normal Performance Left Finger to Nose Test Normal Performance PT-OP-J Posture/Palpation/Skin Start: 07/09/22 07:58 Freq: Status: Active Protocol: Document 07/09/22 08:49 LRN (Rec: 07/09/22 09:37 LRN [id number]) Posture Evaluation Position Sitting Head/C-Spine Posture Neutral Position,Forward Head T-Spine Posture Increased Kyphosis L-Spine Posture Flattened Shoulder Posture (L) Rounded,(R) Rounded,(L) Forward,(R) Forward Arm Posture (L) Internally Rotated,(R) Internally Rotated PT-OP-K Range of Motion Start: 07/09/22 07:58 Freq: Status: Active Protocol: Document 07/09/22 08:49 LRN (Rec: 07/09/22 09:37 LRN [id number]) Cervical Spine Range of Motion Cervical Spine Active Comments WFL. Pt does active cervical rotations for exercise daily. Shoulder Goniometric Range of Motion Shoulder Right Passive Testing Position Sitting Flexion 45 Right Active Shoulder ROM WFL No Testing Position Sitting Flexion 0 Abduction 22 External Rotation at 0 degrees Abduction 35 Internal Rotation Behind Back (text) Lateral Buttock Comments Painfree AROM is indicated above. Max AROM with pain (deg's): Flex: 75, AB: 22, ER: 35 Left Active Shoulder ROM WFL No Testing Position Sitting Flexion 40 Abduction 50 External Rotation at 0 degrees Abduction 12 Internal Rotation Behind Back (text) Lateral Buttock Comments Painfree AROM is indicated above. Max AROM with pain (deg's): Flex: 80, AB: 60, ER: 12 Elbow/Forearm Range of Motion Elbow/Forearm Right Active Elbow/Forearm ROM WFL Yes ROM Testing Position Sitting Left Active Elbow/Forearm ROM WFL Yes ROM Testing Position Sitting PT-OP-M Strength Start: 07/09/22 07:58 Freq: Status: Active Protocol: Document 07/09/22 08:49 LRN (Rec: 07/09/22 09:37 LRN [id number]) Shoulder Strength Shoulder Manual Muscle Testing Right Flexion 2 Poor Abduction (C5) 2- Poor- External Rotation 1 Trace Internal Rotation 2 Poor Left Flexion 2 Poor Abduction (C5) 2 Poor External Rotation 2 Poor Internal Rotation 3 Fair Elbow/Forearm Strength Elbow and Forearm Manual Muscle Testing Right Flexion (C6) 2- Poor- Extension (C7) 2- Poor- Left Flexion (C6) 5 Normal Extension (C7) 5 Normal Hand Sports Book Writer/Pinch Strength Hand Dominance Hand Dominance Right PT-OP-Q Treatments Start: 07/09/22 07:58 Freq: Status: Active Protocol: Document 07/24/22 09:32 LRN (Rec: 07/24/22 10:23 LRN [id number]) Therapeutic Exercises Sitting Exercises Shldr IR strengthening Sitting Exercise Name IR strengthening Side bilateral Equipment Used Lev 1 TB (peach) Reps/Minutes 15x 2 with rest between sets Comments Cuing for not increasing pain post exercise. Shldr ER strengthening Sitting Exercise Name Brenda strengthening Side bilateral Equipment Used Lev 1 TB (peach) Reps/Minutes 10x Scap retract/depression Sitting Exercise Name Scap retract/depression. Side bilateral Reps/Minutes 8' Comments Much cuing and training for scap depression w/retraction scap retraction Sitting Exercise Name Scap retraction Side bilateral Reps/Minutes 10x 2 Comments challenging coordinating to perform without UT recruitment table slides Sitting Exercise Name Reviewed physician HEP: Flexion and ER/IR Side bilateral Resistance AROM (L more limited than R) Reps/Minutes 10 x 2 each Comments cued for slower speed, painfree range PT-OP-R Modalities Start: 07/09/22 07:58 Freq: Status: Active Protocol: Document 07/24/22 09:32 LRN (Rec: 07/24/22 10:23 LRN [id number]) Hot Pack/Cold Pack Treatment CP Location R Patient Position Sitting Treatment Duration (minutes) 10 Patient Tolerance Good Comments CP to R shld to support recovery with activity given as same time cryotherapy to L shoulder. MHP Location L Patient Position Sitting Treatment Duration (minutes) 10 Patient Tolerance Good Comments MHP on L to support arthritis given same time as R shoulder CP. PT-OP-T Assessment and Plan Start: 07/09/22 07:58 Freq: Status: Active Protocol: Document 07/24/22 09:32 LRN (Rec: 07/24/22 10:23 LRN [id number]) Physical Therapy Assessment Goals Three Impairment Decreased shoulder mobility bilaterally Short Term Goal (STG) Start AROM R shoulder when pt is 4-6 weeks s/p R acromion process fracture. STG Duration 08/03/22 Weaver Apprentice Goal (LTG) Pt will improve bilateral shoulder mobility with pt able to return to baseline of ability for dressing ( independent with occasional assist). LTG Duration 10/07/22 Two Impairment Decreased logan shoulder strength Impairment Pain due to decreased bilateral shoulder strength. UE Quickdash initial score 65 (60-79% impaired, score 60-79) . Short Term Goal (STG) Pt will be able to use cane on L side for gait safely due to R acromion process fracture. STG Duration 08/17/22 Long-Term Goal (LTG) Pt will improve bilateral shoulder strength to decrease onset of constant pain (R shoulder) and decrease intermittent pain intensity (L shoulder). LTG Duration 10/07/22 One Impairment Lacks appropriate self care HEP Short Term Goal (STG) Pt will be educated in self care pain management techniques for pain and inflammation for R shoulder injury and L shoulder arthritis. STG Duration 07/20/22 Weaver Apprentice Goal (LTG) Pt will be educated in self care HEP of AROM ex's and strengthening ex's as appropriate. LTG Duration 10/07/22 Assessment Summary Assessment Pt with R shoulder pain due to displaced fx of acomial process 3 weeks ago. Inhibition techniques was not helpful for ROM ex. Today his L arthritic shoulder is bothering him more than the R shoulder. He has very weak scap stabilizers. All ex's caused pain, but didn't leave lasting pain in shoulders. Physical Therapy Plan Frequency and Duration Frequency of Treatment 2x/Week Plan of Care Start Date 07/09/22 Plan of Care End Date 10/07/22 Next Visit Focus/Plan Next Note Type Treatment Note Next Visit Plan Find out when pt sees MD next. Assess Sports Book Writer strength (3 trials in kgs). Modalities of cryotherapy and MHP to shoulders during warm up ex. R shoulder: PROM/AAROM & Codman's and L shoulder, Upper back: strengthening as much as tolerated, R shoulder PROM/AAROM to start . STM to neck/upper shoulders, Modality only if needed: EStim only to L shoulder (due to R TSA & fx acromion process). PN prior to pt return to MD in August.
--- NOTE | 2022-07-26 13:42 | PT-OP ANOTE ---
Pt called, really sore after last tx and can hardly move, unable to attend. BEAM BUILDER called left VM recommending CP usage for pain control. Reminded next appt 07/31 with BEAM BUILDER and can adjust tx for pain contorl and comfort while trying to assist mobility benefits. Call if needed tomorrow for further recommendations.
--- NOTE | 2022-07-31 12:47 | PT.OTN ---
Current Diagnoses Primary osteoarthritis, left shoulder (07/31/22) Postural kyphosis, thoracic region (07/31/22) Muscle weakness (generalized) (07/31/22) Displaced fracture of acromial process, right shoulder, subsequent encounter for fracture with routine healing (07/31/22) Presence of right artificial shoulder joint (07/31/22) Physical Therapy Treatment Note PT-OP-A Visit Information Start: 07/09/22 07:58 Freq: Status: Active Protocol: Document 07/31/22 12:02 SP (Rec: 07/31/22 12:51 SP [id number]) Out-Patient Physical Therapy Visit Information Visit Information Visit Type Treatment Note Visit Start Time 12:02 Visit Stop Time 12:47 Total Visit Minutes 45 Visit Number 4 Number of DEPUTY ASSESSOR Visits 1 Evaluation Information Evaluation Date 07/09/22 Precautions Precautions COPD, Arthritis, Diabetes type 1 controlled by medication ( Metformin), R TSA. Taking blood thinners for HBP. PT-OP-B Current Condition Start: 07/09/22 07:58 Freq: Status: Active Protocol: Document 07/09/22 08:49 LRN (Rec: 07/09/22 09:37 LRN [id number]) Current Condition History of Current Condition Onset Date 3 weeks ago. Current Complaints General pain in both shoulders . R shoulder hurts all the time. History of Current Condition Fell to the side onto concrete and lost consciousness. States he was checked for blood clots and head CT done. He suffered a fx of R ACJ and wore a sling for 2 weeks. Arthritis has started, and now the L shoulder is hurting. has to help him put his top on. Pt is using the cane on the R side, and when going shopping because he is R handed. Uses a walker at home . Future Testing and Treatments Planned Next Dr cagle is 07/27/22 in [facility]. Developmental History Developmental History Has had R shoulder replaced 15 yrs ago. Treatment Goals Patient/Caregiver Goals Pt goal is to: decrease logan shoulder pain, improving strength and mobility and HEP. Personal Factors Other Personal Factors That May Effect COPD, Arthritis, R TSA. Therapy/Recovery PT-OP-C Subjective Start: 07/09/22 07:58 Freq: Status: Active Protocol: Document 07/31/22 12:02 SP (Rec: 07/31/22 12:51 SP [id number]) OP-PT Subjective Patient Comments Patient Comments Pt reports was really sore after last tx, thinks might have been to much. PT-OP-H Neuro Start: 07/09/22 07:58 Freq: Status: Active Protocol: Document 07/09/22 08:49 LRN (Rec: 07/09/22 09:37 LRN [id number]) Sensation Evaluation Gross Sensation Gross Sensation WNL Coordination Evaluation Upper Extremity Tests Right Finger to Nose Test Normal Performance Left Finger to Nose Test Normal Performance PT-OP-J Posture/Palpation/Skin Start: 07/09/22 07:58 Freq: Status: Active Protocol: Document 07/09/22 08:49 LRN (Rec: 07/09/22 09:37 LRN [id number]) Posture Evaluation Position Sitting Head/C-Spine Posture Neutral Position,Forward Head T-Spine Posture Increased Kyphosis L-Spine Posture Flattened Shoulder Posture (L) Rounded,(R) Rounded,(L) Forward,(R) Forward Arm Posture (L) Internally Rotated,(R) Internally Rotated PT-OP-K Range of Motion Start: 07/09/22 07:58 Freq: Status: Active Protocol: Document 07/09/22 08:49 LRN (Rec: 07/09/22 09:37 LRN [id number]) Cervical Spine Range of Motion Cervical Spine Active Comments WFL. Pt does active cervical rotations for exercise daily. Shoulder Goniometric Range of Motion Shoulder Right Passive Testing Position Sitting Flexion 45 Right Active Shoulder ROM WFL No Testing Position Sitting Flexion 0 Abduction 22 External Rotation at 0 degrees Abduction 35 Internal Rotation Behind Back (text) Lateral Buttock Comments Painfree AROM is indicated above. Max AROM with pain (deg's): Flex: 75, AB: 22, ER: 35 Left Active Shoulder ROM WFL No Testing Position Sitting Flexion 40 Abduction 50 External Rotation at 0 degrees Abduction 12 Internal Rotation Behind Back (text) Lateral Buttock Comments Painfree AROM is indicated above. Max AROM with pain (deg's): Flex: 80, AB: 60, ER: 12 Elbow/Forearm Range of Motion Elbow/Forearm Right Active Elbow/Forearm ROM WFL Yes ROM Testing Position Sitting Left Active Elbow/Forearm ROM WFL Yes ROM Testing Position Sitting PT-OP-M Strength Start: 07/09/22 07:58 Freq: Status: Active Protocol: Document 07/31/22 12:02 SP (Rec: 07/31/22 12:55 SP [id number]) Hand Driver Utility Worker/Pinch Strength Hand Strength Left Comments 27kg/60 lbs, 29/64, 33/69 () Right Comments 22kg/55lbs, 24/52, 25/54 (07/31) PT-OP-Q Treatments Start: 07/09/22 07:58 Freq: Status: Active Protocol: Document 07/31/22 12:02 SP (Rec: 07/31/22 12:51 SP [id number]) Therapeutic Exercises Supine Exercises PROM Supine Exercise Name FF, ABD, ER Side bilateral Resistance PROM post manual Reps/Minutes x5 reps each Comments occasional ossilations with cues for decr guarding, allow therapist support ABCs Supine Exercise Name FF 90 deg Side bilateral Reps/Minutes a-z Comments reports little discomfort but not bad, good muscle working FF wand Resistance AROM Equipment Used wand Reps/Minutes 2x5 Comments cued painfree range Sitting Exercises Shldr IR strengthening Sitting Exercise Name IR strengthening Side bilateral Equipment Used Lev 1 TB (peach) (therapist anchor) Reps/Minutes 15x 2 with rest between sets Comments Cuing for range without increasing pain post exercise. Shldr ER strengthening Sitting Exercise Name Brenda strengthening Side bilateral Equipment Used Lev 1 TB (peach) Reps/Minutes 10x Comments cued elbows at side, press into resistance without increasing pain post ex Scap retract/depression Sitting Exercise Name Scap retract/depression. Side bilateral Reps/Minutes 5 SH x10 Comments cued let arms rest inlap, just scap mobility pendulum Sitting Exercise Name reviewed HEP Side bilateral Resistance AAROM/ AROM Equipment Used therapist support PROM/hard to do self but able off side active at side Reps/Minutes 8 reps Comments cued for passive movement table slides Sitting Exercise Name Reviewed physician HEP: Flexion and ER/IR Side bilateral Resistance AROM (L more limited than R) Reps/Minutes 10 x 2 each Comments cued for slower speed, painfree range Manual Therapy Treatment Soft Tissue Mobilization B shld Body Location distal pec, suprspinatus, deltoid, bicep, infraspinatus Mobilization Type Rolling Intensity/Depth Moderate Body Position Hooklying Comments good feedback decreased guarding to allow PROM. Joint Mobilizations R GH Jt Direction inferior, posterior glide Grade II Body Position Hooklying Comments gentle glides, occasional ossilations w/ cues for relax arm and allow therapist support, pt tends to actively assist. L GH Jt Direction inferior, posterior glide Grade II Body Position Hooklying Comments gentle glides, occasional ossilations w/ cues for relax arm and allow therapist support, pt tends to actively assist. PT-OP-R Modalities Start: 07/09/22 07:58 Freq: Status: Active Protocol: Document 07/31/22 12:02 SP (Rec: 07/31/22 12:51 SP [id number]) Hot Pack/Cold Pack Treatment CP Location R Patient Position Sitting Treatment Duration (minutes) 10 Patient Tolerance Good Comments CP to R shld to support recovery with activity given as same time cryotherapy to L shoulder. MHP Location L Patient Position Sitting Treatment Duration (minutes) 10 Patient Tolerance Good Comments MHP on L to support arthritis given same time as R shoulder CP. PT-OP-T Assessment and Plan Start: 07/09/22 07:58 Freq: Status: Active Protocol: Document 07/31/22 12:02 SP (Rec: 07/31/22 12:51 SP [id number]) Physical Therapy Assessment Goals Three Impairment Decreased shoulder mobility bilaterally Short Term Goal (STG) Start AROM R shoulder when pt is 4-6 weeks s/p R acromion process fracture. STG Duration 08/03/22 Radiology Practitioner Assistant Goal (LTG) Pt will improve bilateral shoulder mobility with pt able to return to baseline of ability for dressing ( independent with occasional assist). LTG Duration 10/07/22 Two Impairment Decreased logan shoulder strength Impairment Pain due to decreased bilateral shoulder strength. UE Quickdash initial score 65 (60-79% impaired, score 60-79) . Short Term Goal (STG) Pt will be able to use cane on L side for gait safely due to R acromion process fracture. STG Duration 08/17/22 Radiology Practitioner Assistant Goal (LTG) Pt will improve bilateral shoulder strength to decrease onset of constant pain (R shoulder) and decrease intermittent pain intensity (L shoulder). LTG Duration 10/07/22 One Impairment Lacks appropriate self care HEP Short Term Goal (STG) Pt will be educated in self care pain management techniques for pain and inflammation for R shoulder injury and L shoulder arthritis. STG Duration 07/20/22 Radiology Practitioner Assistant Goal (LTG) Pt will be educated in self care HEP of AROM ex's and strengthening ex's as appropriate. LTG Duration 10/07/22 Assessment Summary Assessment Pt required cues for scap/ elbow positioning with isometric against TB, improved no UT or scapular protraction compensations. Pt reported lower pain with corrections noted 6/10 R and 4/10 L. Physical Therapy Plan Frequency and Duration Frequency of Treatment 2x/Week Plan of Care Start Date 07/09/22 Plan of Care End Date 10/07/22 Therapeutic Interventions Therapeutic Interventions Home Exercise Program,Joint Mobilizations,Neuromuscular Re -education,Patient/Caregiver Education,Self-Care/Home Management,Soft Tissue Mobilization,Taping, Therapeutic Activities, Therapeutic Exercises Modalities Cold Pack/Ice Massage,Hot Packs Other Therapeutic Interventions Electrical Stim and JMT to L shoulder only. Next Visit Focus/Plan Next Note Type Treatment Note Next Visit Plan Find out when pt sees MD next. Completed Driver Utility Worker strength (3 trials in kgs 07/31). Modalities of cryotherapy and MHP to shoulders during warm up ex. R shoulder: PROM/AAROM & Codman's and L shoulder, Upper back: strengthening as much as tolerated, R shoulder PROM/AAROM to start . STM to neck/upper shoulders, Modality only if needed: EStim only to L shoulder (due to R TSA & fx acromion process). PN prior to pt return to [place] in August.
--- NOTE | 2022-08-02 11:33 | PT.OTN ---
Current Diagnoses Primary osteoarthritis, left shoulder (08/02/22) Postural kyphosis, thoracic region (08/02/22) Muscle weakness (generalized) (08/02/22) Displaced fracture of acromial process, right shoulder, subsequent encounter for fracture with routine healing (08/02/22) Presence of right artificial shoulder joint (08/02/22) Physical Therapy Treatment Note PT-OP-A Visit Information Start: 07/09/22 07:58 Freq: Status: Active Protocol: Document 08/02/22 10:55 SP (Rec: 08/02/22 11:39 SP [id number]) Out-Patient Physical Therapy Visit Information Visit Information Visit Type Treatment Note Visit Note TIRE REGROOVING MACHINE OPERATOR 10 min late for appt Visit Start Time 10:55 Visit Stop Time 11:33 Total Visit Minutes 38 Visit Number 5 Number of TIRE REGROOVING MACHINE OPERATOR Visits 2 Evaluation Information Evaluation Date 07/09/22 Precautions Precautions COPD, Arthritis, Diabetes type 1 controlled by medication ( Metformin), R TSA. Taking blood thinners for HBP. PT-OP-B Current Condition Start: 07/09/22 07:58 Freq: Status: Active Protocol: Document 07/09/22 08:49 LRN (Rec: 07/09/22 09:37 LRN [id number]) Current Condition History of Current Condition Onset Date 3 weeks ago. Current Complaints General pain in both shoulders . R shoulder hurts all the time. History of Current Condition Fell to the side onto concrete and lost consciousness. States he was checked for blood clots and head CT done. He suffered a fx of R ACJ and wore a sling for 2 weeks. Arthritis has started, and now the L shoulder is hurting. has to help him put his top on. Pt is using the cane on the R side, and when going shopping because he is R handed. Uses a walker at home . Future Testing and Treatments Planned Next Dr cagle is 07/27/22 in [facility]. Developmental History Developmental History Has had R shoulder replaced 15 yrs ago. Treatment Goals Patient/Caregiver Goals Pt goal is to: decrease logan shoulder pain, improving strength and mobility and HEP. Personal Factors Other Personal Factors That May Effect COPD, Arthritis, R TSA. Therapy/Recovery PT-OP-C Subjective Start: 07/09/22 07:58 Freq: Status: Active Protocol: Document 08/02/22 10:55 SP (Rec: 08/02/22 11:39 SP [id number]) OP-PT Subjective Patient Comments Patient Comments Pt reports B shld pain 4/10 at rest then worse if move it. Has been putting héctor on for assist pains control ([place]) . PT-OP-H Neuro Start: 07/09/22 07:58 Freq: Status: Active Protocol: Document 07/09/22 08:49 LRN (Rec: 07/09/22 09:37 LRN [id number]) Sensation Evaluation Gross Sensation Gross Sensation WNL Coordination Evaluation Upper Extremity Tests Right Finger to Nose Test Normal Performance Left Finger to Nose Test Normal Performance PT-OP-J Posture/Palpation/Skin Start: 07/09/22 07:58 Freq: Status: Active Protocol: Document 07/09/22 08:49 LRN (Rec: 07/09/22 09:37 LRN [id number]) Posture Evaluation Position Sitting Head/C-Spine Posture Neutral Position,Forward Head T-Spine Posture Increased Kyphosis L-Spine Posture Flattened Shoulder Posture (L) Rounded,(R) Rounded,(L) Forward,(R) Forward Arm Posture (L) Internally Rotated,(R) Internally Rotated PT-OP-K Range of Motion Start: 07/09/22 07:58 Freq: Status: Active Protocol: Document 07/09/22 08:49 LRN (Rec: 07/09/22 09:37 LRN [id number]) Cervical Spine Range of Motion Cervical Spine Active Comments WFL. Pt does active cervical rotations for exercise daily. Shoulder Goniometric Range of Motion Shoulder Right Passive Testing Position Sitting Flexion 45 Right Active Shoulder ROM WFL No Testing Position Sitting Flexion 0 Abduction 22 External Rotation at 0 degrees Abduction 35 Internal Rotation Behind Back (text) Lateral Buttock Comments Painfree AROM is indicated above. Max AROM with pain (deg's): Flex: 75, AB: 22, ER: 35 Left Active Shoulder ROM WFL No Testing Position Sitting Flexion 40 Abduction 50 External Rotation at 0 degrees Abduction 12 Internal Rotation Behind Back (text) Lateral Buttock Comments Painfree AROM is indicated above. Max AROM with pain (deg's): Flex: 80, AB: 60, ER: 12 Elbow/Forearm Range of Motion Elbow/Forearm Right Active Elbow/Forearm ROM WFL Yes ROM Testing Position Sitting Left Active Elbow/Forearm ROM WFL Yes ROM Testing Position Sitting PT-OP-M Strength Start: 07/09/22 07:58 Freq: Status: Active Protocol: Document 07/31/22 12:02 SP (Rec: 07/31/22 12:55 SP [id number]) Hand Communications Billing Analyst/Pinch Strength Hand Strength Left Comments 27kg/60 lbs, 29/64, 33/69 () Right Comments 22kg/55lbs, 24/52, 25/54 (07/31) PT-OP-Q Treatments Start: 07/09/22 07:58 Freq: Status: Active Protocol: Document 08/02/22 10:55 SP (Rec: 08/02/22 11:39 SP [id number]) Therapeutic Exercises Supine Exercises PROM Supine Exercise Name FF, ABD, ER Side bilateral Resistance PROM post manual Reps/Minutes x5 reps each Comments occasional ossilations with cues for decr guarding, allow therapist support ABCs Supine Exercise Name FF 90 deg (provide HO next tx) Side bilateral Reps/Minutes a-z Comments reports tiring but good muscle working FF wand Side right Resistance 2# DB RUE, AROM LUE Reps/Minutes 2x5 Comments cued painfree range Sitting Exercises pendulum Sitting Exercise Name reviewed HEP Side bilateral Resistance AAROM/ AROM Equipment Used therapist support PROM/hard to do self but able off side active at side Reps/Minutes 8 reps Comments cued for passive movement table slides Sitting Exercise Name Flexion Side bilateral Resistance AAROM use 4WW Reps/Minutes 10 x 2 each Comments cued for slower speed, painfree range Manual Therapy Treatment Soft Tissue Mobilization B shld Body Location distal pec, suprspinatus, deltoid, bicep, infraspinatus Mobilization Type Rolling Intensity/Depth Moderate Body Position Hooklying Comments good feedback decreased guarding to allow PROM. Joint Mobilizations R GH Jt Direction inferior, posterior glide Grade II Body Position Hooklying Comments gentle glides, occasional ossilations w/ cues for relax arm and allow therapist support, pt tends to actively assist. L GH Jt Direction inferior, posterior glide Grade II Body Position Hooklying Comments gentle glides, occasional ossilations w/ cues for relax arm and allow therapist support, pt tends to actively assist. Manual Techniques PROM L shld Body Location L shld PROM Body Position Hooklying Comments manual fluid gldes within passive allowed movement and feedback requested for painfree, noted stopped at felt tension. PT-OP-R Modalities Start: 07/09/22 07:58 Freq: Status: Active Protocol: Document 07/31/22 12:02 SP (Rec: 07/31/22 12:51 SP [id number]) Hot Pack/Cold Pack Treatment CP Location R Patient Position Sitting Treatment Duration (minutes) 10 Patient Tolerance Good Comments CP to R shld to support recovery with activity given as same time cryotherapy to L shoulder. MHP Location L Patient Position Sitting Treatment Duration (minutes) 10 Patient Tolerance Good Comments MHP on L to support arthritis given same time as R shoulder CP. PT-OP-T Assessment and Plan Start: 07/09/22 07:58 Freq: Status: Active Protocol: Document 08/02/22 10:55 SP (Rec: 08/02/22 11:39 SP [id number]) Physical Therapy Assessment Goals Three Impairment Decreased shoulder mobility bilaterally Short Term Goal (STG) Start AROM R shoulder when pt is 4-6 weeks s/p R acromion process fracture. 08/02/22: performing supine AROM at home/reviewed today FF, HABD painfree range (not measured). STG Duration 08/03/22 progressing 08/02/22 Quill Reamer Goal (LTG) Pt will improve bilateral shoulder mobility with pt able to return to baseline of ability for dressing ( independent with occasional assist). LTG Duration 10/07/22 Two Impairment Decreased logan shoulder strength Impairment Pain due to decreased bilateral shoulder strength. UE Quickdash initial score 65 (60-79% impaired, score 60-79) . Short Term Goal (STG) Pt will be able to use cane on L side for gait safely due to R acromion process fracture. STG Duration 08/17/22 Quill Reamer Goal (LTG) Pt will improve bilateral shoulder strength to decrease onset of constant pain (R shoulder) and decrease intermittent pain intensity (L shoulder). LTG Duration 10/07/22 One Impairment Lacks appropriate self care HEP Short Term Goal (STG) Pt will be educated in self care pain management techniques for pain and inflammation for R shoulder injury and L shoulder arthritis. 08/02/22: GOAL MET: pt self use CP RUE, MHP LUE and use ointment and pendulums for reduction pain mgt. STG Duration 07/20/22 GOAL MET 08/02/22 Assisted Goal (LTG) Pt will be educated in self care HEP of AROM ex's and strengthening ex's as appropriate. LTG Duration 10/07/22 Assessment Summary Assessment Pt good feedback response to manual and review HEP. Trialed use #2 DB states going to use at home RUE with good feedback painfree range. LUE only able tolerate AROM limited range. He is going to schedule an appt with new orthopedic seeing Dr Jarquin pt to assess how L>R GH jt looking. Physical Therapy Plan Frequency and Duration Frequency of Treatment 2x/Week Plan of Care Start Date 07/09/22 Plan of Care End Date 10/07/22 Therapeutic Interventions Therapeutic Interventions Home Exercise Program,Joint Mobilizations,Neuromuscular Re -education,Patient/Caregiver Education,Self-Care/Home Management,Soft Tissue Mobilization,Taping, Therapeutic Activities, Therapeutic Exercises Modalities Cold Pack/Ice Massage,Hot Packs Other Therapeutic Interventions Electrical Stim and JMT to L shoulder only. Next Visit Focus/Plan Next Note Type Treatment Note Next Visit Plan Find out when pt sees ortho MD next. Update goal progression , HEP performing, add aBC HO. POC: Completed Communications Billing Analyst strength (3 trials in kgs 30). Modalities of cryotherapy and MHP to shoulders during warm up ex. R shoulder: PROM/AAROM & Codman's and L shoulder, Upper back: strengthening as much as tolerated, R shoulder PROM/AAROM to start . STM to neck/upper shoulders, Modality only if needed: EStim only to L shoulder (due to R TSA & fx acromion process). PN prior to pt return to [place] in August.
--- NOTE | 2022-08-06 12:55 | PT-OP ANOTE ---
Pt check in at 1248, GLASS FURNACE OPERATOR noted check in/attended, went up to get pt at 1250 when noted computer check in. Pt was not found, bias cutter stated pt left stating he arrived earlier than appt time and GLASS FURNACE OPERATOR had not gotten him, but unfortunately didn't check in due to schedulers busy with pt/calls, Department Helper stated when noticed he was sitting in another waiting room attended him. Pt came up to front at 1249 and stated GLASS FURNACE OPERATOR provider late to get him 2nd time late so requested to cancel today and all remaining appts. GLASS FURNACE OPERATOR called pt and discussed cancelled today/remaining appts. Pt stated unhappy with late GLASS FURNACE OPERATOR provider upon getting him for scheuled appt. GLASS FURNACE OPERATOR discussed previous appt was late due to finishing up with pt needed safety and did appologize on that date and today he wasn't checked in late in computer and when arrives pt needs to be sure bias cutter available to complete so know therapist will be notified of arrival/check in. Pt stated understands but is not willing to continue PT with [facility] and requests PT to discharge him, will give feedback to his experience.
--- NOTE | 2022-10-09 15:01 | PT.OPDS ---
Current Diagnoses Primary osteoarthritis, left shoulder (08/02/22) Postural kyphosis, thoracic region (08/02/22) Muscle weakness (generalized) (08/02/22) Displaced fracture of acromial process, right shoulder, subsequent encounter for fracture with routine healing (08/02/22) Presence of right artificial shoulder joint (08/02/22) Visit Care Team Role Provider Type Douglas Turner MD Family Provider Physician Primary Care Provider Specialty: Family Practice Address: [address] [place] [address], [address] Email: [email or web address] Filiberto Marie PA-C Attending Provider Advanced Outbound Sales Professional Referring Provider Specialty: Orthopedics Orthopedic Surgery Address: [address] [place] [address], [id number] Email: [email or web address] Visit Number Visit Number 5 Discharge Summary PT-OP-B Current Condition Start: 07/09/22 07:58 Freq: Status: Active Protocol: Document 07/09/22 08:49 LRN (Rec: 07/09/22 09:37 LRN [id number]) Current Condition History of Current Condition Onset Date 3 weeks ago. Current Complaints General pain in both shoulders . R shoulder hurts all the time. History of Current Condition Fell to the side onto concrete and lost consciousness. States he was checked for blood clots and head CT done. He suffered a fx of R ACJ and wore a sling for 2 weeks. Arthritis has started, and now the L shoulder is hurting. has to help him put his top on. Pt is using the cane on the R side, and when going shopping because he is R handed. Uses a walker at home . Future Testing and Treatments Planned Next Dr cagle is 07/27/22 in [facility]. Developmental History Developmental History Has had R shoulder replaced 15 yrs ago. Treatment Goals Patient/Caregiver Goals Pt goal is to: decrease logan shoulder pain, improving strength and mobility and HEP. Personal Factors Other Personal Factors That May Effect COPD, Arthritis, R TSA. Therapy/Recovery PT-OP-C Subjective Start: 07/09/22 07:58 Freq: Status: Active Protocol: Document 08/02/22 10:55 SP (Rec: 08/02/22 11:39 SP [id number]) OP-PT Subjective Patient Comments Patient Comments Pt reports B shld pain 4/10 at rest then worse if move it. Has been putting héctor on for assist pains control ([place]) . PT-OP-H Neuro Start: 07/09/22 07:58 Freq: Status: Active Protocol: Document 07/09/22 08:49 LRN (Rec: 07/09/22 09:37 LRN [id number]) Sensation Evaluation Gross Sensation Gross Sensation WNL Coordination Evaluation Upper Extremity Tests Right Finger to Nose Test Normal Performance Left Finger to Nose Test Normal Performance PT-OP-J Posture/Palpation/Skin Start: 07/09/22 07:58 Freq: Status: Active Protocol: Document 07/09/22 08:49 LRN (Rec: 07/09/22 09:37 LRN [id number]) Posture Evaluation Position Sitting Head/C-Spine Posture Neutral Position,Forward Head T-Spine Posture Increased Kyphosis L-Spine Posture Flattened Shoulder Posture (L) Rounded,(R) Rounded,(L) Forward,(R) Forward Arm Posture (L) Internally Rotated,(R) Internally Rotated PT-OP-K Range of Motion Start: 07/09/22 07:58 Freq: Status: Active Protocol: Document 07/09/22 08:49 LRN (Rec: 07/09/22 09:37 LRN [id number]) Cervical Spine Range of Motion Cervical Spine Active Comments WFL. Pt does active cervical rotations for exercise daily. Shoulder Goniometric Range of Motion Shoulder Right Passive Testing Position Sitting Flexion 45 Right Active Shoulder ROM WFL No Testing Position Sitting Flexion 0 Abduction 22 External Rotation at 0 degrees Abduction 35 Internal Rotation Behind Back (text) Lateral Buttock Comments Painfree AROM is indicated above. Max AROM with pain (deg's): Flex: 75, AB: 22, ER: 35 Left Active Shoulder ROM WFL No Testing Position Sitting Flexion 40 Abduction 50 External Rotation at 0 degrees Abduction 12 Internal Rotation Behind Back (text) Lateral Buttock Comments Painfree AROM is indicated above. Max AROM with pain (deg's): Flex: 80, AB: 60, ER: 12 Elbow/Forearm Range of Motion Elbow/Forearm Right Active Elbow/Forearm ROM WFL Yes ROM Testing Position Sitting Left Active Elbow/Forearm ROM WFL Yes ROM Testing Position Sitting PT-OP-M Strength Start: 07/09/22 07:58 Freq: Status: Active Protocol: Document 07/31/22 12:02 SP (Rec: 07/31/22 12:55 SP [id number]) Hand Regional Hr Manager/Pinch Strength Hand Strength Left Comments 27kg/60 lbs, 29/64, 33/69 () Right Comments 22kg/55lbs, 24/52, 25/54 (07/31) PT-OP-T Assessment and Plan Start: 07/09/22 07:58 Freq: Status: Active Protocol: Document 10/09/22 14:57 LRN (Rec: 10/09/22 15:01 LRN [id number]) Physical Therapy Assessment Goals Three Impairment Decreased shoulder mobility bilaterally Short Term Goal (STG) Start AROM R shoulder when pt is 4-6 weeks s/p R acromion process fracture. 08/02/22: performing supine AROM at home/reviewed today FF, HABD painfree range (not measured). STG Duration 08/03/22 progressing 08/02/22 Longterm Goal (LTG) Pt will improve bilateral shoulder mobility with pt able to return to baseline of ability for dressing ( independent with occasional assist). LTG Duration 10/07/22 Two Impairment Decreased logan shoulder strength Impairment Pain due to decreased bilateral shoulder strength. UE Quickdash initial score 65 (60-79% impaired, score 60-79) . Short Term Goal (STG) Pt will be able to use cane on L side for gait safely due to R acromion process fracture. STG Duration 08/17/22 Performance Engineer Goal (LTG) Pt will improve bilateral shoulder strength to decrease onset of constant pain (R shoulder) and decrease intermittent pain intensity (L shoulder). LTG Duration 10/07/22 One Impairment Lacks appropriate self care HEP Short Term Goal (STG) Pt will be educated in self care pain management techniques for pain and inflammation for R shoulder injury and L shoulder arthritis. 08/02/22: GOAL MET: pt self use CP RUE, MHP LUE and use ointment and pendulums for reduction pain mgt. STG Duration 07/20/22 GOAL MET 08/02/22 Performance Engineer Goal (LTG) Pt will be educated in self care HEP of AROM ex's and strengthening ex's as appropriate. LTG Duration 10/07/22 Assessment Summary Assessment Pt was last seen 08/02/22 and cancelled his remaining appts. Email received 08/14/22 that pt cancelled appts due to MD orders. Most goals were not met and pt unavailable for final assessment. Pt is being discharged from PT. Physical Therapy Plan Discharge Physical Therapy Discharge Reasons Patient Request Discharge Comments Pt seen for eval and 4 treatment visits. Thank you for your referral.
== END 2022-10-11 11:07 | disposition home or self-care (01) ==
LOC: PHYS 10:45
PROVIDERS: Family Provider Family Medicine; PCP Family Medicine; Referring Provider Physician Assistant Medical; Visit Provider Physician Assistant Medical
DX: S42.121D Displaced fracture of acromial process, right shoulder, subsequent encounter for fracture with routine healing (principal); Z96.611 Presence of right artificial shoulder joint; M19.012 Primary osteoarthritis, left shoulder; M62.81 Muscle weakness (generalized); M40.04 Postural kyphosis, thoracic region
CPT/HCPCS: 97110; 97140; 97162; 97535

== ENCOUNTER → 2022-08-07 08:28 | Outpatient (CLI) | payer MEDICARE, OTHER, SELFPAY ==
[2022-08-07 10:00] LABS: Add Manual Diff / Slide Review NO; Basophils Absolute Auto 100 /uL (0-100); Basophils Percent Auto 1.2 % (0-2); Eosinophils Absolute Auto 300 /uL (0-450); Eosinophils Percent Auto 4.8 % (2-4); Hematocrit 36.7 % (41-53); Hemoglobin 12.1 g/dL (13.5-17.5); Lymphocytes Absolute Auto 1900 /uL (1100-4500); Mean Corpuscular Hemoglobin 33.8 PG (26-34); Mean Corpuscular Volume 102.5 fL (80-100); Monocytes Absolute Auto 600 /uL (0-900); Neutrophils Absolute Auto 3300 /uL (1500-7000); Platelet Count 229 X10^3/uL (150-400); Red Blood Cell Count 3.58 X10^6/uL (4.5-5.9); Red Cell Distribution Width 14.4 % (11.6-14.8); White Blood Cell Count 6.2 X10^3/uL (4.5-11.0)
[2022-08-07 10:19] LABS: Alanine Aminotransferase 30 IU/L (<50); Albumin 3.5 g/dL (3.5-5.0); Albumin Globulin Ratio 1.1 (1.0-2.8); Alkaline Phosphatase 59 U/L (38-126); Aspartate Aminotransferase 30 IU/L (17-59); BUN Creatinine Ratio 24.2 (6-22); Bilirubin Total 0.5 mg/dL (0.2-1.3); Blood Urea Nitrogen 23 mg/dL (9-20); Calcium 9.2 mg/dL (8.4-10.2); Carbon Dioxide 28 mmol/L (22-32); Chloride 101 mmol/L (98-107); Cholesterol 132 mg/dL (140-199); Estimated Glomerular Filt Rate > 60 mL/min (>60); Globulin 3.2 g/dL (1.7-4.1); Glucose 111 mg/dL (80-110); HDL Cholesterol 48 mg/dL (40-60); HEMOLYSIS < 15 (0-50); LDL Cholesterol Calculated 73 mg/dL (<100); Potassium 4.6 mmol/L (3.4-5.1); Sodium 135 mmol/L (137-145); Total Protein 6.7 g/dL (6.3-8.2); Triglycerides 53 mg/dL (35-150)
[2022-08-07 10:48] LABS: Thyroid Stimulating Hormone 0.183 uIU/mL (0.47-4.68)
[2022-08-08 05:44] LABS: x Labcorp Estim. Avg Glu (eAG) 128 mg/dL (.); x Labcorp Hemoglobin A1c 6.1 % (4.8-5.6)
== END ==
PROVIDERS: Family Provider Family Medicine; PCP Family Medicine; Referring Provider Family Medicine; Visit Provider Family Medicine
DX: J44.9 Chronic obstructive pulmonary disease, unspecified (principal); I48.20 Chronic atrial fibrillation, unspecified; E78.9 Disorder of lipoprotein metabolism, unspecified; E11.69 Type 2 diabetes mellitus with other specified complication; E11.9 Type 2 diabetes mellitus without complications
CPT/HCPCS: 36415; 80053; 80061; 83036; 84443; 85025

== ENCOUNTER → 2022-08-21 12:52 | Outpatient (CLI) | payer MEDICARE, OTHER, SELFPAY ==
--- NOTE | 2022-08-21 13:20 | DI.CT.S_ITS ---
PROCEDURE: CT UE RT WO CON INDICATIONS: Displaced fracture of acromial ,right shoulder TECHNIQUE: Noncontrast 1-1.5 mm thick sections acquired from the acromioclavicular joint to the inferior scapula, with coronal and sagittal reformatting. COMPARISON: [facility], CT, CT UE RT WO CON, 05/29/2022, 13:54. FINDINGS: Image quality: Streak artifact related to the shoulder arthroplasty mildly obscures structures at the same level. Diagnostic information is obtained. Bones: Postsurgical changes are seen from a conventional right shoulder arthroplasty. No signs of loosening of the humeral component. Radiolucent glenoid component is seen in expected position. There is mild lucency within the central glenoid adjacent to the glenoid component and lucency is seen between the posterior aspect of the glenoid component and the posterior osseous glenoid. Previously seen fracture of the anterior acromion demonstrates mild anterolateral displacement with gap along the fracture line measuring approximately 6 mm. The humeral head is high riding and abuts the undersurface of the acromion. There is also narrowing of the coracohumeral distance. Stable lucency at the superior glenoid, and chronic nondisplaced fracture is not excluded. No new osseous abnormality. Degenerative changes are seen at the acromioclavicular joint. Included right-sided ribs are intact. Degenerative changes are seen in the included spine. Soft tissues: No significant joint effusion is seen. There is diffuse grade 3 fatty infiltration of the rotator cuff musculature. The rotator cuff tendons and glenohumeral ligaments are not well evaluated with standard CT. Included portions of the right lung demonstrate mild emphysematous changes but no acute abnormality. Moderate to severe aortic atherosclerotic calcifications. IMPRESSION: 1. Previously seen fracture at the anterior acromion demonstrates increased anterolateral displacement, now with approximately 6 mm gap along the fracture line. 2. Possible age-indeterminate superior glenoid fracture appears unchanged. 3. Postsurgical changes again seen from right shoulder arthroplasty. Lucency is seen in the central glenoid without subluxation of the glenoid component, and loosening is not excluded. 4. Superior and anterior subluxation of the proximal humerus with full-thickness narrowing of the acromiohumeral interval and narrowing of the coracohumeral interval, which is suspicious for underlying full-thickness rotator cuff tendon tears. There is diffuse rotator cuff muscle atrophy. Approved by: Mario Bales M.D. on 08/21/2022 at 16:16
== END ==
PROVIDERS: Family Provider Family Medicine; PCP Family Medicine; Referring Provider Orthopaedic Surgery; Visit Provider Orthopaedic Surgery
DX: S42.121 Displaced fracture of acromial process, right shoulder (principal); X58.XXXD Exposure to other specified factors, subsequent encounter
CPT/HCPCS: 73200

== ENCOUNTER → 2022-09-23 10:07 | Outpatient (CLI) | payer MEDICARE, OTHER, SELFPAY ==
[2022-09-23 10:53] LABS: Influenza A - CEPHEID Flu A NEGATIVE (NEGATIVE); Influenza B - CEPHEID Flu B NEGATIVE (NEGATIVE); Respiratory Syncytial Virus Negative (Negative)
[2022-09-23 11:00] LABS: COVID-19 CEPHEID 4-PLEX PCR POSITIVE (Negative)
== END ==
PROVIDERS: Family Provider Family Medicine; PCP Family Medicine; Visit Provider Nurse Practitioner Family
DX: R05.1 Acute cough (principal)
CPT/HCPCS: 0241U

== ENCOUNTER → 2022-10-22 08:32 | Outpatient (CLI) | payer MEDICARE, OTHER, SELFPAY | PROVIDERS: Family Provider Family Medicine; PCP Family Medicine; Visit Provider Registered Nurse | DX: J02.9 Acute pharyngitis, unspecified (principal) | CPT/HCPCS: 87070 ==

== ENCOUNTER → 2023-02-06 07:36 | Outpatient (CLI) | payer MEDICARE, OTHER, SELFPAY ==
[2023-02-06 08:40] LABS: Add Manual Diff / Slide Review NO; Basophils Absolute Auto 100 /uL (0-100); Basophils Percent Auto 1.1 % (0-2); Eosinophils Absolute Auto 300 /uL (0-450); Eosinophils Percent Auto 5.4 % (2-4); Hematocrit 37.5 % (41-53); Hemoglobin 12.5 g/dL (13.5-17.5); Lymphocytes Absolute Auto 2000 /uL (1100-4500); Lymphocytes Percent Auto 30.6 % (25-40); Mean Corpuscular HGB Conc 33.3 % (30-36); Mean Corpuscular Hemoglobin 34.5 PG (26-34); Mean Corpuscular Volume 103.6 fL (80-100); Monocytes Absolute Auto 700 /uL (0-900); Monocytes Percent Auto 10.7 % (3-14); Neutrophils Absolute Auto 3400 /uL (1500-7000); Neutrophils Percent Auto 52.2 % (50-75); Platelet Count 214 X10^3/uL (150-400); Red Blood Cell Count 3.62 X10^6/uL (4.5-5.9); Red Cell Distribution Width 14.8 % (11.6-14.8); White Blood Cell Count 6.4 X10^3/uL (4.5-11.0)
[2023-02-06 08:46] LABS: Hemoglobin A1C% w Est Avg Glu 6.2 % (4.0-6.0)
[2023-02-06 09:06] LABS: Blood Urea Nitrogen 22 mg/dL (9-20); Calcium 9.8 mg/dL (8.4-10.2); Carbon Dioxide 26 mmol/L (22-32); Chloride 101 mmol/L (98-107); Estimated Glomerular Filt Rate > 60 mL/min (>60); Glucose 103 mg/dL (80-110); HEMOLYSIS < 15 (0-50); Potassium 4.3 mmol/L (3.4-5.1); Sodium 134 mmol/L (137-145)
[2023-02-06 09:39] LABS: TSH w/ Reflex to FT4 4.45 uIU/mL (0.47-4.68)
[2023-02-06 10:29] LABS: Creatinine Urine Random 82.9 mg/dL
[2023-02-06 10:33] LABS: Microalbumi Creatinin Ratio Ur 20.5 ug/mg CR (<30); Microalbumin Urine Random 1.7 mg/dL (0-1.6)
== END ==
PROVIDERS: Family Provider Family Medicine; PCP Family Medicine; Referring Provider Family Medicine; Visit Provider Family Medicine
DX: E11.9 Type 2 diabetes mellitus without complications (principal); E66.01 Morbid (severe) obesity due to excess calories; I10 Essential (primary) hypertension; E03.9 Hypothyroidism, unspecified
CPT/HCPCS: 36415; 80048; 82043; 82570; 83036; 84443; 85025

== ENCOUNTER → 2023-05-13 11:44 | Outpatient (CLI) | payer MEDICARE, OTHER, SELFPAY | PROVIDERS: Family Provider Family Medicine; PCP Family Medicine; Visit Provider Registered Nurse | DX: J02.9 Acute pharyngitis, unspecified (principal) | CPT/HCPCS: 87070 ==

== ENCOUNTER → 2023-08-23 07:25 | Outpatient (CLI) | payer MEDICARE, OTHER, SELFPAY ==
[2023-08-23 09:32] LABS: Alanine Aminotransferase 25 IU/L (<50); Albumin 3.6 g/dL (3.5-5.0); Albumin Globulin Ratio 1.2 (1.0-2.8); Alkaline Phosphatase 59 U/L (38-126); Aspartate Aminotransferase 28 IU/L (17-59); Bilirubin Total 0.6 mg/dL (0.2-1.3); Blood Urea Nitrogen 22 mg/dL (9-20); Calcium 9.7 mg/dL (8.4-10.2); Carbon Dioxide 30 mmol/L (22-32); Chloride 103 mmol/L (98-107); Cholesterol 160 mg/dL (140-199); Estimated Glomerular Filt Rate > 60 mL/min (>60); Glucose 108 mg/dL (80-110); HDL Cholesterol 54 mg/dL (40-60); HEMOLYSIS < 15 (0-50); LDL Cholesterol Calculated 92 mg/dL (<100); Potassium 4.6 mmol/L (3.4-5.1); Sodium 134 mmol/L (137-145); Total Protein 6.6 g/dL (6.3-8.2); Triglycerides 70 mg/dL (35-150)
[2023-08-23 14:49] LABS: Hemoglobin A1C% w Est Avg Glu 5.7 % (4.0-6.0)
== END ==
PROVIDERS: Family Provider Family Medicine; PCP Family Medicine; Referring Provider Internal Medicine Cardiovascular Disease; Visit Provider Internal Medicine Cardiovascular Disease
DX: I10 Essential (primary) hypertension (principal); E11.9 Type 2 diabetes mellitus without complications
CPT/HCPCS: 36415; 80053; 80061; 83036

== ENCOUNTER → 2023-08-26 10:28 | Outpatient (CLI) | payer MEDICARE, OTHER, SELFPAY ==
--- NOTE | 2023-08-26 10:31 | DI.RAD.S_ITS ---
PROCEDURE: FL BARIUM SWALLOW W SPEECH INDICATIONS: Dysphagia COMPARISON: None. TECHNIQUE: Examination was conducted in conjunction with speech pathology per standard protocol. In the lateral projection, filming was performed of the patient swallowing. AP projection filming may also be performed with patient swallowing. COMPARISON: FINDINGS: Function: The oral preparatory phase appears normal, with proper containment. The subsequent oral propulsive phase, pharyngeal phase, and esophageal phase of swallowing also appear normal with all proffered substances. Moderate laryngotracheal penetration without aspiration. No pathologic vallecular pooling. Morphology: No cricopharyngeal bar is identified. No cervical esophageal webs. No Zenker's diverticulum. No strictures. IMPRESSION: Moderate penetration without aspiration. Dictated by: Krysten Block M.D. on 08/26/2023 at 15:58 Approved by: Krysten Block M.D. on 08/26/2023 at 15:58
--- NOTE | 2023-08-26 12:41 | ST.SWALLOW ---
Visit Care Team Role Provider Type Douglas Turner MD Family Provider Physician Primary Care Provider Specialty: Family Practice Address: [address] [place] [address], [address], [address] Email: 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 According to the pt he has difficulty with swallowing solids such as steak, meats, breads, etc., over the past 3- 4 months, sometimes with pain. He reported that he needs to force the swallow move his head forward. He denies difficulty with liquids or pills. Pt reported a PMH of GERD, COPD among other diagnoses. He stated that he is currently taking Omneprozol for GERD. Subjective Observations Pt was seated in the fluoroscopy chair with directions and procedures described for him. He indicated he understood and agreed to proceed. Patient Positioning Position View Lateral Imaging Lateral View Textures Administered Trials Presented Thin Liquid via Spoon (IDDSI 0 ),Thin Liquid via Cup (IDDSI 0 ),Extremely Thick Liquid via Spoon (IDDSI 4),Regular (IDDSI 7) Barium Tablet Yes The IDDSI Framework Protocol: IDDSI.1 Oral Impairment Source: The Modified Barium Swallow Impairment Profile (MBSImP??) Lip Closure No labial escape Tongue Control During Bolus Hold Cohesive bolus between tongue to palatal seal Bolus Preparation/Mastication Slow prolonged chewing/mashing with complete re-collection Bolus Transport/Lingual Motion Brisk tongue motion Oral Residue Residue collection on oral structures Location Tongue Initiation of Pharyngeal Swallow Bolus head at pyriforms Additional Oral Impairment Observations -OME and DKS were observed to be WNL. -Mastication observed with rotary chew pattern. -Adequate bolus formation, control and AP transition. Pt has no dentition in upper arch. He does not use his denture when eating. Lower arch with teeth intact except anterior incisors. Pt indicated he has no difficulty chewing. Pharyngeal Impairment Source: The Modified Barium Swallow Impairment Profile (MBSImP??) Soft Palate Elevation Trace column of contrast between soft palate & pharyngeal wall Laryngeal Elevation Part.sup.move.thyroid cart/ part.approx.arytenoids to epiglot.petiole Anterior Hyoid Excursion No anterior movement Epiglottic Movement Complete inversion Laryngeal Vestibular Closure Incomplete; narrow column air/ contrast in laryngeal vestibule Pharyngeal Stripping Wave Present - diminished Pharyngoesophageal Segment Opening Complete distention & complete duration; no obstruction of flow Tongue Base Retraction Wide column of contrast/air betwn tongue base & post. pharyngeal wall Pharyngeal Residue Collection of residue within/ on pharyngeal structures Location Diffuse (>3 areas) Additional Pharyngeal Impairment -Weak tongue base retraction Observations and hyolaryngeal elevation and movement. -Epiglotic inversion for small bolus amount inconsistent; full epiglottic inversion with large bolus amounts -Laryngeal penetration of thin liquid x1 without laryngeal residue (WNL for pt's age) -No tracheal aspiration observed -Pharyngeal residue observed post swallow A/P View Textures Administered Trials Presented Thin Liquid via Cup (IDDSI 0) The IDDSI Framework Protocol: IDDSI.1 A/P View Observations Pharyngeal Contraction Complete Esophageal Clearance Upright Position Complete clearance; esophageal coating Vocal Fold Function Good Esophageal Function WFL Additional A-P Observations Esophageal phase of swallow appeared to be WFL Clinical Impressions Dysphagia Type WNL Findings -Overall, and relative to pt's age, his swallow appears to be WFL. -Initially, pt c/o difficulty and/or pain with swallowing, needing to force the swallow. This was not observed during MBSS nor reported by the patient. -After MBSS completion, the pt did swallow saliva with a forward head movement appearing to indicate difficulty. This behavior may be due to possible reduction in saliva production or this may be a habitual behavior. Pt was encouraged to add sauces and/or gravies to foods he finds difficult to swallow (i.e., breads, meats). Rehabilitation Potential Good Patient Appropriate for Therapy Yes Recommendations Diet Liquids Order Thin (IDDSI 0) Diet Order Easy to Chew (IDDSI 7) Medication Recommendation As Tolerated Additional Dietary Needs Chopped Food Aspiration Precautions Recommended Precautions Upright at 90 Degrees, Alternate Liquids/Solids,Small Bites/Sips Treatment Plan Therapy Recommendations Outpatient Speech Therapy,Base of Tongue Exercises Therapy Strategy Recommendations Sitting Upright (90 deg),Small Bites and Sips,Alternate Liquids/Solids
== END ==
PROVIDERS: Family Provider Family Medicine; PCP Family Medicine; Referring Provider Otolaryngology; Visit Provider Otolaryngology
DX: R13.10 Dysphagia, unspecified (principal); R07.0 Pain in throat; K11.7 Disturbances of salivary secretion
CPT/HCPCS: 74230; 92611

== ENCOUNTER → 2024-05-14 13:38 | Outpatient (CLI) | payer MEDICARE, OTHER, SELFPAY ==
[2024-05-14 15:14] LABS: BUN Creatinine Ratio 27.7 (6-22); Blood Urea Nitrogen 43 mg/dL (9-20); Carbon Dioxide 23 mmol/L (22-32); Chloride 98 mmol/L (98-107); Estimated Glomerular Filt Rate 43 mL/min (>60); Glucose 126 mg/dL (80-110); HEMOLYSIS < 15 (0-50); Potassium 4.4 mmol/L (3.4-5.1); Sodium 134 mmol/L (137-145)
== END ==
LOC: LAB 13:41
PROVIDERS: Family Provider Family Medicine; PCP Family Medicine; Referring Provider Internal Medicine Cardiovascular Disease; Visit Provider Internal Medicine Cardiovascular Disease
DX: I48.20 Chronic atrial fibrillation, unspecified (principal)
CPT/HCPCS: 36415; 80048

== ENCOUNTER → 2024-07-13 14:34 | Outpatient (CLI) | payer MEDICARE, OTHER, SELFPAY ==
[2024-07-13 15:38] LABS: Hemoglobin A1C% w Est Avg Glu 5.4 % (4.0-6.0)
[2024-07-13 15:50] LABS: BUN Creatinine Ratio 22.8 (6-22); Blood Urea Nitrogen 28 mg/dL (9-20); Calcium 9.5 mg/dL (8.4-10.2); Carbon Dioxide 27 mmol/L (22-32); Chloride 102 mmol/L (98-107); Estimated Glomerular Filt Rate 57 mL/min (>60); Glucose 117 mg/dL (70-99); HEMOLYSIS < 15 (0-50); Potassium 4.3 mmol/L (3.4-5.1); Sodium 135 mmol/L (137-145)
== END ==
PROVIDERS: Family Provider Family Medicine; PCP Family Medicine; Referring Provider Family Medicine; Visit Provider Family Medicine
DX: E11.9 Type 2 diabetes mellitus without complications (principal); I48.20 Chronic atrial fibrillation, unspecified
CPT/HCPCS: 36415; 80048; 83036